=== PATIENT | male | born 1975 | race Caucasian/White ===

== ENCOUNTER 2019-01-09 08:53 | Outpatient (CLI) | payer MEDICARE, MEDICAID, SELFPAY ==
[2019-01-09 09:43] LABS: Abs Immature Grans 0.01 k/cumm (0.0-0.09); Absolute Basophil Count 0.04 k/cumm (0.0-0.2); Absolute Eosinophil Count 0.27 k/cumm (0.0-0.7); Absolute Lymphocyte Count 2.87 k/cumm (1.2-3.4); Absolute Monocyte Count 0.42 k/cumm (0.11-0.7); Absolute Neutrophil Count 4.17 k/cumm (1.2-6.7); Basophils % 0.5; Eosinophils % 3.5; HCT 40.4 % (40.0-50.0); HGB 14.1 g/dL (13.5-17.5); Immature Grans % 0.1; Lymphocytes % 36.9; Mean Corp. HGB Concentration 34.9 g/dL (32.0-36.0); Mean Corpuscular Hemoglobin 31.6 pg (27.0-33.0); Mean Corpuscular Volume 90.6 fL (80-95); Mean Platelet Volume 10.2 fL (8.0-11.0); Monocytes % 5.4; Neutrophils % 53.6; Platelet Count 229 x1000/uL (130-400); RBC 4.46 m/cumm (4.50-6.00); RBC Distribution Width 12.3 % (11.8-14.1); White Blood Cell Count 7.78 k/cumm (4.4-10.8)
[2019-01-09 10:08] LABS: COMMENT (LAB VIEW ONLY) 243.53 mg/dL; Microalb ug/mg Crea 23.9 ug/mg Cr
[2019-01-09 10:14] LABS: ALT 62 U/L (16-63); AST 29 U/L (15-37); Alkaline Phosphatase 74 U/L (46-116); BUN 7 mg/dL (7-18); Bilirubin, Total 1.1 mg/dL (0.2-1.0); CREATININE 1.01 mg/dL (0.70-1.30); Calcium 8.7 mg/dL (8.5-10.1); Calculated LDL 98 mg/dL; Chloride 103 mmol/L (98-107); Cholesterol 146 mg/dL (50-200); Glucose 216 mg/dL (70-100); HDL Cholesterol 26 mg/dL (40-60); Potassium 4.5 mmol/L (3.5-5.1); Sodium 142 mmol/L (136-145); Total Protein 6.7 g/dL (6.4-8.2); Triglyceride 112 mg/dL (30-150)
== END 2019-01-09 09:13 ==
PROVIDERS: PCP Nurse Practitioner Family; Visit Provider Nurse Practitioner Family
DX: E11.9 Type 2 diabetes mellitus without complications; E78.5 Hyperlipidemia, unspecified; Z79.899 Other long term (current) drug therapy
CPT/HCPCS: 36415; 80053; 80061; 82043; 82570; 83036; 85025

== ENCOUNTER 2019-05-22 20:31 | Outpatient (REF) | payer MEDICARE, MEDICAID, SELFPAY ==
[2019-05-22 20:08] LABS: Anion Gap 8.5 mmol/L (3-11); BUN 10 mg/dL (7-18); CO2 28.5 mmol/L (21.0-32.0); Calcium 8.7 mg/dL (8.5-10.1); Chloride 103 mmol/L (98-107); Glucose 184 mg/dL (74-106); Potassium 3.7 mmol/L (3.5-5.1); Sodium 140 mmol/L (136-145)
== END 2019-05-22 20:51 ==
LOC: LBN 20:31
PROVIDERS: PCP Nurse Practitioner Family; Visit Provider Nurse Practitioner Adult Health
DX: E11.65 Type 2 diabetes mellitus with hyperglycemia (principal); Z51.81 Encounter for therapeutic drug level monitoring
CPT/HCPCS: 80048

== ENCOUNTER 2019-08-24 12:51 | Emergency (ER) | payer MEDICARE, MEDICAID, SELFPAY ==
[2019-08-24 12:55] VITALS: BP 147/102; PULSE 81; RESP 18; TEMP 37.2; O2SAT 94
--- NOTE | 2019-08-24 13:04 | W.ED.GENAD ---
Discharge Plan Disposition Patient Disposition: HOME Condition: Stable Discharge Details Chief Complaint: Laceration Clinical Impression: Laceration of left thumb, Glued skin wound Primary Care Provider: Linda Hallman ED Provider: Josette Vasquez Home Meds and New Rx's Prescriptions: Continued chlorhexidine gluconate [Antiseptic Skin Clnsr(chlorhe)] 4 % liquid 1 applic TP DAILY Qty: 960 RF: 0 acetylcysteine [NAC] 600 mg capsule 600 mg PO BID RF: 0 atorvastatin [Lipitor] 40 mg tablet 40 mg PO DAILY Qty: 90 RF: 3 clopidogrel [Plavix] 75 mg tablet 75 mg PO DAILY Qty: 90 RF: 3 tadalafil 5 mg tablet 5 mg PO DAILY MDD 5 mg PRN (Reason: sexual activity) Qty: 30 RF: 0 Janumet XR 50-1,000 mg tablet, ER multiphase 24 hr 1 tab PO BID RF: 0 glipizide 10 mg tablet extended release 24hr 10 mg PO .daily in AM RF: 0 Tresiba FlexTouch U-100 100 unit/mL (3 mL) insulin pen 21 unit SC DAILY Qty: 15 RF: 2 (DME) lancets Misc See Dose Instructions .ROUTE .MEDSUPPLY Qty: 200 RF: 3 (DME) Blood Glucose Test Strip See Rx Instructions .ROUTE .MEDSUPPLY Qty: 200 RF: 3 naproxen 500 mg tablet 500 mg PO BID Qty: 14 RF: 0 Jardiance 10 mg tablet 10 mg PO QAM Qty: 90 RF: 3 cholecalciferol (vitamin D3) [Vitamin D3] 2,000 UNIT tablet 3,000 unit PO DAILY Qty: 90 RF: 3 multivitamin 1 EACH tablet 1 ea PO DAILY RF: 0 aspirin 325 MG tablet 325 mg PO DAILY RF: 0 hydroxyzine HCl 25 MG tablet 25 - 50 mg PO QID PRNQty: 90 RF: 0 hydrochlorothiazide 12.5 mg tablet 12.5 mg PO DAILY Qty: 90 RF: 3 lisinopril 40 mg tablet 40 mg PO DAILY Qty: 90 RF: 3 metoprolol tartrate 50 mg tablet 50 mg PO BID Qty: 180 RF: 3 (DME) pen needle, diabetic [BD Ultra-Fine Marivel Pen Needle] 32 gauge x 5/32 needle See Rx Instructions .ROUTE .MEDSUPPLY Qty: 100 RF: 3 (DME) blood-glucose meter [facility] [place] See Dose Instructions .ROUTE .MEDSUPPLY Qty: 1 RF: 0 escitalopram oxalate 20 mg tablet 20 mg PO DAILY Qty: 90 RF: 0 acetaminophen [Tylenol Extra Strength] 500 MG tablet 500 mg PO PRN PRNRF: 0 Discharge Instructions Instructions: Laceration (ED), Skin Adhesive Care (ED) Additional Instructions: Glue will fall off in 4 to 6 days. Do not scrub. May gently wash under running water after 24 hours. Return for any signs of infection including red streaks, swelling, increased pain or fever. Keep clean and dry. Follow up with primary care provider in 3-5 days. Return to ED sooner if any worsening or concerns. Increase oral fluids. Please take Tylenol or Ibuprofen with food every 4-6 hours as needed for pain and swelling. Referrals: Linda Hallman NP [Primary Care Provider] - Medical Decision Making 44-year-old male presents with left lateral thumb laceration which occurred proximately 30 minutes prior to arrival with a box tender. She has a mild laceration. Approximately 2-1/2 cm in length linear bleeding is controlled very superficial. At this time it does not require sutures. Last tetanus shot was 8 years ago. He has full range of motion to his thumb and sensation intact. Patient has a very superficial linear laceration to the lateral side of his left thumb. Bleeding is controlled. Wound was cleaned with 1% chlorhexidine scrub brush. Tissue adhesive applied wound well approximated home care given patient verbalized understanding. Patient discharged with strict return instructions. Verbalized understanding. HPI General Mode of arrival: ambulatory. Date/Time Provider Initiated Documentation: 08/24/19 12:54. Limitations to Documentation: no limitations. Information obtained by: patient. HPI Narrative: 44-year-old male presents with left lateral thumb laceration which occurred proximately 30 minutes prior to arrival with a box tender. She has a mild laceration. Approximately 2-1/2 cm in length linear bleeding is controlled very superficial. At this time it does not require sutures. Last tetanus shot was 8 years ago. He has full range of motion to his thumb and sensation intact. Related Data Home Medications Medication Instructions Recorded Confirmed cholecalciferol (vitamin D3) 3,000 unit PO DAILY #90 tab-cap 11/27/15 08/24/19 [Vitamin D3] aspirin 325 mg PO DAILY tab-cap 07/24/16 08/24/19 multivitamin 1 ea PO DAILY 07/24/16 08/24/19 acetaminophen [Tylenol Extra 500 mg PO PRN PRN 01/25/17 08/24/19 Strength] hydroxyzine HCl 25 - 50 mg PO QID PRN #90 tab-cap 11/26/17 08/24/19 chlorhexidine gluconate 4 % 1 applic TP DAILY #960 ml 03/14/18 08/24/19 topical liquid acetylcysteine 600 mg capsule 600 mg PO BID 06/30/18 08/24/19 hydrochlorothiazide 12.5 mg tablet 12.5 mg PO DAILY #90 tab-cap 09/30/18 08/24/19 lisinopril 40 mg tablet 40 mg PO DAILY #90 tab-cap 09/30/18 08/24/19 metoprolol tartrate 50 mg tablet 50 mg PO BID #180 tab-cap 09/30/18 08/24/19 atorvastatin 40 mg tablet 40 mg PO DAILY #90 tab-cap 01/09/19 08/24/19 clopidogrel 75 mg tablet 75 mg PO DAILY #90 tab-cap 01/09/19 08/24/19 tadalafil 5 mg tablet 5 mg PO DAILY PRN #30 tab-cap MDD 01/09/19 08/24/19 5 mg pen needle, diabetic 32 gauge x #100 each 04/17/19 06/05/19 blood-glucose meter #1 each 04/24/19 06/05/19 blood sugar diagnostic #200 each 05/22/19 06/05/19 glipizide 10 mg tablet, extended 10 mg PO .daily in AM tab-cap 05/22/19 08/24/19 release 24 hr insulin degludec 100 unit/mL (3 21 unit SC DAILY #15 ml 05/22/19 08/24/19 mL) subcutaneous pen lancets #200 each 05/22/19 06/05/19 sitagliptin 50 mg-metformin ER 1 tab PO BID tab-cap 05/22/19 08/24/19 1,000 mg tablet,extended release 24h mp escitalopram oxalate 20 mg tablet 20 mg PO DAILY #90 tab 05/24/19 08/24/19 empagliflozin 10 mg tablet 10 mg PO QAM #90 tab-cap 08/07/19 08/24/19 naproxen 500 mg tablet 500 mg PO BID #14 tab 08/07/19 08/24/19 Previous Rx's Medication Instructions Recorded chlorhexidine gluconate 4 % 1 applic TP DAILY #960 ml 03/14/18 topical liquid hydrochlorothiazide 12.5 mg tablet 12.5 mg PO DAILY #90 tab-cap 09/30/18 lisinopril 40 mg tablet 40 mg PO DAILY #90 tab-cap 09/30/18 metoprolol tartrate 50 mg tablet 50 mg PO BID #180 tab-cap 09/30/18 atorvastatin 40 mg tablet 40 mg PO DAILY #90 tab-cap 01/09/19 clopidogrel 75 mg tablet 75 mg PO DAILY #90 tab-cap 01/09/19 tadalafil 5 mg tablet 5 mg PO DAILY PRN #30 tab-cap MDD 01/09/19 5 mg pen needle, diabetic 32 gauge x #100 each 04/17/19 blood-glucose meter #1 each 04/24/19 blood sugar diagnostic #200 each 05/22/19 insulin degludec 100 unit/mL (3 21 unit SC DAILY #15 ml 05/22/19 mL) subcutaneous pen lancets #200 each 05/22/19 escitalopram oxalate 20 mg tablet 20 mg PO DAILY #90 tab 05/24/19 empagliflozin 10 mg tablet 10 mg PO QAM #90 tab-cap 08/07/19 naproxen 500 mg tablet 500 mg PO BID #14 tab 08/07/19 Allergies Allergy/AdvReac Type Severity Reaction Status Date / Time hydromorphone [From Dilaudid] AdvReac Intermediate Psychosis Verified 08/24/19 12:59 codeine [Codeine] AdvReac Unknown PSYCHOSIS Verified 08/24/19 12:59 General Stated Complaint: Laceration DIANNE: 4 Review of Systems Narrative: Constitutional: Negative for weight loss, alert and oriented, well groomed, normal body habitus, appears comfortable. GI: Denies abdominal pain, nausea, vomiting, diarrhea, constipation. : Denies dysuria, hematuria, flank pain, rectal bleeding. Neuro: Denies dizziness, blurry vision, weakness, syncope, headache or facial numbness. Hematologic: Denies easy bruising, intolerance to heat or cold, hair loss. [facility] Medical History Advance directive in chart (Chronic 09/02/16) Alcohol use disorder (Chronic 04/29/11) BINGE Anxiety (Chronic 04/29/11) ASCVD (arteriosclerotic cardiovascular disease) (Chronic) Anterior [place] 12/2013 --> MAGDALENA in [place] EF 40% post-[place] 09/2014 echo EF improved to almost normal at 54% Followed by reinforced steel placing supervisor Dr. Galaviz at [facility] Benign prostatic hyperplasia with lower urinary tract symptoms (Chronic 01/28/17) Bipolar disorder (Chronic) Dx psychiatry [facility] Cardiomyopathy (Chronic) Followed by reinforced steel placing supervisor Dr. Galaviz at [facility] Cerebrovascular accident (CVA) (Inactive 08/03/16) [facility] [place]07/20[place]2016 R valdez radiata, basal ganglia, subinsular region and temporal lob infarcts s/p tPA and thrombectomy (07/11/16) with recanalization De Quervain's tenosynovitis, right (Acute) Depression (Chronic 04/29/11) Erectile dysfunction (Chronic 11/29/15) Essential hypertension (Chronic 11/25/12) Hyperlipidemia, unspecified (Chronic 04/29/11) Intolerant to atorvastatin; able to tolerate once vit D deficiency addressed Kidney stone (Resolved 04/26/15) 100% calcium oxalate monohydrate Obesity (BMI 30-39.9) (Chronic 08/28/14) Obstructive sleep apnea syndrome, mild (Chronic 11/03/16) Shanika Jimenez NP CPAP Panic disorder without agoraphobia (Chronic 04/29/11) Patellar fracture (Resolved 01/26/17) (L) S/p surgical repair Tobacco use disorder (Chronic) Type 2 diabetes mellitus, without long-term current use of insulin (Acute) Vitamin D deficiency (Chronic 05/23/15) Surgical History Heart Surgery (Resolved) stent placement Open Reduction and Internal Fixation of Patellar Fracture (Resolved 01/26/17) (L) Dr. eLmus Vasectomy (Resolved 01/19/06) Family History Other CAD (coronary artery disease) Social History Smoking/Tobacco Use Status: Current every day Tobacco Type: e-cigarettes Alcohol Intake: current Alcohol Intake frequency: holidays/special occasions only Drug use: Never Substance use type: does not use Adopted: No Caregiver/Support person: No Foster care: No Household members: children and other Details: 2 - lives with son Housing: apartment Number of Children: 2 Communication Needs: None current occupation: works for a [employer] Pets and animals: No Current gender identity: male What type of physical activity do you participate in: none Seatbelt use: always Helmet use: No 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 Water heater temp set <120 deg: Yes Working smoke detector in home: Yes Fire extinguisher in home: Yes Carbon monox detector in home: Yes Do you feel safe at home: Yes Do you feel safe in your relationship?: Yes Exam Const General: cooperative, healthy appearing and comfortable Nutritional Appearance: obese Orientation: alert, awake and oriented x3 Resp Effort & Inspection: normal respiratory effort Skin Trauma: laceration left lateral thumb linear, superficial, motor nerve function intact and sensation intact; does not involve subcutaneous tissue and does not involve muscle tissue Course Vital Signs Vital signs: Vital Signs Temperature 37.2 C 08/24/19 12:55 Pulse 81 08/24/19 12:55 Respiratory Rate 18 08/24/19 12:55 Blood Pressure 147/102 H 08/24/19 12:55 Pulse Oximetry 94 L 08/24/19 12:55 Temperature 37.2 C 08/24/19 12:55 Temperature Source Temporal Artery Scan 08/24/19 12:55 Pulse 81 08/24/19 12:55 Respiratory Rate 18 08/24/19 12:55 Blood Pressure 147/102 H 08/24/19 12:55 Blood Pressure Position Sitting 08/24/19 12:55 Pulse Oximetry 94 L 08/24/19 12:55 Oxygen Delivery Method Room Air 08/24/19 12:55 Oxygen Flow Rate 0 08/24/19 12:55 Pain Level 1 08/24/19 12:55 Procedures Laceration Laceration 1: Site: hand (Left thumb) Side (If applicable): left Size (cm): 2 Description: linear Depth: simple, single layer Local Anesthetic: other anesthetic (None) Pre-repair: irrigated extensively Skin layer closed with: other (Tissue adhesive)
== END 2019-08-24 13:30 | disposition home or self-care (01) ==
PROVIDERS: Emergency Provider Registered Nurse Emergency; PCP Nurse Practitioner Family
DX: S61.012A Laceration without foreign body of left thumb without damage to nail, initial encounter (principal); W26.0XXA Contact with knife, initial encounter; I10 Essential (primary) hypertension; E11.9 Type 2 diabetes mellitus without complications; Z79.84 Long term (current) use of oral hypoglycemic drugs
CPT/HCPCS: 12001

== ENCOUNTER → 2019-08-30 10:36 | Outpatient (BNVA) | payer MEDICARE, MEDICAID, SELFPAY | PROVIDERS: PCP Nurse Practitioner Family; Referring Provider Nurse Practitioner Family; Visit Provider Orthopaedic Surgery | DX: M65.4 Radial styloid tenosynovitis [de Quervain] (principal) | CPT/HCPCS: 99201; 99213 ==

== ENCOUNTER 2019-09-22 08:29 | Outpatient (CLI) | payer MEDICARE, MEDICAID, SELFPAY ==
[2019-09-23 00:49] LABS: COVID-19 RT-PCR UVMMC Result Negative (Negative)
== END 2019-09-22 08:49 ==
PROVIDERS: PCP Nurse Practitioner Family; Visit Provider Orthopaedic Surgery
DX: Z11.59 Encounter for screening for other viral diseases (principal); Z01.818 Encounter for other preprocedural examination
CPT/HCPCS: U0003

== ENCOUNTER 2019-09-25 08:17 | Day surgery (SDC) | payer MEDICARE, MEDICAID, SELFPAY ==
[2019-09-25 08:20] VITALS: BP 128/92; PULSE 85; RESP 16; TEMP 36.2; O2SAT 100
--- NOTE | 2019-09-25 08:23 | HPE_ITS ---
Date of service: 09/25/19 Assessment and Plan Assessment and plan (1) De Quervain's tenosynovitis, right: Status: Acute Assessment and plan: 1st dorsal compartment release right wrist. Details of surgery were discussed with patient as well as risks and pertinent anatomy. All questions were answered. History of Present Illness History of Present Illness Chief Complaint: Right thumb and wrist pain Narrative: Shukri is a 44 year old male who comes in today for a De Quervain's release of the right thumb. He has been dealing with wrist and thumb pain for about six months now. He thinks he agrivated this pain with an injury back in April. He has pain whenever he tries to use his right hand especially with a lot of gripping activities. He has tried conservative treatment including NSAID's and bracing which have not significantly helped. At this point Dr. Marvin offers a release of the 1st dorsal compartment of the right wrist and the patient is anxious to proceed. Pertinent Surgical Information Shukri does have a history of a CVA documented in his chart in 2016 as well as an ID in 2013. He also has a history of diabetes, last A1C was improved to 7.0 on 09/11/2019 from 11.2 on 04/17/2019. Patient denies history of ID, angina, asthma, COPD, renal or liver disorders, hepatitis, bleeding disorders, immune or thyroid disorders. No complications from anesthesia. Review of Systems Constitutional Constitutional: Denies fever(s) ENT Ears, Nose, Mouth, and Throat: Denies dizziness and Denies sore throat Cardiovascular Cardiovascular: Denies chest pain, Denies palpitations and Denies dyspnea Respiratory Respiratory: Denies cough and Denies dyspnea Gastrointestinal Gastrointestinal: Denies abdominal pain, Denies melena, Denies hematochezia, Denies diarrhea, Denies nausea and Denies vomiting Genitourinary Genitourinary: Denies hematuria and Denies dysuria Neurologic Neurologic: Denies dizziness Endocrine Endocrine: Denies palpitations [facility] Medical History (Updated 09/24/19 @ 00:01 by REBECCA BRODERICK) Advance directive in chart (Chronic 09/02/16) Alcohol use disorder (Chronic 04/29/11) BINGE pER PT. STATES HE DOESN'T DRINK ANYMORE, HASN'T IN YEARS 09/21/19 Anxiety (Chronic 04/29/11) ASCVD (arteriosclerotic cardiovascular disease) (Chronic) Anterior [place] 12/2013 --> MAGDALENA in [place] EF 40% post-[place] 09/2014 echo EF improved to almost normal at 54% Followed by biology department chair Dr. Galaviz at [facility] Benign prostatic hyperplasia with lower urinary tract symptoms (Chronic 01/28/17) Bipolar disorder (Chronic) Dx psychiatry [facility] PT. DENIES THIS DX Cardiomyopathy (Chronic) Followed by biology department chair Dr. Galaviz at [facility] Cerebrovascular accident (CVA) (Inactive 08/03/16) [facility] [place] admission 07/11-07/20/2016 R valdez radiata, basal ganglia, subinsular region and temporal lob infarcts s/p tPA and thrombectomy (07/11/16) with recanalization De Quervain's tenosynovitis, right (Acute) Depression (Chronic 04/29/11) Erectile dysfunction (Chronic 11/29/15) Essential hypertension (Chronic 11/25/12) Hyperlipidemia, unspecified (Chronic 04/29/11) Intolerant to atorvastatin; able to tolerate once vit D deficiency addressed Kidney stone (Resolved 04/26/15) 100% calcium oxalate monohydrate Obesity (BMI 30-39.9) (Chronic 08/28/14) Obstructive sleep apnea syndrome, mild (Chronic 11/03/16) Shanika Jimenez NP DOES NOT USE CPAP Panic disorder without agoraphobia (Chronic 04/29/11) Patellar fracture (Resolved 01/26/17) (L) S/p surgical repair Tobacco use disorder (Chronic) Type 2 diabetes mellitus, without long-term current use of insulin (Acute) Vitamin D deficiency (Chronic 05/23/15) Surgical History (Updated 09/21/19 @ 13:55 by Hong Serna) Heart Surgery (Resolved) stent placement X1 Open Reduction and Internal Fixation of Patellar Fracture (Resolved 01/26/17) (L) Dr. 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 Water heater temp set <120 deg: Yes Working smoke detector in home: Yes Fire extinguisher in home: Yes Carbon monox detector in home: Yes Do you feel safe at home: Yes Do you feel safe in your relationship?: Yes Meds Home Medications and Allergies Home Medications Medication Instructions Recorded Confirmed Type cholecalciferol (vitamin D3) 3,000 unit PO DAILY #90 tab-cap 11/27/15 09/21/19 History [Vitamin D3] aspirin 325 mg PO DAILY tab-cap 07/24/16 09/21/19 History multivitamin 1 ea PO DAILY 07/24/16 09/21/19 History acetaminophen [Tylenol Extra 500 mg PO PRN PRN 01/25/17 09/21/19 History Strength] hydroxyzine HCl 25 - 50 mg PO QID PRN #90 tab-cap 11/26/17 09/21/19 History chlorhexidine gluconate 4 % 1 applic TP DAILY #960 ml 03/14/18 09/21/19 Rx topical liquid acetylcysteine 600 mg capsule 600 mg PO BID 06/30/18 09/21/19 History hydrochlorothiazide 12.5 mg tablet 12.5 mg PO DAILY #90 tab-cap 09/30/18 09/21/19 Rx lisinopril 40 mg tablet 40 mg PO DAILY #90 tab-cap 09/30/18 09/21/19 Rx metoprolol tartrate 50 mg tablet 50 mg PO BID #180 tab-cap 09/30/18 09/21/19 Rx atorvastatin 40 mg tablet 40 mg PO DAILY #90 tab-cap 01/09/19 09/21/19 Rx clopidogrel 75 mg tablet 75 mg PO DAILY #90 tab-cap 01/09/19 09/21/19 Rx tadalafil 5 mg tablet 5 mg PO DAILY PRN #30 tab-cap MDD 01/09/19 09/21/19 Rx 5 mg pen needle, diabetic 32 gauge x #100 each 04/17/19 09/11/19 Rx 5/32 blood-glucose meter #1 each 04/24/19 09/11/19 Rx blood sugar diagnostic #200 each 05/22/19 09/11/19 Rx glipizide 10 mg tablet, extended 10 mg PO .daily in AM tab-cap 05/22/19 09/21/19 History release 24 hr lancets #200 each 05/22/19 09/11/19 Rx sitagliptin 50 mg-metformin ER 1 tab PO BID tab-cap 05/22/19 09/21/19 History 1,000 mg tablet,extended release 24h mp empagliflozin 10 mg tablet 10 mg PO QAM #90 tab-cap 08/07/19 09/21/19 Rx naproxen 500 mg tablet 500 mg PO BID #14 tab 08/07/19 09/21/19 Rx pantoprazole 20 mg tablet,delayed 20 mg PO DAILY #90 tab-cap 09/11/19 09/21/19 Rx release escitalopram oxalate 20 mg tablet 20 mg PO DAILY #90 tab-cap 09/15/19 09/21/19 Rx Tresiba FlexTouch U-100 21 unit SC QAM 09/21/19 09/21/19 History Allergies Allergy/AdvReac Type Severity Reaction Status Date / Time hydromorphone [From Dilaudid] AdvReac Intermediate Psychosis Verified 09/25/19 08:24 codeine [Codeine] AdvReac Unknown PSYCHOSIS Verified 09/25/19 08:24 Exam Const General: cooperative and no acute distress Orientation: alert and awake [facility] Head: normocephalic and atraumatic General nose exam: no nasal discharge Eyes Conjunctivae: conjunctivae normal Sclera: sclerae normal Resp Effort & Inspection: normal respiratory effort Auscultation: clear to auscultation bilaterally and no wheezes Cardio Rate: regular rate Rhythm: regular rhythm Heart Sounds: S1 normal, S2 normal and no murmurs GI Palpation: soft, no hepatosplenomegaly and nontender Auscultation: normal bowel sounds
[2019-09-25] MEDS: Lactated Ringers 1,000 ML 80 ML IV (08:59)
[2019-09-25] MEDS: ceFAZolin 2 GM/50 ML BAG IVPB (09:53)
--- NOTE | 2019-09-25 10:33 | PDOC.DSDIS_ITS ---
Discharge Plan Disposition Patient Disposition: HOME Condition: Good Discharge Details Reason For Visit: DEQUERVAIN'S RELEASE R WRIST Attending Provider: Donald Marvin Primary Care Provider: Linda Hallman Home Meds and New Rx's Prescriptions: New ibuprofen 800 mg tablet 800 mg PO TID Qty: 30 RF: 0 tramadol 100 mg tablet 100 mg PO BID PRN (Reason: pain) Qty: 7 RF: 0 No Action chlorhexidine gluconate [Antiseptic Skin Clnsr(chlorhe)] 4 % liquid 1 applic TP DAILY Qty: 960 RF: 0 acetylcysteine [NAC] 600 mg capsule 600 mg PO BID RF: 0 atorvastatin [Lipitor] 40 mg tablet 40 mg PO DAILY Qty: 90 RF: 3 clopidogrel [Plavix] 75 mg tablet 75 mg PO DAILY Qty: 90 RF: 3 tadalafil 5 mg tablet 5 mg PO DAILY MDD 5 mg PRN (Reason: sexual activity) Qty: 30 RF: 0 Janumet XR 50-1,000 mg tablet, ER multiphase 24 hr 1 tab PO BID RF: 0 glipizide 10 mg tablet extended release 24hr 10 mg PO .daily in AM RF: 0 (DME) lancets Misc See Dose Instructions .ROUTE .MEDSUPPLY Qty: 200 RF: 3 (DME) blood sugar diagnostic [Blood Glucose Test] Strip See Rx Instructions .ROUTE .MEDSUPPLY Qty: 200 RF: 3 pantoprazole 20 mg tablet,delayed release (DR/EC) 20 mg PO DAILY Qty: 90 RF: 3 naproxen 500 mg tablet 500 mg PO BID Qty: 14 RF: 0 Jardiance 10 mg tablet 10 mg PO QAM Qty: 90 RF: 3 cholecalciferol (vitamin D3) [Vitamin D3] 2,000 UNIT tablet 3,000 unit PO DAILY Qty: 90 RF: 3 multivitamin 1 EACH tablet 1 ea PO DAILY RF: 0 aspirin 325 MG tablet 325 mg PO DAILY RF: 0 hydroxyzine HCl 25 MG tablet 25 - 50 mg PO QID PRNQty: 90 RF: 0 hydrochlorothiazide 12.5 mg tablet 12.5 mg PO DAILY Qty: 90 RF: 3 lisinopril 40 mg tablet 40 mg PO DAILY Qty: 90 RF: 3 metoprolol tartrate 50 mg tablet 50 mg PO BID Qty: 180 RF: 3 (DME) pen needle, diabetic [BD Ultra-Fine Marivel Pen Needle] 32 gauge x 5/32 needle See Rx Instructions .ROUTE .MEDSUPPLY Qty: 100 RF: 3 (DME) blood-[place] [facility] [place] Dose Instructions .ROUTE .MEDSUPPLY Qty: 1 RF: 0 escitalopram oxalate 20 mg tablet 20 mg PO DAILY Qty: 90 RF: 3 acetaminophen [Tylenol Extra Strength] 500 MG tablet 500 mg PO PRN PRNRF: 0 Tresiba FlexTouch U-100 100 unit/mL (3 mL) insulin pen 21 unit SC QAM RF: 0 Discharge Instructions Additional Instructions: Elevate R hand above heart level as much as possible for next 48 hours. Wiggle fingers R hand 10 times/hour when awake to prevent swelling. Keep splint and dressings dry and in place for 5 days. After 5 days, remove splint and dressings and begin to move R wrist and thumb. May then shower and get incision wet. Leave incision uncovered when it is dry and sealed. Use R hand as much as your discomfort allows. Follow up with in 2 weeks. Take ibuprofen for 10 days as prescribed to decrease swelling and inflammation. Take Tramadol for breakthru pain, if needed. Equipment/Supplies: Splint Activity:: Activity as Tolerated Shower/Bathe:: Cover Diet:: As Tolerated Discharge Orders Discharge Orders: Discharge Order (Routine); Ordered 09/25/19 Ordered By: Donald Marvin DS: Diagnosis Discharge Diagnosis (1) De Quervain's tenosynovitis, right: Status: Acute
[2019-09-25 11:00] VITALS: BP 104/71; PULSE 54; RESP 18; TEMP 36.2; O2SAT 98
--- NOTE | 2019-09-26 08:42 | ROE_ITS ---
Date of service: 09/25/19 Time of Service: 11:42 Operative Note Operative Note DATE OF PROCEDURE: 09/25/19 PRE-OP DIAGNOSIS: DeQuervain's tenosynovitis of the first dorsal extensor compartment right wrist. POST-OP DIAGNOSIS: same PROCEDURE: Tendon sheath incision at radial styloid for DeQuervain's tenosynovitis on the right. Application of short arm radial thumb spica splint. SURGEON: Donald Marvin ANESTHESIA: regional ESTIMATED BLOOD LOSS: 0 COMPLICATIONS: None Patient was transported to: PACU Patient's condition: stable Indications: Is a 44-year-old white male with a 5-month history of DeQuervain's denies of the right wrist. The pain is continued despite adequate trials of anti-inflammatory medications and use of a thumb spica splint. Tendon sheath incision to decompress the first dorsal extensor ramirez recommended to alleviate his symptoms permanently. The risk on case of procedure explained patient detail preop. Procedure Description: Patient in the operating room on 09/25/2019 and placed supine operative table. An IV regional anesthetic was administered to the right upper extremity. Once good anesthesia was obtained the right hand wrist and forearm were prepped and draped free in usual sterile fashion. An incision was located lysed over the first dorsal extensor compartment. Incision was approximately 3 inches in length. Incision was carried down to the skin and subcu. Superficial sensory nerves were identified and mobilized away from the first dorsal extensor compartment. The sheath of the first dorsal extensor extensor compartment was incised. The sheath was quite thickened. There was separate compartment within the first dorsal extensor compartment. The separate compartment was excised. It turned out that there were 4 separate and distinct tendon slips within the first dorsal extensor compartment. Each of these slips were thoroughly mobilized. Hypertrophic synovium was excised with a rongeur. This point the wound was irrigated with saline solution. The wound margins were infiltrated 0.5% Marcaine solution. The skin and subcu were approximated with a few horizontal mattress sutures of 4-0 nylon suture material. Wounds dressed with Xeroform gauze sterile gauze 4 x 4's and ABD pad wrapped with a Kerlix bandage. A radial thumb spica splint of fiberglass cast material was fashioned and applied a 3 inch Fermin bandage. Patient's IV regional anesthesia with wrist without complications. He was discharged to the recovery room in good condition. Patient was later discharged home from day surgery unit when fully recovered from his IV regional anesthesia. He is given instructions to elevate his right hand above heart level as much as possible overnight tonight. Encouraged to w iggle his fingers 10 times an hour to prevent swelling. He is keep the dressings and splint dry and intact for 5 days. After 5 days he is to remove the dressings and splint and begin to move his right wrist. He may then shower and get incision wet. He can keep his incision uncovered if it is dry and sealed. He may use his right wrist as much as discomfort allows. He is given prescription for inflammation of ibuprofen 800 mg p.o. 3 times daily for 10 days. He is given a prescription for breakthrough pain of hydrocodone with APAP 08/12/2024 1 tab every 6 hours as needed. He will follow-up with Dr. Marvin in 2 weeks.
== END 2019-09-25 11:15 | disposition home or self-care (01) ==
PROVIDERS: PCP Nurse Practitioner Family; Visit Provider Orthopaedic Surgery
PROC: (CPT 25000; principal; 2019-09-25 09:30)
DX: M65.4 Radial styloid tenosynovitis [de Quervain] (principal)
CPT/HCPCS: 25000; NC; J0690; J1885

== ENCOUNTER 2019-10-04 02:29 | Emergency (ER) | payer MEDICARE, MEDICAID, SELFPAY ==
[2019-10-04 02:32] VITALS: BP 139/93; PULSE 70; RESP 16; TEMP 36.3; O2SAT 99
--- NOTE | 2019-10-04 02:42 | ED.GENADUL_ITS ---
Discharge Plan Disposition Patient Disposition: HOME Condition: Good Discharge Details Chief Complaint: Recheck Clinical Impression: Postoperative hematoma Primary Care Provider: Linda Hallman ED Provider: Manan No Meds and New Rx's Prescriptions: Continued chlorhexidine gluconate [Antiseptic Skin Clnsr(chlorhe)] 4 % liquid 1 applic TP DAILY Qty: 960 RF: 0 acetylcysteine [NAC] 600 mg capsule 600 mg PO BID RF: 0 atorvastatin [Lipitor] 40 mg tablet 40 mg PO DAILY Qty: 90 RF: 3 clopidogrel [Plavix] 75 mg tablet 75 mg PO DAILY Qty: 90 RF: 3 tadalafil 5 mg tablet 5 mg PO DAILY MDD 5 mg PRN (Reason: sexual activity) Qty: 30 RF: 0 Janumet XR 50-1,000 mg tablet, ER multiphase 24 hr 1 tab PO BID RF: 0 glipizide 10 mg tablet extended release 24hr 10 mg PO .daily in AM RF: 0 (DME) lancets Misc See Dose Instructions .ROUTE .MEDSUPPLY Qty: 200 RF: 3 (DME) blood sugar diagnostic [Blood Glucose Test] Strip See Rx Instructions .ROUTE .MEDSUPPLY Qty: 200 RF: 3 pantoprazole 20 mg tablet,delayed release (DR/EC) 20 mg PO DAILY Qty: 90 RF: 3 naproxen 500 mg tablet 500 mg PO BID Qty: 14 RF: 0 Jardiance 10 mg tablet 10 mg PO QAM Qty: 90 RF: 3 cholecalciferol (vitamin D3) [Vitamin D3] 2,000 UNIT tablet 3,000 unit PO DAILY Qty: 90 RF: 3 multivitamin 1 EACH tablet 1 ea PO DAILY RF: 0 aspirin 325 MG tablet 325 mg PO DAILY RF: 0 hydroxyzine HCl 25 MG tablet 25 - 50 mg PO QID PRNQty: 90 RF: 0 hydrochlorothiazide 12.5 mg tablet 12.5 mg PO DAILY Qty: 90 RF: 3 lisinopril 40 mg tablet 40 mg PO DAILY Qty: 90 RF: 3 metoprolol tartrate 50 mg tablet 50 mg PO BID Qty: 180 RF: 3 (DME) pen needle, diabetic [BD Ultra-Fine Marivel Pen Needle] 32 gauge x 5/32 needle See Rx Instructions .ROUTE .MEDSUPPLY Qty: 100 RF: 3 (DME) blood-glucose meter Misc See Dose Instructions .ROUTE .MEDSUPPLY Qty: 1 RF: 0 escitalopram oxalate 20 mg tablet 20 mg PO DAILY Qty: 90 RF: 3 acetaminophen [Tylenol Extra Strength] 500 MG tablet 500 mg PO PRN PRNRF: 0 Tresiba FlexTouch U-100 100 unit/mL (3 mL) insulin pen 21 unit SC QAM RF: 0 ibuprofen 800 mg tablet 800 mg PO TID Qty: 30 RF: 0 tramadol 100 mg tablet 100 mg PO BID PRN (Reason: pain) Qty: 7 RF: 0 Discharge Instructions Additional Instructions: This was likely a hematoma which is now drained. There is no evidence of infection or dehiscence of the wound. Continue previous medical management. Touch base with Dr. Marvin in the morning. Keep your regularly scheduled follow-up appointment. Return to ED if problems. Referrals: Donald Marvin MD [ [facility] STAFF PHYSICIAN] - Medical Decision Making Suspect patient had a postoperative hematoma which is now drained. Sutures remain intact. There is no evidence of infection. There is no active bleeding. Discussed with patient. Dressing applied. He will touch base with Dr. Marvin in the morning. Return to ED if problems. HPI General Mode of arrival: ambulatory . Date/Time Provider Initiated Documentation: 10/04/19 02:35 . Limitations to Documentation: no limitations . Information obtained by: patient, RN notes reviewed and old records reviewed . HPI Narrative: Patient presents to ED with bleeding from previous operative site. Patient had surgery for de Quervain's tendinitis on the . Tonight he woke with bleeding. He had trouble getting the bleeding to stop. He presents here now for evaluation but there is no further bleeding. There is been no redness, drainage, worsening pain. Related Data Home Medications Medication Instructions Recorded Confirmed cholecalciferol (vitamin D3) 3,000 unit PO DAILY #90 tab-cap 11/27/15 10/04/19 [Vitamin D3] aspirin 325 mg PO DAILY tab-cap 07/24/16 10/04/19 multivitamin 1 ea PO DAILY 07/24/16 10/04/19 acetaminophen [Tylenol Extra 500 mg PO PRN PRN 01/25/17 10/04/19 Strength] hydroxyzine HCl 25 - 50 mg PO QID PRN #90 tab-cap 11/26/17 10/04/19 chlorhexidine gluconate 4 % 1 applic TP DAILY #960 ml 03/14/18 09/21/19 topical liquid acetylcysteine 600 mg capsule 600 mg PO BID 06/30/18 10/04/19 hydrochlorothiazide 12.5 mg tablet 12.5 mg PO DAILY #90 tab-cap 09/30/18 10/04/19 lisinopril 40 mg tablet 40 mg PO DAILY #90 tab-cap 09/30/18 10/04/19 metoprolol tartrate 50 mg tablet 50 mg PO BID #180 tab-cap 09/30/18 10/04/19 atorvastatin 40 mg tablet 40 mg PO DAILY #90 tab-cap 01/09/19 10/04/19 clopidogrel 75 mg tablet 75 mg PO DAILY #90 tab-cap 01/09/19 10/04/19 tadalafil 5 mg tablet 5 mg PO DAILY PRN #30 tab-cap MDD 01/09/19 09/21/19 5 mg pen needle, diabetic 32 gauge x #100 each 04/17/19 09/11/19 blood-glucose meter #1 each 04/24/19 09/11/19 blood sugar diagnostic #200 each 05/22/19 09/11/19 glipizide 10 mg tablet, extended 10 mg PO .daily in AM tab-cap 05/22/19 10/04/19 release 24 hr lancets #200 each 05/22/19 09/11/19 sitagliptin 50 mg-metformin ER 1 tab PO BID tab-cap 05/22/19 10/04/19 1,000 mg tablet,extended release 24h mp empagliflozin 10 mg tablet 10 mg PO QAM #90 tab-cap 08/07/19 10/04/19 naproxen 500 mg tablet 500 mg PO BID #14 tab 08/07/19 10/04/19 pantoprazole 20 mg tablet,delayed 20 mg PO DAILY #90 tab-cap 09/11/19 10/04/19 release escitalopram oxalate 20 mg tablet 20 mg PO DAILY #90 tab-cap 09/15/19 10/04/19 Tresiba FlexTouch U-100 21 unit SC QAM 09/21/19 10/04/19 ibuprofen 800 mg PO TID #30 tab 09/25/19 10/04/19 tramadol 100 mg PO BID PRN #7 tab 09/25/19 10/04/19 Previous Rx's Medication Instructions Recorded chlorhexidine gluconate 4 % 1 applic TP DAILY #960 ml 03/14/18 topical liquid hydrochlorothiazide 12.5 mg tablet 12.5 mg PO DAILY #90 tab-cap 09/30/18 lisinopril 40 mg tablet 40 mg PO DAILY #90 tab-cap 09/30/18 metoprolol tartrate 50 mg tablet 50 mg PO BID #180 tab-cap 09/30/18 atorvastatin 40 mg tablet 40 mg PO DAILY #90 tab-cap 01/09/19 clopidogrel 75 mg tablet 75 mg PO DAILY #90 tab-cap 01/09/19 tadalafil 5 mg tablet 5 mg PO DAILY PRN #30 tab-cap MDD 01/09/19 5 mg pen needle, diabetic 32 gauge x #100 each 04/17/19 blood-glucose meter #1 each 04/24/19 blood sugar diagnostic #200 each 05/22/19 lancets #200 each 05/22/19 empagliflozin 10 mg tablet 10 mg PO QAM #90 tab-cap 08/07/19 naproxen 500 mg tablet 500 mg PO BID #14 tab 08/07/19 pantoprazole 20 mg tablet,delayed 20 mg PO DAILY #90 tab-cap 09/11/19 release escitalopram oxalate 20 mg tablet 20 mg PO DAILY #90 tab-cap 09/15/19 ibuprofen 800 mg PO TID #30 tab 09/25/19 tramadol 100 mg PO BID PRN #7 tab 09/25/19 Allergies Allergy/AdvReac Type Severity Reaction Status Date / Time hydromorphone [From Dilaudid] AdvReac Intermediate Psychosis Verified 09/25/19 08:24 codeine [Codeine] AdvReac Unknown PSYCHOSIS Verified 09/25/19 08:24 General Stated Complaint: Recheck DIANNE: 4 Review of Systems Constitutional Constitutional: Denies fever(s) Integumentary/Breasts Skin/Breast: Denies erythema [facility] Medical History Advance directive in chart (Chronic 09/02/16) Alcohol use disorder (Chronic 04/29/11) BINGE pER PT. STATES HE DOESN'T DRINK ANYMORE, HASN'T IN YEARS 09/21/19 Anxiety (Chronic 04/29/11) ASCVD (arteriosclerotic cardiovascular disease) (Chronic) Anterior AK 12/2013 --> MAGDALENA in LAD EF 40% post-AK 09/2014 echo EF improved to almost normal at 54% Followed by simplex operator Dr. Galaviz at [facility] Benign prostatic hyperplasia with lower urinary tract symptoms (Chronic 01/28/17) Bipolar disorder (Chronic) Dx psychiatry [facility] PT. DENIES THIS DX Cardiomyopathy (Chronic) Followed by simplex operator Dr. Galaviz at [facility] Cerebrovascular accident (CVA) (Inactive 08/03/16) [facility] admission 07/11-07/20/2016 R valdez radiata, basal ganglia, subinsular region and temporal lob infarcts s/p tPA and thrombectomy (07/11/16) with recanalization De Quervain's tenosynovitis, right (Acute) Depression (Chronic 04/29/11) Erectile dysfunction (Chronic 11/29/15) Essential hypertension (Chronic 11/25/12) Hyperlipidemia, unspecified (Chronic 04/29/11) Intolerant to atorvastatin; able to tolerate once vit D deficiency addressed Kidney stone (Resolved 04/26/15) 100% calcium oxalate monohydrate Obesity (BMI 30-39.9) (Chronic 08/28/14) Obstructive sleep apnea syndrome, mild (Chronic 11/03/16) Shanika Jimenez NP DOES NOT USE CPAP Panic disorder without agoraphobia (Chronic 04/29/11) Patellar fracture (Resolved 01/26/17) (L) S/p surgical repair Tobacco use disorder (Chronic) Type 2 diabetes mellitus, without long-term current use of insulin (Acute) Vitamin D deficiency (Chronic 05/23/15) Surgical History Heart Surgery (Resolved) stent placement X1 Open Reduction and Internal Fixation of Patellar Fracture (Resolved 01/26/17) (L) Dr. Lemus Vasectomy (Resolved 01/19/06) Social History Smoking/Tobacco Use Status: Current every day Tobacco Type: cigarettes and e- cigarettes Alcohol Intake: former Drug use: Never Substance use type: does not use Adopted: No Caregiver/Support person: No Foster care: No Household members: children and other Details: 2 - lives with son Housing: apartment Number of Children: 2 Communication Needs: None current occupation: works for a [employer] Pets and animals: No Current gender identity: male What type of physical activity do you participate in: none Seatbelt use: always Helmet use: No Drive 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 w/intox nascar driver: No Water heater temp set <120 deg: Yes Working smoke detector in home: Yes Fire extinguisher in home: Yes Carbon monox detector in home: Yes Do you feel safe at home: Yes Do you feel safe in your relationship?: Yes Exam Const General: cooperative, comfortable and no acute distress Orientation: alert and oriented x3 HENMT Head: normocephalic and atraumatic Neck Neck: normal visual inspection, trachea midline and supple Resp Effort & Inspection: normal respiratory effort Skin Other: Postop incision clean dry and intact at this time. No bleeding. No redness. No tenderness. Course Vital Signs Vital signs: Vital Signs Temperature 97.3 F L 10/04/19 02:32 Pulse 70 10/04/19 02:32 Respiratory Rate 16 10/04/19 02:32 Blood Pressure 139/93 H 10/04/19 02:32 Pulse Oximetry 99 10/04/19 02:32 Temperature 97.3 F L 10/04/19 02:32 Temperature Source Skin 10/04/19 02:32 Pulse 70 10/04/19 02:32 Respiratory Rate 16 10/04/19 02:32 Respiratory Effort 10/04/19 02:35 Blood Pressure 139/93 H 10/04/19 02:32 Blood Pressure Position Sitting 10/04/19 02:32 Pulse Oximetry 99 10/04/19 02:32 Oxygen Delivery Method Room Air 10/04/19 02:32 Oxygen Flow Rate 0 10/04/19 02:32
== END 2019-10-04 02:45 | disposition home or self-care (01) ==
PROVIDERS: Emergency Provider Emergency Medicine; PCP Nurse Practitioner Family
DX: M96.840 Postprocedural hematoma of a musculoskeletal structure following a musculoskeletal system procedure (principal); E11.9 Type 2 diabetes mellitus without complications; Z79.84 Long term (current) use of oral hypoglycemic drugs; I10 Essential (primary) hypertension
CPT/HCPCS: 99282

== ENCOUNTER → 2019-10-10 11:15 | Outpatient (BNVA) | payer MEDICARE, MEDICAID, SELFPAY | PROVIDERS: PCP Nurse Practitioner Family; Referring Provider Nurse Practitioner Family; Visit Provider Orthopaedic Surgery | DX: Z47.89 Encounter for other orthopedic aftercare (principal); M65.4 Radial styloid tenosynovitis [de Quervain]; I10 Essential (primary) hypertension; E11.9 Type 2 diabetes mellitus without complications ==

== ENCOUNTER 2020-04-25 08:30 | Outpatient (CLI) | payer MEDICARE, MEDICAID, SELFPAY ==
[2020-04-26 15:25] LABS: COVID-19 RT-PCR Result NEGATIVE (Negative)
== END 2020-04-25 08:50 ==
PROVIDERS: PCP Nurse Practitioner Family; Visit Provider Nurse Practitioner Family
DX: Z20.822 Contact with and (suspected) exposure to COVID-19 (principal)
CPT/HCPCS: U0003

== ENCOUNTER 2020-05-26 10:51 | Emergency (ER) | payer MEDICARE, MEDICAID, SELFPAY ==
[2020-05-26 10:56] VITALS: BP 124/83; PULSE 67; TEMP 36.4; O2SAT 100
--- NOTE | 2020-05-26 11:00 | DI.CT_ITS ---
EXAM: CT RENAL COLIC WO CLINICAL HISTORY: R flank/groin pain. TECHNIQUE: Imaging Protocol: Axial computed tomography images with coronal and sagittal reformatted images were created and reviewed CONTRAST MATERIAL: Intravenous: none Oral: None COMPARISON: CT CTA BRAIN AND NECK from 07/11/2016 FINDINGS: VISUALIZED LUNG BASES: No nodules nor pleural effusions evident. ABDOMEN: There is no ascites. Left hemidiaphragm is elevated. LIVER: There are no obvious focal hepatic lesions evident of this noninfused study. GALLBLADDER/BILIARY: There are multiple intraluminal gallstones which measure 1.9 x 2 centimetres. N o evidence of gallbladder wall edema nor pericholecystic fluid. CBD is not dilated. PANCREAS: No evidence of pancreatic mass nor dilatation of the pancreatic duct. SPLEEN: Spleen size is upper normal. No obvious intrasplenic lesions. ADRENALS: Slight thickening of the medial limbs of both adrenal glands is noted. KIDNEYS:There is a solitary punctate 1-2 millimeter calculus in the midpole level of the right kidney . No other significant focal right kidney findings. No hydronephrosis. No significant focal findin gs in the opposite-left kidney. No calculi seen in the distal ureters nor within the nondistended ur inary bladder. ABDOMINAL AORTA: Abdominal aorta is not enlarged and there is no [id number] adenopat hy. ABDOMINAL WALL/GI: No evidence of significant anterior abdominal wall hernia. No bowel obstruction. PELVIS: LYMPH NODES: There is no intrapelvic nor inguinal adenopathy. GI: No evidence of appendicitis.There are a few prominent diverticuli in the mid-upper sigmoid, the l argest evident measuring 2 by 1.6 cm. Minimal increased density noted in the surrounding fat around a smaller diverticulum measuring 9 x 7 millimeters just above this level in the sigmoid. No prominen t diverticulitis. No free fluid. No abscess. URINARY BLADDER: No calculi nor obvious masses evident REPRODUCTIVE: Prostate gland size upper normal. OSSEOUS: No significant osseous lesions. IMPRESSION: 1. Cholelithiasis. Large gallstones are noted within the gallbladder lumen. No CT evidence of acute cholecystitis nor dilatation of the biliary tree. If clinically indicated follow-up ultrasound can be performed. 2. There is a solitary punctate nonobstructive calculus in the right kidney. No other significant re nal findings. No hydronephrosis nor hydroureter nor obvious abnormality in the nondistended urinary bladder. 3. There are few diverticuli in the mid upper sigmoid, the largest measuring 20 x 16 millimeters. No obvious evidence of acute diverticulitis. No evidence of appendicitis. No free fluid. RADIATION DOSE DELIVERED: 1,385.79mGy.cm Total DLP DATA REPOSITORY: All CT scans at this facility are submitted to the National Radiology Data Registry (NRDR) Dose Index Registry (DIR) with the [employer] (A[employer]). RADIATION OPTIMIZATION: All CT scans at this facility use at least one of these dose optimization te chniques: automated exposure control; mA and/or kV adjustment per patient size (includes targeted exa ms where dose is matched to clinical indication); or iterative reconstruction.
--- NOTE | 2020-05-26 11:09 | W.ED.GENAD ---
Discharge Plan Disposition Patient Disposition: HOME Condition: Improving Discharge Details Clinical Impression: Right flank pain Primary Care Provider: Linda Hallman ED Provider: Donald Jones Home Meds and New Rx's Prescriptions: Continued chlorhexidine gluconate [Antiseptic Skin Clnsr(chlorhe)] 4 % liquid 1 applic TP DAILY Qty: 960 RF: 0 atorvastatin [Lipitor] 40 mg tablet 40 mg PO DAILY Qty: 90 RF: 3 (DME) lancets Misc See Dose Instructions .ROUTE .MEDSUPPLY Qty: 200 RF: 3 (DME) Blood Glucose Test Strip See Rx Instructions .ROUTE .MEDSUPPLY Qty: 200 RF: 3 pantoprazole 20 mg tablet,delayed release (DR/EC) 20 mg PO DAILY Qty: 90 RF: 3 Jardiance 10 mg tablet 10 mg PO QAM Qty: 90 RF: 3 tadalafil 5 mg tablet 5 mg PO DAILY MDD 5 mg PRN (Reason: sexual activity) Qty: 30 RF: 3 cholecalciferol (vitamin D3) [Vitamin D3] 2,000 UNIT tablet 3,000 unit PO DAILY Qty: 90 RF: 3 multivitamin 1 EACH tablet 1 ea PO DAILY RF: 0 aspirin 325 MG tablet 325 mg PO DAILY RF: 0 hydroxyzine HCl 25 MG tablet 25 - 50 mg PO QID PRNQty: 90 RF: 0 (DME) pen needle, diabetic [BD Ultra-Fine Mraivel Pen Needle] 32 gauge x 5/32 needle See Rx Instructions .ROUTE .MEDSUPPLY Qty: 100 RF: 3 (DME) blood-glucose meter Misc See Dose Instructions .ROUTE .MEDSUPPLY Qty: 1 RF: 0 escitalopram oxalate 20 mg tablet 20 mg PO DAILY Qty: 90 RF: 3 hydrochlorothiazide 12.5 mg tablet 12.5 mg PO DAILY Qty: 90 RF: 3 lisinopril 40 mg tablet 40 mg PO DAILY Qty: 90 RF: 3 metoprolol tartrate 50 mg tablet 50 mg PO BID Qty: 180 RF: 3 Janumet XR 50-1,000 mg tablet, ER multiphase 24 hr 1 tab PO BID Qty: 180 RF: 3 clopidogrel [Plavix] 75 mg tablet 75 mg PO DAILY Qty: 90 RF: 0 acetaminophen [Tylenol Extra Strength] 500 MG tablet 500 mg PO PRN PRNRF: 0 Tresiba FlexTouch U-100 100 unit/mL (3 mL) insulin pen 21 unit SC QAM RF: 0 Discharge Instructions Instructions: Flank Pain (ED) Additional Instructions: As we discussed, please follow-up for your right upper quadrant ultrasound. The schedulers may be reached at [phone]. We will ask care management to make you a follow-up appointment with Cadence Hallman in clinic. Return if you have a fever, recurrent pain, or any other concerns. As we discussed, I recommend you avoid fatty, fried, heavy meals. Resume normal routine and activities. Medical Decision Making This is a 44-year-old male who presents from home. States he has had mild stabbing right flank pain for days it became severe and radiated to his right groin this morning. No fever. He was nauseated. Feels similar to previous kidney stone. Patient is afebrile, blood pressure 124/83, interactive and on exam reveals right flank and right upper quadrant tenderness. Does seem most consistent with renal colic. IV access established, analgesic ordered, and patient referred for laboratory testing with urinalysis and CT images. Patient has a white count of 9, hematocrit 49, platelets 271. Basic chemistries reassuring, note of total bili 1.2, AST 12, ALT 23. Urinalysis was only notable for elevated glucose. CT images reveal gas stones present in the gallbladder. No other acute findings. There is note of a punctate nonobstructing right renal calculus. No ureteral calculus seen. Cannot at this time differentiate between renal colic or biliary colic. Will order an outpatient follow-up ultrasound of the right upper quadrant for this week. Discussed with the patient home management as well as indications to return. Lab Data Lab results reviewed: Yes I reviewed the patient's lab results. Labs: Laboratory Results - last 24 hr 05/26/20 05/26/20 05/26/20 11:07 11:07 11:32 WBC 9.98 RBC 5.57 Hgb 16.7 Hct 49.8 MCV 89.4 MCH 30.0 MCHC 33.5 RDW 12.5 Plt Count 271 MPV 9.9 Immature Gran % 0.3 Neutrophils % 61.7 Lymphocytes % 29.9 Monocytes % 4.9 Eosinophils % 2.7 Basophils % 0.5 Nucleated RBC % 0 Absolute Neutrophils 6.16 Absolute Lymphocytes 2.98 Absolute Monocytes 0.49 Absolute Eosinophils 0.27 Absolute Basophils 0.05 Sodium 140 Potassium 3.6 Chloride 102 Carbon Dioxide 27.5 Anion Gap 10.5 BUN 10 Creatinine 1.1 Estimated GFR/1.73 m2 >= 60.00 Glucose 189 H Calcium 9.0 Total Bilirubin 1.2 H AST 12 L ALT 23 Alkaline Phosphatase 91 Total Protein 7.5 Albumin 4.1 Urine Color Yellow Urine Clarity Clear Urine pH 5.5 Ur Specific Oto 1.020 Urine Protein Negative Urine Ketones Negative Urine Blood Negative Urine Nitrite Negative Urine Bilirubin Negative Urine Urobilinogen 0.2 Ur Leukocyte Esterase Negative Urine Glucose 500 H HPI General Mode of arrival: ambulatory. Date/Time Provider Initiated Documentation: 05/26/20 10:55. Limitations to Documentation: no limitations. Information obtained by: patient. History of Present Illness 44 year old M presents to the emergency department with the chief complaint of Right flank pain, became severe this morning, described as severe, Quality is described as dull, and is localized to the back, abdomen and right. Patient distal. Patient started experiencing this minute(s) and it has been constant. No relieving factors improve symptom(s), No exacerbating factors reported . Patient notes nausea/vomiting; denies fever/chills and syncope. Patient did receive the following treatments prior to arrival, none Related Data Home Medications Medication Instructions Recorded Confirmed cholecalciferol (vitamin D3) 3,000 unit PO DAILY #90 tab-cap 11/27/15 05/26/20 [Vitamin D3] aspirin 325 mg PO DAILY tab-cap 07/24/16 05/26/20 multivitamin 1 ea PO DAILY 07/24/16 05/26/20 acetaminophen [Tylenol Extra 500 mg PO PRN PRN 01/25/17 05/26/20 Strength] hydroxyzine HCl 25 - 50 mg PO QID PRN #90 tab-cap 11/26/17 05/26/20 chlorhexidine gluconate 4 % 1 applic TP DAILY #960 ml 03/14/18 05/26/20 topical liquid atorvastatin 40 mg tablet 40 mg PO DAILY #90 tab-cap 01/09/19 05/26/20 pen needle, diabetic 32 gauge x #100 each 04/17/19 03/18/20 5/32 blood-glucose meter #1 each 04/24/19 03/18/20 blood sugar diagnostic #200 each 05/22/19 03/18/20 lancets #200 each 05/22/19 03/18/20 empagliflozin 10 mg tablet 10 mg PO QAM #90 tab-cap 08/07/19 05/26/20 pantoprazole 20 mg tablet,delayed 20 mg PO DAILY #90 tab-cap 09/11/19 05/26/20 release escitalopram oxalate 20 mg tablet 20 mg PO DAILY #90 tab-cap 09/15/19 05/26/20 Tresiba FlexTouch U-100 21 unit SC QAM 09/21/19 05/26/20 hydrochlorothiazide 12.5 mg tablet 12.5 mg PO DAILY #90 tab-cap 10/12/19 05/26/20 lisinopril 40 mg tablet 40 mg PO DAILY #90 tab-cap 10/12/19 05/26/20 metoprolol tartrate 50 mg tablet 50 mg PO BID #180 tab-cap 10/12/19 05/26/20 sitagliptin 50 mg-metformin ER 1 tab PO BID #180 tab-cap 11/01/19 05/26/20 1,000 mg tablet,extended release 24h mp tadalafil 5 mg tablet 5 mg PO DAILY PRN #30 tab-cap MDD 11/27/19 05/26/20 5 mg clopidogrel 75 mg tablet 75 mg PO DAILY #90 tab-cap 02/22/20 05/26/20 Previous Rx's Medication Instructions Recorded chlorhexidine gluconate 4 % 1 applic TP DAILY #960 ml 03/14/18 topical liquid atorvastatin 40 mg tablet 40 mg PO DAILY #90 tab-cap 01/09/19 pen needle, diabetic 32 gauge x #100 each 04/17/19 blood-glucose meter #1 each 04/24/19 blood sugar diagnostic #200 each 05/22/19 lancets #200 each 05/22/19 empagliflozin 10 mg tablet 10 mg PO QAM #90 tab-cap 08/07/19 pantoprazole 20 mg tablet,delayed 20 mg PO DAILY #90 tab-cap 09/11/19 release escitalopram oxalate 20 mg tablet 20 mg PO DAILY #90 tab-cap 09/15/19 hydrochlorothiazide 12.5 mg tablet 12.5 mg PO DAILY #90 tab-cap 10/12/19 lisinopril 40 mg tablet 40 mg PO DAILY #90 tab-cap 10/12/19 metoprolol tartrate 50 mg tablet 50 mg PO BID #180 tab-cap 10/12/19 sitagliptin 50 mg-metformin ER 1 tab PO BID #180 tab-cap 11/01/19 1,000 mg tablet,extended release 24h mp tadalafil 5 mg tablet 5 mg PO DAILY PRN #30 tab-cap MDD 11/27/19 5 mg clopidogrel 75 mg tablet 75 mg PO DAILY #90 tab-cap 02/22/20 Allergies Allergy/AdvReac Type Severity Reaction Status Date / Time hydromorphone [From Dilaudid] AdvReac Intermediate Psychosis Verified 05/26/20 11:12 codeine [Codeine] AdvReac Unknown PSYCHOSIS Verified 05/26/20 11:12 General Stated Complaint: FlankPain DIANNE: 3 Review of Systems Narrative: Achy pain for a few days, severe this morning, radiates to groin. Associated with nausea. No fever. No recent illness. 8 systems reviewed and otherwise negative [facility] Medical History (Updated 05/26/20 @ 12:38 by Donald Jones MD) Advance directive in chart (09/02/16) Alcohol use disorder (04/29/11) [facility] PT. STATES HE DOESN'T DRINK ANYMORE, HASN'T IN YEARS 09/21/19 Anxiety (04/29/11) ASCVD (arteriosclerotic cardiovascular disease) Anterior MA 12/2013 --> [facility]DAL[facility] in LAD EF 40% post-MA 09/2014 echo EF improved to almost normal at 54% Followed by generation manager Dr. Galaviz at [facility] Benign prostatic hyperplasia with lower urinary tract symptoms (01/28/17) Bipolar disorder Dx psychiatry [facility] PT. DENIES THIS DX Cardiomyopathy Followed by generation manager Dr. Galaviz at [facility] Cerebrovascular accident (CVA) (08/03/16) [facility] [place] 07/11-07/20/2016 R valdez radiata, basal ganglia, subinsular region and temporal lob infarcts s/p tPA and thrombectomy (07/11/16) with recanalization De Quervain's tenosynovitis, right Depression (04/29/11) Erectile dysfunction (11/29/15) Essential hypertension (11/25/12) Hyperlipidemia, unspecified (04/29/11) Intolerant to atorvastatin; able to tolerate once vit D deficiency addressed Kidney stone (04/26/15) 100% calcium oxalate monohydrate Obesity (BMI 30-39.9) (08/28/14) Obstructive sleep apnea syndrome, mild (11/03/16) Shanika Jimenez NP DOES NOT USE CPAP Panic disorder without agoraphobia (04/29/11) Patellar fracture (01/26/17) (L) S/p surgical repair Tobacco use disorder Type 2 diabetes mellitus, without long-term current use of insulin Vitamin D deficiency (05/23/15) Surgical History Heart Surgery stent placement X1 Open Reduction and Internal Fixation of Patellar Fracture (01/26/17) (L) Dr. Lemus Vasectomy (01/19/06) Family History Father No problems noted. Other CAD (coronary artery disease) Social History Smoking/Tobacco Use Status: Current every day Tobacco Type: cigarettes and e-cigarettes Smoking risk assessment performed?: Yes Alcohol Intake: former Drug use: Never Substance use type: does not use Adopted: No Caregiver/Support person: No Foster care: No Household members: children and other Details: 2 - lives with son Housing: apartment Number of Children: 2 Communication Needs: None current occupation: works for a [employer] Pets and animals: No Current gender identity: male What type of physical activity do you participate in: none Seatbelt use: always Helmet use: No Drive 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 w/intox inventory associate and driver: No Water heater temp set <120 deg: Yes Working smoke detector in home: Yes Fire extinguisher in home: Yes Carbon monox detector in home: Yes Do you feel safe at home: Yes Do you feel safe in your relationship?: Yes Exam Narrative Exam Narrative: GEN: awake, alert, oriented 3. Pleasant, well groomed, interactive. HEAD: Normocephalic, atraumatic ENT: Mucous membranes moist, oropharynx unremarkable, External ear exam unremarkable EYES: PERRL, EOMI NECK: Full ROM, no MICHEL, no menigismus CHEST/RESP: Nontender, clear to auscultation bilateral, no wheeze/rhonchi/rales CARDIOVASCULAR: RRR, no murmur, rub iman. 2+ Rad pulse bilateral ABDOMEN: Soft, right flank tenderness, right upper quadrant tenderness, no mass. +Bowel sounds EXT: Full ROM, no edema, no rash Neuro: Grossly normal neurologic exam, conversant, interactive. Psych: Speech fluent, thoughts congruent, affect normal Course Vital Signs Vital signs: Vital Signs Temperature 36.4 C L 05/26/20 10:56 Pulse 67 05/26/20 10:56 Blood Pressure 124/83 05/26/20 10:56 Pulse Oximetry 100 05/26/20 10:56 Temperature 36.4 C L 05/26/20 10:56 Temperature Source Temporal Artery Scan 05/26/20 10:56 Pulse 67 05/26/20 10:56 Blood Pressure 124/83 05/26/20 10:56 Blood Pressure Position Sitting 05/26/20 10:56 Pulse Oximetry 100 05/26/20 10:56 Oxygen Delivery Method Room Air 05/26/20 10:56 Oxygen Flow Rate 0 05/26/20 10:56 Pain Level 8 05/26/20 10:56
[2020-05-26 11:18] LABS: Abs Immature Grans 0.03 10^3/uL (0.0-0.06); Absolute Basophil Count 0.05 10^3/uL (0.0-0.2); Absolute Eosinophil Count 0.27 10^3/uL (0.0-0.7); Absolute Lymphocyte Count 2.98 10^3/uL (1.2-3.4); Absolute Monocyte Count 0.49 10^3/uL (0.1-0.8); Absolute Neutrophil Count 6.16 10^3/uL (1.2-6.7); Basophils % 0.5; Eosinophils % 2.7; HCT 49.8 % (40.0-50.0); HGB 16.7 g/dL (13.5-17.5); Immature Grans % 0.3; Lymphocytes % 29.9; MCHC 33.5 % (32.0-36.0); MCV 89.4 fL (80-95); MPV 9.9 fL (8.0-11.0); Monocytes % 4.9; Neutrophils % 61.7; Nucleated RBC 0 %; Platelet Count 271 10^3/uL (130-400); RBC 5.57 10^6/uL (4.36-5.78); RDW 12.5 % (11.8-14.1); RDW-SD 41.3 fL; WBC 9.98 10^3/uL (4.4-10.8)
[2020-05-26] MEDS: Normal Saline 1,000 ML 1000 ML IV (11:18)
[2020-05-26] MEDS: Ketorolac 30 MG/ML VIAL 15 MG IVP (11:19)
[2020-05-26 11:33] LABS: ALT 23 U/L (16-63); AST 12 U/L (15-37); Albumin 4.1 g/dL (3.4-5.0); Alkaline Phosphatase 91 U/L (46-116); Anion Gap 10.5 mmol/L (3-11); BUN 10 mg/dL (7-18); Bilirubin, Total 1.2 mg/dL (0.2-1.0); CO2 27.5 mmol/L (21.0-32.0); CREATININE 1.1 mg/dL (0.70-1.30); Chloride 102 mmol/L (98-107); Glucose 189 mg/dL (74-106); Potassium 3.6 mmol/L (3.5-5.1); Sodium 140 mmol/L (136-145); Total Protein 7.5 g/dL (6.4-8.2)
[2020-05-26 11:49] LABS: Bilirubin Negative (Negative); Blood Negative (Negative); Clarity Clear (Clear); Glucose 500 mg/dL (Negative); Ketones Negative (Negative); Leukocyte Esterase Negative (Negative); Nitrite Negative (Negative); Urobilinogen 0.2 EU/dL (Up TO 0.2); pH 5.5 (5-8)
--- NOTE | 2020-05-26 12:21 | DI.VRAD_ITS ---
PROCEDURE INFORMATION: Exam: CT Abdomen And Pelvis Without Contrast Exam date and time: 05/26/2020 11:09 AM Age: 44 years old Clinical indication: Other: R flank/groin pain TECHNIQUE: Imaging protocol: Computed tomography of the abdomen and pelvis without contrast. COMPARISON: CT ABD PELVIS WO CONTRAST 04/12/2015 2:14 PM FINDINGS: Liver: Normal. No mass. Gallbladder and bile ducts: Gallstones in the gallbladder. Pancreas: Normal. No ductal dilation. Spleen: Normal. No splenomegaly. Adrenal glands: Left adrenal adenoma measures -7 Hounsfield units Kidneys and ureters: Punctate nonobstructing right renal calculus . No ureteral calculus. Stomach and bowel: Unremarkable. No obstruction. No mucosal thickening. Appendix: No evidence of appendicitis. Intraperitoneal space: Unremarkable. No free air. No significant fluid collection. Vasculature: Unremarkable. No abdominal aortic aneurysm. Lymph nodes: Unremarkable. No enlarged lymph nodes. Urinary bladder: Unremarkable as visualized. Reproductive: Unremarkable as visualized. Bones/joints: Unremarkable. No acute fracture. Soft tissues: Unremarkable. IMPRESSION: Gallstones in the gallbladder. Recommend gallbladder ultrasound if clinically indicated Dictated and Authenticated by: Jose Daniel Saucedo MD. Ordering:YOHANNES Bennett MD
[2020-05-26 12:26] VITALS: BP 144/89; PULSE 60; RESP 16; O2SAT 100
== END 2020-05-26 12:49 | disposition home or self-care (01) ==
PROVIDERS: Emergency Provider Emergency Medicine; PCP Nurse Practitioner Family
DX: R10.9 Unspecified abdominal pain (principal); E11.9 Type 2 diabetes mellitus without complications; Z79.84 Long term (current) use of oral hypoglycemic drugs; I10 Essential (primary) hypertension
CPT/HCPCS: 80053; 96361; 96374; 99285; 74176; 81003; 85025; 99284; J1885

== ENCOUNTER 2020-05-27 21:33 | Outpatient (CLI) | payer MEDICARE, MEDICAID, SELFPAY ==
--- NOTE | 2020-05-27 | DI.US_ITS ---
EXAM: US ABDOMEN LIMITED CLINICAL HISTORY: RT ABD PAIN, GALLSTONES ON CT TECHNIQUE: Ultrasound abdomen performed using standard protocol. COMPARISON: US RENAL ULTRASOUND(P) from 09/23/[address] RENAL COLIC WO from 05/26/2020 FINDINGS: There is no ascites evident. LIVER: There are no hepatic lesions evident nor dilatation of intrahepatic ducts. GALLBLADDER/BILIARY: Multiple gallstones which average diameter 1.8 cm, as seen on the recent CT scan . No gallbladder wall edema nor pericholecystic fluid. The common hepatic duct isnot dilated, measuring 3-4mm at the level of sandip hepatis. PANCREAS: There is no evidence of pancreatic mass nor dilatation of the pancreatic duct. RIGHT KIDNEY:No evidence of solid mass, calculus, nor hydronephrosis. No cortical cysts evident. ABDOMINAL AORTA AND IVC: Visualized portions exhibit normal caliber. IMPRESSION: 1. Multiple gallstones. No ultrasound evidence of acute cholecystitis nor dilatation of the biliary tree. 2. No other significant ultrasound findings in the right upper quadrant. 3. There is no ascites. DATA REPOSITORY:
== END 2020-05-27 21:34 ==
LOC: DI 21:35
PROVIDERS: PCP Nurse Practitioner Family; Visit Provider Emergency Medicine
DX: K80.80 Other cholelithiasis without obstruction (principal)
CPT/HCPCS: 76705

== ENCOUNTER 2020-06-13 10:51 | Outpatient (REF) | payer MEDICARE, MEDICAID, SELFPAY ==
[2020-06-13 17:16] LABS: COMMENT (LAB VIEW ONLY) 422.91 mg/dL; Microalb ug/mg Crea 78.6 ug/mg Cr
== END 2020-06-13 10:52 | disposition home or self-care (01) ==
LOC: LBN 10:51
PROVIDERS: PCP Nurse Practitioner Family; Visit Provider Nurse Practitioner Family
DX: E11.9 Type 2 diabetes mellitus without complications (principal)
CPT/HCPCS: 82043; 82570

== ENCOUNTER → 2020-06-18 12:21 | Outpatient (BNVA) | payer MEDICARE, MEDICAID, SELFPAY | PROVIDERS: PCP Nurse Practitioner Family; Referring Provider Nurse Practitioner Family; Visit Provider Surgery | DX: K80.20 Calculus of gallbladder without cholecystitis without obstruction (principal); I25.10 Atherosclerotic heart disease of native coronary artery without angina pectoris; E11.9 Type 2 diabetes mellitus without complications; G47.33 Obstructive sleep apnea (adult) (pediatric); I42.9 Cardiomyopathy, unspecified; I63.9 Cerebral infarction, unspecified; Z87.442 Personal history of urinary calculi | CPT/HCPCS: 99203; 99215 ==

== ENCOUNTER 2020-06-21 03:59 | Outpatient (CLI) | payer MEDICARE, MEDICAID, SELFPAY ==
--- NOTE | 2020-06-21 06:45 | DI.US_ITS ---
APPROVED REPORT EXAM: Comprehensive 2D, Doppler, and color-flow Echocardiogram Patient Location: Out-Patient Senior Technical Architect: Imelda Damian RDCS (AE) Indications: h/0 Cardiomyopathy, Pre operative, ASCVD Other Information Study Quality: Fair. Technically limited study due to body habitus. Conclusion Normal left ventricular chamber size and wall thickness. Estimated ejection fraction is 45 to 50%. There are wall motion abnormalities noted in the distal left anterior descending distribution Normal right ventricular size and systolic function Both atria are normal in size No significant valvular disease Mildly dilated ascending aorta, 3.88 cm Wall motion Left Ventricle The left ventricle is normal size. Left ventricular systolic function is mildly decreased. There is n ormal left ventricular wall thickness. Regional wall motion abnormalities are noted. Anteroapical, ap ical hypo to akinesis There is no ventricular septal defect visualized. LVEF is 45-50%. Right Ventricle Right ventricle is grossly normal in size. Right ventricular systolic function is grossly normal. Atria The left atrium size is normal. The right atrium size is normal. The interatrial septum is intact wit h no evidence for an atrial septal defect. Aortic Valve The aortic valve is normal in structure. Aortic valve is trileaflet. There is no aortic valvular sten osis. No aortic regurgitation is present. Mitral Valve The mitral valve is normal in structure. No evidence of mitral valve stenosis. Trace mitral regurgita tion. Tricuspid Valve The tricuspid valve is normal in structure. There is no tricuspid valve stenosis. Trace tricuspid reg urgitation. Unable to assess PA pressure. Pulmonic Valve Pulmonic valve is grossly normal in structure. There is no pulmonic valvular stenosis. There is no pu lmonic valvular regurgitation. Great Vessels The aortic root is normal in size. The ascending aorta is mildly dilated. Aortic arch is normal in ca liber. IVC is normal in size and collapses >50% with inspiration. Pericardium There is no pericardial effusion. 2D Dimensions IVSD d PLAX 1.12 cm M: 0.6-1.2 LV Vol A2C d MOD 185.5 mL LVPW d PLAX 1.11 cm M: 0.6 - 1.2 LV Vol A4C d MOD 180.5 mL LVID d PLAX 4.88 cm M: 4.2 - 5.8 LA vol/ BSA A2C s A-L 29.1 mL/m2 LVDs 4.15 cm M: 2.5 - 4.0 LA vol/ BSA A4C s A-L 20.0 mL/m2 Ao Root d 3.47 cm M: 3.1 - 3.7 LA Vol/ BSA Biplane s A-L 24.4 mL/m2 RA Area A4C 14.26 cm2 LA Area A4C s MOD 17.72 cm2 RA Vol/ BSA A4C s A-L 15.7 mL/m2 LA Area A2C s MOD 21.09 cm2 Ao Asc Diam d 3.88 cm M: 2.6 - 3.4 LV EF A4C MOD 43.6 % LV EF Teichholz 31.2 % LV EF A2C MOD 43.3 % LVEF (Gutierrez's) 44.43 % M: 52 - 72 LV EF Biplane MOD 44.4 % LV Volume 132.03 mL M: 62 - 150 SV 83.02 mL LV Volume Index 54.55 mL/m2 M: 34 - 74 SV Index 34.30 mL/m2 LV Vol Biplane MOD 186.9 mL FS 14.65 % M-Mode TAPSE 1.95 cm (M/F) >1.7 LV Diastology MV E' medial 0.083 (>0.07 m/s) E/A Ratio 1.6 LV E/e MED 10.35 (<14) MV E Vmax 0.86 (0.4-1.3 m/s) MV E' lateral 0.079 (>0.1 m/s) MV A Vmax 0.55 (0.4-1.3 m/s) LV E/e LAT 10.85 (<14) MV E/A Ratio 1.56 MV E/E' medial 10.35 MV E/E' lateral 10.86 Aortic Valve LVOT Area 3.73 cm2 AoV Area Vmax 3.35 cm2 LVOT Vmax 1.09 m/s AoV Area/ BSA (Vmax) 1.39 cm2/m2 LVOT Mean Hammad. 0.69 m/s LINDA Mean Hammad. 2.88 cm2 LVOT Peak Grad 4.8 mmHg LINDA Mean Hammad. Index 1.19 cm2/m2 LVOT Mean Grad 2.3 mmHg LVOT VTI 0.227 m LVOT Diam s 2.15 cm AoV Vmax 1.22 m/s Velocity Ratio 0.89 AoV Mean Hammad. 0.89 m/s AoV Peak Grad 5.9 mmHg LVOT SV 84.62 mL AoV Mean Grad 3.5 mmHg AoV VTI 0.236 m AoV Area VTI 3.59 cm2 AoV Area/ BSA (VTI) 1.48 cm/m2 Mitral Valve MV DT 220 (160-240 msec) MV PHT 64 msec MV Area PHT 3.45 cm2 Pulmonary Valve PV Vmax 0.91 (0.5-1.5 m/s) RVOT Peak Gr. 2.60 mmHg PV Peak Grad 3.3 mmHg RVOT Mean Gr. 1.25 mmHg PV Mean Grad 1.6 mmHg RVOT VTI 0.165 m PV VTI 0.191 m RVOT Vmax 0.81 m/s
== END 2020-06-21 04:19 ==
PROVIDERS: PCP Nurse Practitioner Family; Visit Provider Surgery
DX: I42.9 Cardiomyopathy, unspecified (principal); I25.10 Atherosclerotic heart disease of native coronary artery without angina pectoris; I77.810 Thoracic aortic ectasia
CPT/HCPCS: 93306

== ENCOUNTER 2020-07-30 10:29 | Outpatient (CLI) | payer MEDICARE, MEDICAID, SELFPAY ==
--- NOTE | 2020-07-30 10:45 | RT.EKG_ITS ---
APPROVED REPORT Exam: Resting ECG Patient Location: O HR:68 bpm ECG Measurements Heart Rate 68 AXIS VT 138 P 31 QRSd 114 QRS 8 QT 405 T 42 QTc 431 Conclusion Sinus rhythm...normal P axis, V-rate 50- 99 Incomplete right bundle branch block...QRSd >112, terminal axis(90,270) Inferior infarct, old...Q >35mS, II III aVF
== END 2020-07-30 10:30 | disposition home or self-care (01) ==
LOC: DI.CARD 10:53
PROVIDERS: PCP Nurse Practitioner Family; Referring Provider Nurse Practitioner Family; Visit Provider Internal Medicine Cardiovascular Disease
DX: I42.9 Cardiomyopathy, unspecified (principal)
CPT/HCPCS: 93010

== ENCOUNTER → 2020-07-30 10:29 | Outpatient (BNVA) | payer MEDICARE, MEDICAID, SELFPAY | PROVIDERS: PCP Nurse Practitioner Family; Referring Provider Nurse Practitioner Family; Visit Provider Internal Medicine Cardiovascular Disease | DX: I42.9 Cardiomyopathy, unspecified (principal); I25.10 Atherosclerotic heart disease of native coronary artery without angina pectoris; I63.9 Cerebral infarction, unspecified; E11.9 Type 2 diabetes mellitus without complications; F17.210 Nicotine dependence, cigarettes, uncomplicated; E78.5 Hyperlipidemia, unspecified; Z01.810 Encounter for preprocedural cardiovascular examination | CPT/HCPCS: 93005; 99203; 99214 ==

== ENCOUNTER 2020-09-12 02:24 | Emergency (ER) | payer MEDICARE, MEDICAID, SELFPAY ==
[2020-09-12] VITALS (31 sets, daily range): BP systolic 147–177; BP diastolic 98–123; PULSE 59–76; RESP 8–19; TEMP 36.6; O2SAT 96–100
--- NOTE | 2020-09-12 02:15 | RT.EKG_ITS ---
APPROVED REPORT Exam: Resting ECG Reason for Exam: chest pain Patient Location: E HR:64 bpm ECG Measurements Heart Rate 64 AXIS ME 150 P 60 QRSd 100 QRS -8 QT 402 T 65 QTc 416 Conclusion Sinus rhythm...normal P axis, V-rate 60- 99 Physician: Minimal non-tombstoning <1mm st elevation in V1 and V2, no STEMI. Similiar to previous ek g from 07/30/20
[2020-09-12] MEDS: Ketorolac 30 MG/ML VIAL IVP (02:44)
[2020-09-12 02:45] LABS: Abs Immature Grans 0.02 10^3/uL (0.0-0.06); Absolute Basophil Count 0.09 10^3/uL (0.0-0.2); Absolute Lymphocyte Count 3.52 10^3/uL (1.2-3.4); Absolute Monocyte Count 0.66 10^3/uL (0.1-0.8); Basophils % 0.9; HCT 46.3 % (40.0-50.0); HGB 15.9 g/dL (13.5-17.5); Immature Grans % 0.2; Lymphocytes % 34.9; MCH 30.7 pg (27.0-33.0); MCHC 34.3 % (32.0-36.0); MCV 89.4 fL (80-95); MPV 9.8 fL (8.0-11.0); Monocytes % 6.5; Neutrophils % 53.5; Nucleated RBC 0 %; Platelet Count 254 10^3/uL (130-400); RBC 5.18 10^6/uL (4.36-5.78); RDW-SD 39.7 fL; WBC 10.09 10^3/uL (4.4-10.8)
--- NOTE | 2020-09-12 02:49 | ED.GENADUL_ITS ---
Discharge Plan Disposition Patient Disposition: HOME Condition: Good Discharge Details Clinical Impression: Chest pain Primary Care Provider: Linda Hallman ED Provider: Favian Asif Home Meds and New Rx's Prescriptions: Continued ibuprofen 400 mg tablet 400 mg PO ONCE PRNRF: 0 chlorhexidine gluconate [Antiseptic Skin Clnsr(chlorhe)] 4 % liquid 1 applic TP DAILY Qty: 960 RF: 0 (DME) lancets Misc See Dose Instructions .ROUTE .MEDSUPPLY Qty: 200 RF: 3 (DME) Blood Glucose Test Strip See Rx Instructions .ROUTE .MEDSUPPLY Qty: 200 RF: 3 pantoprazole 20 mg tablet,delayed release (DR/EC) 20 mg PO DAILY Qty: 90 RF: 3 Jardiance 10 mg tablet 10 mg PO QAM Qty: 90 RF: 3 cholecalciferol (vitamin D3) [Vitamin D3] 2,000 UNIT tablet 3,000 unit PO DAILY Qty: 90 RF: 3 multivitamin 1 EACH tablet 1 ea PO DAILY RF: 0 aspirin 325 MG tablet 325 mg PO DAILY RF: 0 hydroxyzine HCl 25 MG tablet 25 - 50 mg PO QID PRNQty: 90 RF: 0 (DME) pen needle, diabetic [BD Ultra-Fine Marivel Pen Needle] 32 gauge x 5/32 needle See Rx Instructions .ROUTE .MEDSUPPLY Qty: 100 RF: 3 (DME) blood-glucose meter Misc See Dose Instructions .ROUTE .MEDSUPPLY Qty: 1 RF: 0 escitalopram oxalate 20 mg tablet 20 mg PO DAILY Qty: 90 RF: 3 lisinopril 40 mg tablet 40 mg PO DAILY Qty: 90 RF: 3 metoprolol tartrate 50 mg tablet 50 mg PO BID Qty: 180 RF: 3 Janumet XR 50-1,000 mg tablet, ER multiphase 24 hr 1 tab PO BID Qty: 180 RF: 3 clopidogrel [Plavix] 75 mg tablet 75 mg PO DAILY Qty: 90 RF: 0 atorvastatin [Lipitor] 40 mg tablet 40 mg PO DAILY Qty: 90 RF: 3 tadalafil 5 mg tablet 5 mg PO DAILY MDD 5 mg PRN (Reason: sexual activity) Qty: 30 RF: 3 acetaminophen [Tylenol Extra Strength] 500 MG tablet 500 mg PO PRN PRNRF: 0 Tresiba FlexTouch U-100 100 unit/mL (3 mL) insulin pen 21 unit SC QAM RF: 0 Discharge Instructions Instructions: Chest Pain (ED) Additional Instructions: At this time your work-up has returned and is very reassuring. There is no evidence of heart attack currently. I suspect as we discussed together that your pain is likely from mild musculoskeletal strain or mild pericarditis. Please take Tylenol and Motrin and continue to stretch as needed. If you notice any worsening of your symptoms, or any new symptoms such as vomiting, diarrhea, fever, chills, shortness of breath, chest pain, numbness, weakness, or fainting , please return immediately to the emergency department for reevaluation. Please follow up with your primary care provider and your radio officer as soon as possible for reassessment and reevaluation. Please do not miss your scheduled outpatient stress test with your radio officer. As always, it was a pleasure participating in your medical care today. Referrals: Linda Hallman NP [Primary Care Provider] - Medical Decision Making This is a very pleasant 45-year-old male with a past medical history of type 2 diabetes, high cholesterol, regular tobacco use, heart attack in 2013 with stent, cryptogenic stroke in 2017, slightly dilated aorta, who presents today for evaluation of chest pain. Patient states that he woke up 1 hour ago with sudden achiness between his left and right nipple in his chest. No radiation to the back. No tearing or ripping sensation. No pleuritic chest pain. Pain is made worse when he lies flat, and improved when he sits upright and leans forward. Since his pain began he denies any exertional component. He denies any cough or shortness of breath. He denies any fever or chills. No recent shortness of breath with exertion or recent exertional chest pain. Patient states that this feels very different from when he had his heart attack. No other complaints at this time. No other modifying factors. He did take 2 aspirin prior to arrival, and he does take a regular aspirin and Plavix daily. Sickle exam is unremarkable. Pulses are symmetric, blood pressure is slightly high. Lungs are clear. No neuro vascular deficits. Differential is highest for mild pericarditis, however because of the patient's extensive cardiac history, including his slightly dilated aorta, differential includes albeit less likely dissection or ACS. We will get a screening EKG, perform serial troponins and EKG, do a CTA of the chest, monitor closely and reassess. 4:45 AM Patient is feeling much better and symptoms have completely resolved after Toradol and stretching. Patient denies any significant pain or discomfort at this time. Symptoms at this time are consistent with either a musculoskeletal etiology or mild pericarditis. Work-up so far has been very unremarkable and reassuring. Labs show no elevation in his troponin, EKG is stable. CT scan shows no significant acute abnormalities. No evidence of pulmonary embolism, pneumothorax, or dissection. Symptoms are clinically inconsistent with acute splenic infarct, dissection, PE. Pending repeat troponin and EKG. 6:05 AM On reassessment patient's pain continues to be completely gone. Patient feels well. Repeat EKG and troponin both stable and unchanged. Symptoms at this time are inconsistent with acute life-threatening cardiac etiology. Patient feels well and would like to go home. Patient stable for discharge. Discussed red flags which to return. At this time diagnosis appears most consistent with mild muscle strain versus mild pericarditis. I have extensively reviewed the treatment plan and discharge instructions with the patient. I have addressed all patient concerns at this time. The patient was made aware of what symptoms to monitor for that would warrant a return to the emergency department. Discussed the plan with the patient, they demonstrate verbal understanding and agreement with our assessment and plan at this time. The documentation in this chart was dictated using [employer] dictation software. Please excuse any dictation errors. FINDINGS: Pulmonary arteries: No evidence of acute pulmonary embolism. Aorta: Aorta normal caliber without aneurysm, dissection or disruption. Lungs: Lingular lateral atelectasis and/or fibrosis. Adjacent pleural thickening/reaction. Lungs are otherwise clear without pneumonia or pulmonary edema. Pleural spaces: No pleural effusions. No pneumothorax. Heart: Cardiac size normal. No pericardial effusion. No right heart strain. Lymph nodes: Unremarkable. No enlarged lymph nodes. Gallbladder and bile ducts: Cholelithiasis within a partially visualized gallbladder without definite acute cholecystitis. Spleen: Patchy enhancement of the partially visualized spleen may be related to enhancement technique/bolus timing. Infarction not excluded. Bones/joints: Mild degenerative changes noted throughout the spine. No fracture or subluxation. No obviously displaced rib fracture. No sternal fracture. Soft tissues: Unremarkable. IMPRESSION: 1. Aorta normal caliber without aneurysm, dissection or disruption. 2. No evidence of acute pulmonary embolism. 3. Cardiac size normal. No pericardial effusion. No right heart strain. 4. Lingular lateral atelectasis and/or fibrosis. Adjacent pleural thickening/reaction. Lungs are otherwise clear without pneumonia or pulmonary edema. 5. Cholelithiasis within a partially visualized gallbladder without definite acute cholecystitis. 6. Patchy enhancement of the partially visualized spleen may be related to enhancement technique/bolus timing. Infarction not excluded. Thank you for allowing us to participate in the care of your patient. Dictated and Authenticated by: Jet Carrillo MD 09/12/2020 4:18 AM Eastern Time ([place] & [place]) HPI General Date/Time Provider Initiated Documentation: 09/12/20 02:27 . HPI Narrative: This is a very pleasant 45-year-old male with a past medical history of type 2 diabetes, high cholesterol, regular tobacco use, heart attack in 2013 with stent, cryptogenic stroke in 2016, slightly dilated aorta, who presents today for evaluation of chest pain. Patient states that he woke up 1 hour ago with sudden achiness between his left and right nipple in his chest. No radiation to the back. No tearing or ripping sensation. No pleuritic chest pain. Pain is made worse when he lies flat, and improved when he sits upright and leans forward. Since his pain began he denies any exertional component. He denies any cough or shortness of breath. He denies any fever or chills. No recent shortness of breath with exertion or recent exertional chest pain. Patient states that this feels very different from when he had his heart attack. No other complaints at this time. No other modifying factors. He did take 2 aspirin prior to arrival, and he does take a regular aspirin and Plavix daily. Related Data Home Medications Medication Instructions Recorded Confirmed cholecalciferol (vitamin D3) 3,000 unit PO DAILY #90 tab-cap 11/27/15 09/12/20 [Vitamin D3] aspirin 325 mg PO DAILY tab-cap 07/24/16 09/12/20 multivitamin 1 ea PO DAILY 07/24/16 09/12/20 acetaminophen [Tylenol Extra 500 mg PO PRN PRN 01/25/17 09/12/20 Strength] hydroxyzine HCl 25 - 50 mg PO QID PRN #90 tab-cap 11/26/17 09/12/20 chlorhexidine gluconate 4 % 1 applic TP DAILY #960 ml 03/14/18 09/12/20 topical liquid pen needle, diabetic 32 gauge x #100 each 04/17/19 09/12/20 blood-glucose meter #1 each 04/24/19 09/12/20 blood sugar diagnostic #200 each 05/22/19 09/12/20 lancets #200 each 05/22/19 09/12/20 empagliflozin 10 mg tablet 10 mg PO QAM #90 tab-cap 08/07/19 09/12/20 pantoprazole 20 mg tablet,delayed 20 mg PO DAILY #90 tab-cap 09/11/19 09/12/20 release escitalopram oxalate 20 mg tablet 20 mg PO DAILY #90 tab-cap 09/15/19 09/12/20 Tresiba FlexTouch U-100 21 unit SC QAM 09/21/19 09/12/20 lisinopril 40 mg tablet 40 mg PO DAILY #90 tab-cap 10/12/19 09/12/20 metoprolol tartrate 50 mg tablet 50 mg PO BID #180 tab-cap 10/12/19 09/12/20 sitagliptin 50 mg-metformin ER 1 tab PO BID #180 tab-cap 11/01/19 09/12/20 1,000 mg tablet,extended release 24h mp clopidogrel 75 mg tablet 75 mg PO DAILY #90 tab-cap 02/22/20 09/12/20 ibuprofen 400 mg tablet 400 mg PO ONCE PRN tab 07/30/20 09/12/20 atorvastatin 40 mg tablet 40 mg PO DAILY #90 tab-cap 09/02/20 09/12/20 tadalafil 5 mg tablet 5 mg PO DAILY PRN #30 tab-cap MDD 09/02/20 09/12/20 5 mg Previous Rx's Medication Instructions Recorded chlorhexidine gluconate 4 % 1 applic TP DAILY #960 ml 03/14/18 topical liquid pen needle, diabetic 32 gauge x #100 each 04/17/19 blood-glucose meter #1 each 04/24/19 blood sugar diagnostic #200 each 05/22/19 lancets #200 each 05/22/19 empagliflozin 10 mg tablet 10 mg PO QAM #90 tab-cap 08/07/19 pantoprazole 20 mg tablet,delayed 20 mg PO DAILY #90 tab-cap 09/11/19 release escitalopram oxalate 20 mg tablet 20 mg PO DAILY #90 tab-cap 09/15/19 lisinopril 40 mg tablet 40 mg PO DAILY #90 tab-cap 10/12/19 metoprolol tartrate 50 mg tablet 50 mg PO BID #180 tab-cap 10/12/19 sitagliptin 50 mg-metformin ER 1 tab PO BID #180 tab-cap 11/01/19 1,000 mg tablet,extended release 24h mp clopidogrel 75 mg tablet 75 mg PO DAILY #90 tab-cap 02/22/20 atorvastatin 40 mg tablet 40 mg PO DAILY #90 tab-cap 09/02/20 tadalafil 5 mg tablet 5 mg PO DAILY PRN #30 tab-cap MDD 09/02/20 5 mg Allergies Allergy/AdvReac Type Severity Reaction Status Date / Time hydromorphone [From Dilaudid] AdvReac Intermediate Psychosis Verified 09/12/20 02:38 codeine [Codeine] AdvReac Unknown PSYCHOSIS Verified 09/12/20 02:38 General Stated Complaint: Chest Pain DIANNE: 2 Review of Systems All systems reviewed & are unremarkable except as noted in HPI and below [facility] Medical History Advance directive in chart (09/02/16) Alcohol use disorder (04/29/11) [facility] pER PT. STATES HE DOESN'T DRINK ANYMORE, HASN'T IN YEARS 09/21/19 Anxiety (04/29/11) ASCVD (arteriosclerotic cardiovascular disease) Anterior [place] 12/2013 --> [facility]D[place] in [place] EF 40% post-IL 09/2014 echo EF improved to almost normal at 54% Followed by radio officer Dr. Galaviz at [facility] Benign prostatic hyperplasia with lower urinary tract symptoms (01/28/17) Bipolar disorder Dx psychiatry [facility] PT. DENIES THIS DX Cardiomyopathy Followed by radio officer Dr. Galaviz at [facility] Cerebrovascular accident (CVA) (08/03/16) [facility] – [place] admission 07/11-07/20/2016 R valdez radiata, basal ganglia, subinsular region and temporal lob infarcts s/p tPA and thrombectomy (07/11/16) with recanalization De Quervain's tenosynovitis, right Depression (04/29/11) Erectile dysfunction (11/29/15) Essential hypertension (11/25/12) Hyperlipidemia, unspecified (04/29/11) Intolerant to atorvastatin; able to tolerate once vit D deficiency addressed Kidney stone (04/26/15) 100% calcium oxalate monohydrate 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 2 diabetes mellitus (~06/2020) Obesity (BMI 30-39.9) (08/28/14) Obstructive sleep apnea syndrome, mild (11/03/16) Shanika Jimenez NP DOES NOT USE CPAP Panic disorder without agoraphobia (04/29/11) Patellar fracture (01/26/17) (L) S/p surgical repair Tobacco use disorder Type 2 diabetes mellitus, without long-term current use of insulin Vitamin D deficiency (05/23/15) Surgical History Heart Surgery stent placement X1 Open Reduction and Internal Fixation of Patellar Fracture (01/26/17) (L) Dr. Lemus Vasectomy (01/19/06) Family History Father No problems noted. Other CAD (coronary artery disease) Social History Smoking/Tobacco Use Status: Current every day Tobacco Type: cigarettes and e- cigarettes Smoking risk assessment performed?: Yes Alcohol Intake: former Drug use: Never Substance use type: does not use Adopted: No Caregiver/Support person: No Foster care: No Household members: children and other Details: 2 - lives with son Housing: apartment Number of Children: 2 Communication Needs: None current occupation: works for a [employer] Pets and animals: No Current gender identity: male What type of physical activity do you participate in: none Frequency: daily Seatbelt use: always Helmet use: No Drive 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 w/intox national dedicated truck driver: No Water heater temp set <120 deg: Yes Working smoke detector in home: Yes Fire extinguisher in home: Yes Carbon monox detector in home: Yes Do you feel safe at home: Yes Do you feel safe in your relationship?: Yes Exam Narrative Exam Narrative: 1.Const: Well-nourished, Well-developed, appearing stated age 2.Eyes: PERRL, no conjunctival injection, and symmetrical lids. 3.ENT: Atraumatic external nose and ears. Moist MM. Neck: Symmetric, trachea midline, No thyromegaly. 4.CVS: +S1/S2, No murmurs or gallops. Peripheral pulses 2+ and equal in all extremities. Brisk capillary refill in all extremities. No reproducible chest wall tenderness. Radial pulses +2 bilaterally. 5.RESP: Unlabored respiratory effort. Clear to auscultation bilaterally. No wheezes rales or rhonchi 6.GI: Soft, Nontender/Nondistended, No hepatosplenomegaly. No guarding or rebound. 7.MSK: Normocephalic/Atraumatic, Extremities w/o deformity or ttp No cyanosis or clubbing, Normal movement of all extremities 8.Skin: Warm, Dry. No rashes or lesions. 9.Neuro: senior animal trainer II-XII grossly intact. Sensation grossly intact, no focal neurologic deficits. 10.Psych: (AAO) x3. Appropriate mood and affect Course Vital Signs Vital signs: Vital Signs Temperature 36.6 C 09/12/20 02:27 Pulse 72 09/12/20 02:27 Respiratory Rate 19 09/12/20 02:27 Blood Pressure 177/113 H 09/12/20 02:27 Pulse Oximetry 100 09/12/20 02:27 Temperature 36.6 C 09/12/20 02:27 Temperature Source Temporal Artery Scan 09/12/20 02:27 Pulse 72 09/12/20 02:27 Respiratory Rate 16 09/12/20 02:32 Respiratory Effort Non-Labored 09/12/20 02:32 Respiratory Depth Normal 09/12/20 02:32 Respiratory Pattern Normal 09/12/20 02:32 Blood Pressure 177/113 H 09/12/20 02:27 Pulse Oximetry 100 09/12/20 02:27 Oxygen Delivery Method Room Air 09/12/20 02:27 Oxygen Flow Rate 0 09/12/20 02:27 Pain Level 3 09/12/20 02:44 Lab/Test Results Lab/Test Results: Laboratory Tests Range/Units 09/12/20 02:30 WBC (4.4-10.8) 10^3/uL 10.09 RBC (4.36-5.78) 10^6/uL 5.18 Hgb (13.5-17.5) g/dL 15.9 Hct (40.0-50.0) % 46.3 MCV (80-95) fL 89.4 MCH (27.0-33.0) pg 30.7 MCHC (32.0-36.0) % 34.3 RDW (11.8-14.1) % 12.0 Plt Count (130-400) 10^3/uL 254 MPV (8.0-11.0) fL 9.8 Immature Gran % 0.2 Neutrophils % 53.5 Lymphocytes % 34.9 Monocytes % 6.5 Eosinophils % 4.0 Basophils % 0.9 Nucleated RBC % % 0 Absolute Neutrophils (1.2-6.7) 10^3/uL 5.40 Absolute Lymphocytes (1.2-3.4) 10^3/uL 3.52 H Absolute Monocytes (0.1-0.8) 10^3/uL 0.66 Absolute Eosinophils (0.0-0.7) 10^3/uL 0.40 Absolute Basophils (0.0-0.2) 10^3/uL 0.09
[2020-09-12 03:03] LABS: PTT Activated 22.6 sec (21.0-27.5); Prothrombin Time 10.1 sec (9.3-11.0)
[2020-09-12 03:11] LABS: ALT 18 U/L (16-63); AST 6 U/L (15-37); Albumin 3.7 g/dL (3.4-5.0); Alkaline Phosphatase 117 U/L (46-116); Anion Gap 8.1 mmol/L (3-11); BUN 15 mg/dL (7-18); Bilirubin, Total 1.1 mg/dL (0.2-1.0); CO2 30.9 mmol/L (21.0-32.0); CREATININE 1.2 mg/dL (0.70-1.30); Calcium 8.6 mg/dL (8.5-10.1); Chloride 102 mmol/L (98-107); Glucose 278 mg/dL (74-106); NT-proBNP 150 pg/mL (<300); Potassium 3.7 mmol/L (3.5-5.1); Sodium 141 mmol/L (136-145); Total Protein 6.9 g/dL (6.4-8.2)
[2020-09-12 03:12] LABS: Troponin I < 0.05 ng/mL (<0.06)
[2020-09-12] MEDS: Normal Saline Flush 10 ML SYR IVP (03:21)
--- NOTE | 2020-09-12 03:33 | DI.CT_ITS ---
Exam(s) CT THORAX CTA EXAM: CT THORAX CTA CLINICAL HISTORY: chest pain, r/o dissection. TECHNIQUE: Imaging Protocol: Axial CT angiography was performed with multi-slice acquisition and mu lti-planar and/or 3D reconstructions. CONTRAST MATERIAL: Intravenous: Omnipaque 350 Contrast volume:100 mL COMPARISON: CT CT RENAL COLIC WO from 05/26/2020 FINDINGS: Tracheobronchial tree: Patent where visualized. Pulmonary parenchyma: No consolidation or dominant measurable mass. No architectural distortion. Atel ectasis or scarring in the lateral aspect of the left lingula. Pulmonary Arteries: No evidence of filling defect to suggest pulmonary emboli. Mediastinum and Kristi: No dominant adenopathy or fluid collection. Visualized thyroid gland: Unremarkable. Pleura: No effusion or pneumothorax. Heart: The heart is not dilated. Mild coronary artery calcification. No pericardial effusion. Aorta: Thoracic aorta non-dilated. No evidence of dissection. Upper abdomen: Cholelithiasis. No biliary ductal dilatation. Soft tissues: Unremarkable. Bones: Degenerative changes. IMPRESSION: 1. No evidence of pulmonary embolism, thoracic aortic dissection or aneurysm. 2. Atelectasis or scarring in the left lingula. 3. Cholelithiasis. RADIATION DOSE DELIVERED: 651.3mGy.cm Total DLP 651.3mGy.cm Total DLP DATA REPOSITORY: All CT scans at this facility are submitted to the National Radiology Data Registry (NRDR) Dose Index Registry (DIR) with the [employer] (ACR). RADIATION OPTIMIZATION: All CT scans at this facility use at least one of these dose optimization te chniques: automated exposure control; mA and/or kV adjustment per patient size (includes targeted exa ms where dose is matched to clinical indication); or iterative reconstruction.
[2020-09-12] MEDS: Normal Saline - Diluent 50 ML VIAL IV (03:43)
[2020-09-12] MEDS: Omnipaque 350 MG/ML 100 ML BTL IJ (03:43)
--- NOTE | 2020-09-12 04:18 | DI.VRAD_ITS ---
PROCEDURE INFORMATION: Exam: CTA Chest With Contrast Exam date and time: 09/12/2020 2:38 AM Age: 45 years old Clinical indication: Prior surgery; Surgery type: Stent 2013; Patient HX: Chest pain x2+ hours, nausea, dry heaving, R/O dissection TECHNIQUE: Imaging protocol: Computed tomographic angiography of the chest with contrast. 3D rendering (Not supervised by radiologist): MIP and/or 3D reconstructed images were created by the technologist. Radiation optimization: All CT scans at this facility use at least one of these dose optimization techniques: automated exposure control; mA and/or kV adjustment per patient size (includes targeted exams where dose is matched to clinical indication); or iterative reconstruction. Contrast material: [id number]; Contrast volume: 100 ml; Contrast route: INTRAVENOUS (IV); COMPARISON: SC PORTABLE CHEST ONE VIEW 07/11/2016 4:09 PM FINDINGS: Pulmonary arteries: No evidence of acute pulmonary embolism. Aorta: Aorta normal caliber without aneurysm, dissection or disruption. Lungs: Lingular lateral atelectasis and/or fibrosis. Adjacent pleural thickening/reaction. Lungs are otherwise clear without pneumonia or pulmonary edema. Pleural spaces: No pleural effusions. No pneumothorax. Heart: Cardiac size normal. No pericardial effusion. No right heart strain. Lymph nodes: Unremarkable. No enlarged lymph nodes. Gallbladder and bile ducts: Cholelithiasis within a partially visualized gallbladder without definite acute cholecystitis. Spleen: Patchy enhancement of the partially visualized spleen may be related to enhancement technique/bolus timing. Infarction not excluded. Bones/joints: Mild degenerative changes noted throughout the spine. No fracture or subluxation. No obviously displaced rib fracture. No sternal fracture. Soft tissues: Unremarkable. IMPRESSION: 1. Aorta normal caliber without aneurysm, dissection or disruption. 2. No evidence of acute pulmonary embolism. 3. Cardiac size normal. No pericardial effusion. No right heart strain. 4. Lingular lateral atelectasis and/or fibrosis. Adjacent pleural thickening/reaction. Lungs are otherwise clear without pneumonia or pulmonary edema. 5. Cholelithiasis within a partially visualized gallbladder without definite acute cholecystitis. 6. Patchy enhancement of the partially visualized spleen may be related to enhancement technique/bolus timing. Infarction not excluded. Dictated and Authenticated by: Jet Carrillo MD. Ordering:MORALES Ballesteros MD
--- NOTE | 2020-09-12 05:15 | RT.EKG_ITS ---
APPROVED REPORT Exam: Resting ECG Reason for Exam: chest pain Patient Location: E HR:63 bpm ECG Measurements Heart Rate 63 AXIS NE 150 P 41 QRSd 89 QRS -22 QT 427 T 45 QTc 438 Conclusion Sinus rhythm...normal P axis, V-rate 60- 99 Inferior infarct, old...Q >35mS, II III aVF {Physician: no stemi, unchanged
[2020-09-12 05:52] LABS: Troponin I < 0.05 ng/mL (<0.06)
== END 2020-09-12 06:05 | disposition home or self-care (01) ==
PROVIDERS: Emergency Provider Student in an Organized Health Care Education/Training Program; PCP Nurse Practitioner Family
DX: R07.89 Other chest pain (principal)
CPT/HCPCS: 71275; 80053; 93005; 96374; 99285; 83880; 84484; 85025; 85610; 85730; 93010; 99284; J1885; J3490

== ENCOUNTER 2020-09-13 03:03 | Outpatient (CLI) | payer MEDICARE, MEDICAID, SELFPAY ==
[2020-09-13 11:25] LABS: ALT 21 U/L (16-63); AST 14 U/L (15-37); Albumin 3.9 g/dL (3.4-5.0); Alkaline Phosphatase 123 U/L (46-116); Anion Gap 8.2 mmol/L (3-11); BUN 11 mg/dL (7-18); Bilirubin, Total 1.4 mg/dL (0.2-1.0); CO2 29.8 mmol/L (21.0-32.0); Calcium 8.7 mg/dL (8.5-10.1); Calculated LDL 107 mg/dL (<100); Chloride 102 mmol/L (98-107); Cholesterol 159 mg/dL (<200); Glucose 157 mg/dL (74-106); HDL Cholesterol 25 mg/dL (40-60); Potassium 4.1 mmol/L (3.5-5.1); Sodium 140 mmol/L (136-145); Total Protein 6.7 g/dL (6.4-8.2); Triglyceride 137 mg/dL (<150)
[2020-09-16 10:26] LABS: HIV-1/2 Ag & Ab Screen Negative (Negative)
[2020-09-16 11:12] LABS: Hepatitis C Ab w Rflx HCV PCR Negative (Negative)
[2020-09-17 15:57] LABS: Testosterone, Total 305 ng/dL (240-950)
== END 2020-09-13 03:04 | disposition home or self-care (01) ==
LOC: LBO 03:03
PROVIDERS: PCP Nurse Practitioner Family; Visit Provider Nurse Practitioner Family
DX: E11.9 Type 2 diabetes mellitus without complications (principal); Z79.4 Long term (current) use of insulin; E78.5 Hyperlipidemia, unspecified; N52.9 Male erectile dysfunction, unspecified; Z11.59 Encounter for screening for other viral diseases; Z11.4 Encounter for screening for human immunodeficiency virus [HIV]
CPT/HCPCS: 36415; 80053; 80061; 84403; 86803; 87389

== ENCOUNTER 2020-12-01 14:22 | Emergency (ER) | payer MEDICARE, MEDICAID, SELFPAY ==
[2020-12-01] VITALS (8 sets, daily range): BP systolic 123–148; BP diastolic 95–98; PULSE 70–79; RESP 13–21; TEMP 36.9; O2SAT 95–99
--- NOTE | 2020-12-01 14:15 | RT.EKG_ITS ---
APPROVED REPORT Exam: Resting ECG Reason for Exam: dizzy, diaphoretic Patient Location: E HR:74 bpm ECG Measurements Heart Rate 74 AXIS MT 157 P 44 QRSd 94 QRS -20 QT 405 T 32 QTc 451 Conclusion Sinus rhythm...normal P axis, V-rate 60- 99 Inferior infarct, old...Q >35mS, II III aVF Anterior infarct, old...Q >40mS, abnormal ST-T, V2-V5. No STEMI. I have reviewed and interpreted ECG and agree with software generated interpretation.
--- NOTE | 2020-12-01 14:38 | ED.GENADUL_ITS ---
Discharge Plan Disposition Patient Disposition: HOME Condition: Improving Discharge Details Clinical Impression: Panic attack, Vertigo, Hypokalemia Primary Care Provider: Lnida Hallman ED Provider: Farhana Montez Home Meds and New Rx's Prescriptions: No Action ibuprofen 400 mg tablet 400 mg PO ONCE PRNRF: 0 chlorhexidine gluconate [Antiseptic Skin Clnsr(chlorhe)] 4 % liquid 1 applic TP DAILY Qty: 960 RF: 0 (DME) lancets Misc See Dose Instructions .ROUTE .MEDSUPPLY Qty: 200 RF: 3 (DME) Blood Glucose Test Strip See Rx Instructions .ROUTE .MEDSUPPLY Qty: 200 RF: 3 hydrochlorothiazide 12.5 mg tablet 12.5 mg PO DAILY AM Qty: 90 RF: 3 Jardiance 10 mg tablet 10 mg PO QAM Qty: 90 RF: 3 lisinopril 40 mg tablet 40 mg PO DAILY Qty: 90 RF: 3 metoprolol tartrate 50 mg tablet 50 mg PO BID Qty: 180 RF: 3 Tresiba FlexTouch U-100 100 unit/mL (3 mL) insulin pen 21 unit SC QAM Qty: 7 RF: 3 (DME) pen needle, diabetic [BD Ultra-Fine Marivel Pen Needle] 32 gauge x 5/32 needle See Rx Instructions .ROUTE .MEDSUPPLY Qty: 100 RF: 3 cholecalciferol (vitamin D3) [Vitamin D3] 2,000 UNIT tablet 3,000 unit PO DAILY Qty: 90 RF: 3 multivitamin 1 EACH tablet 1 ea PO DAILY RF: 0 aspirin 325 MG tablet 325 mg PO DAILY RF: 0 hydroxyzine HCl 25 MG tablet 25 - 50 mg PO QID PRNQty: 90 RF: 0 (DME) blood-glucose meter Misc See Dose Instructions .ROUTE .MEDSUPPLY Qty: 1 RF: 0 Janumet XR 50-1,000 mg tablet, ER multiphase 24 hr 1 tab PO BID Qty: 180 RF: 3 clopidogrel [Plavix] 75 mg tablet 75 mg PO DAILY Qty: 90 RF: 0 atorvastatin [Lipitor] 40 mg tablet 40 mg PO DAILY Qty: 90 RF: 3 tadalafil 5 mg tablet 5 mg PO DAILY MDD 5 mg PRN (Reason: sexual activity) Qty: 30 RF: 3 pantoprazole 20 mg tablet,delayed release (DR/EC) 20 mg PO DAILY Qty: 90 RF: 3 acetaminophen [Tylenol Extra Strength] 500 MG tablet 500 mg PO PRN PRNRF: 0 escitalopram oxalate 20 mg tablet 10 mg PO DAILY RF: 0 acidophilus-pectin, citrus 25 million cell -100 mg tablet RF: 0 Discharge Instructions Instructions: Vertigo (ED), Hypokalemia (ED), Panic Attack (ED) Additional Instructions: Stop drinking mountain dew. Stop smoking. Please drink water. Your symptoms are most consistent with possible vertigo and then a panic attack. Please follow up with your primary care in 1-2 weeks for reevaluation. If you develop fevers/chills, headache, inability to stay hydrated, chest pain or other new/worsening symptoms please seek care urgently once again. Referrals: Linda Hallman NP [Primary Care Provider] - Discharge Data Discharge Date/Time-TO BE ENTERED AT DEPARTURE: 12/01/20 16:19 Medical Decision Making Patient is a pleasant 45-year-old male presenting today with chief complaint of dizziness and vomiting. He reports that this morning, while on his phone, he developed a sudden onset of dizziness which he describes as being on a roller coaster and the room spinning. Vomited x 1 during this episode. States that symptoms have completely resolved. [place] like he was having a panic attack after the episode. He denies any headache. No weakness. No chest pain, no palpitations. He denies any recent fevers or chills. Patient reports that this felt similar to when he had panic attacks in the past. He has a hx of CVA and MO but states that it does not feel like any of these episodes did. On exam, patient appears chronically ill. No any acute abnormalities. Patient has slightly elevated blood pressure 148/95 which is baseline. His neurologic exam is intact. Is not in any focal deficit. No nystagmus. However, again the patient is currently asymptomatic. His lungs are clear, normal cardiac exam. Based on patient's history, primarily concerned for vertigo. Sounds of his vertigo may have more into a panic attack based on his description. Again, I do not see any evidence of central neurological cause, cardiac history. However, the patient is chronically unwell. Reports he drinks a large amount of Mountain Dew cigarettes throughout the course the day. Past medical history is pertinent for type 2 diabetes, panic disorder, obesity, JAMES, hyperlipidemia, depression, CVA, cardiomyopathy, bipolar, hypertension, anxiety. With the patient's history, I do feel that EKG and baseline labs would be appropriate in this setting. Discussed plan with the patient his agreement. We will also give hydration as he does appear slightly dehydrated and has not drank any water despite the extreme heat we have been experiencing. Labs show elevated leukocytosis white count 13. However, his hemoglobin is also elevated at 17.8, I am wondering if this is dehydration and patient having concentration of the blood. Is definitely low at 3.1, will replenish that here orally. Troponin normal limits. EKG was reviewed by Dr. Sanchez. Patient is normal sinus rhythm with heart rate of 74. No acute ischemic abnormality is noted. Patient is to feel 100%. He did receive fluids which did seem to help with further. Patient was ambulated about the department. Had no return of symptoms with any type of movement. He is requesting discharge at this time which I do feel is appropriate. Again, his history is most concerning for vertigo either in conjunction are followed by a panic attacks. Strict return precautions were discussed. Encourage close follow-up with primary care. Encouraged that he try to drink more water and less soda. Also encouraged he stop smoking. All his questions and concerns were addressed and he is agreement this plan. HPI General Mode of arrival: EMS . Date/Time Provider Initiated Documentation: 12/01/20 14:38 . Limitations to Documentation: no limitations . Information obtained by: patient, EMS and RN notes reviewed . History of Present Illness 45 year old M presents to the emergency department with the chief complaint of Dizziness , described as severe, Quality is described as other (Denies any pain associated with this episode.), and is localized to the head. Patient reports no radiation. Patient started experiencing this minute(s) and it has been now resolved. No relieving factors improve symptom(s), No exacerbating factors reported . Patient notes nausea/vomiting (Vomited x1 when still); denies chest pain, cough, fever/chills, shortness of breath, syncope and weakness. Patient did receive the following treatments prior to arrival, none Related Data Home Medications Medication Instructions Recorded Confirmed cholecalciferol (vitamin D3) 3,000 unit PO DAILY #90 tab-cap 11/27/15 12/01/20 [Vitamin D3] aspirin 325 mg PO DAILY tab-cap 04/14/17 08/22/21 multivitamin 1 ea PO DAILY 07/24/16 12/01/20 acetaminophen [Tylenol Extra 500 mg PO PRN PRN 01/25/17 12/01/20 Strength] hydroxyzine HCl 25 - 50 mg PO QID PRN #90 tab-cap 11/26/17 12/01/20 chlorhexidine gluconate 4 % 1 applic TP DAILY #960 ml 03/14/18 12/01/20 topical liquid blood-glucose meter #1 each 04/24/19 09/27/20 blood sugar diagnostic #200 each 05/22/19 09/27/20 lancets #200 each 05/22/19 09/27/20 sitagliptin 50 mg-metformin ER 1 tab PO BID #180 tab-cap 11/01/19 12/01/20 1,000 mg tablet,extended release 24h mp clopidogrel 75 mg tablet 75 mg PO DAILY #90 tab-cap 02/22/20 12/01/20 ibuprofen 400 mg tablet 400 mg PO ONCE PRN tab 07/30/20 12/01/20 atorvastatin 40 mg tablet 40 mg PO DAILY #90 tab-cap 09/02/20 12/01/20 tadalafil 5 mg tablet 5 mg PO DAILY PRN #30 tab-cap MDD 09/02/20 12/01/20 5 mg pantoprazole 20 mg tablet,delayed 20 mg PO DAILY #90 tab-cap 09/23/20 12/01/20 release empagliflozin 10 mg tablet 10 mg PO QAM #90 tab-cap 09/27/20 12/01/20 hydrochlorothiazide 12.5 mg tablet 12.5 mg PO DAILY AM #90 tab-cap 09/27/20 12/01/20 insulin degludec 100 unit/mL (3 21 unit SC QAM #7 syrg 09/27/20 12/01/20 mL) subcutaneous pen lisinopril 40 mg tablet 40 mg PO DAILY #90 tab-cap 09/27/20 12/01/20 metoprolol tartrate 50 mg tablet 50 mg PO BID #180 tab-cap 09/27/20 12/01/20 pen needle, diabetic 32 gauge x #100 each 09/27/20 09/27/20 acidophilus-pectin, citrus tab 12/01/20 escitalopram oxalate 10 mg PO DAILY 12/01/20 12/01/20 Previous Rx's Medication Instructions Recorded chlorhexidine gluconate 4 % 1 applic TP DAILY #960 ml 03/14/18 topical liquid blood-glucose meter #1 each 04/24/19 blood sugar diagnostic #200 each 05/22/19 lancets #200 each 05/22/19 sitagliptin 50 mg-metformin ER 1 tab PO BID #180 tab-cap 11/01/19 1,000 mg tablet,extended release 24h mp clopidogrel 75 mg tablet 75 mg PO DAILY #90 tab-cap 02/22/20 atorvastatin 40 mg tablet 40 mg PO DAILY #90 tab-cap 09/02/20 tadalafil 5 mg tablet 5 mg PO DAILY PRN #30 tab-cap MDD 09/02/20 5 mg pantoprazole 20 mg tablet,delayed 20 mg PO DAILY #90 tab-cap 09/23/20 release empagliflozin 10 mg tablet 10 mg PO QAM #90 tab-cap 09/27/20 hydrochlorothiazide 12.5 mg tablet 12.5 mg PO DAILY AM #90 tab-cap 09/27/20 insulin degludec 100 unit/mL (3 21 unit SC QAM #7 syrg 09/27/20 mL) subcutaneous pen lisinopril 40 mg tablet 40 mg PO DAILY #90 tab-cap 09/27/20 metoprolol tartrate 50 mg tablet 50 mg PO BID #180 tab-cap 09/27/20 pen needle, diabetic 32 gauge x #100 each 09/27/20 Allergies Allergy/AdvReac Type Severity Reaction Status Date / Time hydromorphone [From Dilaudid] AdvReac Intermediate Psychosis Verified 12/01/20 15:36 codeine [Codeine] AdvReac Unknown PSYCHOSIS Verified 12/01/20 15:36 General Stated Complaint: Dizzy/Sync DIANNE: 2 Review of Systems Constitutional Constitutional: Reports as per HPI, Denies chills, Denies fever(s), Denies frequent falls, Denies headache(s) and Denies weakness Eyes Eyes: Reports as per HPI, Denies blurry vision and Denies change in vision ENT Ears, Nose, Mouth, and Throat: Reports vertigo, Denies headache(s) and Denies neck pain Cardiovascular Cardiovascular: Reports as per HPI, Denies chest pain, Denies lightheadedness, Denies radiating jaw, neck or arm pain, Denies dyspnea and Denies dyspnea on exertion Respiratory Respiratory: Reports as per HPI, Denies chest congestion, Denies cough, Denies dyspnea, Denies dyspnea on exertion, Denies stridor and Denies wheezing Gastrointestinal Gastrointestinal: Reports as per HPI, Denies abdominal pain, Denies change in bowel habits, Denies nausea and Reports vomiting Genitourinary Genitourinary: Reports system reviewed and no additional complaints, except as documented (denies change in urinary habits) Musculoskeletal Musculoskeletal: Reports as per HPI, Denies back pain, Denies myalgias, Denies muscle cramps, Denies neck pain and Denies numbness Integumentary/Breasts Skin/Breast: Reports as per HPI and Denies rash Neurologic Neurologic: Reports as per HPI, Denies abnormal movements, Denies abnormal speech, Denies behavioral changes, Denies confusion, Reports vertigo, Denies frequent falls, Denies headache(s), Denies localized weakness, Denies numbness, Denies sensory deficit and Denies weakness Psychiatric Psychiatric: Denies behavioral changes and Denies confusion Allergic/Immunologic Allergic/Immunologic: Denies wheezing [facility] Medical History (Updated 12/01/20 @ 16:12 by TG Henderson) Alcohol use disorder (04/29/11) [facility] PT. STATES HE DOESN'T DRINK ANYMORE, HASN'T IN YEARS 09/21/19 Anxiety (04/29/11) ASCVD (arteriosclerotic cardiovascular disease) Anterior MO 12/2013 --> [facility] in [facility] EF 40% post-MO 09/2014 echo EF improved to almost normal at 54% Followed by cornetist Dr. Galaviz at [facility] Benign prostatic hyperplasia with lower urinary tract symptoms (01/28/17) Bipolar disorder Dx psychiatry [facility] PT. DENIES THIS DX Cardiomyopathy Followed by cornetist Dr. Galaviz at [facility] Cerebrovascular accident (CVA) (08/03/16) [facility] admission 07/11-07/20/2016 R valdez radiata, basal ganglia, subinsular region and temporal lob infarcts s/p tPA and thrombectomy (07/11/16) with recanalization De Quervain's tenosynovitis, right Depression (04/29/11) Erectile dysfunction (11/29/15) Essential hypertension (11/25/12) Hyperlipidemia, unspecified (04/29/11) Intolerant to atorvastatin; able to tolerate once vit D deficiency addressed Kidney stone (04/26/15) 100% calcium oxalate monohydrate 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 2 diabetes mellitus (~06/2020) Obesity (BMI 30-39.9) (08/28/14) Obstructive sleep apnea syndrome, mild (11/03/16) Shanika Jimenez NP DOES NOT USE CPAP Panic disorder without agoraphobia (04/29/11) Patellar fracture (01/26/17) (L) S/p surgical repair Tobacco use disorder Type 2 diabetes mellitus, without long-term current use of insulin Vitamin D deficiency (05/23/15) Surgical History Heart Surgery stent placement X1 Open Reduction and Internal Fixation of Patellar Fracture (01/26/17) (L) Dr. Lemus Vasectomy (01/19/06) Family History Father No problems noted. Other CAD (coronary artery disease) Social History Smoking/Tobacco Use Status: Current every day Tobacco Type: cigarettes and e- cigarettes Smoking risk assessment performed?: Yes Alcohol Intake: former Drug use: Never Substance use type: does not use Adopted: No Caregiver/Support person: No Foster care: No Household members: children and other Details: 2 - lives with son Housing: apartment Number of Children: 2 Communication Needs: None current occupation: works for a [employer] company Pets and animals: No Current gender identity: male What type of physical activity do you participate in: none Frequency: daily Seatbelt use: always Helmet use: No Drive 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 w/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 Water heater temp set <120 deg: Yes Working smoke detector in home: Yes Fire extinguisher in home: Yes Carbon monox detector in home: Yes Do you feel safe at home: Yes Do you feel safe in your relationship?: Yes Exam Const General: cooperative, no acute distress, well developed, well groomed and ill appearing chronically Nutritional Appearance: well nourished and overweight Orientation: alert, awake and oriented x3 HENMT Head: normal to inspection, no palpable skull fracture, normocephalic and atraumatic Ears: hearing grossly normal bilaterally, external ears normal and TM's normal bilaterally General nose exam: external nose normal Mouth: oral mucosae normal and moist mucous membranes Throat: posterior oropharynx normal Eyes General: appearance normal, both eyes and all related structures Alignment and Position: alignment normal Periorbital: periorbital findings normal Eyelids: eyelids normal Sclera: sclerae normal Cornea: corneas normal Pupils: PERRL EOM: EOM intact bilaterally and No nystagmus Resp Effort & Inspection: normal respiratory effort, able to speak in complete sentences and no respiratory distress Auscultation: clear to auscultation bilaterally, no rales, no rhonchi and no wheezes Cardio Rate: regular rate Rhythm: regular rhythm Heart Sounds: S1 normal and S2 normal Skin General skin exam: no rashes or lesions noted Neuro General: patient alert, patient awake and patient oriented x3 Cranial Nerves: CN's II-XI intact bilaterally and no nystagmus Cognition: normal cognition Speech: speech normal Gait: normal gait Motor: muscle tone normal throughout, strength 5/5 throughout, no pronator drift, no movement abnormalities noted and no fasciculations Sensory Exam: no sensory deficits noted Coordination: [id number] test normal and [id number] test normal Psych Appearance: grossly normal and well kempt Mental Status: mental status grossly normal Speech and Movement: speech and movement normal Course Vital Signs Vital signs: Vital Signs Temperature 36.9 C 12/01/20 14:27 Pulse 79 12/01/20 14:27 Respiratory Rate 13 12/01/20 14:27 Blood Pressure 148/95 H 12/01/20 14:27 Pulse Oximetry 95 12/01/20 14:27 Temperature 36.9 C 12/01/20 14:27 Temperature Source Oral 12/01/20 14:27 Pulse 79 12/01/20 14:27 Respiratory Rate 13 12/01/20 14:27 Blood Pressure 148/95 H 12/01/20 14:27 Blood Pressure Position Sitting 12/01/20 14:27 Pulse Oximetry 95 12/01/20 14:27 Oxygen Delivery Method Room Air 12/01/20 14:27 Oxygen Flow Rate 0 12/01/20 14:27 Pain Level 0 12/01/20 14:27
[2020-12-01] MEDS: Normal Saline 1,000 ML 1000 ML IV (14:41)
[2020-12-01 14:50] LABS: Abs Immature Grans 0.05 10^3/uL (0.0-0.06); Absolute Eosinophil Count 0.29 10^3/uL (0.0-0.7); Absolute Lymphocyte Count 6.11 10^3/uL (1.2-3.4); Absolute Monocyte Count 0.91 10^3/uL (0.1-0.8); Basophils % 0.7; Eosinophils % 2.1; HCT 51.9 % (40.0-50.0); HGB 17.8 g/dL (13.5-17.5); Immature Grans % 0.4; Lymphocytes % 44.5; MCH 30.2 pg (27.0-33.0); MCHC 34.3 % (32.0-36.0); MCV 88.1 fL (80-95); Monocytes % 6.6; Neutrophils % 45.7; Nucleated RBC 0 %; Platelet Count 373 10^3/uL (130-400); RBC 5.89 10^6/uL (4.36-5.78); RDW 12.4 % (11.8-14.1); WBC 13.74 10^3/uL (4.4-10.8)
[2020-12-01 15:06] LABS: Absolute Neutrophil Count 6.28 10^3/uL (1.2-6.7)
[2020-12-01 15:11] LABS: Diff Comment Agrees w/ Instrument; RBC Morphology Normal
[2020-12-01 15:14] LABS: ALT 16 U/L (16-63); AST 11 U/L (15-37); Albumin 4.5 g/dL (3.4-5.0); Alkaline Phosphatase 102 U/L (46-116); Anion Gap 16.7 mmol/L (3-11); BUN 9 mg/dL (7-18); Bilirubin, Total 0.8 mg/dL (0.2-1.0); CO2 23.3 mmol/L (21.0-32.0); CREATININE 1.2 mg/dL (0.70-1.30); Calcium 9.1 mg/dL (8.5-10.1); Chloride 103 mmol/L (98-107); Glucose 165 mg/dL (74-106); Magnesium 1.8 mg/dL (1.8-2.4); Potassium 3.1 mmol/L (3.5-5.1); Sodium 143 mmol/L (136-145)
[2020-12-01 15:20] LABS: Troponin I < 0.05 ng/mL (<0.06)
[2020-12-01] MEDS: Potassium Chloride 20 MEQ TABCR 40 MEQ PO (16:01)
== END 2020-12-01 16:19 | disposition home or self-care (01) ==
PROVIDERS: Emergency Provider Physician Assistant; PCP Nurse Practitioner Family
DX: F41.0 Panic disorder [episodic paroxysmal anxiety] (principal); R42 Dizziness and giddiness; E87.6 Hypokalemia; R11.2 Nausea with vomiting, unspecified
CPT/HCPCS: 36415; 80053; 93005; 96360; 99284; 83735; 84484; 85025; 93010; 99285

== ENCOUNTER 2021-02-07 10:36 | Outpatient (REF) | payer MEDICARE, MEDICAID, SELFPAY | END 2021-02-07 10:37 | disposition home or self-care (01) | LOC: LBN 10:36 | PROVIDERS: PCP Nurse Practitioner Family; Visit Provider Nurse Practitioner Family | DX: L73.8 Other specified follicular disorders (principal) | CPT/HCPCS: 87070 ==

== ENCOUNTER 2021-07-30 03:00 | Outpatient (CLI) | payer MEDICARE, MEDICAID, SELFPAY | END 2021-07-30 03:01 | disposition home or self-care (01) | LOC: LBO 03:00 | PROVIDERS: PCP Nurse Practitioner Family; Visit Provider Nurse Practitioner Family ==

== ENCOUNTER 2021-08-15 02:02 | Outpatient (RCR) | payer MEDICARE, MEDICAID, SELFPAY ==
--- NOTE | 2021-08-15 11:15 | HOLTER_ITS ---
APPROVED REPORT Conclusion This was a 48-hour Holter monitor, ordered for palpitations Predominant rhythm was sinus with an average heart rate of 79. Minimum was 62, maximum 140 There were rare atrial premature beats. There was no supraventricular tachycardia There was no atrial fibrillation, no high-grade AV block, no pauses greater than 3 seconds There were occasional premature ventricular contractions, rare couplets, The patient reported symptoms of fluttering but it could not be determined if these correlated to any dysrhythmia
== END 2021-09-09 23:59 | disposition home or self-care (01) ==
LOC: RT 02:02
PROVIDERS: PCP Nurse Practitioner Family; Visit Provider Nurse Practitioner Family
DX: R00.2 Palpitations (principal); I49.3 Ventricular premature depolarization
CPT/HCPCS: 93227; 93225; 93226

== ENCOUNTER 2021-08-15 02:52 | Outpatient (CLI) | payer MEDICARE, MEDICAID, SELFPAY ==
[2021-08-15 13:25] LABS: Anion Gap 6.7 mmol/L (3-11); BUN 6 mg/dL (7-18); CO2 30.3 mmol/L (21.0-32.0); Calcium 8.5 mg/dL (8.5-10.1); Chloride 105 mmol/L (98-107); Glucose 115 mg/dL (74-106); Magnesium 1.9 mg/dL (1.8-2.4); Potassium 4.1 mmol/L (3.5-5.1); Sodium 142 mmol/L (136-145); TSH (W/Ref FT4) 1.63 uIU/mL (0.36-3.74)
== END 2021-08-15 02:53 | disposition home or self-care (01) ==
LOC: LBO 02:52
PROVIDERS: PCP Nurse Practitioner Family; Visit Provider Nurse Practitioner Family
DX: R00.2 Palpitations (principal)
CPT/HCPCS: 36415; 80048; 83735; 84443; 93225

== ENCOUNTER → 2021-11-03 08:52 | Outpatient (BNVA) | payer MEDICARE, MEDICAID, SELFPAY | PROVIDERS: PCP Nurse Practitioner Family; Referring Provider Nurse Practitioner Family; Visit Provider Physical Therapy Assistant | DX: I73.9 Peripheral vascular disease, unspecified (principal) | CPT/HCPCS: 93922 ==

== ENCOUNTER 2021-11-28 01:14 | Outpatient (CLI) | payer MEDICARE, MEDICAID, SELFPAY ==
[2021-11-28 12:38] LABS: Abs Immature Grans 0.02 10^3/uL (0.0-0.06); Absolute Basophil Count 0.06 10^3/uL (0.0-0.2); Absolute Eosinophil Count 0.23 10^3/uL (0.0-0.7); Absolute Lymphocyte Count 2.95 10^3/uL (1.2-3.4); Absolute Monocyte Count 0.47 10^3/uL (0.1-0.8); Absolute Neutrophil Count 4.82 10^3/uL (1.2-6.7); Basophils % 0.7; Eosinophils % 2.7; HCT 51.1 % (40.0-50.0); HGB 18.1 g/dL (13.5-17.5); Immature Grans % 0.2; Lymphocytes % 34.5; MCH 31.8 pg (27.0-33.0); MCHC 35.4 % (32.0-36.0); MCV 90 fL (80-95); MPV 9.6 fL (8.0-11.0); Monocytes % 5.5; Neutrophils % 56.4; Platelet Count 252 10^3/uL (130-400); RBC 5.69 10^6/uL (4.36-5.78); RDW 11.9 % (11.8-14.1); WBC 8.55 10^3/uL (4.4-10.8)
[2021-11-28 13:06] LABS: Hemoglobin A1C 7.3 % (<5.7)
[2021-11-28 13:40] LABS: ALT 29 U/L (16-63); AST 17 U/L (15-37); Albumin 4.2 g/dL (3.4-5.0); Alkaline Phosphatase 89 U/L (46-116); Anion Gap 9.3 mmol/L (3-11); BUN 8 mg/dL (7-18); Bilirubin, Total 1.7 mg/dL (0.2-1.0); CO2 29.7 mmol/L (21.0-32.0); Calcium 8.9 mg/dL (8.5-10.1); Calculated LDL 184 mg/dL (<100); Chloride 100 mmol/L (98-107); Cholesterol 255 mg/dL (<200); Ferritin 149 ng/mL (26-388); Folate 16.6 ng/mL (8.6-20.0); Glucose 197 mg/dL (74-106); HDL Cholesterol 30 mg/dL (40-60); Magnesium 1.7 mg/dL (1.8-2.4); Potassium 4.3 mmol/L (3.5-5.1); Sodium 139 mmol/L (136-145); TSH 1.84 uIU/mL (0.36-3.74); Total Protein 7.7 g/dL (6.4-8.2); Triglyceride 208 mg/dL (<150); Vitamin B12 473 pg/mL (193-986)
[2021-11-28 13:56] LABS: Creatine Kinase 57 U/L (39-308); FREE T4 0.99 ng/dL (0.76-1.46); LDH 140 U/L (85-227)
[2021-11-28 21:59] LABS: T3,Free 3.9 pg/mL (2.8-5.3)
[2021-12-01 05:32] LABS: Vitamin D 25 Total 20.7 ng/mL (30-100)
[2021-12-01 15:10] LABS: ANA Interpretation Negative (Negative)
== END 2021-11-28 01:15 | disposition home or self-care (01) ==
LOC: LBO 01:14
PROVIDERS: Absent Provider Nurse Practitioner Adult Health; PCP Nurse Practitioner Family; Referring Provider Nurse Practitioner Adult Health; Visit Provider Nurse Practitioner Adult Health
DX: R20.2 Paresthesia of skin (principal); M62.81 Muscle weakness (generalized); I25.10 Atherosclerotic heart disease of native coronary artery without angina pectoris; M79.604 Pain in right leg; M79.605 Pain in left leg; I10 Essential (primary) hypertension; E11.9 Type 2 diabetes mellitus without complications; E55.9 Vitamin D deficiency, unspecified; E78.5 Hyperlipidemia, unspecified; F17.210 Nicotine dependence, cigarettes, uncomplicated; F32.89 Other specified depressive episodes; E66.9 Obesity, unspecified
CPT/HCPCS: 36415; 80048; 80053; 80061; 82306; 82550; 82607; 82728; 82746; 83036; 83615; 83735; 84439; 84443; 84481; 85025; 86038

== ENCOUNTER 2021-12-20 01:29 | Inpatient (IN) | payer MEDICARE, MEDICAID, SELFPAY ==
[2021-12-20] VITALS (147 sets, daily range): BP systolic 101–165; BP diastolic 59–131; PULSE 55–93; RESP 9–24; TEMP 36.5–36.8; O2SAT 93–99
--- NOTE | 2021-12-20 01:15 | RT.EKG_ITS ---
APPROVED REPORT Exam: Resting ECG Reason for Exam: chest pain Patient Location: E HR:78 bpm ECG Measurements Heart Rate 78 AXIS NV 136 P 28 QRSd 90 QRS -35 QT 386 T 67 QTc 440 Conclusion Sinus rhythm...normal P axis, V-rate 60- 99 Left axis deviation...QRS axis (-30,-90) Anterior infarct, old...Q >40mS, abnormal ST-T, V2-V5 ST elevation suggests acute pericarditis...ST >0.10mV, ant/lat/inf Physician: Sinus rhythm, rate 78, intervals normal, minimal less than a millimeter of elevation in V2 and V3, and V4. However upon review of prior EKG from 09/12/2020, and other previous EKGs he also dem onstrated some mild elevation then in the anterior leads. However on today's EKG there is no evidenc e of reciprocal depressions, and the patient does not meet criterion for the STEMI.
--- NOTE | 2021-12-20 01:33 | ED.GENADUL_ITS ---
Discharge Plan Disposition Patient Disposition: [facility] INPATIENT Condition: Serious Discharge Details Chief Complaint: Chest Pain Clinical Impression: Chest pain, Acute non-ST elevation myocardial infarction (NSTEMI) Primary Care Provider: Linda Hallman ED Provider: Favian Asif [place] Meds and New Rx's Prescriptions: New aspirin 325 mg capsule 325 mg PO DAILY Qty: 90 6RF atorvastatin 40 mg tablet 40 mg PO DAILY Qty: 90 6RF clopidogrel [Plavix] 75 mg tablet 75 mg PO DAILY Qty: 90 6RF Jardiance 10 mg tablet 10 mg PO QAM Qty: 90 6RF escitalopram oxalate 10 mg tablet 10 mg PO DAILY Qty: 90 6RF hydrochlorothiazide 12.5 mg capsule 12.5 mg PO QAM Qty: 90 6RF hydroxyzine HCl 25 mg tablet 25 mg PO QID PRNQty: 90 6RF lisinopril 40 mg tablet 40 mg PO DAILY Qty: 90 6RF metoprolol tartrate 50 mg tablet 50 mg PO BID Qty: 90 6RF Continued ibuprofen 400 mg tablet 400 mg PO Q6H PRN PRN (DME) FreeStyle Prieto 2 [place] Misc See Rx Instructions .ROUTE .MEDSUPPLY Qty: 1 0RF Rx Instructions: As directed (DME) FreeStyle Prieto 2 Sensor Kit See Rx Instructions .ROUTE .MEDSUPPLY Qty: 6 3RF Rx Instructions: As directed (DME) Blood Glucose Test Strip See Rx Instructions .ROUTE .MEDSUPPLY Qty: 200 3RF Rx Instructions: E11.9 for twice daily monitoring for goal A1C <7% (DME) pen needle, diabetic [BD Ultra-Fine Marivel Pen Needle] 32 gauge x 5/32 needle See Rx Instructions .ROUTE .MEDSUPPLY Qty: 100 3RF Rx Instructions: E11.9 to administer insulin daily for A1C <7% chlorhexidine gluconate [Antiseptic Skin Clnsr(chlorhe)] 4 % liquid 1 applic TP DAILY Qty: 960 0RF Rx Instructions: Rinse skin with water, then apply minimum amount needed to cover skin. Wash gently then rinse cholecalciferol (vitamin D3) [Vitamin D3] 50 mcg (2,000 unit) tablet 2,000 unit PO DAILY Qty: 90 3RF magnesium oxide 400 mg magnesium capsule 400 mg PO DAILY Qty: 90 3RF Rx Instructions: Administer at least 2 hours apart from other medications tadalafil 5 mg tablet 5 mg PO DAILY MDD 5 mg PRN (Reason: sexual activity) Qty: 30 3RF Rx Instructions: Take approximately 30 min before sexual activity pantoprazole 20 mg tablet,delayed release (DR/EC) 20 mg PO DAILY Qty: 90 3RF Rx Instructions: Take 20 mg daily once daily in the morning at least 30 minutes before first meal of the day multivitamin Tablet 1 tab PO DAILY Qty: 90 3RF Janumet XR 50-1,000 mg tablet, ER multiphase 24 hr 1 tab PO BID Qty: 180 3RF acetaminophen [Tylenol Extra Strength] 500 MG tablet 1,000 mg PO PRN PRN acidophilus-pectin, citrus 25 million cell -100 mg tablet 1 tab PO DAILY Label Comments: TAKE ONE TABLET BY MOUTH EVERY MORNING Tresiba FlexTouch U-200 200 unit/mL (3 mL) Insulin Pen 20 unit SUBCUT DAILY Discontinued escitalopram oxalate 10 mg tablet 10 mg PO DAILY hydrochlorothiazide 12.5 mg tablet 12.5 mg PO DAILY AM Qty: 90 3RF Jardiance 10 mg tablet 10 mg PO QAM Qty: 90 3RF lisinopril 40 mg tablet 40 mg PO DAILY Qty: 90 3RF metoprolol tartrate 50 mg tablet 50 mg PO BID Qty: 180 3RF hydroxyzine HCl 25 MG tablet 25 - 50 mg PO QID PRNQty: 90 aspirin 325 mg tablet 325 mg PO DAILY Qty: 90 3RF Rx Instructions: STROKE & HEART ATTACK PREVENTION atorvastatin [Lipitor] 40 mg tablet 40 mg PO DAILY Qty: 90 3RF clopidogrel [Plavix] 75 mg tablet 75 mg PO DAILY Qty: 90 3RF No Action (DME) lancets [facility] [place] See Dose Instructions .ROUTE .MEDSUPPLY Qty: 200 3RF Dose Instruction: As directed to check daily morning fasting blood glucose Rx Instructions: E11.9 to check twice daily blood glucose for goal A1C <7% (DME) blood-glucose meter [facility] [place] See Dose Instructions .ROUTE .MEDSUPPLY Qty: 1 0RF Dose Instruction: As directed Rx Instructions: As directed to check blood glucose on insulin Medical Decision Making This is a very pleasant 46-year-old male with a past medical history of type 2 diabetes, high cholesterol, regular tobacco use, heart attack in 2013 with stent, cryptogenic stroke in 2017, who presents today for evaluation of chest pain. Patient states that about 25 minutes prior to arrival he had chest pain that was directly between his right and left nipples on my chest. He describes it as an aching-like sensation. He took 2 nitroglycerin, as well as 600 mg of aspirin. EMS was called and he was brought to the ER for further assessment. After the aspirin and the nitroglycerin he states that his chest pain transitioned from a 5 to a 3. He does admit to a mild pleuritic component. He denies any cough fever or chills. He denies any tearing or ripping sensation. He denies any recent long trips surgeries or procedures. Additionally unfortunately the patient has not taken his aspirin, atorvastatin, Plavix, Jardiance, escitalopram, hydrochlorothiazide, hydroxyzine, lisinopril, or metoprolol for the last month or so. He states that he has run into some financial troubles and has been needing to transition his pharmacy to [facility] to get new prescriptions. He states that this pain does not feel as bad as his heart attacks in the past. He has no other complaints at this time. Physical exam demonstrates a well-appearing male, no distress. Blood pressure stable, heart rate normal. Initial EKG shows no evidence of STEMI. Patient's p resentation is very similar to last episode when he was here about a year ago. At that time he had a CTA, serial troponins and these were all normal thankfully. At this time the patient's symptoms appear inconsistent with dissection, however given his history I am concerned for potential ACS, GERD, and less likely PE. We will evaluate for these concerning etiologies, monitor closely and reassess. 3:02 AM Patient's laboratory work-up has returned, CBC unremarkable, D-dimer is normal. Electrolytes normal, proBNP is normal, no signs of cardiac strain. Troponin normal. Chest x-ray is unremarkable. Patient's pain is notably improved. I do feel that given his history we should get delta troponins in this scenario. We will continue to monitor. 5:41 AM Repeat EKG actually seems to show diminishment of the mild elevations that were present before, and now there is also a well annoyed like complex in V3 which is concerning to me. Repeat troponin shortly returned thereafter and was notably elevated at 3200. Patient remains chest pain-free. Bedside limited echo was performed and shows no evidence of large wall motion abnormality at this time. We have the EKG changes however present between initial and repeat, as well as the elevated troponin I do worry that the patient potentially has an LAD lesion that needs prompt evaluation. We did contact [facility] and I discussed the case with Dr. Rios, he agrees with this and recommends that the patient come urgently for Client Consultant evaluation however he states that there are no beds at [facility]. Transfer center liaison states that [facility] is not at capacity, however they are not able to take the patient in transfer for this at this time. Patient will be heparinized and loaded with 600 mg of Plavix per [facility] specific re quest. We will seek out to other hospitals for transfer. [facility] does not feel that the patient needs emergent transfer right now since he is chest pain- free currently. 6:14 AM I have spoken with [facility] cardiology Dr Renteria, he agrees also with the need for transfer, and feels that it can be done urgently. If the patient's symptoms do change and he develops chest pain he feels that he should be brought emergently for catheterization. [facility] feels that transfer will likely occur within 24 to 36 hours. We will admit the patient to the floor in the meantime. He will remain heparinized. 7:20 AM Discussed the case with the hospitalist Dr Barfield, he agrees with assessment and plan. I have extensively reviewed the treatment plan with the patient. I have addressed all patient concerns at this time. I have also discussed the plan with the admitting physician and they agree with the current assessment and plan and have agreed to assume responsibility for the patient. All parties demonstrate verbal understanding and agreement with our assessment and plan at this time. The documentation in this chart was dictated using [employer] dictation software. Please excuse any dictation errors. EKG 1: 33 Sinus rhythm, rate 78, intervals normal, minimal less than a millimeter of elevation in V2 and V3, and V4. However upon review of prior EKG from 09/12/2020, and other previous EKGs he also demonstrated some mild elevation then in the anterior leads. However on today's EKG there is no evidence of reciprocal depressions, and the patient does not meet criterion for the STEMI. EKG 4: 34 Sinus rhythm, rate 61, intervals normal, minimal less than a millimeter of elevation in V1, no elevation in V2 V3 or V4. Inverted T wave in V4, well annoyed like complex in V3. No STEMI FINDINGS: Lungs: Unremarkable. No consolidation. Pleural spaces: Unremarkable. No pleural effusion. No pneumothorax. Heart/Mediastinum: Unremarkable. No cardiomegaly. Diaphragm: Elevation of the left hemidiaphragm, somewhat similar when compared to prior exam. Bones/joints: Unremarkable. IMPRESSION: No acute findings. Thank you for allowing us to participate in the care of your patient. Dictated and Authenticated by: Kyle Watson DO 12/20/2021 4:09 AM Eastern Time ([place] & [place]) HPI General Date/Time Provider Initiated Documentation: 12/20/21 01:34 . HPI Narrative: This is a very pleasant 46-year-old male with a past medical history of type 2 diabetes, high cholesterol, regular tobacco use, heart attack in 2013 with stent, cryptogenic stroke in 2017, who presents today for evaluation of chest pain. Patient states that about 25 minutes prior to arrival he had chest pain that was directly between his right and left nipples on my chest. He describes it as an aching-like sensation. He took 2 nitroglycerin, as well as 600 mg of aspirin. EMS was called and he was brought to the ER for further assessment. After the aspirin and the nitroglycerin he states that his chest pain transitioned from a 5 to a 3. He does admit to a mild pleuritic component. He denies any cough fever or chills. He denies any tearing or ripping sensation. He denies any recent long trips surgeries or procedures. Additionally unfortunately the patient has not taken his aspirin, atorvastatin, Plavix, Jardiance, escitalopram, hydrochlorothiazide, hydroxyzine, lisinopril, or metoprolol for the last month or so. He states that he has run into some financial troubles and has been needing to transition his pharmacy to [facility] to get new prescriptions. He states that this pain does not feel as bad as his heart attacks in the past. He has no other complaints at this time. Related Data Home Medications Medication Instructions Recorded Confirmed acetaminophen 500 mg tablet 1,000 mg PO PRN PRN 01/25/17 12/20/21 (Tylenol Extra Strength) blood-glucose meter #1 ea 04/24/19 12/20/21 blood sugar diagnostic (Blood #200 ea 05/22/19 12/20/21 Glucose Test strips) lancets #200 ea 05/22/19 12/20/21 ibuprofen 400 mg tablet 400 mg PO Q6H PRN PRN 07/30/20 12/20/21 tadalafil 5 mg tablet 5 mg PO DAILY PRN sexual activity 09/02/20 12/20/21 #30 tab-caps pantoprazole 20 mg tablet,delayed 20 mg PO DAILY #90 tab-caps 09/23/20 12/20/21 release pen needle, diabetic 32 gauge x #100 ea 09/27/20 12/20/21 (BD Ultra-Fine Marivel Pen Needle) acidophilus 25 million 1 tab PO DAILY 12/01/20 12/20/21 cell-pectin, citrus 100 mg tablet chlorhexidine gluconate 4 % 1 applic topical DAILY 02/07/21 12/20/21 topical liquid (Antiseptic Skin folliculitis prevention #960 mL Cleanser (chlorhexidine)) flash glucose scanning reader #1 ea 03/28/21 12/20/21 (FreeStyle Prieto 2 [place]) flash glucose sensor (FreeStyle #6 ea 03/28/21 12/20/21 Prieto 2 Sensor kit) multivitamin 1 tab PO DAILY #90 tabs 06/25/21 12/20/21 sitagliptin 50 mg-metformin ER 1 tab PO BID #180 tab-caps 06/25/21 12/20/21 1,000 mg tablet,extended release 24h mp (Janumet XR) cholecalciferol (vitamin D3) 50 2,000 unit PO DAILY #90 tab-caps 12/11/21 12/20/21 mcg (2,000 unit) tablet (Vitamin D3) magnesium oxide 400 mg PO DAILY #90 tab-caps 12/11/21 12/20/21 aspirin 325 mg capsule 325 mg PO DAILY #90 caps 12/20/21 atorvastatin 40 mg tablet 40 mg PO DAILY #90 tabs 12/20/21 clopidogrel 75 mg tablet (Plavix) 75 mg PO DAILY #90 tabs 12/20/21 empagliflozin 10 mg tablet 10 mg PO QAM #90 tabs 12/20/21 (Jardiance) escitalopram oxalate 10 mg tablet 10 mg PO DAILY #90 tabs 12/20/21 hydrochlorothiazide 12.5 mg capsule 12.5 mg PO QAM #90 caps 12/20/21 hydroxyzine HCl 25 mg tablet 25 mg PO QID PRN #90 tabs 12/20/21 insulin degludec 200 unit/mL (3 20 unit subcut DAILY 12/20/21 12/20/21 mL) subcutaneous pen (Tresiba FlexTouch U-200 insulin) lisinopril 40 mg tablet 40 mg PO DAILY #90 tabs 12/20/21 metoprolol tartrate 50 mg tablet 50 mg PO BID #90 tabs 12/20/21 Previous Rx's Medication Instructions Recorded blood-glucose meter #1 ea 04/24/19 blood sugar diagnostic (Blood #200 ea 05/22/19 Glucose Test strips) lancets #200 ea 05/22/19 tadalafil 5 mg tablet 5 mg PO DAILY PRN sexual activity 09/02/20 #30 tab-caps pantoprazole 20 mg tablet,delayed 20 mg PO DAILY #90 tab-caps 09/23/20 release pen needle, diabetic 32 gauge x #100 ea 09/27/20 (BD Ultra-Fine Marivel Pen Needle) chlorhexidine gluconate 4 % 1 applic topical DAILY 02/07/21 topical liquid (Antiseptic Skin folliculitis prevention #960 mL Cleanser (chlorhexidine)) flash glucose scanning reader #1 ea 03/28/21 (FreeStyle Prieto 2 [place]) flash glucose sensor (FreeStyle #6 ea 03/28/21 Prieto 2 Sensor kit) multivitamin 1 tab PO DAILY #90 tabs 06/25/21 sitagliptin 50 mg-metformin ER 1 tab PO BID #180 tab-caps 06/25/21 1,000 mg tablet,extended release 24h mp (Janumet XR) cholecalciferol (vitamin D3) 50 2,000 unit PO DAILY #90 tab-caps 12/11/21 mcg (2,000 unit) tablet (Vitamin D3) magnesium oxide 400 mg PO DAILY #90 tab-caps 12/11/21 aspirin 325 mg capsule 325 mg PO DAILY #90 caps 12/20/21 atorvastatin 40 mg tablet 40 mg PO DAILY #90 tabs 12/20/21 clopidogrel 75 mg tablet (Plavix) 75 mg PO DAILY #90 tabs 12/20/21 empagliflozin 10 mg tablet 10 mg PO QAM #90 tabs 12/20/21 (Jardiance) escitalopram oxalate 10 mg tablet 10 mg PO DAILY #90 tabs 12/20/21 hydrochlorothiazide 12.5 mg capsule 12.5 mg PO QAM #90 caps 12/20/21 hydroxyzine HCl 25 mg tablet 25 mg PO QID PRN #90 tabs 12/20/21 lisinopril 40 mg tablet 40 mg PO DAILY #90 tabs 12/20/21 metoprolol tartrate 50 mg tablet 50 mg PO BID #90 tabs 12/20/21 Allergies Allergy/AdvReac Type Severity Reaction Status Date / Time hydromorphone [From Dilaudid] AdvReac Intermediate Psychosis Verified 12/20/21 02:06 codeine [Codeine] AdvReac Unknown PSYCHOSIS Verified 12/20/21 02:06 General DIANNE: 2 Review of Systems All systems reviewed & are unremarkable except as noted in HPI and below PFSH All Active Problems (Updated 12/20/21 @ 05:45 by Favian Asif DO) Chest pain (Acute) Acute non-ST elevation myocardial infarction (NSTEMI) (Acute) Hypomagnesemia (Acute) Polycythemia (Acute) Bilateral leg cramps (Acute) Vertigo (Acute) 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 2 diabetes mellitus (Acute ~06/2020) Ventricular premature beats (Acute 08/28/14) Antiplatelet or antithrombotic long-term use (Acute) De Quervain's tenosynovitis, right (Acute) Type 2 diabetes mellitus, without long-term current use of insulin (Acute) Vitamin D deficiency (Chronic 05/23/15) Tobacco use disorder (Chronic) Panic disorder without agoraphobia (Chronic 04/29/11) Obesity (BMI 30-39.9) (Chronic 08/28/14) Obstructive sleep apnea syndrome, mild (Chronic 11/03/16) Shanika Jimenez NP DOES NOT USE CPAP Hyperlipidemia, unspecified (Chronic 04/29/11) Intolerant to atorvastatin; able to tolerate once vit D deficiency addressed Erectile dysfunction (Chronic 11/29/15) Depression (Chronic 04/29/11) Cardiomyopathy (Chronic) 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 Galaviz at [facility] Bipolar disorder (Chronic) Dx psychiatry [facility] PT. DENIES THIS DX Benign prostatic hyperplasia with lower urinary tract symptoms (Chronic 01/28/17) Essential hypertension (Chronic 11/25/12) Anxiety (Chronic 04/29/11) ASCVD (arteriosclerotic cardiovascular disease) (Chronic) Anterior OK 12/2013 --> MAGDALENA in LAD EF 40% post-OK 09/2014 echo EF improved to almost normal at 54% 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 Galaviz at [facility] Medical History Alcohol use disorder (04/29/11) [facility] PT. STATES HE DOESN'T DRINK ANYMORE, HASN'T IN YEARS 09/21/19 Heart palpitations Kidney stone (04/26/15) 100% calcium oxalate monohydrate Patellar fracture (01/26/17) (L) S/p surgical repair Surgical History Heart Surgery stent placement X1 Open Reduction and Internal Fixation of Patellar Fracture (01/26/17) (L) Dr. Lemus Vasectomy (01/19/06) Family History Father No problems noted. Maternal Grandmother Colon cancer Mother Colon cancer Not cancer, precancerous polyps Other CAD (coronary artery disease) Social History Smoking/Tobacco Use Status: Current every day Tobacco Type: pipe Other: Smokes 5-6 ciggs worth of tobacco in pipe on a rough day and e-cigarettes Smoking risk assessment performed?: Yes Alcohol Intake: former Drug use: Never Substance use type: does not use Adopted: No Caregiver/Support person: No Foster care: No Household members: children and other Details: 2 - lives with son Housing: apartment Number of Children: 2 Communication Needs: None current occupation: works for a [employer] company Pets and animals: No Current gender identity: male What type of physical activity do you participate in: none Frequency: daily Seatbelt use: always Helmet use: No Drive 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 w/intox 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 3.ENT: Atraumatic external nose and ears. Moist MM. Neck: Symmetric, trachea midline, No thyromegaly. 4.CVS: +S1/S2, No murmurs or gallops. Peripheral pulses 2+ and equal in all extremities. Brisk capillary refill in all extremities. 5.RESP: Unlabored respiratory effort. Clear to auscultation bilaterally. No wheezes rales or rhonchi 6.GI: Soft, Nontender/Nondistended, No hepatosplenomegaly. No guarding or rebound. 7.MSK: Normocephalic/Atraumatic, Extremities w/o deformity or ttp No cyanosis or clubbing, Normal movement of all extremities 8.Skin: Warm, Dry. No rashes or lesions. 9.Neuro: engineer conductor II-XII grossly intact. Sensation grossly intact, no focal neurologic deficits. 10.Psych: (AAO) x3. Appropriate mood and affect Critical Care Time Critical Care Time Critical Care Time: Yes Total Critical Care Time: 45 Attestation: Upon my evaluation, this patient had a high probability of imminent or life- threatening deterioration, which required my direct attention, intervention, and personal management. I have personally provided 45 minutes of critical care time exclusive of time spent on separately billable procedures. Time includes review of laboratory data, radiology results, discussion with consultants, and monitoring for potential decompensation. Interventions were performed as documented. POCUS Exam (ED) Limited Cardiac Exam DATE OF EXAM: 12/20/21 TIME OF EXAM: 05:44 PROVIDER THAT PERFORMED THE STUDY: Favian Asif IS THIS A REPEAT EXAM DURING THIS ENCOUNTER: no REASON FOR EXAM: Chest pain VISUALIZED STRUCTURES: Left atrium, Left ventricle, Right ventricle and Interventricular septum VIEW OBTAINED: Parasternal long-axis PERTINENT FINDINGS/IMPRESSION: No LV dysfunction, No pericardial effusion and No RV dysfunction DIFFERENTIAL DIAGNOSES: Technically challenging exam. Difficult to get adequate views. No evidence of severe/large wall motion abnormality. Exam complete
[2021-12-20 01:49] LABS: Abs Immature Grans 0.03 10^3/uL (0.0-0.06); Absolute Basophil Count 0.09 10^3/uL (0.0-0.2); Absolute Eosinophil Count 0.36 10^3/uL (0.0-0.7); Absolute Lymphocyte Count 4.09 10^3/uL (1.2-3.4); Absolute Monocyte Count 0.69 10^3/uL (0.1-0.8); Absolute Neutrophil Count 4.75 10^3/uL (1.2-6.7); Basophils % 0.9; Eosinophils % 3.6; HCT 42.2 % (40.0-50.0); HGB 14.9 g/dL (13.5-17.5); Immature Grans % 0.3; Lymphocytes % 40.9; MCH 31.2 pg (27.0-33.0); MCHC 35.3 % (32.0-36.0); MCV 88 fL (80-95); MPV 9.8 fL (8.0-11.0); Monocytes % 6.9; Neutrophils % 47.4; Platelet Count 266 10^3/uL (130-400); RBC 4.78 10^6/uL (4.36-5.78); RDW 11.9 % (11.8-14.1); RDW-SD 38.3 fL; WBC 10.01 10^3/uL (4.4-10.8)
[2021-12-20 02:03] LABS: INR 0.9 (0.9-1.1); PTT Activated 21.3 sec (21.0-27.5); Prothrombin Time 9.2 sec (9.3-11.0)
[2021-12-20 02:11] LABS: ALT 29 U/L (16-63); AST 12 U/L (15-37); Albumin 3.7 g/dL (3.4-5.0); Alkaline Phosphatase 82 U/L (46-116); Anion Gap 7.3 mmol/L (3-11); BUN 12 mg/dL (7-18); Bilirubin, Total 0.9 mg/dL (0.2-1.0); CO2 28.7 mmol/L (21.0-32.0); CREATININE 1.2 mg/dL (0.70-1.30); Calcium 8.3 mg/dL (8.5-10.1); Chloride 102 mmol/L (98-107); Glucose 263 mg/dL (74-106); NT-proBNP 78 pg/mL (<300); Potassium 3.5 mmol/L (3.5-5.1); Sodium 138 mmol/L (136-145); Total Protein 6.8 g/dL (6.4-8.2); Troponin I < 50 ng/L (<or=60)
[2021-12-20 02:41] LABS: D-Dimer 323 ng/mlFEU (<500)
--- NOTE | 2021-12-20 02:45 | DI.RAD_ITS ---
Exam(s) XR PORTABLE CHEST AP EXAM: XR PORTABLE CHEST AP CLINICAL HISTORY: central chest pain. TECHNIQUE: 2D digital imaging was performed. COMPARISON: CR PORTABLE CHEST ONE VIEW from 07/11/[address] [facility] CTA from 09/12/2020 FINDINGS: Single AP portable view. There is chronic elevation left hemidiaphragm, unchanged from 2017. Heart size is upper normal. The mediastinum is not widened. Lungs are clear. No infiltrates nor obvious pleural effusions. IMPRESSION: No acute pulmonary findings on this single AP portable view of the chest. Chronically elevated left hemidiaphragm, unchanged from 2017. DATA REPOSITORY: RADIATION DOSE DELIVERED: All CT scans at this facility use at least one of these dose optimization techniques: automated exposure control; mA and/or kV adjustment per patient size (includes targeted e xams where dose is matched to clinical indication); or iterative reconstruction.
--- NOTE | 2021-12-20 03:00 | RT.EKG_ITS ---
APPROVED REPORT Exam: Resting ECG Reason for Exam: chest pain Patient Location: E HR:61 bpm ECG Measurements Heart Rate 61 AXIS SC 141 P 47 QRSd 99 QRS -36 QT 423 T 85 QTc 426 Conclusion Sinus rhythm...normal P axis, V-rate 60- 99 Left axis deviation...QRS axis (-30,-90) Low voltage, precordial leads...precordial leads <1.0mV Physician: Sinus rhythm, rate 61, intervals normal, minimal less than a millimeter of elevation in V1, no elevat ion in V2 V3 or V4. Inverted T wave in V4, well annoyed like complex in V3. No STEMI
--- NOTE | 2021-12-20 04:10 | DI.VRAD_ITS ---
PROCEDURE INFORMATION: Exam: XR Chest Exam date and time: 12/20/2021 2:38 AM Age: 46 years old Clinical indication: Patient HX: Central chest pain TECHNIQUE: Imaging protocol: Radiologic exam of the chest. Views: 1 view. COMPARISON: CT [facility] CTA 09/12/2020 3:27 AM FINDINGS: Lungs: Unremarkable. No consolidation. Pleural spaces: Unremarkable. No pleural effusion. No pneumothorax. Heart/Mediastinum: Unremarkable. No cardiomegaly. Diaphragm: Elevation of the left hemidiaphragm, somewhat similar when compared to prior exam. Bones/joints: Unremarkable. IMPRESSION: No acute findings. Dictated and Authenticated by: Kyle Watson MD. Ordering:MORALES Ballesteros MD
[2021-12-20 05:04] LABS: Troponin I 3230 ng/L (<or=60)
[2021-12-20] MEDS: Clopidogrel 300 MG TAB 600 MG PO (05:48)
[2021-12-20 06:22] LABS: Source Nasal/Nares
[2021-12-20 06:53] LABS: COVID-19 PCR Negative (Negative)
[2021-12-20] MEDS: Magnesium Oxide 400 MG TAB PO (10:21)
[2021-12-20] MEDS: Pantoprazole 20 MG TABCR PO (10:21)
[2021-12-20] MEDS: Multivitamin TAB 1 TAB PO (10:21)
[2021-12-20] MEDS: Insulin Glargine 300 UNITS/3 ML PEN 16 UNITS SC (10:21)
[2021-12-20 12:56] LABS: PTT Activated 25.2 sec (21.0-27.5)
[2021-12-20] MEDS: Insulin Aspart 300 UNITS/3 ML PEN SC (12:59)
[2021-12-20 14:40] LABS: Troponin I 5823 ng/L (<or=60)
[2021-12-20] MEDS: nitroGLYcerin in D5W 50 MG/250 ML BTL IV (15:34)
--- NOTE | 2021-12-20 17:51 | HPE_ITS ---
Date of service: 12/20/21 Time of Service: 17:51 Assessment and Plan Assessment and plan (1) Acute non-ST elevation myocardial infarction (NSTEMI): Status: Acute Assessment and plan: Accepted for urgent admission to [facility]. ED bedside echo w/o any evidence of large wall motion abnormality. Cont heparin drip initiated in the ED. Cont plavix and asa. Trend troponin. Emergent transfer if develops chest pain or concerning vital signs indicating potential worsening state. (2) Hypomagnesemia: Status: Acute Assessment and plan: Replete. (3) Obstructive sleep apnea syndrome, mild: Status: Chronic Assessment and plan: Does not use CPAP. (4) Bipolar disorder: Status: Chronic Assessment and plan: Stable mood and appropriate affect. Not on any psychiatric medications currently but prescribed escitalopram. (5) Essential hypertension: Status: Chronic Assessment and plan: Elevated and not currently taking his prescribed HCTZ, lisinopril or metoprolol d/t financial issues and change in pharmacies. Initiate nitroglycerine drip. If BP remains elevated will restart metoprolol. (6) ASCVD (arteriosclerotic cardiovascular disease): Status: Chronic Assessment and plan: Known CAD with previous stent placement. Was not taking his prescribed metoprolol, Plavix or atorvastatin as per previously discussed. (7) Alcohol use disorder: Assessment and plan: In remission. (8) Diabetes mellitus type 2, insulin dependent: Status: Acute Assessment and plan: Not taking Jardiance or insulin as prescribed; reasons as previously discussed. Basal/bolus insulin initiated. Monitor. (9) Discharge planning issues: Status: Acute Assessment and plan: Full code. Planning transfer to [facility]. The issue of change in his pharmacy and ability to fill his prescriptions will need to be addressed before he is discharged from [facility]. History of Present Illness History of Present Illness Chief Complaint: Chest pain Narrative: This is a 46 yo male with known CAD with FL in 2013 and subsequent stent placement, DM2, HLD, HTN, tobacco abuse disorder. He presented to the ED with achy pain directly between my right and left nipples on my chest. This developed appx 25 minutes prior to presentation. He took 2 nitorglycerin and 600mg aspirin at home. EMS call. His pain went from a 5 to a 3 after he took said medications. No shortness of air. He endorses not taking his asa, atorvastatin, plavix, jardiance, escitalopram, HCTZ, hydroxyzine, lisinopril or metoprolol for the last month + d/t financial constraints. He does endorse intermittent palpitations. No cough/sputum, fever/chills, n/v. ED workup showed initially unremarkable lab, including a negative troponin. EKG showed questionable mild ST elevations, but repeat EKG showed improvement. His repeat troponin elevated to 3200. ED physician discussed the patient with [facility] naval marine engineer, Dr. Rios who recommended urgent need for flue dust laborer, however there were no beds available at [facility] naval marine engineer, Dr Renteria, contacted and the patient was accepted for urgent transfer that would occur in the next 24 to 36 hours. He was placed on IV heparin and was administered a loading dose of 600mg Plavix. Review of Systems All systems reviewed & are unremarkable except as noted in HPI and below PFSH All Active Problems (Updated 12/21/21 @ 08:00 by Jorge Barfield MD) Discharge planning issues (Acute) Diabetes mellitus type 2, insulin dependent (Acute) Chest pain (Acute) Acute non-ST elevation myocardial infarction (NSTEMI) (Acute) Hypomagnesemia (Acute) Polycythemia (Acute) Bilateral leg cramps (Acute) Vertigo (Acute) 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 2 diabetes mellitus (Acute ~06/2020) Ventricular premature beats (Acute 08/28/14) Antiplatelet or antithrombotic long-term use (Acute) De Quervain's tenosynovitis, right (Acute) Vitamin D deficiency (Chronic 05/23/15) Tobacco use disorder (Chronic) Panic disorder without agoraphobia (Chronic 04/29/11) Obesity (BMI 30-39.9) (Chronic 08/28/14) Obstructive sleep apnea syndrome, mild (Chronic 11/03/16) Shanika iJmenez NP DOES NOT USE CPAP Hyperlipidemia, unspecified (Chronic 04/29/11) Intolerant to atorvastatin; able to tolerate once vit D deficiency addressed Erectile dysfunction (Chronic 11/29/15) Depression (Chronic 04/29/11) Cardiomyopathy (Chronic) Followed by naval marine engineer Dr. Galaviz at [facility] Bipolar disorder (Chronic) Dx psychiatry [facility] PT. DENIES THIS DX Benign prostatic hyperplasia with lower urinary tract symptoms (Chronic 01/28/17) Essential hypertension (Chronic 11/25/12) Anxiety (Chronic 04/29/11) ASCVD (arteriosclerotic cardiovascular disease) (Chronic) Anterior FL 12/2013 --> MAGDALENA in [place] EF 40% post-FL 09/2014 echo EF improved to almost normal at 54% Followed by naval marine engineer Dr. Galaviz at [facility] Medical History (Updated 12/21/21 @ 08:00 by Jorge Barfield MD) Alcohol use disorder (04/29/11) BINGE pER PT. STATES HE DOESN'T DRINK ANYMORE, HASN'T IN YEARS 09/21/19 Heart palpitations Kidney stone (04/26/15) 100% calcium oxalate monohydrate Patellar fracture (01/26/17) (L) S/p surgical repair Type 2 diabetes mellitus, without long-term current use of insulin Surgical History Heart Surgery stent placement X1 Open Reduction and Internal Fixation of Patellar Fracture (01/26/17) (L) Dr. Lemus Vasectomy (01/19/06) Family History Father No problems noted. Maternal Grandmother Colon cancer Mother Colon cancer Not cancer, precancerous polyps Other CAD (coronary artery disease) Social History Smoking/Tobacco Use Status: Current every day Tobacco Type: pipe Other: Smokes 5-6 ciggs worth of tobacco in pipe on a rough day and e-cigarettes Smoking risk assessment performed?: Yes Alcohol Intake: former Drug use: Never Substance use type: does not use Adopted: No Caregiver/Support person: No Foster care: No Household members: children and other Details: 2 - lives with son Housing: apartment Number of Children: 2 Communication Needs: None current occupation: works for a [employer] company Pets and animals: No Current gender identity: male What type of physical activity do you participate in: none Frequency: daily Seatbelt use: always Helmet use: No Drive 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 w/intox personal driver: No Water heater temp set <120 deg: Yes Working smoke detector in home: Yes Fire extinguisher in home: Yes Carbon monox detector in home: Yes Do you feel safe at home: Yes Do you feel safe in your relationship?: Yes Meds Allergies and Home Medications Allergies Allergy/AdvReac Type Severity Reaction Status Date / Time hydromorphone [From Dilaudid] AdvReac Intermediate Psychosis Verified 12/20/21 02:06 codeine [Codeine] AdvReac Unknown PSYCHOSIS Verified 12/20/21 02:06 Home Medications Medication Instructions Recorded Confirmed Type acetaminophen 500 mg tablet 1,000 mg PO PRN PRN 01/25/17 12/20/21 History (Tylenol Extra Strength) blood-glucose meter #1 ea 04/24/19 12/20/21 Rx blood sugar diagnostic (Blood #200 ea 05/22/19 12/20/21 Rx Glucose Test strips) lancets #200 ea 05/22/19 12/20/21 Rx ibuprofen 400 mg tablet 400 mg PO Q6H PRN PRN 07/30/20 12/20/21 History tadalafil 5 mg tablet 5 mg PO DAILY PRN sexual activity 09/02/20 12/20/21 Rx #30 tab-caps pantoprazole 20 mg tablet,delayed 20 mg PO DAILY #90 tab-caps 09/23/20 12/20/21 Rx release pen needle, diabetic 32 gauge x #100 ea 09/27/20 12/20/21 Rx 5/32 (BD Ultra-Fine Marivel Pen Needle) acidophilus 25 million 1 tab PO DAILY 12/01/20 12/20/21 History cell-pectin, citrus 100 mg tablet chlorhexidine gluconate 4 % 1 applic topical DAILY 02/07/21 12/20/21 Rx topical liquid (Antiseptic Skin folliculitis prevention #960 mL Cleanser (chlorhexidine)) flash glucose scanning reader #1 ea 03/28/21 12/20/21 Rx (FreeStyle Prieto 2 [place]) flash glucose sensor (FreeStyle #6 ea 03/28/21 12/20/21 Rx Prieto 2 Sensor kit) multivitamin 1 tab PO DAILY #90 tabs 06/25/21 12/20/21 Rx sitagliptin 50 mg-metformin ER 1 tab PO BID #180 tab-caps 06/25/21 12/20/21 Rx 1,000 mg tablet,extended release 24h mp (Janumet XR) cholecalciferol (vitamin D3) 50 2,000 unit PO DAILY #90 tab-caps 12/11/21 12/20/21 Rx mcg (2,000 unit) tablet (Vitamin D3) magnesium oxide 400 mg PO DAILY #90 tab-caps 12/11/21 12/20/21 Rx aspirin 325 mg capsule 325 mg PO DAILY #90 caps 12/20/21 Rx atorvastatin 40 mg tablet 40 mg PO DAILY #90 tabs 12/20/21 Rx clopidogrel 75 mg tablet (Plavix) 75 mg PO DAILY #90 tabs 12/20/21 Rx empagliflozin 10 mg tablet 10 mg PO QAM #90 tabs 12/20/21 Rx (Jardiance) escitalopram oxalate 10 mg tablet 10 mg PO DAILY #90 tabs 12/20/21 Rx hydrochlorothiazide 12.5 mg capsule 12.5 mg PO QAM #90 caps 12/20/21 Rx hydroxyzine HCl 25 mg tablet 25 mg PO QID PRN #90 tabs 12/20/21 Rx insulin degludec 200 unit/mL (3 20 unit subcut DAILY 12/20/21 12/20/21 History mL) subcutaneous pen (Tresiba FlexTouch U-200 insulin) lisinopril 40 mg tablet 40 mg PO DAILY #90 tabs 12/20/21 Rx metoprolol tartrate 50 mg tablet 50 mg PO BID #90 tabs 12/20/21 Rx Exam Narrative Exam Narrative: Pleasant, conversant male. Lying in bed. Const General: cooperative and no acute distress Nutritional Appearance: obese Orientation: alert and oriented x3 Eyes General: appearance normal, both eyes and all related structures Sclera: sclerae normal Resp Effort & Inspection: normal respiratory effort Auscultation: clear to auscultation bilaterally Cardio Jugular venous pressure: no JVD Rate: regular rate Rhythm: regular rhythm Heart Sounds: S1 normal and S2 normal GI Inspection: obesity Palpation: soft and nontender Skin General skin exam: no rashes or lesions noted Neuro General: no focal motor deficits Cranial Nerves: facial strength normal Speech: speech normal Extrem General: no pedal edema and no calf tenderness Psych Mental Status: mental status grossly normal Affect: normal affect Results Labs Result diagrams: 12/21/21 05:55 12/21/21 05:55 Labs: Laboratory Results - last 24 hr 12/20/21 12/20/21 12/20/21 01:40 01:40 01:40 WBC 10.01 RBC 4.78 Hgb 14.9 Hct 42.2 MCV 88 MCH 31.2 MCHC 35.3 RDW 11.9 Plt Count 266 MPV 9.8 Immature Gran % 0.3 Neutrophils % 47.4 Lymphocytes % 40.9 Monocytes % 6.9 Eosinophils % 3.6 Basophils % 0.9 Nucleated RBC % 0.0 Absolute Neutrophils 4.75 Absolute Lymphocytes 4.09 H Absolute Monocytes 0.69 Absolute Eosinophils 0.36 Absolute Basophils 0.09 PT INR APTT D-Dimer 323 Sodium 138 Potassium 3.5 Chloride 102 Carbon Dioxide 28.7 Anion Gap 7.3 BUN 12 Creatinine 1.2 Est GFR (CKD-EPI 2020) 74.60 Glucose 263 H POC Glucose Calcium 8.3 L Total Bilirubin 0.9 AST 12 L ALT 29 Alkaline Phosphatase 82 Troponin I < 50 NT-Pro-B Natriuret Pep 78 Total Protein 6.8 Albumin 3.7 COVID-19 Source SARS-CoV-2 (PCR) 12/20/21 12/20/21 12/20/21 01:40 04:40 06:21 WBC RBC Hgb Hct MCV MCH MCHC RDW Plt Count MPV Immature Gran % Neutrophils % Lymphocytes % Monocytes % Eosinophils % Basophils % Nucleated RBC % Absolute Neutrophils Absolute Lymphocytes Absolute Monocytes Absolute Eosinophils Absolute Basophils PT 9.2 L INR 0.9 APTT 21.3 D-Dimer Sodium Potassium Chloride Carbon Dioxide Anion Gap BUN Creatinine Est GFR (CKD-EPI 2020) Glucose POC Glucose Calcium Total Bilirubin AST ALT Alkaline Phosphatase Troponin I 3230 H* NT-Pro-B Natriuret Pep Total Protein Albumin COVID-19 Source Nasal/Nares SARS-CoV-2 (PCR) Negative 12/20/21 12/20/21 12/20/21 11:30 12:10 14:08 WBC RBC Hgb Hct MCV MCH MCHC RDW Plt Count MPV Immature Gran % Neutrophils % Lymphocytes % Monocytes % Eosinophils % Basophils % Nucleated RBC % Absolute Neutrophils Absolute Lymphocytes Absolute Monocytes Absolute Eosinophils Absolute Basophils PT INR APTT 25.2 D-Dimer Sodium Potassium Chloride Carbon Dioxide Anion Gap BUN Creatinine Est GFR (CKD-EPI 2020) Glucose POC Glucose Cancelled Calcium Total Bilirubin AST ALT Alkaline Phosphatase Troponin I 5823 H* NT-Pro-B Natriuret Pep Total Protein Albumin COVID-19 Source SARS-CoV-2 (PCR) 12/20/21 16:30 WBC RBC Hgb Hct MCV MCH MCHC RDW Plt Count MPV Immature Gran % Neutrophils % Lymphocytes % Monocytes % Eosinophils % Basophils % Nucleated RBC % Absolute Neutrophils Absolute Lymphocytes Absolute Monocytes Absolute Eosinophils Absolute Basophils PT INR APTT D-Dimer Sodium Potassium Chloride Carbon Dioxide Anion Gap BUN Creatinine Est GFR (CKD-EPI 2020) Glucose POC Glucose Cancelled Calcium Total Bilirubin AST ALT Alkaline Phosphatase Troponin I NT-Pro-B Natriuret Pep Total Protein Albumin COVID-19 Source SARS-CoV-2 (PCR) Last Vital Signs Temp 36.8 C 12/20/21 17:37 Pulse 67 12/20/21 17:37 Resp 11 L 12/20/21 17:37 BP 120/75 12/20/21 17:37 Pulse Ox 98 12/20/21 17:37
[2021-12-20 18:20] LABS: PTT Activated 37.4 sec (21.0-27.5)
[2021-12-20 18:54] LABS: Troponin I 4793 ng/L (<or=60)
[2021-12-20 21:22] LABS: Troponin I 4455 ng/L (<or=60)
[2021-12-21] VITALS (70 sets, daily range): BP systolic 102–156; BP diastolic 58–95; PULSE 57–89; RESP 8–27; TEMP 36.4–37; O2SAT 90–98
[2021-12-21 01:36] LABS: PTT Activated 43.2 sec (21.0-27.5)
[2021-12-21 06:05] LABS: Abs Immature Grans 0.04 10^3/uL (0.0-0.06); Absolute Basophil Count 0.07 10^3/uL (0.0-0.2); Absolute Monocyte Count 0.83 10^3/uL (0.1-0.8); Basophils % 0.6; Eosinophils % 2.5; HCT 38.8 % (40.0-50.0); HGB 13.7 g/dL (13.5-17.5); Immature Grans % 0.3; Lymphocytes % 18.9; MCH 31.2 pg (27.0-33.0); MCHC 35.3 % (32.0-36.0); MCV 88 fL (80-95); MPV 9.7 fL (8.0-11.0); Monocytes % 6.9; Neutrophils % 70.8; Platelet Count 223 10^3/uL (130-400); RBC 4.39 10^6/uL (4.36-5.78); RDW 11.9 % (11.8-14.1); RDW-SD 38.2 fL; WBC 12.09 10^3/uL (4.4-10.8)
[2021-12-21 06:11] LABS: Absolute Lymphocyte Count 2.29 10^3/uL (1.2-3.4); Absolute Neutrophil Count 8.56 10^3/uL (1.2-6.7)
[2021-12-21 06:33] LABS: Anion Gap 9.3 mmol/L (3-11); BUN 9 mg/dL (7-18); CO2 26.7 mmol/L (21.0-32.0); Calcium 8.4 mg/dL (8.5-10.1); Calculated LDL 157 mg/dL (<100); Chloride 103 mmol/L (98-107); Cholesterol 217 mg/dL (<200); Estimated GFR 92.84 (mL/min/1.73m2); Glucose 149 mg/dL (74-106); HDL Cholesterol 29 mg/dL (40-60); Magnesium 1.4 mg/dL (1.8-2.4); Potassium 3.6 mmol/L (3.5-5.1); Sodium 139 mmol/L (136-145); Triglyceride 157 mg/dL (<150)
[2021-12-21 06:38] LABS: Troponin I 2850 ng/L (<or=60)
[2021-12-21] MEDS: Magnesium Oxide 400 MG TAB PO (07:58)
[2021-12-21] MEDS: Pantoprazole 20 MG TABCR PO (07:58)
[2021-12-21] MEDS: Multivitamin TAB 1 TAB PO (07:58)
[2021-12-21] MEDS: Clopidogrel 75 MG TAB PO (07:58)
[2021-12-21] MEDS: Insulin Aspart 300 UNITS/3 ML PEN SC ×2 (07:59→16:24)
[2021-12-21] MEDS: Insulin Glargine 300 UNITS/3 ML PEN 16 UNITS SC (07:59)
[2021-12-21] MEDS: Aspirin 81 MG CHEW PO (08:05)
[2021-12-21 08:20] LABS: PTT Activated 53.5 sec (21.0-27.5)
--- NOTE | 2021-12-21 08:41 | INITIAL_ITS ---
- If Service Date Differs Date of service: 12/21/21 Time of Service: 08:41 Care Management Initial Assess REASON FOR HOSPITALIZATION:: NSTEMI PAST MEDICAL HISTORY/PAST SURGICAL HISTORY:: All Active Problems (Updated 12/21/21 @ 08:00 by Jorge Barfield MD). Discharge planning issues (Acute). Diabetes mellitus type 2, insulin dependent (Acute). Chest pain (Acute). Acute non-ST elevation myocardial infarction (NSTEMI) (Acute). Hypomagnesemia (Acute). Polycythemia (Acute). Bilateral leg cramps (Acute). Vertigo (Acute). 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 2 diabetes mellitus (Acute ~06/2020). Ventricular premature beats (Acute 08/28/14). Antiplatelet or antithrombotic long-term use (Acute). De Quervain's tenosynovitis, right (Acute). Vitamin D deficiency (Chronic 05/23/15). Tobacco use disorder (Chronic). Panic disorder without agoraphobia (Chronic 04/29/11). Obesity (BMI 30-39.9) (Chronic 08/28/14). Obstructive sleep apnea syndrome, mild (Chronic 11/03/16). Shanika Jimenez NP. DOES NOT USE CPAP. Hyperlipidemia, unspecified (Chronic 04/29/11). Intolerant to atorvastatin; able to tolerate once vit D deficiency addressed. Erectile dysfunction (Chronic 11/29/15). Depression (Chronic 04/29/11). Cardiomyopathy (Chronic). Followed by electron beam photo mask technician Dr. Galaviz at [facility]. Bipolar disorder (Chronic). Dx psychiatry [facility]. PT. DENIES THIS DX. Benign prostatic hyperplasia with lower urinary tract symptoms (Chronic 01/28/17). Essential hypertension (Chronic 11/25/12). Anxiety (Chronic 04/29/11). ASCVD (arteriosclerotic cardiovascular disease) (Chronic). Anterior [place] 12/2013 --> MAGDALENA in [place]. EF 40% post-[place]. 09/2014 echo EF improved to almost normal at 54%. Followed by electron beam photo mask technician Dr. Galaviz at [facility]. Medical History (Updated 12/21/21 @ 08:00 by Jorge Barfield MD). Alcohol use disorder (04/29/11). BINGE. pER PT. STATES HE DOESN'T DRINK ANYMORE, HASN'T IN YEARS 09/21/19. Heart palpitations. Kidney stone (04/26/15). 100% calcium oxalate monohydrate. Patellar fracture (01/26/17). (L) S/p surgical repair. Type 2 diabetes mellitus, without long- term current use of insulin. Surgical History . Heart Surgery. stent placement X1. Open Reduction and Internal Fixation of Patellar Fracture (01/26/17). (L) Dr. Lemus. Vasectomy (01/19/06) PREVIOUS FUNCTIONAL STATUS/SOCIAL/FAMILY SUPPORTS:: Guillermo lives in an apartment in [facility]. Has patient been provided with info about the portal/API?: Yes Did the patient sign up for the portal?: No CODE STATUS:: Full Code INSURANCE COVERAGE / FINANCIAL ISSUES:: Medicare. Medicaid PRIMARY CARE PHYSICIAN:: Linda Hallman POTENTIAL DISCHARGE NEEDS:: Guillermo will need assistance with obtaining medications when he is ready for discharge from [facility] PATIENT/FAMILY EDUCATION NEEDS:: Review of discharge instructions, medications, diet, activity, limitations, follow up plan, discuss Ask Me Three TRANSPORTATION:: EMS coordinated by nursing repair department supervisor PLAN:: Guillermo will be transferred to [facility] as soon as a bed is available. When discharged he wwill follow up with his community providers and plan of care as prescribed.
--- NOTE | 2021-12-21 08:49 | W.PM.DS.N ---
DS: Diagnosis Discharge Diagnosis (1) Acute non-ST elevation myocardial infarction (NSTEMI): Status: Acute (2) Hypomagnesemia: Status: Acute (3) Obstructive sleep apnea syndrome, mild: Status: Chronic (4) Bipolar disorder: Status: Chronic (5) Essential hypertension: Status: Chronic (6) ASCVD (arteriosclerotic cardiovascular disease): Status: Chronic (7) Alcohol use disorder: (8) Diabetes mellitus type 2, insulin dependent: Status: Acute (9) Discharge planning issues: Status: Acute Discharge Plan Disposition Patient Disposition: [facility] Condition: Stable Discharge Details Reason For Visit: NSTEMI Admit Date/Time: 12/20/21 07:23 Admit Provider: Jorge Barfield Attending Provider: Jorge Barfield Primary Care Provider: Linda Hallman [facility] Course Hospital Course: This is a 46 yo male with known CAD with [place] in 2013 and subsequent stent placement, DM2, HLD, HTN, tobacco abuse disorder.? He presented to the ED with achy pain directly between my right and left nipples on my chest.? This developed appx 25 minutes prior to presentation.? He took 2 nitorglycerin and 600mg aspirin at home.? EMS call.? His pain went from a 5 to a 3 after he took said medications.? No shortness of air.? He endorses not taking his asa, atorvastatin, plavix, jardiance, escitalopram, HCTZ, hydroxyzine, lisinopril or metoprolol for the last month + d/t financial constraints due to changing pharmacies.? He does endorse intermittent palpitations.? No cough/sputum, fever/chills, n/v. ED workup showed initially unremarkable lab, including a negative troponin.? EKG showed questionable mild ST elevations, but repeat EKG showed improvement.? His repeat troponin elevated to 3200.? ED physician discussed the patient with [facility] complex care nurse practitioner, Dr. Rios who recommended urgent need for pipelines laborer, however there were no beds available at [facility].? [facility] complex care nurse practitioner, Dr Renteria, contacted and the patient was accepted for urgent transfer that would occur in the next 24 to 36 hours.? He was placed on IV heparin and was administered a loading dose of 600mg Plavix. His troponin trend was: less than 50 > 3230 > 5823 > 4793 > 4455 > 2850. He was initiated on a nitroglycerin drip d/t elevated BP.?His BP normalized. The nitro drip was subsequently d/c'd and metoprolol initiated at a 12.5mg BID then a 25mg BID dosage (on 50mg BID at home). He had no further CP. A bed became available at [facility] and he will be transported there for further care. Home Meds and New Rx's Prescriptions: New aspirin 325 mg capsule 325 mg PO DAILY Qty: 90 6RF atorvastatin 40 mg tablet 40 mg PO DAILY Qty: 90 6RF clopidogrel [Plavix] 75 mg tablet 75 mg PO DAILY Qty: 90 6RF Jardiance 10 mg tablet 10 mg PO QAM Qty: 90 6RF escitalopram oxalate 10 mg tablet 10 mg PO DAILY Qty: 90 6RF hydrochlorothiazide 12.5 mg capsule 12.5 mg PO QAM Qty: 90 6RF hydroxyzine HCl 25 mg tablet 25 mg PO QID PRNQty: 90 6RF lisinopril 40 mg tablet 40 mg PO DAILY Qty: 90 6RF metoprolol tartrate 50 mg tablet 50 mg PO BID Qty: 90 6RF Continued ibuprofen 400 mg tablet 400 mg PO Q6H PRN PRN (DME) FreeStyle Prieto 2 [facility] [place] Rx Instructions .ROUTE .MEDSUPPLY Qty: 1 0RF Rx Instructions: As directed (DME) FreeStyle Prieto 2 Sensor Kit See Rx Instructions .ROUTE .MEDSUPPLY Qty: 6 3RF Rx Instructions: As directed (DME) Blood Glucose Test Strip See Rx Instructions .ROUTE .MEDSUPPLY Qty: 200 3RF Rx Instructions: E11.9 for twice daily monitoring for goal A1C <7% (DME) pen needle, diabetic [BD Ultra-Fine Marivel Pen Needle] 32 gauge x 5/32 needle See Rx Instructions .ROUTE .MEDSUPPLY Qty: 100 3RF Rx Instructions: E11.9 to administer insulin daily for A1C <7% chlorhexidine gluconate [Antiseptic Skin Clnsr(chlorhe)] 4 % liquid 1 applic TP DAILY Qty: 960 0RF Rx Instructions: Rinse skin with water, then apply minimum amount needed to cover skin. Wash gently then rinse cholecalciferol (vitamin D3) [Vitamin D3] 50 mcg (2,000 unit) tablet 2,000 unit PO DAILY Qty: 90 3RF magnesium oxide 400 mg magnesium capsule 400 mg PO DAILY Qty: 90 3RF Rx Instructions: Administer at least 2 hours apart from other medications tadalafil 5 mg tablet 5 mg PO DAILY MDD 5 mg PRN (Reason: sexual activity) Qty: 30 3RF Rx Instructions: Take approximately 30 min before sexual activity pantoprazole 20 mg tablet,delayed release (DR/EC) 20 mg PO DAILY Qty: 90 3RF Rx Instructions: Take 20 mg daily once daily in the morning at least 30 minutes before first meal of the day multivitamin Tablet 1 tab PO DAILY Qty: 90 3RF Janumet XR 50-1,000 mg tablet, ER multiphase 24 hr 1 tab PO BID Qty: 180 3RF acetaminophen [Tylenol Extra Strength] 500 MG tablet 1,000 mg PO PRN PRN acidophilus-pectin, citrus 25 million cell -100 mg tablet 1 tab PO DAILY Label Comments: TAKE ONE TABLET BY MOUTH EVERY MORNING Tresiba FlexTouch U-200 200 unit/mL (3 mL) Insulin Pen 20 unit SUBCUT DAILY Discontinued escitalopram oxalate 10 mg tablet 10 mg PO DAILY hydrochlorothiazide 12.5 mg tablet 12.5 mg PO DAILY AM Qty: 90 3RF Jardiance 10 mg tablet 10 mg PO QAM Qty: 90 3RF lisinopril 40 mg tablet 40 mg PO DAILY Qty: 90 3RF metoprolol tartrate 50 mg tablet 50 mg PO BID Qty: 180 3RF hydroxyzine HCl 25 MG tablet 25 - 50 mg PO QID PRNQty: 90 aspirin 325 mg tablet 325 mg PO DAILY Qty: 90 3RF Rx Instructions: STROKE & HEART ATTACK PREVENTION atorvastatin [Lipitor] 40 mg tablet 40 mg PO DAILY Qty: 90 3RF clopidogrel [Plavix] 75 mg tablet 75 mg PO DAILY Qty: 90 3RF No Action (DME) lancets Misc See Dose Instructions .ROUTE .MEDSUPPLY Qty: 200 3RF Dose Instruction: As directed to check daily morning fasting blood glucose Rx Instructions: E11.9 to check twice daily blood glucose for goal A1C <7% (DME) blood-glucose meter Misc See Dose Instructions .ROUTE .MEDSUPPLY Qty: 1 0RF Dose Instruction: As directed Rx Instructions: As directed to check blood glucose on insulin Discharge Instructions Activity:: Bathroom privilieges Equipment/Supplies:: No Equipment Needed Diet:: Heart Healthy Discharge Orders Discharge Orders: Discharge Order (Routine); Ordered 12/23/21 Ordered By: Jorge Barfield DS: Summary Time Spent with Patient providing and/or coordinating discharge services: Greater than 30 minutes Status at Discharge Functional status at discharge: independent ambulation Overall status at discharge: other Mental Status: mental status grossly normal Speech and Movement: speech and movement normal Mood: congruent mood Affect: normal affect Exam Psych Mental Status: mental status grossly normal Speech and Movement: speech and movement normal Mood: congruent mood Affect: normal affect DS: Data Vitals/I&O Vitals and I&O: Vital Signs Temperature 36.4 C L 12/21/21 04:00 Temperature Source Temporal Artery Scan 12/21/21 04:00 Pulse 65 12/21/21 02:30 Pulse 75 12/21/21 02:30 Respiratory Rate 15 12/21/21 02:30 Respiratory Effort Non-Labored 12/21/21 04:00 Respiratory Depth Normal 12/21/21 04:00 Respiratory Pattern Normal 12/21/21 04:00 Blood Pressure 118/84 12/21/21 02:30 Blood Pressure Mean 90 12/21/21 02:30 Blood Pressure Position Supine 12/21/21 04:00 Pulse Oximetry 96 12/21/21 02:30 Oxygen Delivery Method Room Air 12/21/21 04:00 Oxygen Flow Rate 0 12/21/21 04:00 Pain Level 0 12/20/21 17:37 Intake & Output 12/20/21 12/20/21 12/21/21 11:59 23:59 11:59 Intake Total 242.608 / 842.608 779.542 / 779.542 Output Total 1000 / 1000 500 / 500 Balance -757.392 / -157.392 279.542 / 279.542 Weight 122.6 kg 122.1 kg Intake: IV 242.608 / 242.608 179.542 / 179.542 Oral 600 / 600 Output: Urine 1000 / 1000 500 / 500 Other: Urine Color Light Shira Urine Appearance Clear Urine Odor Normal Comment over 2 voids Voiding Methods Urinal Data Completed and Pending Labs on day of discharge: Labs from last 24 hours 12/21/21 12/21/21 12/21/21 08:00 05:55 05:55 WBC 12.09 H RBC 4.39 Hgb 13.7 Hct 38.8 L MCV 88 MCH 31.2 MCHC 35.3 RDW 11.9 Plt Count 223 MPV 9.7 Immature Gran % 0.3 Neutrophils % 70.8 Lymphocytes % 18.9 Monocytes % 6.9 Eosinophils % 2.5 Basophils % 0.6 Nucleated RBC % 0.0 Absolute Neutrophils 8.56 H Absolute Lymphocytes 2.29 Absolute Monocytes 0.83 H Absolute Eosinophils 0.30 Absolute Basophils 0.07 APTT 53.5 H Sodium 139 Potassium 3.6 Chloride 103 Carbon Dioxide 26.7 Anion Gap 9.3 BUN 9 Creatinine 1.0 Est GFR (CKD-EPI 2020) 92.84 Glucose 149 H POC Glucose Calcium 8.4 L Magnesium 1.4 L Troponin I 2850 H* Triglycerides 157 H Total Cholesterol 217 H LDL Cholesterol, Calc 157 H HDL Cholesterol 29 L 12/21/21 12/20/21 12/20/21 01:15 20:45 17:45 WBC RBC Hgb Hct MCV MCH MCHC RDW Plt Count MPV Immature Gran % Neutrophils % Lymphocytes % Monocytes % Eosinophils % Basophils % Nucleated RBC % Absolute Neutrophils Absolute Lymphocytes Absolute Monocytes Absolute Eosinophils Absolute Basophils APTT 43.2 H Sodium Potassium Chloride Carbon Dioxide Anion Gap BUN Creatinine Est GFR (CKD-EPI 2020) Glucose POC Glucose Calcium Magnesium Troponin I 4455 H* 4793 H* Triglycerides Total Cholesterol LDL Cholesterol, Calc HDL Cholesterol 12/20/21 12/20/21 12/20/21 17:45 16:30 14:08 WBC RBC Hgb Hct MCV MCH MCHC RDW Plt Count MPV Immature Gran % Neutrophils % Lymphocytes % Monocytes % Eosinophils % Basophils % Nucleated RBC % Absolute Neutrophils Absolute Lymphocytes Absolute Monocytes Absolute Eosinophils Absolute Basophils APTT 37.4 H Sodium Potassium Chloride Carbon Dioxide Anion Gap BUN Creatinine Est GFR (CKD-EPI 2020) Glucose POC Glucose Cancelled Calcium Magnesium Troponin I 5823 H* Triglycerides Total Cholesterol LDL Cholesterol, Calc HDL Cholesterol 12/20/21 12/20/21 12:10 11:30 WBC RBC Hgb Hct MCV MCH MCHC RDW Plt Count MPV Immature Gran % Neutrophils % Lymphocytes % Monocytes % Eosinophils % Basophils % Nucleated RBC % Absolute Neutrophils Absolute Lymphocytes Absolute Monocytes Absolute Eosinophils Absolute Basophils APTT 25.2 Sodium Potassium Chloride Carbon Dioxide Anion Gap BUN Creatinine Est GFR (CKD-EPI 2020) Glucose POC Glucose Cancelled Calcium Magnesium Troponin I Triglycerides Total Cholesterol LDL Cholesterol, Calc HDL Cholesterol [facility] All Active Problems (Updated 12/21/21 @ 08:00 by Jorge Barfield MD) Discharge planning issues (Acute) Diabetes mellitus type 2, insulin dependent (Acute) Chest pain (Acute) Acute non-ST elevation myocardial infarction (NSTEMI) (Acute) Hypomagnesemia (Acute) Polycythemia (Acute) Bilateral leg cramps (Acute) Vertigo (Acute) 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 2 diabetes mellitus (Acute ~06/2020) Ventricular premature beats (Acute 08/28/14) Antiplatelet or antithrombotic long-term use (Acute) De Quervain's tenosynovitis, right (Acute) Vitamin D deficiency (Chronic 05/23/15) Tobacco use disorder (Chronic) Panic disorder without agoraphobia (Chronic 04/29/11) Obesity (BMI 30-39.9) (Chronic 08/28/14) Obstructive sleep apnea syndrome, mild (Chronic 11/03/16) Shanika Jimenez NP DOES NOT USE CPAP Hyperlipidemia, unspecified (Chronic 04/29/11) Intolerant to atorvastatin; able to tolerate once vit D deficiency addressed Erectile dysfunction (Chronic 11/29/15) Depression (Chronic 04/29/11) Cardiomyopathy (Chronic) Followed by complex care nurse practitioner Dr. Galaviz at [facility] Bipolar disorder (Chronic) Dx psychiatry [facility] PT. DENIES THIS DX Benign prostatic hyperplasia with lower urinary tract symptoms (Chronic 01/28/17) Essential hypertension (Chronic 11/25/12) Anxiety (Chronic 04/29/11) ASCVD (arteriosclerotic cardiovascular disease) (Chronic) Anterior NJ 12/2013 --> [place] in [place] EF 40% post-NJ 09/2014 echo EF improved to almost normal at 54% Followed by complex care nurse practitioner Dr. Galaviz at [facility] Medical History (Updated 12/21/21 @ 08:00 by Jorge Barfield MD) Alcohol use disorder (04/29/11) [facility] PT. STATES HE DOESN'T DRINK ANYMORE, HASN'T IN YEARS 09/21/19 Heart palpitations Kidney stone (04/26/15) 100% calcium oxalate monohydrate Patellar fracture (01/26/17) (L) S/p surgical repair Type 2 diabetes mellitus, without long-term current use of insulin Surgical History Heart Surgery stent placement X1 Open Reduction and Internal Fixation of Patellar Fracture (01/26/17) (L) Dr. Lemus Vasectomy (01/19/06) Family History Father No problems noted. Maternal Grandmother Colon cancer Mother Colon cancer Not cancer, precancerous polyps Other CAD (coronary artery disease) Social History Smoking/Tobacco Use Status: Current every day Tobacco Type: pipe Other: Smokes 5-6 ciggs worth of tobacco in pipe on a rough day and e-cigarettes Smoking risk assessment performed?: Yes Alcohol Intake: former Drug use: Never Substance use type: does not use Adopted: No Caregiver/Support person: No Foster care: No Household members: children and other Details: 2 - lives with son Housing: apartment Number of Children: 2 Communication Needs: None current occupation: works for a [employer] Pets and animals: No Current gender identity: male What type of physical activity do you participate in: none Frequency: daily Seatbelt use: always Helmet use: No Drive 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 w/intox bull driver: No Water heater temp set <120 deg: Yes Working smoke detector in home: Yes Fire extinguisher in home: Yes Carbon monox detector in home: Yes Do you feel safe at home: Yes Do you feel safe in your relationship?: Yes
[2021-12-21] MEDS: MAGNESIUM SULFATE 4 GM/100 ML BAG IVPB (09:20)
[2021-12-21] MEDS: Metoprolol 12.5 MG TAB PO ×2 (09:52→21:25)
--- NOTE | 2021-12-21 16:40 | W.PM.PROGNOT ---
Date of Service Date of service: 12/21/21 Time of Service: 16:40 Assessment and Plan Assessment and plan (1) Acute non-ST elevation myocardial infarction (NSTEMI): Status: Acute Assessment and plan: Accepted for urgent admission to [facility]. ED bedside echo w/o any evidence of large wall motion abnormality. Cont heparin drip initiated in the ED. Cont plavix and asa. Trended troponin and decreased. Emergent transfer if develops chest pain or concerning vital signs indicating potential worsening state. (2) Hypomagnesemia: Status: Acute Assessment and plan: Replete. (3) Obstructive sleep apnea syndrome, mild: Status: Chronic Assessment and plan: Does not use CPAP. (4) Bipolar disorder: Status: Chronic Assessment and plan: Stable mood and appropriate affect. Not on any psychiatric medications currently but prescribed escitalopram. (5) Essential hypertension: Status: Chronic Assessment and plan: Elevated and not currently taking his prescribed HCTZ, lisinopril or metoprolol d/t financial issues and change in pharmacies. Initiated nitroglycerine drip. Today, stop nitro drip and initiated metoprolol at 12.5 mg po BID (on 50mg po previously at home). (6) ASCVD (arteriosclerotic cardiovascular disease): Status: Chronic Assessment and plan: Known CAD with previous stent placement. Was not taking his prescribed metoprolol, Plavix or atorvastatin as per previously discussed. He endorsed, to care managment, that he just became tired of taking medications. (7) Alcohol use disorder: Assessment and plan: In remission. (8) Diabetes mellitus type 2, insulin dependent: Status: Acute Assessment and plan: Not taking Jardiance or insulin as prescribed; reasons as previously discussed. Basal/bolus insulin initiated. Monitor. (9) Discharge planning issues: Status: Acute Assessment and plan: Full code. Planning transfer to [facility]. Subjective Subjective Patient reports: no new complaints and afebrile; denies nausea, vomiting or shortness of breath Exam Narrative Exam Narrative: Pleasant, conversant male. sitting on edge of bed. Const General: cooperative and no acute distress Nutritional Appearance: obese Orientation: alert and oriented x3 Eyes General: appearance normal, both eyes and all related structures Sclera: sclerae normal Resp Effort & Inspection: normal respiratory effort Auscultation: clear to auscultation bilaterally Cardio Jugular venous pressure: no JVD Rate: regular rate Rhythm: regular rhythm Heart Sounds: S1 normal and S2 normal GI Inspection: obesity Palpation: soft and nontender Skin General skin exam: no rashes or lesions noted Neuro General: no focal motor deficits Cranial Nerves: facial strength normal Speech: speech normal Extrem General: no pedal edema and no calf tenderness Psych Mental Status: mental status grossly normal Affect: normal affect Objective Last Vital Signs Temp 36.6 C 12/21/21 12:00 Pulse 67 12/21/21 12:00 Resp 15 12/21/21 12:00 BP 124/92 H 12/21/21 12:00 Pulse Ox 98 12/21/21 12:00 Laboratory Results - last 24 hr 12/20/21 12/20/21 12/20/21 17:45 17:45 20:45 WBC RBC Hgb Hct MCV MCH MCHC RDW Plt Count MPV Immature Gran % Neutrophils % Lymphocytes % Monocytes % Eosinophils % Basophils % Nucleated RBC % Absolute Neutrophils Absolute Lymphocytes Absolute Monocytes Absolute Eosinophils Absolute Basophils APTT 37.4 H Sodium Potassium Chloride Carbon Dioxide Anion Gap BUN Creatinine Est GFR (CKD-EPI 2020) Glucose Calcium Magnesium Troponin I 4793 H* 4455 H* Triglycerides Total Cholesterol LDL Cholesterol, Calc HDL Cholesterol 12/21/21 12/21/21 12/21/21 01:15 05:55 05:55 WBC 12.09 H RBC 4.39 Hgb 13.7 Hct 38.8 L MCV 88 MCH 31.2 MCHC 35.3 RDW 11.9 Plt Count 223 MPV 9.7 Immature Gran % 0.3 Neutrophils % 70.8 Lymphocytes % 18.9 Monocytes % 6.9 Eosinophils % 2.5 Basophils % 0.6 Nucleated RBC % 0.0 Absolute Neutrophils 8.56 H Absolute Lymphocytes 2.29 Absolute Monocytes 0.83 H Absolute Eosinophils 0.30 Absolute Basophils 0.07 APTT 43.2 H Sodium 139 Potassium 3.6 Chloride 103 Carbon Dioxide 26.7 Anion Gap 9.3 BUN 9 Creatinine 1.0 Est GFR (CKD-EPI 2020) 92.84 Glucose 149 H Calcium 8.4 L Magnesium 1.4 L Troponin I 2850 H* Triglycerides 157 H Total Cholesterol 217 H LDL Cholesterol, Calc 157 H HDL Cholesterol 29 L 12/21/21 08:00 WBC RBC Hgb Hct MCV MCH MCHC RDW Plt Count MPV Immature Gran % Neutrophils % Lymphocytes % Monocytes % Eosinophils % Basophils % Nucleated RBC % Absolute Neutrophils Absolute Lymphocytes Absolute Monocytes Absolute Eosinophils Absolute Basophils APTT 53.5 H Sodium Potassium Chloride Carbon Dioxide Anion Gap BUN Creatinine Est GFR (CKD-EPI 2020) Glucose Calcium Magnesium Troponin I Triglycerides Total Cholesterol LDL Cholesterol, Calc HDL Cholesterol
[2021-12-22] VITALS (26 sets, daily range): BP systolic 138–142; BP diastolic 84–92; PULSE 68–84; RESP 9–24; TEMP 36.6–36.8
[2021-12-22 05:54] LABS: HGB 14.3 g/dL (13.5-17.5); MCHC 34.9 % (32.0-36.0); MCV 89 fL (80-95); MPV 9.6 fL (8.0-11.0); Platelet Count 230 10^3/uL (130-400); RBC 4.61 10^6/uL (4.36-5.78); RDW 11.9 % (11.8-14.1); RDW-SD 37.9 fL; WBC 9.38 10^3/uL (4.4-10.8)
[2021-12-22 06:13] LABS: Anion Gap 8.9 mmol/L (3-11); BUN 8 mg/dL (7-18); CO2 28.1 mmol/L (21.0-32.0); CREATININE 0.9 mg/dL (0.70-1.30); Calcium 8.6 mg/dL (8.5-10.1); Chloride 102 mmol/L (98-107); Estimated GFR 105.35 (mL/min/1.73m2); Glucose 126 mg/dL (74-106); PTT Activated 44.8 sec (21.0-27.5); Potassium 3.6 mmol/L (3.5-5.1); Sodium 139 mmol/L (136-145)
[2021-12-22] MEDS: Pantoprazole 20 MG TABCR PO (09:14)
[2021-12-22] MEDS: Multivitamin TAB 1 TAB PO (09:14)
[2021-12-22] MEDS: Clopidogrel 75 MG TAB PO (09:14)
[2021-12-22] MEDS: Metoprolol 12.5 MG TAB PO ×2 (09:14→21:22)
[2021-12-22] MEDS: Aspirin 81 MG CHEW PO (09:15)
[2021-12-22] MEDS: Magnesium Oxide 400 MG TAB PO (09:15)
[2021-12-22] MEDS: Insulin Glargine 300 UNITS/3 ML PEN 16 UNITS SC (09:17)
[2021-12-22] MEDS: Insulin Aspart 300 UNITS/3 ML PEN SC ×2 (12:15→18:51)
--- NOTE | 2021-12-22 16:30 | CMPROGNOTE_ITS ---
- If Service Date Differs Date of service: 12/22/21 Time of Service: 16:30 Care Management Progress Note S/O: Shukri is being closely monitored and treated in the ICU. Per MD, transfer to [facility] is pending. Emergent transfer if develops chest pain or concerning vital signs indicating potential worsening state. A: 46 year old male admitted to [facility] on 12/21/21 for NSTEMI. P: Guillermo will be transferred to [facility] as soon as a bed is available. When discharged he will follow up with his community providers and plan of care as prescribed.
--- NOTE | 2021-12-22 18:21 | PGE_ITS ---
Date of Service Date of service: 12/22/21 Time of Service: 18:21 Assessment and Plan Assessment and plan (1) Acute non-ST elevation myocardial infarction (NSTEMI): Status: Acute Assessment and plan: Accepted for urgent admission to [facility]. ED bedside echo w/o any evidence of large wall motion abnormality. Stopped heparin drip initiated in the ED; infused for > 48H Cont plavix and asa. Trended troponin and decreased. Emergent transfer if develops chest pain or concerning vital signs indicating potential worsening state. Spoke with Russian Language Professor Dr Burgess at [facility] and he encouraged patient to stay until bed available for transfer. (2) Hypomagnesemia: Status: Acute Assessment and plan: Replete and monitor. (3) Obstructive sleep apnea syndrome, mild: Status: Chronic Assessment and plan: Does not use CPAP. (4) Bipolar disorder: Status: Chronic Assessment and plan: Stable mood and appropriate affect. Not on any psychiatric medications currently but prescribed escitalopram. (5) Essential hypertension: Status: Chronic Assessment and plan: Elevated and not currently taking his prescribed HCTZ, lisinopril or metoprolol; now endorses he just didn't want to take meds any longer. Initiated nitroglycerine drip. Today, stop nitro drip and initiated metoprolol at 12.5 mg po BID (on 50mg po previously at home). (6) ASCVD (arteriosclerotic cardiovascular disease): Status: Chronic Assessment and plan: Known CAD with previous stent placement. Was not taking his prescribed metoprolol, Plavix or atorvastatin as per previously discussed. He endorsed, to care managment, that he just became tired of taking medications. (7) Alcohol use disorder: Assessment and plan: In remission. (8) Diabetes mellitus type 2, insulin dependent: Status: Acute Assessment and plan: Not taking Jardiance or insulin as prescribed; reasons as previously discussed. Basal/bolus insulin initiated. Monitor. (9) Discharge planning issues: Status: Acute Assessment and plan: Full code. Planning transfer to [facility]. Subjective Subjective Patient reports: no new complaints, tolerating a regular diet and afebrile; denies nausea, vomiting or shortness of breath Interval history since last seen: Patient is anxious to go to [facility] or to go home. No CP. IV infiltrated today. Exam Narrative Exam Narrative: Pleasant, conversant male. sitting on edge of bed. Anxious to either have tx at [facility] or go home. Const General: cooperative and no acute distress Nutritional Appearance: obese Orientation: alert and oriented x3 Eyes General: appearance normal, both eyes and all related structures Sclera: sclerae normal Resp Effort & Inspection: normal respiratory effort Auscultation: clear to auscultation bilaterally Cardio Jugular venous pressure: no JVD Rate: regular rate Rhythm: regular rhythm Heart Sounds: S1 normal and S2 normal GI Inspection: obesity Palpation: soft and nontender Skin General skin exam: no rashes or lesions noted Neuro General: no focal motor deficits Cranial Nerves: facial strength normal Speech: speech normal Extrem General: no pedal edema and no calf tenderness Psych Mental Status: mental status grossly normal Affect: normal affect Objective Last Vital Signs Temp 36.6 C 12/22/21 15:25 Pulse 74 12/22/21 14:36 Resp 19 12/22/21 15:25 BP 142/84 H 12/22/21 15:25 Pulse Ox 95 12/21/21 22:30 Laboratory Results - last 24 hr 12/22/21 12/22/21 12/22/21 05:33 05:33 05:33 WBC 9.38 RBC 4.61 Hgb 14.3 Hct 41.0 MCV 89 MCH 31.0 MCHC 34.9 RDW 11.9 Plt Count 230 MPV 9.6 APTT 44.8 H Sodium 139 Potassium 3.6 Chloride 102 Carbon Dioxide 28.1 Anion Gap 8.9 BUN 8 Creatinine 0.9 Est GFR (CKD-EPI 2020) 105.35 Glucose 126 H Calcium 8.6
[2021-12-23] VITALS (11 sets, daily range): BP systolic 122–140; BP diastolic 78–89; PULSE 57–71; RESP 11–18; TEMP 36.8–37; O2SAT 98
[2021-12-23 05:50] LABS: Magnesium 1.9 mg/dL (1.8-2.4)
[2021-12-23] MEDS: Metoprolol 12.5 MG TAB PO (08:32)
[2021-12-23] MEDS: Aspirin 81 MG CHEW PO (08:32)
[2021-12-23] MEDS: Multivitamin TAB 1 TAB PO (08:32)
[2021-12-23] MEDS: Magnesium Oxide 400 MG TAB PO (08:32)
[2021-12-23] MEDS: Clopidogrel 75 MG TAB PO (08:32)
[2021-12-23] MEDS: Insulin Glargine 300 UNITS/3 ML PEN 16 UNITS SC (08:33)
[2021-12-23] MEDS: Pantoprazole 20 MG TABCR PO (08:34)
[2021-12-23] MEDS: Insulin Aspart 300 UNITS/3 ML PEN SC (08:34)
--- NOTE | 2021-12-23 09:03 | CMPROGNOTE_ITS ---
- If Service Date Differs Date of service: 12/23/21 Time of Service: 09:03 Care Management Progress Note S/O: Shukri is being closely monitored and treated in the ICU. Per MD, transfer to [facility] is pending. Emergent transfer if develops chest pain or concerning vital signs indicating potential worsening state. A: 46 year old male admitted to [facility] on 12/21/21 for NSTEMI. P: Guillermo will be transferred to [facility] as soon as a bed is available. When discharged he will follow up with his community providers and plan of care as prescribed.
[2021-12-23] MEDS: Heparin 5,000 UNITS/ML VIAL 5000 UNITS SC (10:27)
--- NOTE | 2021-12-23 10:38 | DM INPTCON_ITS ---
Date of service: 12/23/21 Time of Service: 10:38 Diabetes Inpatient Consult Reason for Visit: dm DESCRIPTION/ASSESSMENT: Guillermo was admitted with NSTEMI awaiting transfer to [facility]. PMH: DM2, HTN, Etoh abuse, bipolar. Had not been taking his prescribed Dm meds prior to admission. Most recent A1C: 7.3% indicates good glycemic control despite medication holiday. Not appropriate for DM teaching at this time. Following Dm diet with excellent intake. Meeting macronutrient needs with good glycemic management. PLAN: will monitor po intake, labs, weight Time Spent in Nutritional Counseling and Treatment: 0
--- NOTE | 2021-12-23 15:34 | PDOC.CMDIS ---
- If Service Date Differs Date of service: 12/23/21 Time of Service: 15:34 LACE Index Scoring Tool - Questions: Length of Stay (in days): 3 Acuity (Admit via E.D.?): Yes Comorbidities: Cerebrovascular Disease, Congestive Heart Failure E.D. Visits: 1 - Answers: Total Score: 10 Risk of Readmission: High Risk Care Management Discharge Reason for Hospitalization: NSTEMI Discharge Plan: Guillermo is accepted to [facility] and transferred via EMS. Discharge is coordinated by MD and RN Business Intelligence Reporting Analyst. Patient/Family Education Needs: Review transfer instructions. Services Needed at Discharge: Transportation (Via EMS)
== END 2021-12-23 11:00 | DRG 281 ==
LOC: ER 07:21 → ICU 12-21 08:55
PROVIDERS: General Practice; Internal Medicine; Admitting Provider Family Medicine; Emergency Provider Student in an Organized Health Care Education/Training Program; PCP Nurse Practitioner Family; Visit Provider Family Medicine
DX: I21.4 Non-ST elevation (NSTEMI) myocardial infarction (principal); I42.9 Cardiomyopathy, unspecified; E83.42 Hypomagnesemia; G47.33 Obstructive sleep apnea (adult) (pediatric); F31.9 Bipolar disorder, unspecified; I10 Essential (primary) hypertension; I25.10 Atherosclerotic heart disease of native coronary artery without angina pectoris; F10.11 Alcohol abuse, in remission; Z79.4 Long term (current) use of insulin; E11.9 Type 2 diabetes mellitus without complications; I25.2 Old myocardial infarction; Z95.5 Presence of coronary angioplasty implant and graft; E78.5 Hyperlipidemia, unspecified; T38.3X6A Underdosing of insulin and oral hypoglycemic [antidiabetic] drugs, initial encounter; T50.2X6A Underdosing of carbonic-anhydrase inhibitors, benzothiadiazides and other diuretics, initial encounter; T46.4X6A Underdosing of angiotensin-converting-enzyme inhibitors, initial encounter; T44.7X6A Underdosing of beta-adrenoreceptor antagonists, initial encounter; Z79.01 Long term (current) use of anticoagulants; Z91.120 Patient's intentional underdosing of medication regimen due to financial hardship; Z79.84 Long term (current) use of oral hypoglycemic drugs; F17.299 Nicotine dependence, other tobacco product, with unspecified nicotine-induced disorders; Z86.73 Personal history of transient ischemic attack (TIA), and cerebral infarction without residual deficits
CPT/HCPCS: 36415; 80048; 80053; 80061; 85027; 87635; 93005; 93308; 96365; 96366; 96376; 99291; 71045; 83735; 83880; 84484; 85025; 85379; 85610; 85730; 93010; 99223; 99232; 99233; J1644; J3475; J3490

== ENCOUNTER 2022-04-21 10:31 | Outpatient (REF) | payer MEDICARE, MEDICAID, SELFPAY ==
[2022-04-22 22:20] LABS: Influenza A RNA Result Negative (Negative); Influenza B RNA Result Negative (Negative); RSV RNA Result Negative (Negative)
[2022-04-22 22:26] LABS: COVID-19 RT-PCR UVMMC Result Positive (Negative)
== END 2022-04-21 10:32 | disposition home or self-care (01) ==
LOC: LBN 10:31
PROVIDERS: PCP Nurse Practitioner Family; Visit Provider Nurse Practitioner
DX: Z20.822 Contact with and (suspected) exposure to COVID-19 (principal); R09.81 Nasal congestion; R50.9 Fever, unspecified
CPT/HCPCS: 87631; U0003

== ENCOUNTER 2022-05-10 11:58 | Inpatient (IN) | payer MEDICARE, MEDICAID, SELFPAY ==
[2022-05-10] VITALS (119 sets, daily range): BP systolic 87–129; BP diastolic 50–88; PULSE 58–140; RESP 9–44; TEMP 36.6–37.3; O2SAT 88–100
--- NOTE | 2022-05-10 12:00 | RT.EKG_ITS ---
APPROVED REPORT Exam: Resting ECG Reason for Exam: chest pain Patient Location: E HR:68 bpm ECG Measurements Heart Rate 68 AXIS DE 167 P 16 QRSd 102 QRS 0 QT 418 T [id number] QTc 446 Conclusion Sinus rhythm.. Low voltage
--- NOTE | 2022-05-10 12:15 | DI.CT_ITS ---
Exam(s) CT CHEST PE CTA EXAM: CT CHEST PE CTA CLINICAL HISTORY: chest pain. TECHNIQUE: Imaging Protocol: Axial CT angiography was performed with multi-slice acquisition and mu lti-planar reconstructions as well as axial, coronal and sagittal MIP reconstructions. CONTRAST MATERIAL: Intravenous: Omnipaque 350 Contrast volume:100 ml COMPARISON: CT CT THORAX CTA from 09/12/2020 CR,XR XR PORTABLE CHEST AP from 12/20/2021 FINDINGS: Pulmonary Arteries: No evidence of filling defect to suggest pulmonary emboli. Tracheobronchial tree: Patent where visualized. Mediastinum and Kristi: No dominant adenopathy or fluid collection. Pulmonary parenchyma: No consolidation or dominant measurable mass. Pleura: No effusion or pneumothorax. Heart: The heart is not dilated. Coronary artery stents noted. Elevated left diaphragm, chronic. Aorta: Thoracic aorta non-dilated. No aneurysm. No dissection. Upper abdomen: Unremarkable. Bones: Degenerative changes prominent endplate osteophytes. Tubes, Catheters, and Lines: None IMPRESSION: No evidence of pulmonary embolism. No acute abnormality. RADIATION DOSE DELIVERED: 568.38mGy.cm Total DLP DATA REPOSITORY: All CT scans at this facility are submitted to the National Radiology Data Registry (NRDR) Dose Index Registry (DIR) with the [employer] (ACR). RADIATION OPTIMIZATION: All CT scans at this facility use at least one of these dose optimization te chniques: automated exposure control; mA and/or kV adjustment per patient size (includes targeted exa ms where dose is matched to clinical indication); or iterative reconstruction.
[2022-05-10 12:34] LABS: Abs Immature Grans 0.03 10^3/uL (0.0-0.06); Absolute Basophil Count 0.08 10^3/uL (0.0-0.2); Absolute Eosinophil Count 0.42 10^3/uL (0.0-0.7); Absolute Lymphocyte Count 2.21 10^3/uL (1.2-3.4); Absolute Monocyte Count 0.63 10^3/uL (0.1-0.8); Absolute Neutrophil Count 6.56 10^3/uL (1.2-6.7); Basophils % 0.8; Eosinophils % 4.2; HCT 40.4 % (40.0-50.0); HGB 14.9 g/dL (13.5-17.5); Immature Grans % 0.3; Lymphocytes % 22.3; MCH 33.9 pg (27.0-33.0); MCHC 36.9 % (32.0-36.0); MCV 92 fL (80-95); MPV 9.2 fL (8.0-11.0); Monocytes % 6.3; Neutrophils % 66.1; Platelet Count 404 10^3/uL (130-400); RDW 11.9 % (11.8-14.1); RDW-SD 38.4 fL; WBC 9.93 10^3/uL (4.4-10.8)
[2022-05-10 12:49] LABS: ALT 15 U/L (16-63); AST 12 U/L (15-37); Albumin 3.3 g/dL (3.4-5.0); Alkaline Phosphatase 98 U/L (46-116); Anion Gap 6.9 mmol/L (3-11); BUN 10 mg/dL (7-18); Bilirubin, Total 0.8 mg/dL (0.2-1.0); CO2 32.1 mmol/L (21.0-32.0); CREATININE 1.2 mg/dL (0.70-1.30); Chloride 95 mmol/L (98-107); Glucose 162 mg/dL (74-106); Potassium 3.6 mmol/L (3.5-5.1); Sodium 134 mmol/L (136-145); Total Protein 7.8 g/dL (6.4-8.2)
[2022-05-10 12:58] LABS: Magnesium 1.8 mg/dL (1.8-2.4); NT-proBNP 550 pg/mL (<300)
[2022-05-10 13:01] LABS: Troponin I 293 ng/L (<or=60)
[2022-05-10] MEDS: Omnipaque 350 MG/ML 100 ML BTL IJ (13:09)
[2022-05-10] MEDS: Normal Saline - Diluent 50 ML VIAL IJ (13:10)
--- NOTE | 2022-05-10 13:19 | NUR.NOTE ---
Nursing Note: PT TO DI AND RETURN AFTER ORDERED EXAM, DENIES CURRENT CP OR COMPLAINTS, MONITORS MAINTAINED.
--- NOTE | 2022-05-10 13:26 | DI.VRAD_ITS ---
PROCEDURE INFORMATION: Exam: CTA Chest With Contrast Exam date and time: 05/10/2022 1:00 PM Age: 46 years old Clinical indication: Other: Unspecified; Patient HX: Chest pain TECHNIQUE: Imaging protocol: Computed tomographic angiography of the chest with contrast. 3D rendering (Not supervised by radiologist): MIP and/or 3D reconstructed images were created by the technologist. COMPARISON: CT THORAX CTA 09/12/2020 3:27 AM FINDINGS: Limitations: None. Pulmonary arteries: Normal caliber. Normal contrast opacification. Great vessels off aortic arch: Normal. Aorta: Normal. Lungs: Shallow inspiration, particularly with respect to the left hemithorax with there is also significant, unchanged, chronic left hemidiaphragm elevation. Mild atelectasis, left greater than right. Normal tracheobronchial tree. Pleural spaces: Normal. Heart: Normal. Coronary arteries: Multiple stents. Lymph nodes: None enlarged or otherwise suspicious. Bones/joints: No acute fracture or suspicious lesion Soft tissues: Normal. IMPRESSION: 1. No acute findings. Negative for pulmonary arterial embolism. 2. Treated coronary artery disease. Follow-up per the patient's medical condition. Dictated and Authenticated by: Tuan Pena MD. Ordering:PUJA Borja MD
--- NOTE | 2022-05-10 13:30 | RT.EKG_ITS ---
APPROVED REPORT Exam: Resting ECG Reason for Exam: chest pain Patient Location: E HR:65 bpm ECG Measurements Heart Rate 65 AXIS NV 161 P 36 QRSd 97 QRS -10 QT 425 T 59 QTc 443 Conclusion Sinus rhythm...normal P axis, V-rate 60- 99 Low voltage, extremity and precordial leads...extremity<0.5mV, precordial<1.0mV
[2022-05-10] MEDS: nitroGLYcerin 0.4 MG TAB SL ×3 (13:43→22:30)
--- NOTE | 2022-05-10 13:52 | NUR.NOTE ---
Nursing Note: CP RELIEVED W/NITRO SL X1, BP 87 SYSTOLIC S/P NITRO ADMIN, PROVIDER AWARE, NS BOLUS INITIATED PER PROVIDER. PT W/O COMPLAINTS AT THIS TIME, BP 94 SYSTOLIC, PT ALERT AND DENIES COMPLAINTS, CONT. TO MONITOR.
--- NOTE | 2022-05-10 13:55 | ED.GENADUL_ITS ---
Discharge Plan Disposition Patient Disposition: Admit to [facility] Condition: Serious Discharge Details Clinical Impression: Acute non-ST elevation myocardial infarction (NSTEMI), Ischemic cardiomyopathy, Diabetes mellitus type 2, insulin dependent, COVID Admit Date/Time: 05/10/22 16:03 Admit Provider: Carmela Macedo Attending Provider: Carmela Macedo Primary Care Provider: Linda Hallman ED Provider: Huong Morales Discharge Data Discharge Date/Time-TO BE ENTERED AT DEPARTURE: 05/10/22 17:51 Medical Decision Making This 46-year-old male with multiple comorbidities including coronary artery disease and recent stent placement to LAD x2 presents with report of chest pain intermittently for the past month with exacerbation today Intermittent pain throughout this encounter Did not take his Eliquis and Plavix this morning and EKG does not show significant acute change, nonspecific findings, pain-free at time of initial assessment, initial troponin 293, concerning with recent stent placement Of note, patient did have COVID at the beginning of the month and sounds like intermittently pain is positional in nature Of note, he had recurrence of pain and nitroglycerin was initiated he had a period of slight hypotension Pleat complete resolution of pain and has not had recurrence since that time Repeat troponin 3 hours later displaced to 73, decreased from initial Case discussed with Dr. Thompson, line installer trolley at [facility] who recommends transfer to their facility, however so secondary to capacity are unable to accept until tomorrow, patient will be listed and he is excepted under Dr. Doyle, cardiology Recommends patient receive heparin bolus and infusion and they have a second Eliquis dose today, received first Eliquis dose this morning Received full dose aspirin and recommends continuing 75 mg Plavix HPI General Date/Time Provider Initiated Documentation: 05/10/22 11:58 . HPI Narrative: This 46-year-old male multiple comorbidities including recent COVID-19 on 21 April, insulin-dependent diabetes, non-ST elevation MA with recent stent placement x2 to his LAD and cardiomyopathy ischemic, hypertension, hyperlipidemia, and tobacco abuse. Patient has had chest pain at night for the past month when he lays down but states that the pain this morning started at about 11 which is different and radiates to his right shoulder and up to his right jaw. He states he has never had pain like this with his chest pain in the past. Denies any loss of breath or diaphoresis. He denies pleuritic component. He is taking his Eliquis as prescribed. He denies any exertional components. Denies IV drug abuse or alcohol consumption. Related Data Home Medications Medication Instructions Recorded Confirmed acetaminophen 500 mg tablet 1,000 mg PO PRN PRN 01/25/17 05/10/22 (Tylenol Extra Strength) blood-glucose meter #1 ea 04/24/19 05/10/22 chlorhexidine gluconate 4 % 1 applic topical DAILY 02/07/21 04/21/22 topical liquid (Antiseptic Skin folliculitis prevention #960 mL Cleanser (chlorhexidine)) flash glucose scanning reader #1 ea 03/28/21 05/10/22 (FreeStyle Prieto 2 Keaton) flash glucose sensor (FreeStyle #6 ea 03/28/21 05/10/22 Prieto 2 Sensor kit) multivitamin 1 tab PO DAILY #90 tabs 06/25/21 05/10/22 cholecalciferol (vitamin D3) 50 2,000 unit PO DAILY #90 tab-caps 12/11/21 05/10/22 mcg (2,000 unit) tablet (Vitamin D3) magnesium oxide 400 mg PO DAILY #90 tab-caps 12/11/21 05/10/22 clopidogrel 75 mg tablet (Plavix) 75 mg PO DAILY #90 tabs 12/20/21 05/10/22 empagliflozin 10 mg tablet 10 mg PO QAM #90 tabs 12/20/21 05/10/22 (Jardiance) escitalopram oxalate 10 mg tablet 10 mg PO DAILY #90 tabs 12/20/21 05/10/22 hydroxyzine HCl 25 mg tablet 25 mg PO QID PRN #90 tabs 12/20/21 05/10/22 apixaban 5 mg tablet 5 mg PO BID 12/25/21 05/10/22 blood sugar diagnostic (FreeStyle #200 ea 12/31/21 05/10/22 Lite Strips) lancets 28 gauge (FreeStyle #200 ea 12/31/21 05/10/22 Lancets) atorvastatin 80 mg tablet 80 mg PO DAILY 01/05/22 05/10/22 acidophilus 25 million 1 tab PO DAILY #90 tabs 01/21/22 05/10/22 cell-pectin, citrus 100 mg tablet aspirin 81 mg tablet,delayed 81 mg PO DAILY 01/21/22 04/21/22 release (Adult Aspirin Regimen) insulin degludec 200 unit/mL (3 20 unit (0.1 mL) subcut DAILY #3 01/21/22 05/10/22 mL) subcutaneous pen (Tresiba SYRGS FlexTouch U-200 insulin) pantoprazole 20 mg tablet,delayed 20 mg PO DAILY #90 tab-caps 01/21/22 05/10/22 release pen needle, diabetic 32 gauge x #100 ea 01/21/22 05/10/2232 (BD Ultra-Fine Marivel Pen Needle) sitagliptin phos 50 mg-metformin 1 tab PO BID #180 tab-caps 01/21/22 05/10/22 ER 1,000 mg tablet,extend rel 24h mp (Janumet XR) tadalafil 5 mg tablet 5 mg PO DAILY PRN sexual activity 01/21/22 05/10/22 #30 tab-caps lisinopril 40 mg tablet 40 mg PO DAILY 03/12/22 05/10/22 metoprolol tartrate 50 mg tablet 50 mg PO BID #90 tabs 04/21/22 05/10/22 Previous Rx's Medication Instructions Recorded blood-glucose meter #1 ea 04/24/19 chlorhexidine gluconate 4 % 1 applic topical DAILY 02/07/21 topical liquid (Antiseptic Skin folliculitis prevention #960 mL Cleanser (chlorhexidine)) flash glucose scanning reader #1 ea 03/28/21 (FreeStyle Prieto 2 Keaton) flash glucose sensor (FreeStyle #6 ea 03/28/21 Prieto 2 Sensor kit) multivitamin 1 tab PO DAILY #90 tabs 06/25/21 cholecalciferol (vitamin D3) 50 2,000 unit PO DAILY #90 tab-caps 12/11/21 mcg (2,000 unit) tablet (Vitamin D3) magnesium oxide 400 mg PO DAILY #90 tab-caps 12/11/21 clopidogrel 75 mg tablet (Plavix) 75 mg PO DAILY #90 tabs 12/20/21 empagliflozin 10 mg tablet 10 mg PO QAM #90 tabs 12/20/21 (Jardiance) escitalopram oxalate 10 mg tablet 10 mg PO DAILY #90 tabs 12/20/21 hydroxyzine HCl 25 mg tablet 25 mg PO QID PRN #90 tabs 12/20/21 blood sugar diagnostic (FreeStyle #200 ea 12/31/21 Lite Strips) lancets 28 gauge (FreeStyle #200 ea 12/31/21 Lancets) acidophilus 25 million 1 tab PO DAILY #90 tabs 01/21/22 cell-pectin, citrus 100 mg tablet insulin degludec 200 unit/mL (3 20 unit (0.1 mL) subcut DAILY #3 01/21/22 mL) subcutaneous pen (Tresiba SYRGS FlexTouch U-200 insulin) pantoprazole 20 mg tablet,delayed 20 mg PO DAILY #90 tab-caps 01/21/22 release pen needle, diabetic 32 gauge x #100 ea 01/21/22 (BD Ultra-Fine Marivel Pen Needle) sitagliptin phos 50 mg-metformin 1 tab PO BID #180 tab-caps 01/21/22 ER 1,000 mg tablet,extend rel 24h mp (Janumet XR) tadalafil 5 mg tablet 5 mg PO DAILY PRN sexual activity 01/21/22 #30 tab-caps metoprolol tartrate 50 mg tablet 50 mg PO BID #90 tabs 04/21/22 Allergies Allergy/AdvReac Type Severity Reaction Status Date / Time hydromorphone [From Dilaudid] AdvReac Intermediate Psychosis Verified 05/10/22 12:12 codeine [Codeine] AdvReac Unknown PSYCHOSIS Verified 05/10/22 12:12 General Stated Complaint: Chest Pain DIANNE: 2 PFSH All Active Problems (Updated 05/11/22 @ 09:13 by TG Galvan) Discharge planning issues (Acute) DVT prophylaxis (Acute) HFrEF (heart failure with reduced ejection fraction) (Acute) Ischemic cardiomyopathy (Chronic) COVID (Acute ~04/20/22) Diabetes mellitus type 2, insulin dependent (Acute) Acute non-ST elevation myocardial infarction (NSTEMI) (Acute) Vertigo (Acute) 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 2 diabetes mellitus (Acute ~06/2020) Ventricular premature beats (Acute 08/28/14) Antiplatelet or antithrombotic long-term use (Acute) Vitamin D deficiency (Chronic 05/23/15) Tobacco use disorder (Chronic) Panic disorder without agoraphobia (Chronic 04/29/11) Obesity (BMI 30-39.9) (Chronic 08/28/14) Obstructive sleep apnea syndrome, mild (Chronic 11/03/16) Shanika Jimenez NP DOES NOT USE CPAP Hyperlipidemia, unspecified (Chronic 04/29/11) Intolerant to atorvastatin; able to tolerate once vit D deficiency addressed Erectile dysfunction (Chronic 11/29/15) Depression (Chronic 04/29/11) Cardiomyopathy (Chronic) Followed by line installer trolley Dr. Galaviz at [facility] Bipolar disorder (Chronic) Dx psychiatry [facility] PT. DENIES THIS DX Benign prostatic hyperplasia with lower urinary tract symptoms (Chronic 01/28/17) Essential hypertension (Chronic 11/25/12) Anxiety (Chronic 04/29/11) ASCVD (arteriosclerotic cardiovascular disease) (Chronic) Anterior MA 12/2013 --> MAGDALENA in LAD EF 40% post-MA 09/2014 echo EF improved to almost normal at 54% Followed by line installer trolley Dr. Galaviz at [facility] Medical History Alcohol use disorder (04/29/11) BINGE pER PT. STATES HE DOESN'T DRINK ANYMORE, HASN'T IN YEARS 09/21/19 De Quervain's tenosynovitis, right Heart palpitations Kidney stone (04/26/15) 100% calcium oxalate monohydrate Patellar fracture (01/26/17) (L) S/p surgical repair Type 2 diabetes mellitus, without long-term current use of insulin Surgical History Heart Surgery stent placement X1 Open Reduction and Internal Fixation of Patellar Fracture (01/26/17) (L) Dr. Lemus S/P cardiac cath (01/01/22) with stent Status post wrist surgery (~09/2021) Dr. Marvin; RIGHT for De Quervain's Vasectomy (01/19/06) Family History (Updated 05/10/22 @ 18:41 by Carmela Macedo MD) Father No problems noted. Maternal Grandmother Colon cancer CAD (coronary artery disease) Mother CAD (coronary artery disease) Diabetes Hypertension Social History Smoking/Tobacco Use Status: Current every day Tobacco Type: pipe Other: Smokes 5-6 ciggs worth of tobacco in pipe on a rough day and e-cigarettes Smoking risk assessment performed?: Yes Alcohol Intake: former Drug use: Never Substance use type: does not use Adopted: No Caregiver/Support person: No Foster care: No Household members: children and other Details: 2 - lives with son Housing: apartment Number of Children: 2 Communication Needs: None current occupation: works for a [employer] Pets and animals: No Current gender identity: male What type of physical activity do you participate in: none Frequency: daily Seatbelt use: always Helmet use: No Drive 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 w/intox 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 supervisor: No Water heater temp set <120 deg: Yes Working smoke detector in home: Yes Fire extinguisher in home: Yes Carbon monox detector in home: Yes Do you feel safe at home: Yes Do you feel safe in your relationship?: Yes Exam Narrative Exam Narrative: Patient is alert and oriented, moist mucous membranes Pupils equal round reactive to light and accommodation, no reproducible chest wall tenderness or rashes or lesions No respiratory distress, lungs clear to auscultation, rate rhythm regular, no murmur rub No abdominal tenderness with palpation, no pallor, alert, oriented, no peripheral edema, distal pulses intact Course Vital Signs Vital signs: Vital Signs Respiratory Rate 21 05/10/22 12:04 Pulse Oximetry 100 05/10/22 12:04 Temperature 36.8 C 05/10/22 12:06 Temperature Source Temporal Artery Scan 05/10/22 12:06 Pulse 68 05/10/22 13:46 Pulse 65 05/10/22 13:50 Respiratory Rate 16 05/10/22 13:50 Respiratory Effort 05/10/22 12:35 Respiratory Depth Normal 05/10/22 12:35 Respiratory Pattern Normal 05/10/22 12:35 Blood Pressure 94/59 L 05/10/22 13:46 Blood Pressure Mean 68 05/10/22 13:46 Blood Pressure Position Sitting 05/10/22 12:06 Pulse Oximetry 98 05/10/22 13:50 Oxygen Delivery Method Room Air 05/10/22 12:06 Oxygen Flow Rate 0 05/10/22 12:06 Pain Level 1 05/10/22 13:43 Lab/Test Results Lab/Test Results: Laboratory Tests Range/Units 05/10/22 05/10/22 05/10/22 12:10 12:10 12:10 WBC (4.4-10.8) 10^3/uL 9.93 RBC (4.36-5.78) 10^6/uL 4.40 Hgb (13.5-17.5) g/dL 14.9 Hct (40.0-50.0) % 40.4 MCV (80-95) fL 92 MCH (27.0-33.0) pg 33.9 H MCHC (32.0-36.0) % 36.9 H RDW (11.8-14.1) % 11.9 Plt Count (130-400) 10^3/uL 404 H MPV (8.0-11.0) fL 9.2 Immature Gran % 0.3 Neutrophils % 66.1 Lymphocytes % 22.3 Monocytes % 6.3 Eosinophils % 4.2 Basophils % 0.8 Nucleated RBC % (0.0-0.3) % 0.0 Absolute Neutrophils (1.2-6.7) 10^3/uL 6.56 Absolute Lymphocytes (1.2-3.4) 10^3/uL 2.21 Absolute Monocytes (0.1-0.8) 10^3/uL 0.63 Absolute Eosinophils (0.0-0.7) 10^3/uL 0.42 Absolute Basophils (0.0-0.2) 10^3/uL 0.08 Sodium (136-145) mmol/L 134 L Potassium (3.5-5.1) mmol/L 3.6 Chloride (98-107) mmol/L 95 L Carbon Dioxide (21.0-32.0) mmol/L 32.1 H Anion Gap (3-11) mmol/L 6.9 BUN (7-18) mg/dL 10 Creatinine (0.70-1.30) mg/dL 1.2 Est GFR (CKD-EPI 2020) (mL/min/1.73m2) 74.60 Glucose (74-106) mg/dL 162 H Calcium (8.5-10.1) mg/dL 9.0 Magnesium (1.8-2.4) mg/dL 1.8 Total Bilirubin (0.2-1.0) mg/dL 0.8 AST (15-37) U/L 12 L ALT (16-63) U/L 15 L Alkaline Phosphatase (46-116) U/L 98 Troponin I (<or=60) ng/L 293 H* NT-Pro-B Natriuret Pep (<300) pg/mL 550 H Total Protein (6.4-8.2) g/dL 7.8 Albumin (3.4-5.0) g/dL 3.3 L Critical Care Time Critical Care Time Attestation: Approximately 60 minutes of critical care time performed secondary to cardiology consultation, diagnostic imaging, diagnostic lab interpretation, admission to hospital, heparinization, continuous cardiac monitoring
[2022-05-10] MEDS: Normal Saline 500 ML IV (14:11)
[2022-05-10] MEDS: Aspirin 325 MG TAB PO (14:56)
[2022-05-10 14:57] LABS: ESR 27 mm/hr (0-15)
[2022-05-10 15:18] LABS: C-Reactive Protein 8.17 mg/dL (0.0-0.3)
[2022-05-10 15:47] LABS: Troponin I 271 ng/L (<or=60)
[2022-05-10 16:02] LABS: Source Nasal/Nares
[2022-05-10 16:31] LABS: COVID-19 PCR Negative (Negative)
--- NOTE | 2022-05-10 16:49 | HPE_ITS ---
Date of service: 05/10/22 Time of Service: 16:50 Assessment and Plan Assessment and plan (1) Acute non-ST elevation myocardial infarction (NSTEMI): Status: Acute Assessment and plan: [place] [facility] [place] Doyle when bed available. Treat with MARY + heparin gtt. Monitor in the ICU. (2) ASCVD (arteriosclerotic cardiovascular disease): Status: Chronic Assessment and plan: S/p 2 stents to LAD in 02/01. As above. (3) Ischemic cardiomyopathy: Status: Chronic Assessment and plan: with report of apical thrombus, per ER provider, on eliquis. Continue outpatient management with MARY, statin, lopressor, lisinopril, jardiance. Consider entresto. (4) HFrEF (heart failure with reduced ejection fraction): Status: Acute Assessment and plan: As above CHF 40% per [facility] [place] Continue outpatient management. (5) Diabetes mellitus type 2, insulin dependent: Status: Acute Assessment and plan: Hold long acting insulin as will be NPO after midnight. Cover with SSI. (6) DVT prophylaxis: Status: Acute Assessment and plan: Therapeutic heparin gtt (7) Discharge planning issues: Status: Acute Assessment and plan: Full code Anticipate [place] [facility] [place] History of Present Illness History of Present Illness Chief Complaint: chest pain Narrative: Mr Seth is a 46 year old male with PMHx of CAD s/p 2 stents to LAD at [facility] in 01/31, on MARY, as well as h/o apical thrombus on eliquis, h/o CVA in 2017, IDDM2, JAMES not on CPAP, who presented to [facility] ED today w/ chest pain. Chest pains have been on and off for a month, occurring mostly at night, but this morning he got the chest pain at 11 am, which is unusual for him. It lasted about 10 minutes prior to resolution on its own. It radiated from his right upper chest to his right shoulder and jaw. Chest pain recurred again in the ER and responded to nitroglycerin. The patient had an initial troponin of 293, which went down to 271 on recheck. The patient does state that this chest pain is different from the chest pain he had before with his heart attack - that one was central/substernal and felt like a knife being driven through the chest. The chest pain today felt crushing. The patient also noticed that sometimes taking a deep breath during these episodes helps. The patient had nonischemic EKGs with low voltage in the ED. Per [facility] [place], he was continued on aspirin and plavix and is to be started on a heparin drip at the time of the next eliquis dose. He was accepted in transfer [place] [facility] [place] for tomorrow to Dr Doyle's service. Hospitalist admission overnight was requested. Of note, the patient was diagnosed with COVID-19 on 04/21/22. He tested negative in the ED today, but myocarditis is being considered. The patient denies recent f/c, still has some post-nasal drip, denies sore throat, denies cough, denies SOB, palpitations, nausea/diarrhea, diaphoresis/MORGAN/leg edema. Review of Systems All systems reviewed & are unremarkable except as noted in HPI and below PFSH All Active Problems (Updated 05/10/22 @ 17:57 by Carmela Macedo MD) Discharge planning issues (Acute) DVT prophylaxis (Acute) HFrEF (heart failure with reduced ejection fraction) (Acute) Ischemic cardiomyopathy (Chronic) COVID (Acute ~04/20/22) Diabetes mellitus type 2, insulin dependent (Acute) Acute non-ST elevation myocardial infarction (NSTEMI) (Acute) Vertigo (Acute) 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 2 diabetes mellitus (Acute ~06/2020) Ventricular premature beats (Acute 08/28/14) Antiplatelet or antithrombotic long-term use (Acute) Vitamin D deficiency (Chronic 05/23/15) Tobacco use disorder (Chronic) Panic disorder without agoraphobia (Chronic 04/29/11) Obesity (BMI 30-39.9) (Chronic 08/28/14) Obstructive sleep apnea syndrome, mild (Chronic 11/03/16) Shanika Jimenez NP DOES NOT USE CPAP Hyperlipidemia, unspecified (Chronic 04/29/11) Intolerant to atorvastatin; able to tolerate once vit D deficiency addressed Erectile dysfunction (Chronic 11/29/15) Depression (Chronic 04/29/11) Cardiomyopathy (Chronic) Followed by medical services manager Dr. Galaviz at [facility] Bipolar disorder (Chronic) Dx psychiatry [facility] PT. DENIES THIS DX Benign prostatic hyperplasia with lower urinary tract symptoms (Chronic 01/28/17) Essential hypertension (Chronic 11/25/12) Anxiety (Chronic 04/29/11) ASCVD (arteriosclerotic cardiovascular disease) (Chronic) Anterior AR 12/2013 --> MAGDALENA in LAD EF 40% post-AR 09/2014 echo EF improved to almost normal at 54% Followed by medical services manager Dr. Galaviz at [facility] Medical History Alcohol use disorder (04/29/11) [facility] p[facility] PT. STATES HE DOESN'T DRINK ANYMORE, HASN'T IN YEARS 09/21/19 De Quervain's tenosynovitis, right Heart palpitations Kidney stone (04/26/15) 100% calcium oxalate monohydrate Patellar fracture (01/26/17) (L) S/p surgical repair Type 2 diabetes mellitus, without long-term current use of insulin Surgical History Heart Surgery stent placement X1 Open Reduction and Internal Fixation of Patellar Fracture (01/26/17) (L) Dr. Lemus S/P cardiac cath (01/01/22) with stent Status post wrist surgery (~09/2021) Dr. Marvin; RIGHT for De Quervain's Vasectomy (01/19/06) Family History (Updated 05/10/22 @ 18:41 by Carmela Macedo MD) Father No problems noted. Maternal Grandmother Colon cancer CAD (coronary artery disease) Mother CAD (coronary artery disease) Diabetes Hypertension Social History Smoking/Tobacco Use Status: Current every day Tobacco Type: pipe Other: Smokes 5-6 ciggs worth of tobacco in pipe on a rough day and e-cigarettes Smoking risk assessment performed?: Yes Alcohol Intake: former Drug use: Never Substance use type: does not use Adopted: No Caregiver/Support person: No Foster care: No Household members: children and other Details: 2 - lives with son Housing: apartment Number of Children: 2 Communication Needs: None current occupation: works for a [employer] Pets and animals: No Current gender identity: male What type of physical activity do you participate in: none Frequency: daily Seatbelt use: always Helmet use: No Drive 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 w/intox tour bus driver/guide: No Water heater temp set <120 deg: Yes Working smoke detector in home: Yes Fire extinguisher in home: Yes Carbon monox detector in home: Yes Do you feel safe at home: Yes Do you feel safe in your relationship?: Yes Meds Allergies and Home Medications Allergies Allergy/AdvReac Type Severity Reaction Status Date / Time hydromorphone [From Dilaudid] AdvReac Intermediate Psychosis Verified 05/10/22 12:12 codeine [Codeine] AdvReac Unknown PSYCHOSIS Verified 05/10/22 12:12 Home Medications Medication Instructions Recorded Confirmed Type acetaminophen 500 mg tablet 1,000 mg PO PRN PRN 01/25/17 05/10/22 History (Tylenol Extra Strength) blood-glucose meter #1 ea 04/24/19 05/10/22 Rx chlorhexidine gluconate 4 % 1 applic topical DAILY 02/07/21 05/10/22 Rx topical liquid (Antiseptic Skin folliculitis prevention #960 mL Cleanser (chlorhexidine)) flash glucose scanning reader #1 ea 03/28/21 05/10/22 Rx (FreeStyle Prieto 2 [place]) flash glucose sensor (FreeStyle #6 ea 03/28/21 05/10/22 Rx Prieto 2 Sensor kit) multivitamin 1 tab PO DAILY #90 tabs 06/25/21 05/10/22 Rx cholecalciferol (vitamin D3) 50 2,000 unit PO DAILY #90 tab-caps 12/11/21 Rx mcg (2,000 unit) tablet (Vitamin D3) magnesium oxide 400 mg PO DAILY #90 tab-caps 12/11/21 05/10/22 Rx clopidogrel 75 mg tablet (Plavix) 75 mg PO DAILY #90 tabs 12/20/21 05/10/22 Rx empagliflozin 10 mg tablet 10 mg PO QAM #90 tabs 12/20/21 05/10/22 Rx (Jardiance) escitalopram oxalate 10 mg tablet 10 mg PO DAILY #90 tabs 12/20/21 05/10/22 Rx hydroxyzine HCl 25 mg tablet 25 mg PO QID PRN #90 tabs 12/20/21 05/10/22 Rx apixaban 5 mg tablet 5 mg PO BID 12/25/21 05/10/22 History blood sugar diagnostic (FreeStyle #200 ea 12/31/21 05/10/22 Rx Lite Strips) lancets 28 gauge (FreeStyle #200 ea 12/31/21 05/10/22 Rx Lancets) atorvastatin 80 mg tablet 80 mg PO DAILY 01/05/22 05/10/22 History acidophilus 25 million 1 tab PO DAILY #90 tabs 01/21/22 05/10/22 Rx cell-pectin, citrus 100 mg tablet aspirin 81 mg tablet,delayed 81 mg PO DAILY 01/21/22 05/10/22 History release (Adult Aspirin Regimen) insulin degludec 200 unit/mL (3 20 unit (0.1 mL) subcut DAILY #3 01/21/22 05/10/22 Rx mL) subcutaneous pen (Tresiba SYRGS FlexTouch U-200 insulin) pantoprazole 20 mg tablet,delayed 20 mg PO DAILY #90 tab-caps 01/21/22 05/10/22 Rx release pen needle, diabetic 32 gauge x #100 ea 01/21/22 05/10/22 Rx 5/32 (BD Ultra-Fine Marivel Pen Needle) sitagliptin phos 50 mg-metformin 1 tab PO BID #180 tab-caps 01/21/22 05/10/22 Rx ER 1,000 mg tablet,extend rel 24h mp (Janumet XR) tadalafil 5 mg tablet 5 mg PO DAILY PRN sexual activity 01/21/22 05/10/22 Rx #30 tab-caps lisinopril 40 mg tablet 40 mg PO DAILY 03/12/22 05/10/22 History metoprolol tartrate 50 mg tablet 50 mg PO BID #90 tabs 04/21/22 05/10/22 Rx Exam Narrative Exam Narrative: General: Pleasant obese male who is laying comfortably in bed, in good spirits, A&Ox3, NAD Neurological: A&Ox3, no obvious focal deficits Psychiatric: Appropriate speech pattern/content Skin: Visible skin intact; calluses on B heels HEENT: Atraumatic, normocephalic, EOMI, MMM, white film over tongue c/w thrush, no submandibular or cervical lymphadenopathy, no goiter or JVD Cardiovascular: RRR, no m/r/g Lungs: CTAB Gastrointestinal: soft, nontender, nondistended Genitourinary: deferred Extremities: no edema BLEs, +1 pedal pulses B, no c/c. Results Imaging Additional studies: CT chest: No evidence of pulmonary embolism. No acute abnormality. EKG #1: NSR, HR 68, no acute ischemia, low voltage EKG #2: NSR, HR 65, unchanged Labs Result diagrams: 05/10/22 12:10 05/10/22 12:10 Labs: Laboratory Results - last 24 hr 05/10/22 05/10/22 05/10/22 12:10 12:10 12:10 WBC 9.93 RBC 4.40 Hgb 14.9 Hct 40.4 MCV 92 MCH 33.9 H MCHC 36.9 H RDW 11.9 Plt Count 404 H MPV 9.2 Immature Gran % 0.3 Neutrophils % 66.1 Lymphocytes % 22.3 Monocytes % 6.3 Eosinophils % 4.2 Basophils % 0.8 Nucleated RBC % 0.0 Absolute Neutrophils 6.56 Absolute Lymphocytes 2.21 Absolute Monocytes 0.63 Absolute Eosinophils 0.42 Absolute Basophils 0.08 ESR Sodium 134 L Potassium 3.6 Chloride 95 L Carbon Dioxide 32.1 H Anion Gap 6.9 BUN 10 Creatinine 1.2 Est GFR (CKD-EPI 2020) 74.60 Glucose 162 H Calcium 9.0 Magnesium 1.8 Total Bilirubin 0.8 AST 12 L ALT 15 L Alkaline Phosphatase 98 Troponin I 293 H* C-Reactive Protein NT-Pro-B Natriuret Pep 550 H Total Protein 7.8 Albumin 3.3 L COVID-19 Source SARS-CoV-2 (PCR) 05/10/22 05/10/22 05/10/22 12:10 14:49 14:49 WBC RBC Hgb Hct MCV MCH MCHC RDW Plt Count MPV Immature Gran % Neutrophils % Lymphocytes % Monocytes % Eosinophils % Basophils % Nucleated RBC % Absolute Neutrophils Absolute Lymphocytes Absolute Monocytes Absolute Eosinophils Absolute Basophils ESR 27 H Sodium Potassium Chloride Carbon Dioxide Anion Gap BUN Creatinine Est GFR (CKD-EPI 2020) Glucose Calcium Magnesium Total Bilirubin AST ALT Alkaline Phosphatase Troponin I 271 H* C-Reactive Protein 8.17 H NT-Pro-B Natriuret Pep Total Protein Albumin COVID-19 Source SARS-CoV-2 (PCR) 05/10/22 15:55 WBC RBC Hgb Hct MCV MCH MCHC RDW Plt Count MPV Immature Gran % Neutrophils % Lymphocytes % Monocytes % Eosinophils % Basophils % Nucleated RBC % Absolute Neutrophils Absolute Lymphocytes Absolute Monocytes Absolute Eosinophils Absolute Basophils ESR Sodium Potassium Chloride Carbon Dioxide Anion Gap BUN Creatinine Est GFR (CKD-EPI 2020) Glucose Calcium Magnesium Total Bilirubin AST ALT Alkaline Phosphatase Troponin I C-Reactive Protein NT-Pro-B Natriuret Pep Total Protein Albumin COVID-19 Source Nasal/Nares SARS-CoV-2 (PCR) Negative Last Vital Signs Temp 36.8 C 05/10/22 12:06 Pulse 67 05/10/22 16:21 Resp 27 H 05/10/22 16:21 BP 104/69 05/10/22 16:21 Pulse Ox 98 05/10/22 16:21 Time Spent Time spent with Patient: 40-54 minutes Time was spent: preparing to see the patient(eg.review tests), obtaining and/or reviewing separately otained hiistory, ordering medications,tests, procedures, referring, communicating with other health director of critical care, indepentently interpreting results, counseling the patient and care coordination
[2022-05-10] MEDS: Metoprolol 50 MG TAB PO (20:12)
[2022-05-10 20:47] LABS: *AMPHETAMINES SCREEN URINE Negative (Negative); *BARBITURATES SCREEN URINE Negative (Negative); *BENZODIAZEPINES SCREEN URINE Negative (Negative); Cannabinoids THC Negative (Negative); Cocaine Screen,Urine Negative (Negative); METHADONE URINE SCREEN Negative (Negative); OPIATES URINE SCREEN Negative (Negative)
[2022-05-10 20:56] LABS: Tricyclic Antidepressants Negative (Negative)
--- NOTE | 2022-05-10 21:18 | NUR.NOTE ---
Nursing Note: At approx 21:08 patient rang call huber stating chest pain was starting to creep up, rating it a 2 out of 10 on the right chest wall. A 'steady ache. 1 tab nitro SL given with good relief immediately afterward. Chest pain now a zero of 10 at 21:20.
[2022-05-10 22:10] LABS: PTT Activated 26.9 sec (21.0-27.5)
--- NOTE | 2022-05-10 22:30 | RT.EKG_ITS ---
APPROVED REPORT Exam: Resting ECG Reason for Exam: CHEST PAIN Patient Location: I HR:66 bpm ECG Measurements Heart Rate 66 AXIS IA 148 P 20 QRSd 104 QRS -12 QT 450 T -15 QTc 472 Conclusion Sinus rhythm...normal P axis, V-rate 50- 99 Low voltage, extremity and precordial leads...extremity<0.5mV, precordial<1.0mV
[2022-05-10] MEDS: Nystatin 500000 UNITS/5 ML SUSP 5ML CUP PO (22:34)
--- NOTE | 2022-05-10 23:33 | NUR.NOTE ---
Nursing Note: At approx 22:30 patient reported a new episode of chest pain, on R chest, radiating to both shoulders and R arm and jaw. Pt rates pain a 3 of 10, says it came on quickly and is of a stronger and more intense character than previous episode. 1 Tab nitro given, EKG obtain, MD Delarosa notified. Patient got almost immediate relief from nitro
[2022-05-11] VITALS (63 sets, daily range): BP systolic 82–129; BP diastolic 44–81; PULSE 60–77; RESP 9–22; TEMP 36.4–36.5; O2SAT 90–99
[2022-05-11] MEDS: nitroGLYcerin 0.4 MG TAB SL
[2022-05-11] MEDS: nitroGLYcerin in D5W 50 MG/250 ML BTL IV (00:45)
[2022-05-11 04:51] LABS: Abs Immature Grans 0.05 10^3/uL (0.0-0.06); Absolute Basophil Count 0.08 10^3/uL (0.0-0.2); Absolute Lymphocyte Count 2.11 10^3/uL (1.2-3.4); Absolute Monocyte Count 0.57 10^3/uL (0.1-0.8); Absolute Neutrophil Count 6.23 10^3/uL (1.2-6.7); Basophils % 0.9; Eosinophils % 3.2; HCT 36.3 % (40.0-50.0); HGB 13.2 g/dL (13.5-17.5); Immature Grans % 0.5; Lymphocytes % 22.6; MCH 32.9 pg (27.0-33.0); MCHC 36.4 % (32.0-36.0); MCV 91 fL (80-95); MPV 9.1 fL (8.0-11.0); Monocytes % 6.1; Neutrophils % 66.7; Platelet Count 344 10^3/uL (130-400); RBC 4.01 10^6/uL (4.36-5.78); RDW 11.9 % (11.8-14.1); RDW-SD 38.3 fL; WBC 9.34 10^3/uL (4.4-10.8)
[2022-05-11 05:06] LABS: PTT Activated 28.9 sec (21.0-27.5)
[2022-05-11 05:27] LABS: Anion Gap 9.6 mmol/L (3-11); BUN 14 mg/dL (7-18); CO2 28.4 mmol/L (21.0-32.0); CREATININE 0.9 mg/dL (0.70-1.30); Calcium 8.5 mg/dL (8.5-10.1); Calculated LDL 75 mg/dL (<100); Chloride 99 mmol/L (98-107); Cholesterol 126 mg/dL (<200); Estimated GFR 105.35 (mL/min/1.73m2); Glucose 107 mg/dL (74-106); HDL Cholesterol 26 mg/dL (40-60); Magnesium 1.8 mg/dL (1.8-2.4); Potassium 3.3 mmol/L (3.5-5.1); Sodium 137 mmol/L (136-145); Triglyceride 126 mg/dL (<150)
[2022-05-11] MEDS: Nystatin 500000 UNITS/5 ML SUSP 5ML CUP PO ×2 (06:05→09:26)
--- NOTE | 2022-05-11 07:15 | RT.EKG_ITS ---
APPROVED REPORT Exam: Resting ECG Reason for Exam: nstemi Patient Location: I HR:61 bpm ECG Measurements Heart Rate 61 AXIS AK 145 P 42 QRSd 103 QRS -8 QT 447 T 44 QTc 451 Conclusion Sinus rhythm...normal P axis, V-rate 50- 99 Low voltage, precordial leads...precordial leads <1.0mV Nonspecific T abnormalities, anterior leads...T <-0.10mV, V2-V4
--- NOTE | 2022-05-11 08:00 | DI.US_ITS ---
APPROVED REPORT EXAM: Comprehensive 2D, Doppler, and color-flow Echocardiogram Patient Location: In-Patient Room/Bed: EHV056 Crate Liner: Imelda Damian RDCS (AE) Indications: NSTEMI. h/o apical thrombus Echo Enhancing Agent Indication: Endocardial border delineation Agent(s) / Amount(s) Used: Definity 10.0 cc Comments: Contrast study was performed with 1 IV injection of 2cc of diluted definity. Other Information Study Quality: Fair. Technically limited study due to body habitus exam done bedside icu. Conclusion Normal left ventricular wall thickness and chamber size. Estimated ejection fraction is 45 to 50%. There is a wall motion abnormality involving the apical and anteroapical segments. No thrombus is se en Right ventricle was not well visualized Both atria are normal in size Aortic valve is trileaflet and sclerotic without stenosis or regurgitation Mildly dilated ascending aorta 3.54 cm Wall motion Left Ventricle The left ventricle is normal size. Left ventricular systolic function is mildly decreased. Definity m icrobubble contrast injection was given. There is normal left ventricular wall thickness. Regional wa ll motion abnormalities are noted. There is no ventricular septal defect visualized. LVEF is 47%. Right Ventricle Right ventricle is not well visualized. Right ventricular systolic function could not be assessed. Th e RVSP is 15.9_ mmHg. Atria The left atrium size is normal. The right atrium size is normal. The interatrial septum is intact wit h no evidence for an atrial septal defect. Aortic Valve The Aortic valve is sclerotic. Aortic valve is trileaflet. There is no aortic valvular stenosis. No a ortic regurgitation is present. Mitral Valve The mitral valve is normal in structure. No evidence of mitral valve stenosis. Trace mitral regurgita tion. Tricuspid Valve The tricuspid valve is normal in structure. There is no tricuspid valve stenosis. Trace tricuspid reg urgitation. Pulmonic Valve The pulmonary valve is normal in structure. There is no pulmonic valvular stenosis. There is no pulmo lian valvular regurgitation. Great Vessels The aortic root is normal in size. The ascending aorta is mildly dilated. Aortic arch is not well vis ualized. IVC is normal in size and collapses >50% with inspiration. Pericardium There is no pericardial effusion. 2D Dimensions IVSD d PLAX 1.02 cm M: 0.6-1.2 LV Vol A2C d MOD 119.5 mL LVPW d PLAX 1.03 cm M: 0.6 - 1.2 LV Vol A4C d MOD 189.0 mL LVID d PLAX 5.24 cm M: 4.2 - 5.8 LA Area A4C s MOD 17.41 cm2 LVDs 3.85 cm M: 2.5 - 4.0 LV EF A4C MOD 47.8 % Ao Root d 3.25 cm M: 3.1 - 3.7 LV EF A2C MOD 47.0 % RA Area A4C 9.48 cm2 LV EF Biplane MOD 48.6 % Ao Asc Diam d 3.54 cm M: 2.6 - 3.4 SV 73.12 mL LV EF Teichholz 50.5 % LVEF (Gutierrez's) 48.58 % M: 52 - 72 LV Volume 150.52 mL M: 62 - 150 LV Volume Index 62.71 mL/m2 M: 34 - 74 LV Vol Biplane MOD 150.5 mL FS 25.85 % M-Mode TAPSE 2.09 cm (M/F) >1.7 LV Diastology MV E' medial 0.087 (>0.07 m/s) E/A Ratio 1.4 LV E/e MED 10.55 (<14) MV E Vmax 0.92 (0.4-1.3 m/s) MV E' lateral 0.063 (>0.1 m/s) MV A Vmax 0.65 (0.4-1.3 m/s) LV E/e LAT 14.70 (<14) MV E/A Ratio 1.39 MV E/E' medial 10.59 MV E/E' lateral 14.73 Aortic Valve LVOT Area 3.97 cm2 AoV Area Vmax 3.84 cm2 LVOT Vmax 1.13 m/s LINDA Mean Hammad. 3.58 cm2 LVOT Mean Hammad. 0.74 m/s LVOT Peak Grad 5.1 mmHg LVOT Mean Grad 2.6 mmHg LVOT VTI 0.250 m LVOT Diam s 2.20 cm AoV Vmax 1.16 m/s Velocity Ratio 0.97 AoV Mean Hammad. 0.82 m/s AoV Peak Grad 5.4 mmHg LVOT SV 98.97 mL AoV Mean Grad 3.0 mmHg AoV VTI 0.242 m AoV Area VTI 4.09 cm2 Mitral Valve MV DT 199 (160-240 msec) MV PHT 58 msec MV Area PHT 3.81 cm2 MV VTI 0.382 m MV Area VTI 2.59 (4.0-6.0 cm2) Pulmonary Valve PV Vmax 1.00 (0.5-1.5 m/s) RVOT Peak Gr. 3.26 mmHg PV Peak Grad 4.0 mmHg RVOT Mean Gr. 1.75 mmHg PV Mean Grad 2.2 mmHg RVOT VTI 0.225 m PV VTI 0.231 m RVOT Vmax 0.90 m/s Tricuspid Valve TR Peak Grad 12.9 mmHg TR Vmax 1.80 m/s RA Pressure 3.00 mmHg RVSP (TR) 15.9 mmHg
--- NOTE | 2022-05-11 08:29 | W.PM.DS.N ---
Date of service: 05/11/22 Time of Service: 08:29 DS: Diagnosis Discharge Diagnosis (1) Acute non-ST elevation myocardial infarction (NSTEMI): Status: Acute (2) ASCVD (arteriosclerotic cardiovascular disease): Status: Chronic (3) Ischemic cardiomyopathy: Status: Chronic (4) HFrEF (heart failure with reduced ejection fraction): Status: Acute (5) Diabetes mellitus type 2, insulin dependent: Status: Acute (6) Obstructive sleep apnea syndrome, mild: Status: Chronic (7) Essential hypertension: Status: Chronic Discharge Plan Disposition Patient Disposition: Transfer-Acute Inpatient Care Specific Acute Inpt Facility: [facility] Condition: Serious Discharge Details Reason For Visit: NSTEMI Admit Date/Time: 05/10/22 16:03 Admit Provider: Carmela Macedo Attending Provider: Carmela Macedo Primary Care Provider: LexxLinda august [facility] Course Hospital Course: Mr Seth is a 46 year old male with PMHx of CAD s/p MIs and 2 stents to LAD in 01/31 ([facility]) on MARY, apical thrombus on eliquis, as well as h/o ICMO/chronic systolic CHF w/ LVEF of 49% in 01/01, IDDM2, CVA, HTN, JAMES not on CPAP, COVID-19 infection earlier this month, who was a patient in [facility] ICU from 05/10/22 until 05/11/22 under the hospitalist service for an NSTEMI. The patient had presented with chest pains at rest, R-sided, radiating to R jaw, responsive to nitroglycerin and had troponin I of 293->271. Per [facility] cardiology recommendations, the patient had been switched from eliquis to heparin gtt, continued on aspirin and plavix, and accepted in transfer to Dr Doyle's service with an inpatient bed expected today. The chest pains recurred while in the ICU, necessitating initiation of a nitroglycerin drip. Since then, the patient has been chest pain free. He is getting an echocardiogram this morning - still in process - and the images will be forwarded to [facility]. There is a bed available at [facility] now. He is in agreement with transfer and is stable for transfer. He has been NPO after midnight. His potassium of 3.3 is being repleted. Care for patient as well as completion of his transfer summary on day of transfer took 45 minutes. Please, see MAR for list of this patient's inpatient medications. The list below reflects his outpatient prescription list. Home Meds and New Rx's Prescriptions: No Action (DME) FreeStyle Prieto 2 [place] Misc See Rx Instructions .ROUTE .MEDSUPPLY Qty: 1 0RF Rx Instructions: As directed (DME) FreeStyle Prieto 2 Sensor Kit See Rx Instructions .ROUTE .MEDSUPPLY Qty: 6 3RF Rx Instructions: As directed acidophilus-pectin, citrus 25 million cell -100 mg tablet 1 tab PO DAILY Qty: 90 3RF pantoprazole 20 mg tablet,delayed release (DR/EC) 20 mg PO DAILY Qty: 90 3RF Rx Instructions: Take 20 mg daily once daily in the morning at least 30 minutes before first meal of the day (DME) pen needle, diabetic [BD Ultra-Fine Marivel Pen Needle] 32 gauge x 5/32 needle See Rx Instructions .ROUTE .MEDSUPPLY Qty: 100 3RF Rx Instructions: E11.9 to administer insulin daily for A1C <7% tadalafil 5 mg tablet 5 mg PO DAILY MDD 5 mg PRN (Reason: sexual activity) Qty: 30 3RF Rx Instructions: Take approximately 30 min before sexual activity insulin degludec [Tresiba FlexTouch U-200] 200 unit/mL (3 mL) insulin pen 20 unit SUBCUT DAILY Qty: 3 3RF aspirin [Adult Aspirin Regimen] 81 mg tablet,delayed release (DR/EC) 81 mg PO DAILY Janumet XR 50-1,000 mg tablet, ER multiphase 24 hr 1 tab PO BID Qty: 180 3RF metoprolol tartrate 50 mg tablet 50 mg PO BID Qty: 90 1RF chlorhexidine gluconate [Antiseptic Skin Clnsr(chlorhe)] 4 % liquid 1 applic TP DAILY Qty: 960 0RF Rx Instructions: Rinse skin with water, then apply minimum amount needed to cover skin. Wash gently then rinse cholecalciferol (vitamin D3) [Vitamin D3] 50 mcg (2,000 unit) tablet 2,000 unit PO DAILY Qty: 90 3RF magnesium oxide 400 mg magnesium capsule 400 mg PO DAILY Qty: 90 3RF Rx Instructions: Administer at least 2 hours apart from other medications apixaban 5 mg tablet 5 mg PO BID (DME) blood-glucose meter Misc See Dose Instructions .ROUTE .MEDSUPPLY Qty: 1 0RF Dose Instruction: As directed Rx Instructions: As directed to check blood glucose on insulin multivitamin Tablet 1 tab PO DAILY Qty: 90 3RF (DME) FreeStyle Lite Strips Strip See Rx Instructions .Route Qty: 200 3RF Rx Instructions: As directed to check blood glucose twice daily. On insulin. Dispense covered brand. (DME) lancets [FreeStyle Lancets] 28 gauge misc See Rx Instructions .Route Qty: 200 3RF Rx Instructions: As directed to check blood glucose twice daily. On insulin. Dispense covered brand. atorvastatin 80 mg tablet 80 mg PO DAILY Rx Instructions: increased from 40 to 80 mg daily by [facility] 01/01/22 cgc lisinopril 40 mg tablet 40 mg PO DAILY acetaminophen [Tylenol Extra Strength] 500 MG tablet 1,000 mg PO PRN PRN clopidogrel [Plavix] 75 mg tablet 75 mg PO DAILY Qty: 90 6RF Jardiance 10 mg tablet 10 mg PO QAM Qty: 90 6RF escitalopram oxalate 10 mg tablet 10 mg PO DAILY Qty: 90 6RF hydroxyzine HCl 25 mg tablet 25 mg PO QID PRNQty: 90 6RF Discharge Instructions Instructions: Heart Attack (DC) Additional Instructions: Follow up with [facility] cardiology and with your PCP. Referrals: Linda Hallman NP [Primary Care Provider] - Mariano Fuentes [ NON-[facility] STAFF PHYSICIAN] - Activity:: OOB to chair Equipment/Supplies:: cardiac monitor technician Diet:: NPO Discharge Orders Discharge Orders: Discharge Order (Routine); Ordered 05/11/22 Ordered By: Carmela Macedo DS: Summary Time Spent with Patient providing and/or coordinating discharge services: Greater than 30 minutes Status at Discharge Functional status at discharge: independent ambulation Overall status at discharge: patient is progressing back to baseline Mental Status: mental status grossly normal Speech and Movement: speech and movement normal Mood: congruent mood Affect: normal affect Exam Narrative Exam Narrative: General: Pleasant obese male who is laying comfortably in bed, in good spirits, A&Ox3, NAD, on 2L of O2 by ME HEENT: EOMI, MMM Cardiovascular: RRR, no m/r/g Lungs: CTAB Gastrointestinal: soft, nontender, nondistended Extremities: no edema BLEs, +1 pedal pulses B, no c/c. Psych Mental Status: mental status grossly normal Speech and Movement: speech and movement normal Mood: congruent mood Affect: normal affect DS: Data Vitals/I&O Vitals and I&O: Vital Signs Temperature 36.4 C L 05/11/22 04:00 Temperature Source Temporal Artery Scan 05/11/22 04:00 Pulse 66 05/11/22 06:01 Pulse 71 05/11/22 06:20 Respiratory Rate 15 05/11/22 06:20 Respiratory Effort Non-Labored 05/11/22 04:00 Respiratory Depth Normal 05/11/22 04:00 Respiratory Pattern Normal 05/11/22 04:00 Blood Pressure 87/56 L 05/11/22 06:01 Blood Pressure Mean 63 05/11/22 06:01 Blood Pressure Position Sitting 05/10/22 23:45 Pulse Oximetry 98 05/11/22 06:20 Oxygen Delivery Method Nasal Cannula 05/11/22 04:00 Oxygen Flow Rate 2 05/11/22 04:00 Pain Level 0 05/11/22 04:00 Intake & Output 05/10/22 05/10/22 05/11/22 11:59 23:59 11:59 Intake Total 510 / 510 69.333 / 69.333 Output Total 500 / 500 750 / 750 Balance -680.667 / -680.667 Weight 117.934 kg 117.9 kg Intake: IV 510 / 510 69.333 / 69.333 Output: Urine 500 / 500 750 / 750 Other: Urine Color Yellow Light Shira Urine Appearance Cloudy Clear Urine Odor Normal Normal Voiding Methods Urinal Data Completed and Pending Completed studies during hospitalization [Text1]: CTA chest: No evidence of pulmonary embolism. No acute abnormality. Pending studies at discharge: Echo read Labs on day of discharge: Labs from last 24 hours 05/11/22 05/11/22 05/11/22 Unknown 12:00 04:25 WBC 9.34 RBC 4.01 L Hgb 13.2 L Hct 36.3 L MCV 91 MCH 32.9 MCHC 36.4 H RDW 11.9 Plt Count 344 MPV 9.1 Immature Gran % 0.5 Neutrophils % 66.7 Lymphocytes % 22.6 Monocytes % 6.1 Eosinophils % 3.2 Basophils % 0.9 Nucleated RBC % 0.0 Absolute Neutrophils 6.23 Absolute Lymphocytes 2.11 Absolute Monocytes 0.57 Absolute Eosinophils 0.30 Absolute Basophils 0.08 ESR APTT Pending Sodium Potassium Chloride Carbon Dioxide Anion Gap BUN Creatinine Est GFR (CKD-EPI 2020) Glucose Calcium Magnesium Total Bilirubin AST ALT Alkaline Phosphatase Troponin I C-Reactive Protein NT-Pro-B Natriuret Pep Total Protein Albumin Triglycerides Total Cholesterol LDL Cholesterol, Calc HDL Cholesterol Urine Opiates Screen Urine Methadone Screen Ur Barbiturates Screen Ur Tricyclics Screen Ur Amphetamines Screen U Benzodiazepines Scrn Urine Cocaine Screen Ur THC Screen COVID-19 Source SARS-CoV-2 (PCR) Add-On Test Request Pending 05/11/22 05/11/22 05/10/22 04:25 04:25 21:50 WBC RBC Hgb Hct MCV MCH MCHC RDW Plt Count MPV Immature Gran % Neutrophils % Lymphocytes % Monocytes % Eosinophils % Basophils % Nucleated RBC % Absolute Neutrophils Absolute Lymphocytes Absolute Monocytes Absolute Eosinophils Absolute Basophils ESR APTT 28.9 H 26.9 Sodium 137 Potassium 3.3 L Chloride 99 Carbon Dioxide 28.4 Anion Gap 9.6 BUN 14 Creatinine 0.9 Est GFR (CKD-EPI 2020) 105.35 Glucose 107 H Calcium 8.5 Magnesium 1.8 Total Bilirubin AST ALT Alkaline Phosphatase Troponin I C-Reactive Protein NT-Pro-B Natriuret Pep Total Protein Albumin Triglycerides 126 Total Cholesterol 126 LDL Cholesterol, Calc 75 HDL Cholesterol 26 L Urine Opiates Screen Urine Methadone Screen Ur Barbiturates Screen Ur Tricyclics Screen Ur Amphetamines Screen U Benzodiazepines Scrn Urine Cocaine Screen Ur THC Screen COVID-19 Source SARS-CoV-2 (PCR) Add-On Test Request 05/10/22 05/10/22 05/10/22 19:30 15:55 14:49 WBC RBC Hgb Hct MCV MCH MCHC RDW Plt Count MPV Immature Gran % Neutrophils % Lymphocytes % Monocytes % Eosinophils % Basophils % Nucleated RBC % Absolute Neutrophils Absolute Lymphocytes Absolute Monocytes Absolute Eosinophils Absolute Basophils ESR APTT Sodium Potassium Chloride Carbon Dioxide Anion Gap BUN Creatinine Est GFR (CKD-EPI 2020) Glucose Calcium Magnesium Total Bilirubin AST ALT Alkaline Phosphatase Troponin I C-Reactive Protein 8.17 H NT-Pro-B Natriuret Pep Total Protein Albumin Triglycerides Total Cholesterol LDL Cholesterol, Calc HDL Cholesterol Urine Opiates Screen Negative Urine Methadone Screen Negative Ur Barbiturates Screen Negative Ur Tricyclics Screen Negative Ur Amphetamines Screen Negative U Benzodiazepines Scrn Negative Urine Cocaine Screen Negative Ur THC Screen Negative COVID-19 Source Nasal/Nares SARS-CoV-2 (PCR) Negative Add-On Test Request 05/10/22 05/10/22 05/10/22 14:49 12:10 12:10 WBC 9.93 RBC 4.40 Hgb 14.9 Hct 40.4 MCV 92 MCH 33.9 H MCHC 36.9 H RDW 11.9 Plt Count 404 H MPV 9.2 Immature Gran % 0.3 Neutrophils % 66.1 Lymphocytes % 22.3 Monocytes % 6.3 Eosinophils % 4.2 Basophils % 0.8 Nucleated RBC % 0.0 Absolute Neutrophils 6.56 Absolute Lymphocytes 2.21 Absolute Monocytes 0.63 Absolute Eosinophils 0.42 Absolute Basophils 0.08 ESR 27 H APTT Sodium Potassium Chloride Carbon Dioxide Anion Gap BUN Creatinine Est GFR (CKD-EPI 2020) Glucose Calcium Magnesium Total Bilirubin AST ALT Alkaline Phosphatase Troponin I 271 H* C-Reactive Protein NT-Pro-B Natriuret Pep Total Protein Albumin Triglycerides Total Cholesterol LDL Cholesterol, Calc HDL Cholesterol Urine Opiates Screen Urine Methadone Screen Ur Barbiturates Screen Ur Tricyclics Screen Ur Amphetamines Screen U Benzodiazepines Scrn Urine Cocaine Screen Ur THC Screen COVID-19 Source SARS-CoV-2 (PCR) Add-On Test Request 05/10/22 05/10/22 12:10 12:10 WBC RBC Hgb Hct MCV MCH MCHC RDW Plt Count MPV Immature Gran % Neutrophils % Lymphocytes % Monocytes % Eosinophils % Basophils % Nucleated RBC % Absolute Neutrophils Absolute Lymphocytes Absolute Monocytes Absolute Eosinophils Absolute Basophils ESR APTT Sodium 134 L Potassium 3.6 Chloride 95 L Carbon Dioxide 32.1 H Anion Gap 6.9 BUN 10 Creatinine 1.2 Est GFR (CKD-EPI 2020) 74.60 Glucose 162 H Calcium 9.0 Magnesium 1.8 Total Bilirubin 0.8 AST 12 L ALT 15 L Alkaline Phosphatase 98 Troponin I 293 H* C-Reactive Protein NT-Pro-B Natriuret Pep 550 H Total Protein 7.8 Albumin 3.3 L Triglycerides Total Cholesterol LDL Cholesterol, Calc HDL Cholesterol Urine Opiates Screen Urine Methadone Screen Ur Barbiturates Screen Ur Tricyclics Screen Ur Amphetamines Screen U Benzodiazepines Scrn Urine Cocaine Screen Ur THC Screen COVID-19 Source SARS-CoV-2 (PCR) Add-On Test Request PFSH All Active Problems (Updated 05/10/22 @ 17:57 by Carmela Macedo MD) Discharge planning issues (Acute) DVT prophylaxis (Acute) HFrEF (heart failure with reduced ejection fraction) (Acute) Ischemic cardiomyopathy (Chronic) COVID (Acute ~04/20/22) Diabetes mellitus type 2, insulin dependent (Acute) Acute non-ST elevation myocardial infarction (NSTEMI) (Acute) Vertigo (Acute) 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 2 diabetes mellitus (Acute ~06/2020) Ventricular premature beats (Acute 08/28/14) Antiplatelet or antithrombotic long-term use (Acute) Vitamin D deficiency (Chronic 05/23/15) Tobacco use disorder (Chronic) Panic disorder without agoraphobia (Chronic 04/29/11) Obesity (BMI 30-39.9) (Chronic 08/28/14) Obstructive sleep apnea syndrome, mild (Chronic 11/03/16) Shanika Jimenez NP DOES NOT USE CPAP Hyperlipidemia, unspecified (Chronic 04/29/11) Intolerant to atorvastatin; able to tolerate once vit D deficiency addressed Erectile dysfunction (Chronic 11/29/15) Depression (Chronic 04/29/11) Cardiomyopathy (Chronic) Followed by cab worker Dr. Galaviz at [facility] Bipolar disorder (Chronic) Dx psychiatry [facility] PT. DENIES THIS DX Benign prostatic hyperplasia with lower urinary tract symptoms (Chronic 01/28/17) Essential hypertension (Chronic 11/25/12) Anxiety (Chronic 04/29/11) ASCVD (arteriosclerotic cardiovascular disease) (Chronic) Anterior ME 12/2013 --> MAGDALENA in LAD EF 40% post-ME 09/2014 echo EF improved to almost normal at 54% Followed by cab worker Dr. Galaviz at [facility] Medical History Alcohol use disorder (04/29/11) [facility] pER PT. STATES HE DOESN'T DRINK ANYMORE, HASN'T IN YEARS 09/21/19 De Quervain's tenosynovitis, right Heart palpitations Kidney stone (04/26/15) 100% calcium oxalate monohydrate Patellar fracture (01/26/17) (L) S/p surgical repair Type 2 diabetes mellitus, without long-term current use of insulin Surgical History Heart Surgery stent placement X1 Open Reduction and Internal Fixation of Patellar Fracture (01/26/17) (L) Dr. Lemus S/P cardiac cath (01/01/22) with stent Status post wrist surgery (~09/2021) Dr. Marvin; RIGHT for De Quervain's Vasectomy (01/19/06) Family History (Updated 05/10/22 @ 18:41 by Carmela Macedo MD) Father No problems noted. Maternal Grandmother Colon cancer CAD (coronary artery disease) Mother CAD (coronary artery disease) Diabetes Hypertension Social History Smoking/Tobacco Use Status: Current every day Tobacco Type: pipe Other: Smokes 5-6 ciggs worth of tobacco in pipe on a rough day and e-cigarettes Smoking risk assessment performed?: Yes Alcohol Intake: former Drug use: Never Substance use type: does not use Adopted: No Caregiver/Support person: No Foster care: No Household members: children and other Details: 2 - lives with son Housing: apartment Number of Children: 2 Communication Needs: None current occupation: works for a [employer] Pets and animals: No Current gender identity: male What type of physical activity do you participate in: none Frequency: daily Seatbelt use: always Helmet use: No Drive 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 w/intox pedicab driver: No Water heater temp set <120 deg: Yes Working smoke detector in home: Yes Fire extinguisher in home: Yes Carbon monox detector in home: Yes Do you feel safe at home: Yes Do you feel safe in your relationship?: Yes Time Spent with Patient Time Spent with Patient: 45-69 minutes Time was spent: preparing to see the patient(eg.review tests), obtaining and/or reviewing separately otained hiistory, ordering medications,tests, procedures, referring, communicating with other health career and transition teacher, indepentently interpreting results, counseling the patient and care coordination
[2022-05-11 08:36] LABS: Lab Add On Test DONE
[2022-05-11 09:02] LABS: Troponin I 192 ng/L (<or=60)
[2022-05-11] MEDS: MAGNESIUM SULFATE 1 GM/100 ML BAG IVPB (09:09)
[2022-05-11] MEDS: Aspirin E.C. 81 MG TABEC PO (09:11)
[2022-05-11] MEDS: Cholecalciferol (Vitamin D3) 1,000 UNIT TAB 2000 UNITS PO (09:11)
[2022-05-11] MEDS: Clopidogrel 75 MG TAB PO (09:12)
[2022-05-11] MEDS: Lisinopril 20 MG TAB 40 MG PO (09:12)
[2022-05-11] MEDS: Potassium Chloride 20 MEQ TABCR 40 MEQ PO (09:12)
[2022-05-11] MEDS: Magnesium Oxide 400 MG TAB PO (09:12)
[2022-05-11] MEDS: Metoprolol 50 MG TAB PO (09:15)
[2022-05-11] MEDS: Multivitamin TAB 1 TAB PO (09:16)
[2022-05-11] MEDS: Escitalopram 10 MG TAB PO (09:16)
[2022-05-11] MEDS: Pantoprazole 20 MG TABCR PO (09:16)
[2022-05-11] MEDS: Perflutren Lipid Microspheres 1.5 ML VIAL IVP (11:18)
--- NOTE | 2022-05-11 17:38 | NUR.NOTE ---
Nursing Note: Lina [facility] called requesting MAR faxed to [phone]. printed an faxed at this time
== END 2022-05-11 10:15 | disposition short-term general hospital (02) | DRG 281 ==
LOC: ER 12:55 → ICU 17:54
PROVIDERS: General Practice; Admitting Provider Internal Medicine; Emergency Provider Physician Assistant; PCP Nurse Practitioner Family; Visit Provider Internal Medicine
DX: I21.4 Non-ST elevation (NSTEMI) myocardial infarction (principal); I50.22 Chronic systolic (congestive) heart failure; I25.5 Ischemic cardiomyopathy; I25.10 Atherosclerotic heart disease of native coronary artery without angina pectoris; E11.9 Type 2 diabetes mellitus without complications; G47.33 Obstructive sleep apnea (adult) (pediatric); I49.3 Ventricular premature depolarization; E55.9 Vitamin D deficiency, unspecified; F41.0 Panic disorder [episodic paroxysmal anxiety]; E66.9 Obesity, unspecified; E78.5 Hyperlipidemia, unspecified; F31.9 Bipolar disorder, unspecified; N40.1 Benign prostatic hyperplasia with lower urinary tract symptoms; I11.0 Hypertensive heart disease with heart failure; F17.290 Nicotine dependence, other tobacco product, uncomplicated; Z79.4 Long term (current) use of insulin; Z95.5 Presence of coronary angioplasty implant and graft; Z86.73 Personal history of transient ischemic attack (TIA), and cerebral infarction without residual deficits; Z86.16 Personal history of COVID-19; Z68.34 Body mass index [BMI] 34.0-34.9, adult; Z79.01 Long term (current) use of anticoagulants
CPT/HCPCS: 36415; 36416; 71275; 80048; 80053; 80061; 80307; 82962; 85652; 87635; 93005; 93306; 96360; 99291; C8929; Q9957; 83735; 83880; 84484; 85025; 85730; 86140; 93010; 99223; 99239; J3475; J3490

== ENCOUNTER 2022-05-17 03:49 | Emergency (ER) | payer MEDICARE, MEDICAID, SELFPAY ==
[2022-05-17] VITALS (105 sets, daily range): BP systolic 104–137; BP diastolic 68–104; PULSE 68–80; RESP 7–26; TEMP 36.7; O2SAT 91–100
--- NOTE | 2022-05-17 03:45 | RT.EKG_ITS ---
APPROVED REPORT Exam: Resting ECG Reason for Exam: SOB Patient Location: E HR:77 bpm ECG Measurements Heart Rate 77 AXIS UT 144 P 45 QRSd 90 QRS 6 QT 390 T 20 QTc 440 Conclusion Sinus rhythm...normal P axis, V-rate 60- 99 Probable left atrial enlargement...P >50mS, <-0.10mV V1 Low voltage, precordial leads...precordial leads <1.0mV Physician: no stemi. morphology unchanged from prior ekg
--- NOTE | 2022-05-17 03:49 | ED.GENADUL_ITS ---
Discharge Plan Disposition Patient Disposition: Transfer-Acute Inpatient Care Specific Acute Inpt Facility: [facility] Condition: Critical Discharge Details Chief Complaint: Chest Pain Clinical Impression: Chest pain, Acute non-ST elevation myocardial infarction (NSTEMI) Primary Care Provider: Linda Hallman ED Provider: Favian Asif Home Meds and New Rx's Prescriptions: No Action (DME) FreeStyle Prieto 2 Iva Misc See Rx Instructions .ROUTE .MEDSUPPLY Qty: 1 0RF Rx Instructions: As directed (DME) FreeStyle Prieto 2 Sensor Kit See Rx Instructions .ROUTE .MEDSUPPLY Qty: 6 3RF Rx Instructions: As directed acidophilus-pectin, citrus 25 million cell -100 mg tablet 1 tab PO DAILY Qty: 90 3RF (DME) pen needle, diabetic [BD Ultra-Fine Marivel Pen Needle] 32 gauge x 5/32 needle See Rx Instructions .ROUTE .MEDSUPPLY Qty: 100 3RF Rx Instructions: E11.9 to administer insulin daily for A1C <7% tadalafil 5 mg tablet 5 mg PO DAILY MDD 5 mg PRN (Reason: sexual activity) Qty: 30 3RF Rx Instructions: Take approximately 30 min before sexual activity insulin degludec [Tresiba FlexTouch U-200] 200 unit/mL (3 mL) insulin pen 20 unit SUBCUT DAILY Qty: 3 3RF Janumet XR 50-1,000 mg tablet, ER multiphase 24 hr 1 tab PO BID Qty: 180 3RF magnesium oxide 400 mg magnesium capsule 400 mg PO DAILY Qty: 90 3RF Rx Instructions: Administer at least 2 hours apart from other medications apixaban 5 mg tablet 5 mg PO BID (DME) blood-glucose meter Misc See Dose Instructions .ROUTE .MEDSUPPLY Qty: 1 0RF Dose Instruction: As directed Rx Instructions: As directed to check blood glucose on insulin multivitamin Tablet 1 tab PO DAILY Qty: 90 3RF (DME) FreeStyle Lite Strips Strip See Rx Instructions .Route Qty: 200 3RF Rx Instructions: As directed to check blood glucose twice daily. On insulin. Dispense covered brand. (DME) lancets [FreeStyle Lancets] 28 gauge misc See Rx Instructions .Route Qty: 200 3RF Rx Instructions: As directed to check blood glucose twice daily. On insulin. Dispense covered brand. atorvastatin 80 mg tablet 80 mg PO DAILY Rx Instructions: increased from 40 to 80 mg daily by [facility] 01/01/22 [facility]gc cholecalciferol (vitamin D3) 25 mcg (1,000 unit) capsule 75 mcg PO DAILY pantoprazole 40 mg tablet,delayed release (DR/EC) 40 mg PO DAILY colchicine 0.6 mg tablet 0.6 mg PO BID acetaminophen [Tylenol Extra Strength] 500 MG tablet 1,000 mg PO PRN PRN metoprolol tartrate [Lopressor] 50 mg tablet 50 mg PO BID chlorhexidine gluconate [Antiseptic Skin Clnsr(chlorhe)] 4 % liquid 1 applic TP DAILY PRN (Reason: Acne) Rx Instructions: Rinse skin with water, then apply minimum amount needed to cover skin. Wash gently then rinse clopidogrel [Plavix] 75 mg tablet 75 mg PO DAILY Qty: 90 6RF Jardiance 10 mg tablet 10 mg PO QAM Qty: 90 6RF escitalopram oxalate 10 mg tablet 10 mg PO DAILY Qty: 90 6RF hydroxyzine HCl 25 mg tablet 25 mg PO QID PRNQty: 90 6RF Medical Decision Making 46 year old male with PMHx of CAD s/p MIs and 2 stents to LAD in 01/31 ([facility]) currently on Plavix, apical thrombus on eliquis, cryptogenic stroke in 2016, slightly dilated aorta, as well as h/o ICMO/chronic systolic CHF w/ LVEF of 49% in 01/01, IDDM2, CVA, HTN, JAMES not on CPAP, COVID-19 infection earlier last month, who was a patient in [facility] ICU from 05/10/22 until 05/11/22 under the hospitalist service for an NSTEMI and chest pain on a nitroglycerin drip and subsequently transferred to [facility] while there he was diagnosed with pericarditis which was felt to be secondary to his previous COVID infection. ESR and CRP were markedly elevated. He was started on colchicine and discharged 1 day after admission. He has been home since 05/12/2022. Over the last 4 days he has been doing well, however this evening he awoke from sleep with sudden stabbing chest pain over the entirety of his chest. It was notably severe. He attempted to move and change positions but this did not alter his pain. He called 911. And when EMS arrived he was loaded onto the stretcher and put in a sitting position at about 45 degrees. The patient states that as soon as he was placed in this position his pain began to improve and resolved by the time that he got here. He currently has no more pain. He denies any tearing or ripping sensation. He denies any vomiting or diarrhea. He states that he has been taking his medications as directed. He states that this pain feels similar to the pain he had with the pericarditis. No other complaints at this time. No other modifying factors. Physical exam demonstrates a comfortable patient, no signs of distress. No reproducible chest pain or chest pain in general at this time. Pulses are intact. Symptoms appear clinically inconsistent at this time with dissection, he is on Eliquis regularly so PE is unlikely. ACS with his significant cardiac history is of concern . Pericarditis and musculoskeletal etiology is of concern especially with his recent diagnosis. We will evaluate for concerning etiologies, monitor closely and reassess. 6 AM EKG does not demonstrate evidence of STEMI, however in lead III Q wave and T wave inversion is still present however there appears to be slight minimal elevation there now. Minimal elevation in V1. Minimal depression in aVL.. Bedside echo was performed, patient demonstrates a notably reduced ejection fraction compared to his prior echo. EF at this time appears to be around 25%. There appears to be some mild diminishment of generalized wall motion. Chest x-ray was read as negative, however I do feel that there is evidence of mild interstitial edema. 20 of Lasix was given. Laboratory work-up has returned, proBNP notably elevated compared to prior at 3600, CRP and ESR are essentially normal, and inconsistent with pericarditis. Troponin is notably elevated at 2600. This, in combination with the echo findings are certainly concerning. The patient remains chest pain-free at this time. I did contact [facility] and discussed the case with Dr. Antunez. With the EKG changes, echo change, and his chest pain that he did have she is concerned for acute cardiac etiology. She recommends emergent transfer to [facility] for Assignment Desk Assistant evaluation. We will heparinize the patient, give 600 of Plavix, and aspirin. Patient remains chest pain-free with no need for nitroglycerin at this time. I have extensively reviewed the treatment plan with the patient. I have addressed all patient concerns at this time. I have also discussed the plan with the admitting physician and they agree with the current assessment and plan and have agreed to assume responsibility for the patient. All parties demonstrate verbal understanding and agreement with our assessment and plan at this time. The documentation in this chart was dictated using [employer] dictation software. Please excuse any dictation errors. At time of transfer the patient was reassessed and continued to demonstrate No signs of acute respiratory distress requiring intubation, hemodynamic instability requiring pressor support, or rapidly declining mental status. FINDINGS: Limitations: The examination is somewhat underpenetrated and was obtained with lordotic patient positioning. Lungs: No pulmonary consolidation is seen. Pleural spaces: No pleural effusion or pneumothorax is demonstrated. Heart/Mediastinum: The heart appears normal in size. Diaphragm: There is prominent elevation of the left hemidiaphragm, as seen on the comparison CT exam from May 10, 2022. Bones/joints: The visualized bony structures appear grossly intact, as seen. Large osteophytes are noted along the thoracic spinal margin. IMPRESSION: Within the limits of the exam, no active disease is seen. Thank you for allowing us to participate in the care of your patient. Dictated and Authenticated by: Bong Nash MD [facility] General Date/Time Provider Initiated Documentation: 05/17/22 04:13 . HPI Narrative: 46 year old male with PMHx of CAD s/p MIs and 2 stents to LAD in 01/31 ([facility]) currently on Plavix, apical thrombus on eliquis, cryptogenic stroke in 2016, slightly dilated aorta, as well as h/o ICMO/chronic systolic CHF w/ LVEF of 49% in 01/01, IDDM2, CVA, HTN, JAMES not on CPAP, COVID-[address] [facility], who was a patient in [facility] ICU from 05/10/22 until 05/11/22 under the hospitalist service for an NSTEMI and chest pain on a nitroglycerin drip and subsequently transferred to [facility] while there he was diagnosed with pericarditis which was felt to be secondary to his previous COVID infection. ESR and CRP were markedly elevated. He was started on colchicine and discharged 1 day after admission. He has been home since 05/12/2022. Over the last 4 days he has been doing well, however this evening he awoke from sleep with sudden stabbing chest pain over the entirety of his chest. It was notably severe. He attempted to move and change positions but this did not alter his pain. He called 911. And when EMS arrived he was loaded onto the stretcher and put in a sitting position at about 45 degrees. The patient states that as soon as he was placed in this position his pain began to improve and resolved by the time that he got here. He currently has no more pain. He denies any tearing or ripping sensation. He denies any vomiting or diarrhea. He states that he has been taking his medications as directed. He states that this pain feels similar to the pain he had with the pericarditis. No other complaints at this time. No other modifying factors. Related Data Home Medications Medication Instructions Recorded Confirmed acetaminophen 500 mg tablet 1,000 mg PO PRN PRN 01/25/17 05/17/22 (Tylenol Extra Strength) blood-glucose meter #1 ea 04/24/19 05/17/22 flash glucose scanning reader #1 ea 03/28/21 05/17/22 (FreeStyle Prieto 2 Iva) flash glucose sensor (FreeStyle #6 ea 03/28/21 05/17/22 Prieto 2 Sensor kit) multivitamin 1 tab PO DAILY #90 tabs 06/25/21 05/17/22 magnesium oxide 400 mg PO DAILY #90 tab-caps 12/11/21 05/17/22 clopidogrel 75 mg tablet (Plavix) 75 mg PO DAILY #90 tabs 12/20/21 05/17/22 empagliflozin 10 mg tablet 10 mg PO QAM #90 tabs 12/20/21 05/17/22 (Jardiance) escitalopram oxalate 10 mg tablet 10 mg PO DAILY #90 tabs 12/20/21 05/17/22 hydroxyzine HCl 25 mg tablet 25 mg PO QID PRN #90 tabs 12/20/21 05/17/22 apixaban 5 mg tablet 5 mg PO BID 12/25/21 05/17/22 blood sugar diagnostic (FreeStyle #200 ea 12/31/21 05/17/22 Lite Strips) lancets 28 gauge (FreeStyle #200 ea 12/31/21 05/17/22 Lancets) atorvastatin 80 mg tablet 80 mg PO DAILY 01/05/22 05/17/22 acidophilus 25 million 1 tab PO DAILY #90 tabs 01/21/22 05/17/22 cell-pectin, citrus 100 mg tablet insulin degludec 200 unit/mL (3 20 unit (0.1 mL) subcut DAILY #3 01/21/22 05/17/22 mL) subcutaneous pen (Tresiba SYRGS FlexTouch U-200 insulin) pen needle, diabetic 32 gauge x #100 ea 01/21/22 05/17/22 5/32 (BD Ultra-Fine Marivel Pen Needle) sitagliptin phos 50 mg-metformin 1 tab PO BID #180 tab-caps 01/21/22 05/17/22 ER 1,000 mg tablet,extend rel 24h mp (Janumet XR) tadalafil 5 mg tablet 5 mg PO DAILY PRN sexual activity 01/21/22 05/17/22 #30 tab-caps cholecalciferol (vitamin D3) 25 75 mcg PO DAILY 05/15/22 05/17/22 mcg (1,000 unit) capsule colchicine 0.6 mg tablet 0.6 mg PO BID 05/15/22 05/17/22 pantoprazole 40 mg tablet,delayed 40 mg PO DAILY 05/15/22 05/17/22 release chlorhexidine gluconate 4 % 1 applic topical DAILY PRN Acne 05/17/22 05/17/22 topical liquid (Antiseptic Skin Cleanser (chlorhexidine)) metoprolol tartrate 50 mg tablet 50 mg PO BID 05/17/22 05/17/22 (Lopressor) Previous Rx's Medication Instructions Recorded blood-glucose meter #1 ea 04/24/19 flash glucose scanning reader #1 ea 03/28/21 (FreeStyle Prieto 2 Iva) flash glucose sensor (FreeStyle #6 ea 03/28/21 Prieto 2 Sensor kit) multivitamin 1 tab PO DAILY #90 tabs 06/25/21 magnesium oxide 400 mg PO DAILY #90 tab-caps 12/11/21 clopidogrel 75 mg tablet (Plavix) 75 mg PO DAILY #90 tabs 12/20/21 empagliflozin 10 mg tablet 10 mg PO QAM #90 tabs 12/20/21 (Jardiance) escitalopram oxalate 10 mg tablet 10 mg PO DAILY #90 tabs 12/20/21 hydroxyzine HCl 25 mg tablet 25 mg PO QID PRN #90 tabs 12/20/21 blood sugar diagnostic (FreeStyle #200 ea 12/31/21 Lite Strips) lancets 28 gauge (FreeStyle #200 ea 12/31/21 Lancets) acidophilus 25 million 1 tab PO DAILY #90 tabs 01/21/22 cell-pectin, citrus 100 mg tablet insulin degludec 200 unit/mL (3 20 unit (0.1 mL) subcut DAILY #3 01/21/22 mL) subcutaneous pen (Tresiba SYRGS FlexTouch U-200 insulin) pen needle, diabetic 32 gauge x #100 ea 01/21/22 (BD Ultra-Fine Marivel Pen Needle) sitagliptin phos 50 mg-metformin 1 tab PO BID #180 tab-caps 01/21/22 ER 1,000 mg tablet,extend rel 24h mp (Janumet XR) tadalafil 5 mg tablet 5 mg PO DAILY PRN sexual activity 01/21/22 #30 tab-caps Allergies Allergy/AdvReac Type Severity Reaction Status Date / Time hydromorphone [From Dilaudid] AdvReac Intermediate Psychosis Verified 05/17/22 03:51 codeine [Codeine] AdvReac Unknown PSYCHOSIS Verified 05/17/22 03:51 General DIANNE: 2 Review of Systems All systems reviewed & are unremarkable except as noted in HPI and below PFSH All Active Problems (Updated 05/17/22 @ 06:06 by Favian Asif DO) Chest pain (Acute) Acute non-ST elevation myocardial infarction (NSTEMI) (Acute) HFrEF (heart failure with reduced ejection fraction) (Acute) Ischemic cardiomyopathy (Chronic) COVID (Acute ~04/20/22) Diabetes mellitus type 2, insulin dependent (Acute) Acute non-ST elevation myocardial infarction (NSTEMI) (Acute) Vertigo (Acute) 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 2 diabetes mellitus (Acute ~06/2020) Ventricular premature beats (Acute 08/28/14) Antiplatelet or antithrombotic long-term use (Acute) Vitamin D deficiency (Chronic 05/23/15) Tobacco use disorder (Chronic) Panic disorder without agoraphobia (Chronic 04/29/11) Obesity (BMI 30-39.9) (Chronic 08/28/14) Obstructive sleep apnea syndrome, mild (Chronic 11/03/16) Shanika Jimenez NP DOES NOT USE CPAP Hyperlipidemia, unspecified (Chronic 04/29/11) Intolerant to atorvastatin; able to tolerate once vit D deficiency addressed Erectile dysfunction (Chronic 11/29/15) Depression (Chronic 04/29/11) Cardiomyopathy (Chronic) Followed by commercial property administrator Dr. Galaviz at [facility] Bipolar disorder (Chronic) Dx psychiatry [facility] PT. DENIES THIS DX Benign prostatic hyperplasia with lower urinary tract symptoms (Chronic 01/28/17) Essential hypertension (Chronic 11/25/12) Anxiety (Chronic 04/29/11) ASCVD (arteriosclerotic cardiovascular disease) (Chronic) Anterior LA 12/2013 --> MAGDALENA in LAD EF 40% post-LA 09/2014 echo EF improved to almost normal at 54% Followed by commercial property administrator Dr. Galaviz at [facility] Medical History Alcohol use disorder (04/29/11) BINGE pER PT. STATES HE DOESN'T DRINK ANYMORE, HASN'T IN YEARS 09/21/19 De Quervain's tenosynovitis, right Heart palpitations Kidney stone (04/26/15) 100% calcium oxalate monohydrate Patellar fracture (01/26/17) (L) S/p surgical repair Type 2 diabetes mellitus, without long-term current use of insulin Surgical History Heart Surgery stent placement X1 Open Reduction and Internal Fixation of Patellar Fracture (01/26/17) (L) Dr. Lemus S/P cardiac cath (01/01/22) with stent Status post wrist surgery (~09/2021) Dr. Marvin; RIGHT for De Quervain's Vasectomy (01/19/06) Family History Father No problems noted. Maternal Grandmother Colon cancer CAD (coronary artery disease) Mother CAD (coronary artery disease) Diabetes Hypertension Social History Smoking/Tobacco Use Status: Current every day Tobacco Type: pipe Other: Smokes 5-6 ciggs worth of tobacco in pipe on a rough day and e-cigarettes Smoking risk assessment performed?: Yes Alcohol Intake: former Drug use: Never Substance use type: does not use Adopted: No Caregiver/Support person: No Foster care: No Household members: children and other Details: 2 - lives with son Housing: apartment Number of Children: 2 Communication Needs: None current occupation: works for a [employer] Pets and animals: No Current gender identity: male What type of physical activity do you participate in: none Frequency: daily Seatbelt use: always Helmet use: No Drive 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 w/intox piledriver carpenter: No Water heater temp set <120 deg: Yes Working smoke detector in home: Yes Fire extinguisher in home: Yes Carbon monox detector in home: Yes Do you feel safe at home: Yes Do you feel safe in your relationship?: Yes Exam Narrative Exam Narrative: 1.Const: Well-nourished, Well-developed, appearing stated age 2.Eyes: PERRL, no conjunctival injection, and symmetrical lids. 3.ENT: Atraumatic external nose and ears. Moist MM. Neck: Symmetric, trachea midline, No thyromegaly. 4.CVS: +S1/S2, No murmurs or gallops. Peripheral pulses 2+ and equal in all extremities. Brisk capillary refill in all extremities. 5.RESP: Unlabored respiratory effort. No wheezes or rhonchi, minimal crackles in the bases. 6.GI: Soft, Nontender/Nondistended, No hepatosplenomegaly. No guarding or rebound. 7.MSK: Normocephalic/Atraumatic, Extremities w/o deformity or ttp No cyanosis or clubbing, Normal movement of all extremities 8.Skin: Warm, Dry. No rashes or lesions. 9.Neuro: pit recorder II-XII grossly intact. Sensation grossly intact, no focal neurologic deficits. 10.Psych: (AAO) x3. Appropriate mood and affect Critical Care Time Critical Care Time Critical Care Time: Yes Total Critical Care Time: 65 Attestation: Upon my evaluation, this patient had a high probability of imminent or life- threatening deterioration, which required my direct attention, intervention, and personal management. I have personally provided 65 minutes of critical care time exclusive of time spent on separately billable procedures. Time includes review of laboratory data, radiology results, discussion with consultants, and monitoring for potential decompensation. Interventions were performed as documented. POCUS Exam (ED) Limited Cardiac Exam DATE OF EXAM: 05/17/22 TIME OF EXAM: 04:51 PROVIDER THAT PERFORMED THE STUDY: Favian Asif IS THIS A REPEAT EXAM DURING THIS ENCOUNTER: no REASON FOR EXAM: Chest pain VISUALIZED STRUCTURES: Left atrium, Left ventricle and Right ventricle VIEW OBTAINED: Parasternal long-axis PERTINENT FINDINGS/IMPRESSION: LV dysfunction Exam complete
[2022-05-17 04:14] LABS: Abs Immature Grans 0.04 10^3/uL (0.0-0.06); Absolute Basophil Count 0.08 10^3/uL (0.0-0.2); Absolute Eosinophil Count 0.63 10^3/uL (0.0-0.7); Absolute Lymphocyte Count 2.99 10^3/uL (1.2-3.4); Absolute Monocyte Count 0.67 10^3/uL (0.1-0.8); Basophils % 0.8; Eosinophils % 6.5; HGB 14.7 g/dL (13.5-17.5); Immature Grans % 0.4; Lymphocytes % 30.8; MCH 30.2 pg (27.0-33.0); MCHC 33.4 % (32.0-36.0); MCV 91 fL (80-95); Monocytes % 6.9; Neutrophils % 54.6; Platelet Count 368 10^3/uL (130-400); RBC 4.86 10^6/uL (4.36-5.78); RDW 12.1 % (11.8-14.1); RDW-SD 40.3 fL; WBC 9.71 10^3/uL (4.4-10.8)
--- NOTE | 2022-05-17 04:15 | DI.RAD_ITS ---
Exam(s) XR PORTABLE CHEST AP EXAM: XR PORTABLE CHEST AP CLINICAL HISTORY: chest pain TECHNIQUE: 2D digital imaging was performed of the chest. One image was obtained. An AP view was ob tained. COMPARISON: CR,XR XR PORTABLE CHEST AP from 12/20/2021 FINDINGS: Examination is limited by patient positioning. MEDIASTINUM: Normal. HEART: Normal. PULMONARY VASCULATURE: Normal. LUNGS: Clear. PLEURAL SPACE: No pleural effusion or pneumothorax. BONE:Within normal limits for the patient's age. OTHER FINDINGS:There is again seen elevation of the left hemidiaphragm. IMPRESSION: No acute pulmonary findings. DATA REPOSITORY: RADIATION DOSE DELIVERED:
[2022-05-17 04:26] LABS: ESR 9 mm/hr (0-15)
[2022-05-17 04:28] LABS: INR 0.9 (0.9-1.1); PTT Activated 23.6 sec (21.0-27.5); Prothrombin Time 9.5 sec (9.3-11.0)
[2022-05-17 04:38] LABS: ALT 27 U/L (16-63); AST 31 U/L (15-37); Albumin 3.1 g/dL (3.4-5.0); Alkaline Phosphatase 104 U/L (46-116); Anion Gap 6.3 mmol/L (3-11); BUN 10 mg/dL (7-18); Bilirubin, Total 0.4 mg/dL (0.2-1.0); CO2 30.7 mmol/L (21.0-32.0); Calcium 8.5 mg/dL (8.5-10.1); Chloride 105 mmol/L (98-107); Estimated GFR 92.84 (mL/min/1.73m2); Glucose 197 mg/dL (74-106); NT-proBNP 3615 pg/mL (<300); Potassium 4.1 mmol/L (3.5-5.1); Sodium 142 mmol/L (136-145); Total Protein 6.9 g/dL (6.4-8.2)
[2022-05-17 04:42] LABS: Troponin I 2610 ng/L (<or=60)
[2022-05-17 04:43] LABS: C-Reactive Protein 0.99 mg/dL (0.0-0.3)
[2022-05-17] MEDS: Furosemide 20 MG/2 ML VIAL IVP (05:07)
--- NOTE | 2022-05-17 05:15 | DI.VRAD_ITS ---
PROCEDURE INFORMATION: Exam: XR Chest Exam date and time: 05/17/2022 4:31 AM Age: 46 years old Clinical indication: Other: Chest pain TECHNIQUE: Imaging protocol: Radiologic exam of the chest. Views: 1 view. COMPARISON: CT CHEST PE CTA 05/10/2022 1:00 PM FINDINGS: Limitations: The examination is somewhat underpenetrated and was obtained with lordotic patient positioning. Lungs: No pulmonary consolidation is seen. Pleural spaces: No pleural effusion or pneumothorax is demonstrated. Heart/Mediastinum: The heart appears normal in size. Diaphragm: There is prominent elevation of the left hemidiaphragm, as seen on the comparison CT exam from May 10, 2022. Bones/joints: The visualized bony structures appear grossly intact, as seen. Large osteophytes are noted along the thoracic spinal margin. IMPRESSION: Within the limits of the exam, no active disease is seen. Dictated and Authenticated by: Bong Nash MD. Ordering:MORALES Ballesteros MD
[2022-05-17] MEDS: Clopidogrel 300 MG TAB 600 MG PO (05:49)
[2022-05-17] MEDS: Aspirin 81 MG CHEW 324 MG CH (05:49)
== END 2022-05-17 06:42 | disposition short-term general hospital (02) ==
PROVIDERS: Emergency Provider Student in an Organized Health Care Education/Training Program; PCP Nurse Practitioner Family
DX: I21.4 Non-ST elevation (NSTEMI) myocardial infarction (principal); I25.10 Atherosclerotic heart disease of native coronary artery without angina pectoris; I11.0 Hypertensive heart disease with heart failure; I50.22 Chronic systolic (congestive) heart failure; I82.891 Chronic embolism and thrombosis of other specified veins; E11.9 Type 2 diabetes mellitus without complications; R77.8 Other specified abnormalities of plasma proteins; Z79.4 Long term (current) use of insulin; Z79.01 Long term (current) use of anticoagulants; Z79.02 Long term (current) use of antithrombotics/antiplatelets; Z86.73 Personal history of transient ischemic attack (TIA), and cerebral infarction without residual deficits; Z86.16 Personal history of COVID-19; R79.89 Other specified abnormal findings of blood chemistry
CPT/HCPCS: 80053; 85652; 93005; 93308; 96374; 96375; 99291; 71045; 83880; 84484; 85025; 85610; 85730; 86140; 93010; J1941

== ENCOUNTER 2022-06-08 10:00 | Outpatient (RCR) | payer MEDICARE, MEDICAID, SELFPAY | END 2022-06-09 23:59 | disposition home or self-care (01) | LOC: CR 10:00 | PROVIDERS: PCP Nurse Practitioner Family; Visit Provider Internal Medicine Cardiovascular Disease | DX: I25.2 Old myocardial infarction (principal); Z51.89 Encounter for other specified aftercare | CPT/HCPCS: S9472 ==

== ENCOUNTER 2022-07-03 00:33 | Emergency (ER) | payer MEDICARE, MEDICAID, SELFPAY ==
--- NOTE | 2022-07-03 00:30 | RT.EKG_ITS ---
APPROVED REPORT Exam: Resting ECG Reason for Exam: possible stroke Patient Location: E HR:68 bpm ECG Measurements Heart Rate 68 AXIS CA 153 P 63 QRSd 95 QRS 25 QT 419 T 34 QTc 424 Conclusion Sinus rhythm...normal P axis, V-rate 60- 99 Ventricular premature complex...V complex w/ short R-R interval Low voltage, precordial leads...precordial leads <1.0mV
--- NOTE | 2022-07-03 00:30 | DI.CT_ITS ---
Exam(s) CT BRAIN NECK CTA EXAM: CT BRAIN NECK CTA CLINICAL HISTORY: left sided weakness. TECHNIQUE: Imaging Protocol: Axial CT angiography was performed with multi-slice acquisition and mu lti-planar and/or 3D reconstructions. CONTRAST MATERIAL: Intravenous: Omnipaque 350 contrast volume:85 mL COMPARISON: CT HEAD WITHOUT STROKE PROTOCOL from 07/11/2016 CT CTA BRAIN AND NECK from 07/11/[address] CHEST PE CTA from 05/10/2022 FINDINGS: CT Head W/O and W: Ventricles and Extra axial spaces: Normal in size and morphology for the patient's age. Hemorrhage: None. Cerebral parenchyma: There is encephalomalacia consistent with a prior right MCA distribution infarct . No evidence of an acute territorial infarct is seen. Midline shift: None. Brainstem/Cerebellum: Normal. Calvarium: Normal. Visualized Paranasal sinuses/Mastoids: There are mucous retention cysts or polyps in both maxillary s inuses. There is mild mucosal thickening in the ethmoid air cells bilaterally. The remaining visual ized paranasal sinuses and mastoid air cells are clear. Soft Tissues: Unremarkable. Enhancement: Unremarkable. CTA Neck W: Common Carotid: Right: No dissection, occlusion or significant stenosis. Left: No dissection, occlusion or significant stenosis. External Carotid: Right: No occlusion or significant stenosis. Left: No occlusion or significant stenosis. Internal Carotid: Right: No dissection, occlusion or significant stenosis. Left: No dissection, occlusion or significant stenosis. Vertebral Artery: Right: No dissection, occlusion or significant stenosis. Left: No dissection, occlusion or significant stenosis. Lung Apices: Normal. Bones: Within normal limits for the patient's age. Soft Tissues: Normal. Thyroid gland: Unremarkable. CTA Brain W: Internal Carotid Arteries: No aneurysm, occlusion or significant stenosis. There is mild atheroscler osis present. Anterior Cerebral Arteries: Right: No aneurysm, occlusion or significant stenosis. Left: No aneurysm, occlusion or significant stenosis. Middle Cerebral Arteries: Right: No aneurysm, occlusion or significant stenosis. Left: No aneurysm, occlusion or significant stenosis. Posterior Cerebral Arteries: Right: No aneurysm, occlusion or significant stenosis. Left: No aneurysm, occlusion or significant stenosis. Vertebral Arteries: Right: No aneurysm, occlusion or significant stenosis. Left: No aneurysm, occlusion or significant stenosis. Basilar Artery: No aneurysm, occlusion or significant stenosis. IMPRESSION: 1. No large vessel occlusion or significant stenosis on the CT angiography of the head. 2. No acute intracranial process. 3. No occlusion or significant stenosis on the CT angiography of the neck. RADIATION DOSE DELIVERED: 2,389.48mGy.cm Total DLP DATA REPOSITORY: All CT scans at this facility are submitted to the National Radiology Data Registry (NRDR) Dose Index Registry (DIR) with the [employer] (ACR). RADIATION OPTIMIZATION: All CT scans at this facility use at least one of these dose optimization te chniques: automated exposure control; mA and/or kV adjustment per patient size (includes targeted exa ms where dose is matched to clinical indication); or iterative reconstruction.
[2022-07-03 00:36] VITALS: PULSE 66; RESP 18; O2SAT 99
--- NOTE | 2022-07-03 00:52 | W.ED.GENAD ---
Discharge Plan Disposition Patient Disposition: Home Condition: Stable Discharge Details Clinical Impression: Transient left leg weakness Primary Care Provider: Linda Hallman ED Provider: Jacques Isbell Home Meds and New Rx's Prescriptions: Continued (DME) FreeStyle Prieto 2 [place] Misc See Rx Instructions .ROUTE .MEDSUPPLY Qty: 1 0RF Rx Instructions: As directed (DME) FreeStyle Prieto 2 Sensor Kit See Rx Instructions .ROUTE .MEDSUPPLY Qty: 6 3RF Rx Instructions: As directed acidophilus-pectin, citrus 25 million cell -100 mg tablet 1 tab PO DAILY Qty: 90 3RF (DME) pen needle, diabetic [BD Ultra-Fine Marivel Pen Needle] 32 gauge x 5/32 needle See Rx Instructions .ROUTE .MEDSUPPLY Qty: 100 3RF Rx Instructions: E11.9 to administer insulin daily for A1C <7% insulin degludec [Tresiba FlexTouch U-200] 200 unit/mL (3 mL) insulin pen 20 unit SUBCUT DAILY Qty: 3 3RF Janumet XR 50-1,000 mg tablet, ER multiphase 24 hr 1 tab PO BID Qty: 180 3RF aspirin 81 mg tablet,delayed release (DR/EC) 81 mg PO DAILY losartan 25 mg tablet 25 mg PO DAILY metoprolol succinate [Toprol XL] 100 mg tablet extended release 24 hr 100 mg PO DAILY nitroglycerin 0.4 mg tablet, sublingual 0.4 mg sublingual Q5M PRN Rx Instructions: do not exceed 3 doses per episode Jardiance 25 mg tablet 25 mg PO DAILY AM Qty: 90 3RF Rx Instructions: Administer once daily in the morning, with or without food magnesium oxide 400 mg magnesium capsule 400 mg PO DAILY Qty: 90 3RF Rx Instructions: Administer at least 2 hours apart from other medications (DME) blood-glucose meter Misc See Dose Instructions .ROUTE .MEDSUPPLY Qty: 1 0RF Dose Instruction: As directed Rx Instructions: As directed to check blood glucose on insulin multivitamin Tablet 1 tab PO DAILY Qty: 90 3RF (DME) FreeStyle Lite Strips Strip See Rx Instructions .Route Qty: 200 3RF Rx Instructions: As directed to check blood glucose twice daily. On insulin. Dispense covered brand. (DME) lancets [FreeStyle Lancets] 28 gauge misc See Rx Instructions .Route Qty: 200 3RF Rx Instructions: As directed to check blood glucose twice daily. On insulin. Dispense covered brand. atorvastatin 80 mg tablet 80 mg PO DAILY Rx Instructions: increased from 40 to 80 mg daily by RADHAM 01/01/22 irma cholecalciferol (vitamin D3) 25 mcg (1,000 unit) capsule 75 mcg PO DAILY pantoprazole 40 mg tablet,delayed release (DR/EC) 40 mg PO DAILY acetaminophen [Tylenol Extra Strength] 500 MG tablet 1,000 mg PO PRN PRN chlorhexidine gluconate [Antiseptic Skin Clnsr(chlorhe)] 4 % liquid 1 applic TP DAILY PRN (Reason: Acne) Rx Instructions: Rinse skin with water, then apply minimum amount needed to cover skin. Wash gently then rinse clopidogrel [Plavix] 75 mg tablet 75 mg PO DAILY Qty: 90 6RF escitalopram oxalate 10 mg tablet 10 mg PO DAILY Qty: 90 6RF hydroxyzine HCl 25 mg tablet 25 mg PO QID PRNQty: 90 6RF Discharge Instructions Additional Instructions: your blood work and cat scan did not show concerning findings at this time follow up with your primary care provider as soon as possible if you feel more ill, have worsening weakness or changes in vision or speech return to the emergency department Medical Decision Making 47 yo male with hx of t2dm, prior cva, cad, htn, who comes in after he noticed his left leg and arm felt weak about 45-60 minutes ago. HE states he felt well most of the day but then stood up and noticed his left leg felt weak and felt like his left arm was floating. He states he feels the strength has improved since it started. no speech or vision changes, denies falls, no chest pain, no fevers, no dyspnea. He arrives stable speaking clearly in no distress. He is caox4 on arrival and his nih is 1 due to very mild drift in the left leg, no ataxia, cn ii-xii intact. Symptoms are concerning for potential cva vs tia but would be a mild cva at this time, will obtain ekg, troponin, cbc, cmp, and cta head and neck pt stable and now has no symptoms and no drift at all. He does note he had a small twinge in his left lower back when this started that has resolved and does have problems with his back chronically. His labs and imaging show no acute findings, no large vessel occlusions. Given his symptoms resolved and were mild feel unlikely this was a cva, could be tia. Discussed with pt and recommended admission for obs and mri later today. He has decision making capacity and prefers to be d/c'd and f/u with his pcp given symptoms have resolved. Given he is on asa and plavix and reassuring workup feel this is reasonable. He will f/u with his pcp marisol, return precautions given Differential Diagnosis Differential Diagnosis: cva, tia, electrolyte abnormality Medical Records Medical records reviewed: Yes I reviewed the patient's medical records. Imaging Data Radiologic Study: Attestation: I personally reviewed and interpreted this imaging study as follows: Imaging: CT Scan Radiologist's impression: IMPRESSION: 1. No evidence of large vessel occlusion. No evidence of arterial dissection or aneurysm/pseudoaneurysm. 2. No acute intracranial process. No intracranial hemorrhage or mass effect. 3. Chronic infarct in the right MCA territory posterior 3rd and subinsular distribution. 4. These findings initiated a critical results reporting process per stroke protocol. An addendum will be issued at the time of clinician notification No evidence of arterial stenosis, dissection, or aneurysm/pseudoaneurysm. Lab Data Lab results reviewed: Yes I reviewed the patient's lab results. ECG Data Attestation: I personally reviewed and interpreted this ECG (s) as follows: Prior ECG tracings: available for review Interpretation: sinus rate of 98, no stemi HPI General Date/Time Provider Initiated Documentation: 07/03/22 00:34. Limitations to Documentation: no limitations. Information obtained by: patient. History of Present Illness 47 year old M presents to the emergency department with the chief complaint of left leg and arm weakness, described as mild, Patient started experiencing this hour(s) (1) and it has been other (improving). No relieving factors improve symptom(s), No exacerbating factors reported . Patient notes no other symptoms.; denies chest pain and fever/chills. Patient did receive the following treatments prior to arrival, none Related Data Home Medications Medication Instructions Recorded Confirmed acetaminophen 500 mg tablet 1,000 mg PO PRN PRN 01/25/17 07/01/22 (Tylenol Extra Strength) blood-glucose meter #1 ea 04/24/19 07/01/22 flash glucose scanning reader #1 ea 03/28/21 07/01/22 (FreeStyle Prieto 2 [place]) flash glucose sensor (FreeStyle #6 ea 03/28/21 07/01/22 Prieto 2 Sensor kit) multivitamin 1 tab PO DAILY #90 tabs 06/25/21 07/03/22 magnesium oxide 400 mg PO DAILY #90 tab-caps 12/11/21 07/03/22 clopidogrel 75 mg tablet (Plavix) 75 mg PO DAILY #90 tabs 12/20/21 07/03/22 escitalopram oxalate 10 mg tablet 10 mg PO DAILY #90 tabs 12/20/21 07/03/22 hydroxyzine HCl 25 mg tablet 25 mg PO QID PRN #90 tabs 12/20/21 07/03/22 blood sugar diagnostic (FreeStyle #200 ea 12/31/21 07/01/22 Lite Strips) lancets 28 gauge (FreeStyle #200 ea 12/31/21 07/01/22 Lancets) atorvastatin 80 mg tablet 80 mg PO DAILY 01/05/22 07/03/22 acidophilus 25 million 1 tab PO DAILY #90 tabs 01/21/22 07/03/22 cell-pectin, citrus 100 mg tablet insulin degludec 200 unit/mL (3 20 unit (0.1 mL) subcut DAILY #3 01/21/22 07/03/22 mL) subcutaneous pen (Tresiba SYRGS FlexTouch U-200 insulin) pen needle, diabetic 32 gauge x #100 ea 01/21/22 07/01/22 5/32 (BD Ultra-Fine Marivel Pen Needle) sitagliptin phos 50 mg-metformin 1 tab PO BID #180 tab-caps 01/21/22 07/03/22 ER 1,000 mg tablet,extend rel 24h mp (Janumet XR) cholecalciferol (vitamin D3) 25 75 mcg PO DAILY 05/15/22 07/03/22 mcg (1,000 unit) capsule pantoprazole 40 mg tablet,delayed 40 mg PO DAILY 05/15/22 07/03/22 release chlorhexidine gluconate 4 % 1 applic topical DAILY PRN Acne 05/17/22 07/01/22 topical liquid (Antiseptic Skin Cleanser (chlorhexidine)) aspirin 81 mg tablet,delayed 81 mg PO DAILY 05/20/22 07/03/22 release empagliflozin 25 mg tablet 25 mg PO DAILY AM #90 tab-caps 05/20/22 07/03/22 (Jardiance) losartan 25 mg tablet 25 mg PO DAILY 05/20/22 07/03/22 metoprolol succinate 100 mg 100 mg PO DAILY 05/20/22 07/03/22 tablet,extended release 24 hr (Toprol XL) nitroglycerin 0.4 mg sublingual 0.4 mg sublingual Q5M PRN 05/20/22 07/03/22 tablet Previous Rx's Medication Instructions Recorded blood-glucose meter #1 ea 04/24/19 flash glucose scanning reader #1 ea 03/28/21 (FreeStyle Prieto 2 [place]) flash glucose sensor (FreeStyle #6 ea 03/28/21 Prieto 2 Sensor kit) multivitamin 1 tab PO DAILY #90 tabs 06/25/21 magnesium oxide 400 mg PO DAILY #90 tab-caps 12/11/21 clopidogrel 75 mg tablet (Plavix) 75 mg PO DAILY #90 tabs 12/20/21 escitalopram oxalate 10 mg tablet 10 mg PO DAILY #90 tabs 12/20/21 hydroxyzine HCl 25 mg tablet 25 mg PO QID PRN #90 tabs 12/20/21 blood sugar diagnostic (FreeStyle #200 ea 12/31/21 Lite Strips) lancets 28 gauge (FreeStyle #200 ea 12/31/21 Lancets) acidophilus 25 million 1 tab PO DAILY #90 tabs 01/21/22 cell-pectin, citrus 100 mg tablet insulin degludec 200 unit/mL (3 20 unit (0.1 mL) subcut DAILY #3 01/21/22 mL) subcutaneous pen (Tresiba SYRGS FlexTouch U-200 insulin) pen needle, diabetic 32 gauge x #100 ea 01/21/22 (BD Ultra-Fine Marivel Pen Needle) sitagliptin phos 50 mg-metformin 1 tab PO BID #180 tab-caps 01/21/22 ER 1,000 mg tablet,extend rel 24h mp (Janumet XR) empagliflozin 25 mg tablet 25 mg PO DAILY AM #90 tab-caps 05/20/22 (Jardiance) Allergies Allergy/AdvReac Type Severity Reaction Status Date / Time hydromorphone [From Dilaudid] AdvReac Intermediate Psychosis Verified 07/01/22 10:00 codeine [Codeine] AdvReac Unknown PSYCHOSIS Verified 07/01/22 10:00 General Stated Complaint: CVA/TIA DIANNE: 3 Review of Systems All systems reviewed & are unremarkable except as noted in HPI and below Constitutional Constitutional: Denies chills and Denies fever(s) Cardiovascular Cardiovascular: Denies chest pain and Denies dyspnea Respiratory Respiratory: Denies cough and Denies dyspnea Gastrointestinal Gastrointestinal: Denies abdominal pain, Denies nausea and Denies vomiting Integumentary/Breasts Skin/Breast: Denies rash [facility] All Active Problems (Updated 07/03/22 @ 01:54 by Jacques Isbell MD) Transient left leg weakness (Acute) Type 2 diabetes mellitus, with long-term current use of insulin (Chronic) HFrEF (heart failure with reduced ejection fraction) (Acute) Ischemic cardiomyopathy (Chronic) Vertigo (Acute) 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 2 diabetes mellitus (Acute ~06/2020) Ventricular premature beats (Acute 08/28/14) Antiplatelet or antithrombotic long-term use (Acute) Vitamin D deficiency (Chronic 05/23/15) Tobacco use disorder (Chronic) Panic disorder without agoraphobia (Chronic 04/29/11) Obesity (BMI 30-39.9) (Chronic 08/28/14) Obstructive sleep apnea syndrome, mild (Chronic 11/03/16) Shanika Jimenez NP DOES NOT USE CPAP Hyperlipidemia, unspecified (Chronic 04/29/11) Intolerant to atorvastatin; able to tolerate once vit D deficiency addressed Erectile dysfunction (Chronic 11/29/15) Depression (Chronic 04/29/11) Bipolar disorder (Chronic) Dx psychiatry [facility] PT. DENIES THIS DX Benign prostatic hyperplasia with lower urinary tract symptoms (Chronic 01/28/17) Essential hypertension (Chronic 11/25/12) Anxiety (Chronic 04/29/11) ASCVD (arteriosclerotic cardiovascular disease) (Chronic) Anterior NV 12/2013 --> MAGDALENA in LAD EF 40% post-NV 09/2014 echo EF improved to almost normal at 54% Followed by edge beader Dr. Galaviz at [facility] Medical History Acute non-ST elevation myocardial infarction (NSTEMI) Alcohol use disorder (04/29/11) [facility] PT. STATES HE DOESN'T DRINK ANYMORE, HASN'T IN YEARS 09/21/19 COVID (~04/20/22) Sahu's tenosynovitis, right Heart palpitations Kidney stone (04/26/15) 100% calcium oxalate monohydrate Patellar fracture (01/26/17) (L) S/p surgical repair STEMI (ST elevation myocardial infarction) (~05/2022) Surgical History Open Reduction and Internal Fixation of Patellar Fracture (01/26/17) (L) Dr. eLmus S/P cardiac cath (01/01/22) [facility]; statwith stent Status post cardiac catheterization (~05/2022) [facility] [place]; mid-LAD & distal RCA Status post vasectomy (~01/19/06) Status post wrist surgery (~09/2021) Dr. Marvin; RIGHT for Sahu's Family History Father No problems noted. Maternal Grandmother Colon cancer CAD (coronary artery disease) Mother CAD (coronary artery disease) Diabetes Hypertension Social History Smoking/Tobacco Use Status: Current every day Tobacco Type: pipe Other: Smokes 5-6 ciggs worth of tobacco in pipe on a rough day and e-cigarettes Smoking risk assessment performed?: Yes Alcohol Intake: former Drug use: Never Substance use type: does not use Adopted: No Caregiver/Support person: No Foster care: No Household members: children and other Details: 2 - lives with son Housing: apartment Number of Children: 2 Communication Needs: None current occupation: works for a [employer] Pets and animals: No Current gender identity: male What type of physical activity do you participate in: none, regular exercise, weight lifting and additional Details: 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: 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 Seatbelt use: always Helmet use: No Drive 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 w/intox 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 Water heater temp set <120 deg: Yes Working smoke detector in home: Yes Fire extinguisher in home: Yes Carbon monox detector in home: Yes Do you feel safe at home: Yes Do you feel safe in your relationship?: Yes Exam Const General: no acute distress Orientation: alert HENNJ Head: normal to inspection Ears: external ears normal General nose exam: external nose normal Mouth: moist mucous membranes Eyes General: appearance normal, both eyes and all related structures Neck Neck: normal visual inspection Resp Effort & Inspection: normal respiratory effort and able to speak in complete sentences Auscultation: clear to auscultation bilaterally Cardio Jugular venous pressure: no JVD Rate: regular rate Heart Sounds: no murmurs GI Palpation: soft and nontender Skin General skin exam: no rashes or lesions noted Neuro General: patient alert, patient oriented x3 and CN's II-XI intact bilaterally Cranial Nerves: PERRL Cognition: normal cognition Speech: speech normal Sensory Exam: no sensory deficits noted Extrem General: normal to inspection Psych Mental Status: mental status grossly normal Course Vital Signs Vital signs: Vital Signs Pulse 66 07/03/22 00:36 Respiratory Rate 18 07/03/22 00:36 Pulse Oximetry 99 07/03/22 00:36 Pulse 66 07/03/22 00:36 Respiratory Rate 18 07/03/22 00:36 Respiratory Effort Normal 07/03/22 00:40 Pulse Oximetry 99 07/03/22 00:36 Oxygen Delivery Method Room Air 07/03/22 00:36 Oxygen Flow Rate 0 07/03/22 00:36
[2022-07-03 00:58] LABS: Source Nasal/Nares
[2022-07-03 00:59] LABS: Abs Immature Grans 0.04 10^3/uL (0.0-0.06); Absolute Basophil Count 0.08 10^3/uL (0.0-0.2); Absolute Eosinophil Count 0.38 10^3/uL (0.0-0.7); Absolute Lymphocyte Count 2.84 10^3/uL (1.2-3.4); Absolute Neutrophil Count 5.17 10^3/uL (1.2-6.7); Basophils % 0.9; Eosinophils % 4.2; HCT 46.2 % (40.0-50.0); HGB 15.3 g/dL (13.5-17.5); Immature Grans % 0.4; Lymphocytes % 31.2; MCH 30.1 pg (27.0-33.0); MCHC 33.1 % (32.0-36.0); MCV 91 fL (80-95); MPV 9.9 fL (8.0-11.0); Monocytes % 6.6; Neutrophils % 56.7; Platelet Count 261 10^3/uL (130-400); RBC 5.09 10^6/uL (4.36-5.78); RDW-SD 46.8 fL; WBC 9.11 10^3/uL (4.4-10.8)
[2022-07-03] MEDS: Omnipaque 350 MG/ML 100 ML BTL IJ (01:18)
[2022-07-03 01:19] LABS: ALT 18 U/L (16-63); AST 12 U/L (15-37); Alkaline Phosphatase 83 U/L (46-116); Anion Gap 6.6 mmol/L (3-11); BUN 10 mg/dL (7-18); Bilirubin, Total 0.8 mg/dL (0.2-1.0); CO2 28.4 mmol/L (21.0-32.0); Calcium 8.7 mg/dL (8.5-10.1); Chloride 106 mmol/L (98-107); Estimated GFR 92.26 (mL/min/1.73m2); Glucose 108 mg/dL (74-106); Sodium 141 mmol/L (136-145); Total Protein 7.2 g/dL (6.4-8.2); Troponin I < 50 ng/L (<or=60)
[2022-07-03] MEDS: Normal Saline - Diluent 50 ML VIAL IJ (01:19)
[2022-07-03 01:25] LABS: Magnesium 1.8 mg/dL (1.8-2.4); TSH (W/Ref FT4) 1.85 uIU/mL (0.36-3.74)
[2022-07-03 01:27] LABS: INR 0.9 (0.9-1.1); PTT Activated 23.9 sec (21.5-31.9); Prothrombin Time 9.3 sec (9.3-11.0)
[2022-07-03 01:30] LABS: COVID-19 PCR Negative (Negative)
--- NOTE | 2022-07-03 01:39 | DI.VRAD_ITS ---
PROCEDURE INFORMATION: Exam: CTA Head Without And With Contrast, Arteriography Exam date and time: 07/03/2022 1:04 AM Age: 47 years old Clinical indication: Stroke-like symptoms; Lt lower extremity weakness; Additional info: Left sided weakness. H/o stroke 2017 TECHNIQUE: Imaging protocol: Computed tomographic angiography of the head without and with contrast. Exam focused on the arteries. 3D rendering (Not supervised by radiologist): MIP and/or 3D reconstructed images were created by the technologist. Radiation optimization: All CT scans at this facility use at least one of these dose optimization techniques: automated exposure control; mA and/or kV adjustment per patient size (includes targeted exams where dose is matched to clinical indication); or iterative reconstruction. Contrast material: OMNI 350; Contrast volume: 100 ml; Contrast route: INTRAVENOUS (IV); Other technique: STROKE PROTOCOL was implemented. COMPARISON: CTA BRAIN AND NECK 07/11/2016 5:36 PM FINDINGS: ANTERIOR CIRCULATION: Right internal carotid artery: The right ICA petrous segment is unremarkable. Mild calcific atherosclerosis in the right ICA petrous segment without stenosis. Supraclinoid segment is unremarkable. The right ICA supraclinoid segment is unremarkable. Right middle cerebral artery: No occlusion or significant stenosis. No aneurysm. Previous occlusion in the distal M1 segment seen on 07/11/2016 appears recanalized. Right anterior cerebral artery: Unremarkable. No occlusion or significant stenosis. No aneurysm. The anterior communicating artery is unremarkable. Left internal carotid artery: The left ICA petrous segment is unremarkable. Left ICA cavernous segment demonstrates mild calcific plaque without stenosis. The left ICA supraclinoid segment is unremarkable. Left middle cerebral artery: Unremarkable. No occlusion or significant stenosis. No aneurysm. Left anterior cerebral artery: Unremarkable. No occlusion or significant stenosis. No aneurysm. POSTERIOR CIRCULATION: Right vertebral artery: Unremarkable. No occlusion or significant stenosis. No aneurysm. Left vertebral artery: Unremarkable. No occlusion or significant stenosis. No aneurysm. Basilar artery: Unremarkable. No occlusion or significant stenosis. No aneurysm. Right posterior cerebral artery: Unremarkable. No occlusion or significant stenosis. No aneurysm. Left posterior cerebral artery: Moderate-sized left posterior communicating artery is present. No occlusion or significant stenosis. No aneurysm. Transverse sinuses: Limited assessment of the distal transverse sinuses and sigmoid sinuses due to early contrast phase. The other dural venous sinuses enhance appropriately without evidence of thrombosis. HEAD: Brain: The IACs are grossly normal. No extra-axial fluid collections. No evidence of acute intracranial hemorrhage. Chronic encephalomalacia in the right MCA posterior 3rd and in the subinsular distribution consistent with chronic infarct in the MCA territory. No intracranial mass lesions. Slight 2 mm rightward midline shift related to right-sided chronic encephalomalacia. No herniation. No enhancing brain lesions or vascular malformations are identified. Cerebral ventricles: Chronic appearing compensatory expansion of the right lateral ventricle adjacent to the chronic encephalomalacia. Ventricles otherwise unremarkable. Pituitary gland and sella: The sella is grossly normal. Bones/joints: The calvarium and visualized facial bones are intact. Orbital cavities: Visualized orbital contents demonstrate no acute abnormality. Paranasal sinuses: Mucous retention cyst versus polyp formation in the maxillary sinuses suggesting mild chronic sinus inflammatory disease. No fluid levels. Visualized paranasal sinuses are otherwise clear. Mastoid air cells: Visualized mastoid air cells are clear. Soft tissues: The scalp and visualized soft tissues demonstrate no acute abnormality. IMPRESSION: 1. No evidence of large vessel occlusion. No evidence of arterial dissection or aneurysm/pseudoaneurysm. 2. No acute intracranial process. No intracranial hemorrhage or mass effect. 3. Chronic infarct in the right MCA territory posterior 3rd and subinsular distribution. 4. These findings initiated a critical results reporting process per stroke protocol. An addendum will be issued at the time of clinician notification. ASSESSMENT: ASPECTS ([place] Stroke Program Early CT Score) is 10. PROCEDURE INFORMATION: Exam: CTA Neck Without And With Contrast Exam date and time: 07/03/2022 1:04 AM Age: 47 years old Clinical indication: Stroke-like symptoms; Lt lower extremity weakness; Additional info: Left sided weakness. H/o stroke 2017 TECHNIQUE: Imaging protocol: Computed tomographic angiography of the neck without and with contrast. 3D rendering (Not supervised by radiologist): MIP and/or 3D reconstructed images were created by the technologist. Radiation optimization: All CT scans at this facility use at least one of these dose optimization techniques: automated exposure control; mA and/or kV adjustment per patient size (includes targeted exams where dose is matched to clinical indication); or iterative reconstruction. Contrast material: OMNI 350; Contrast volume: 100 ml; Contrast route: INTRAVENOUS (IV); COMPARISON: CTA BRAIN AND NECK 07/11/2016 5:36 PM FINDINGS: Right common carotid artery: Normal. No stenosis. No dissection or occlusion. Right internal carotid artery: Normal. No stenosis. No dissection or occlusion. Right external carotid artery: Normal. No stenosis. No dissection or occlusion. Left common carotid artery: Normal. No stenosis. No dissection or occlusion. Left internal carotid artery: Normal. No stenosis. No dissection or occlusion. Left external carotid artery: Normal. No stenosis. No dissection or occlusion. Right vertebral artery: Normal. No stenosis. No dissection or occlusion. Left vertebral artery: Normal. No stenosis. No dissection or occlusion. Brachiocephalic artery: The brachiocephalic artery is unremarkable. Right subclavian artery: The right subclavian artery is unremarkable. Left subclavian artery: The left subclavian artery is unremarkable. Aorta: The visualized aortic arch is unremarkable. Thyroid: The thyroid gland is unremarkable. Soft tissues: No significant soft tissue swelling or hematoma. Bones/joints: No acute osseous abnormalities are identified. Lungs: The visualized pulmonary apices are clear. IMPRESSION: No evidence of arterial stenosis, dissection, or aneurysm/pseudoaneurysm. REFERENCES: NASCET CRITERIA. The degree of stenosis in the cervical segment of the internal carotid artery is based on NASCET criteria. Normal is no stenosis. Mild is less than 50% stenosis. Moderate is 50-69% stenosis. Severe is 70% to 99% stenosis. Total occlusion is no detectable patent lumen. Dictated and Authenticated by: Ash Benito MD. Ordering:AMBER Hanna MD
--- NOTE | 2022-07-03 01:47 | DI.VRAD_ITS ---
Addendum created by Ash Benito MD on 07/03/2022 1:46:40 AM EDT: Addendum: THIS REPORT CONTAINS FINDINGS THAT MAY BE CRITICAL TO PATIENT CARE. The findings were verbally communicated via telephone conference with Jacques Isbell at 1:40 a.m. EDT on 07/03/2022. The findings were acknowledged and understood. Initial report created on 07/03/2022 1:39:01 AM EDT: PROCEDURE INFORMATION: Exam: CTA Head Without And With Contrast, Arteriography Exam date and time: 07/03/2022 1:04 AM Age: 47 years old Clinical indication: Stroke-like symptoms; Lt lower extremity weakness; Additional info: Left sided weakness. H/o stroke 2017 TECHNIQUE: Imaging protocol: Computed tomographic angiography of the head without and with contrast. Exam focused on the arteries. 3D rendering (Not supervised by radiologist): MIP and/or 3D reconstructed images were created by the technologist. Radiation optimization: All CT scans at this facility use at least one of these dose optimization techniques: automated exposure control; mA and/or kV adjustment per patient size (includes targeted exams where dose is matched to clinical indication); or iterative reconstruction. Contrast material: OMNI 350; Contrast volume: 100 ml; Contrast route: INTRAVENOUS (IV); Other technique: STROKE PROTOCOL was implemented. COMPARISON: CTA BRAIN AND NECK 07/11/2016 5:36 PM FINDINGS: ANTERIOR CIRCULATION: Right internal carotid artery: The right ICA petrous segment is unremarkable. Mild calcific atherosclerosis in the right ICA petrous segment without stenosis. Supraclinoid segment is unremarkable. The right ICA supraclinoid segment is unremarkable. Right middle cerebral artery: No occlusion or significant stenosis. No aneurysm. Previous occlusion in the distal M1 segment seen on 07/11/2016 appears recanalized. Right anterior cerebral artery: Unremarkable. No occlusion or significant stenosis. No aneurysm. The anterior communicating artery is unremarkable. Left internal carotid artery: The left ICA petrous segment is unremarkable. Left ICA cavernous segment demonstrates mild calcific plaque without stenosis. The left ICA supraclinoid segment is unremarkable. Left middle cerebral artery: Unremarkable. No occlusion or significant stenosis. No aneurysm. Left anterior cerebral artery: Unremarkable. No occlusion or significant stenosis. No aneurysm. POSTERIOR CIRCULATION: Right vertebral artery: Unremarkable. No occlusion or significant stenosis. No aneurysm. Left vertebral artery: Unremarkable. No occlusion or significant stenosis. No aneurysm. Basilar artery: Unremarkable. No occlusion or significant stenosis. No aneurysm. Right posterior cerebral artery: Unremarkable. No occlusion or significant stenosis. No aneurysm. Left posterior cerebral artery: Moderate-sized left posterior communicating artery is present. No occlusion or significant stenosis. No aneurysm. Transverse sinuses: Limited assessment of the distal transverse sinuses and sigmoid sinuses due to early contrast phase. The other dural venous sinuses enhance appropriately without evidence of thrombosis. HEAD: Brain: The IACs are grossly normal. No extra-axial fluid collections. No evidence of acute intracranial hemorrhage. Chronic encephalomalacia in the right MCA posterior 3rd and in the subinsular distribution consistent with chronic infarct in the MCA territory. No intracranial mass lesions. Slight 2 mm rightward midline shift related to right-sided chronic encephalomalacia. No herniation. No enhancing brain lesions or vascular malformations are identified. Cerebral ventricles: Chronic appearing compensatory expansion of the right lateral ventricle adjacent to the chronic encephalomalacia. Ventricles otherwise unremarkable. Pituitary gland and sella: The sella is grossly normal. Bones/joints: The calvarium and visualized facial bones are intact. Orbital cavities: Visualized orbital contents demonstrate no acute abnormality. Paranasal sinuses: Mucous retention cyst versus polyp formation in the maxillary sinuses suggesting mild chronic sinus inflammatory disease. No fluid levels. Visualized paranasal sinuses are otherwise clear. Mastoid air cells: Visualized mastoid air cells are clear. Soft tissues: The scalp and visualized soft tissues demonstrate no acute abnormality. IMPRESSION: 1. No evidence of large vessel occlusion. No evidence of arterial dissection or aneurysm/pseudoaneurysm. 2. No acute intracranial process. No intracranial hemorrhage or mass effect. 3. Chronic infarct in the right MCA territory posterior 3rd and subinsular distribution. 4. These findings initiated a critical results reporting process per stroke protocol. An addendum will be issued at the time of clinician notification. ASSESSMENT: ASPECTS ([place] Stroke Program Early CT Score) is 10. PROCEDURE INFORMATION: Exam: CTA Neck Without And With Contrast Exam date and time: 07/03/2022 1:04 AM Age: 47 years old Clinical indication: Stroke-like symptoms; Lt lower extremity weakness; Additional info: Left sided weakness. H/o stroke 2017 TECHNIQUE: Imaging protocol: Computed tomographic angiography of the neck without and with contrast. 3D rendering (Not supervised by radiologist): MIP and/or 3D reconstructed images were created by the technologist. Radiation optimization: All CT scans at this facility use at least one of these dose optimization techniques: automated exposure control; mA and/or kV adjustment per patient size (includes targeted exams where dose is matched to clinical indication); or iterative reconstruction. Contrast material: OMNI 350; Contrast volume: 100 ml; Contrast route: INTRAVENOUS (IV); COMPARISON: CTA BRAIN AND NECK 07/11/2016 5:36 PM FINDINGS: Right common carotid artery: Normal. No stenosis. No dissection or occlusion. Right internal carotid artery: Normal. No stenosis. No dissection or occlusion. Right external carotid artery: Normal. No stenosis. No dissection or occlusion. Left common carotid artery: Normal. No stenosis. No dissection or occlusion. Left internal carotid artery: Normal. No stenosis. No dissection or occlusion. Left external carotid artery: Normal. No stenosis. No dissection or occlusion. Right vertebral artery: Normal. No stenosis. No dissection or occlusion. Left vertebral artery: Normal. No stenosis. No dissection or occlusion. Brachiocephalic artery: The brachiocephalic artery is unremarkable. Right subclavian artery: The right subclavian artery is unremarkable. Left subclavian artery: The left subclavian artery is unremarkable. Aorta: The visualized aortic arch is unremarkable. Thyroid: The thyroid gland is unremarkable. Soft tissues: No significant soft tissue swelling or hematoma. Bones/joints: No acute osseous abnormalities are identified. Lungs: The visualized pulmonary apices are clear. IMPRESSION: No evidence of arterial stenosis, dissection, or aneurysm/pseudoaneurysm. REFERENCES: NASCET CRITERIA. The degree of stenosis in the cervical segment of the internal carotid artery is based on NASCET criteria. Normal is no stenosis. Mild is less than 50% stenosis. Moderate is 50-69% stenosis. Severe is 70% to 99% stenosis. Total occlusion is no detectable patent lumen. Dictated and Authenticated by: Ash Benito MD. Ordering:AMBER Hanna MD
== END 2022-07-03 02:15 | disposition home or self-care (01) ==
LOC: ER 02:18
PROVIDERS: Emergency Provider Emergency Medicine; PCP Nurse Practitioner Family
DX: R53.1 Weakness (principal); I11.0 Hypertensive heart disease with heart failure; E11.9 Type 2 diabetes mellitus without complications; I50.20 Unspecified systolic (congestive) heart failure; I25.2 Old myocardial infarction; Z20.822 Contact with and (suspected) exposure to COVID-19
CPT/HCPCS: 70496; 70498; 80053; 87635; 93005; 99285; 83735; 84443; 84484; 85025; 85610; 85730; 93010; 99284; J3490

== ENCOUNTER 2022-07-10 08:57 | Outpatient (RCR) | payer MEDICARE, MEDICAID, SELFPAY | END 2022-07-10 23:59 | disposition home or self-care (01) | LOC: CR 08:57 | PROVIDERS: PCP Nurse Practitioner Family; Visit Provider Internal Medicine Cardiovascular Disease | DX: I25.10 Atherosclerotic heart disease of native coronary artery without angina pectoris (principal); I25.2 Old myocardial infarction | CPT/HCPCS: S9472 ==

== ENCOUNTER 2023-01-07 15:51 | Outpatient (CLI) | payer MEDICARE, MEDICAID, SELFPAY ==
--- NOTE | 2023-01-07 15:45 | RT.EKG_ITS ---
APPROVED REPORT Exam: Resting ECG Reason for Exam: assess rhythm Patient Location: O HR:63 bpm ECG Measurements Heart Rate 63 AXIS DE 144 P 61 QRSd 120 QRS -21 QT 397 T 94 QTc 407 Conclusion Sinus rhythm. Low voltage Otherwise normal
== END 2023-01-07 15:52 | disposition home or self-care (01) ==
LOC: DI.KIM 15:52
PROVIDERS: PCP Nurse Practitioner Family; Visit Provider Nurse Practitioner Adult Health
DX: I25.10 Atherosclerotic heart disease of native coronary artery without angina pectoris (principal); R07.89 Other chest pain; R10.13 Epigastric pain
CPT/HCPCS: 93010

== ENCOUNTER 2023-01-08 04:05 | Outpatient (CLI) | payer MEDICARE, MEDICAID, SELFPAY ==
[2023-01-08 14:42] LABS: HCT 44.3 % (40.0-50.0); HGB 15.5 g/dL (13.5-17.5); MCH 31.1 pg (27.0-33.0); MCV 89 fL (80-95); MPV 10.1 fL (8.0-11.0); Platelet Count 199 10^3/uL (130-400); RBC 4.98 10^6/uL (4.36-5.78); RDW 12.6 % (11.8-14.1); RDW-SD 41.1 fL
[2023-01-08 15:16] LABS: ALT 23 U/L (16-63); AST 21 U/L (15-37); Albumin 3.8 g/dL (3.4-5.0); Alkaline Phosphatase 92 U/L (46-116); Anion Gap 9.3 mmol/L (3-11); BUN 9 mg/dL (7-18); Bilirubin, Total 1.5 mg/dL (0.2-1.0); CO2 24.7 mmol/L (21.0-32.0); Calcium 8.6 mg/dL (8.5-10.1); Chloride 100 mmol/L (98-107); Estimated GFR 92.26 (mL/min/1.73m2); Glucose 161 mg/dL (74-106); Lipase 35 U/L (16-77); Potassium 3.2 mmol/L (3.5-5.1); Sodium 134 mmol/L (136-145)
== END 2023-01-08 04:06 | disposition home or self-care (01) ==
LOC: LBO 04:07
PROVIDERS: Nurse Practitioner Adult Health; Absent Provider Nurse Practitioner Family; PCP Nurse Practitioner Family; Visit Provider Nurse Practitioner Family
DX: I25.10 Atherosclerotic heart disease of native coronary artery without angina pectoris (principal); R10.13 Epigastric pain; Z87.19 Personal history of other diseases of the digestive system
CPT/HCPCS: 36415; 80053; 83690; 85027

== ENCOUNTER → 2023-01-11 02:32 | Outpatient (CLI) | payer MEDICARE, MEDICAID, SELFPAY ==
--- NOTE | 2023-01-11 07:30 | DI.US_ITS ---
Exam(s) US ABDOMEN EXAM: US ABDOMEN CLINICAL HISTORY: new gallstones, ?cholecystitis,epigastric pain, h/o gallstones,r10.13 TECHNIQUE: Ultrasound of complete upper abdomen performed using standard protocol. COMPARISON: US POCUS EXAM from 05/17/2022 FINDINGS: There is no ascites evident. LIVER: There are no hepatic lesions evident nor obvious dilatation of intrahepatic ducts. GALLBLADDER/BILIARY: There are shadowing gallstones noted. Gallbladder wall is not edematous and the re is no pericholecystic fluid. The common hepatic duct isnot dilated, measuring 5mm at the level of sandip hepatis. PANCREAS: There is no evidence of pancreatic mass nor dilatation of the pancreatic duct. SPLEEN: The spleen is not enlarged and there are no intrasplenic lesions evident. KIDNEYS:Kidneys exhibit normal size with no evidence of solid mass, calculus, nor hydronephrosis. No cortical cysts evident. ABDOMINAL AORTA: There is no evidence of abdominal aortic aneurysm. IVC: Normal diameter where visualized. IMPRESSION: 1. Multiple gallstones ranging up to 1.6 cm size. No obvious gallbladder wall edema. Common hepati c duct is not dilated. 2. No other significant ultrasound findings in the upper abdomen. 3. There is no ascites. DATA REPOSITORY:
== END ==
PROVIDERS: PCP Nurse Practitioner Family; Visit Provider Nurse Practitioner Adult Health
DX: K80.80 Other cholelithiasis without obstruction (principal); Z87.19 Personal history of other diseases of the digestive system
CPT/HCPCS: 76700

== ENCOUNTER 2023-01-26 12:18 | Emergency (ER) | payer MEDICARE, MEDICAID, SELFPAY ==
[2023-01-26 12:22] VITALS: BP 172/100; PULSE 70; RESP 12; TEMP 36.6; O2SAT 100
--- NOTE | 2023-01-26 12:45 | DI.US_ITS ---
Exam(s) US ABDOMEN LIMITED EXAM: US ABDOMEN LIMITED CLINICAL HISTORY: RUQ pain TECHNIQUE: Ultrasound abdomen performed using standard protocol. COMPARISON: US US ABDOMEN from 01/11/2023 FINDINGS: There is no ascites evident. LIVER: There are no hepatic lesions evident nor dilatation of intrahepatic ducts. GALLBLADDER/BILIARY: Multiple gallstones noted measuring up to 2 cm. Gallbladder wall does not appea r edematous and the patient was apparently not tender over the gallbladder during scanning today. The common hepatic duct isnot dilated, measuring 3-4mm at the level of sandip hepatis. PANCREAS: There is no evidence of pancreatic mass nor dilatation of the pancreatic duct. RIGHT KIDNEY:No evidence of solid mass, calculus, nor hydronephrosis. No cortical cysts evident. IMPRESSION: 1. Cholelithiasis. Multiple intraluminal calculi seen in the gallbladder measuring up to 2 cm size. No gallbladder wall edema and the patient was apparently not tender over the gallbladder during sca nning today. The common hepatic duct is not dilated. 2. No other significant ultrasound findings in the right upper quadrant. 3. There is no ascites. DATA REPOSITORY:
--- NOTE | 2023-01-26 12:58 | W.ED.GENAD ---
Discharge Plan Disposition Patient Disposition: Home Condition: Improving Discharge Details Chief Complaint: Abd Prob Clinical Impression: Biliary colic Primary Care Provider: Linda Hallman ED Provider: Jorge Lopes Home Meds and New Rx's Prescriptions: No Action (DME) FreeStyle Prieto 2 [place] Misc See Rx Instructions .ROUTE .MEDSUPPLY Qty: 1 0RF Rx Instructions: As directed (DME) FreeStyle Prieto 2 Sensor Kit See Rx Instructions .ROUTE .MEDSUPPLY Qty: 6 3RF Rx Instructions: As directed acidophilus-pectin, citrus 25 million cell -100 mg tablet 1 tab PO DAILY Qty: 90 3RF (DME) pen needle, diabetic [BD Ultra-Fine Marivel Pen Needle] 32 gauge x 5/32 needle See Rx Instructions .ROUTE .MEDSUPPLY Qty: 100 3RF Rx Instructions: E11.9 to administer insulin daily for A1C <7% insulin degludec [Tresiba FlexTouch U-200] 200 unit/mL (3 mL) insulin pen 20 unit SUBCUT DAILY Qty: 3 3RF aspirin 81 mg tablet,delayed release (DR/EC) 81 mg PO DAILY metoprolol succinate [Toprol XL] 100 mg tablet extended release 24 hr 100 mg PO DAILY nitroglycerin 0.4 mg tablet, sublingual 0.4 mg sublingual Q5M PRN Rx Instructions: do not exceed 3 doses per episode Jardiance 25 mg tablet 25 mg PO DAILY AM Qty: 90 3RF Rx Instructions: Administer once daily in the morning, with or without food Janumet XR 50-1,000 mg tablet, ER multiphase 24 hr 2 tab PO DAILY Qty: 180 3RF furosemide PO DAILY PRN (Reason: Fluid retention) Hold Instructions: Changed by Provider (DME) blood-glucose meter Misc See Dose Instructions .ROUTE .MEDSUPPLY Qty: 1 0RF Dose Instruction: As directed Rx Instructions: As directed to check blood glucose on insulin multivitamin Tablet 1 tab PO DAILY Qty: 90 3RF (DME) FreeStyle Lite Strips Strip See Rx Instructions .Route Qty: 200 3RF Rx Instructions: As directed to check blood glucose twice daily. On insulin. Dispense covered brand. (DME) lancets [FreeStyle Lancets] 28 gauge misc See Rx Instructions .Route Qty: 200 3RF Rx Instructions: As directed to check blood glucose twice daily. On insulin. Dispense covered brand. cholecalciferol (vitamin D3) 25 mcg (1,000 unit) capsule 75 mcg PO DAILY pantoprazole 40 mg tablet,delayed release (DR/EC) 40 mg PO DAILY Qty: 90 1RF Rx Instructions: Take 40 mg daily once daily in the morning at least 30 minutes before first meal of the day losartan 50 mg tablet See Rx Instructions .ROUTE .COMPLEX Qty: 90 0RF Dose Instruction: TAKE ONE TABLET BY MOUTH EVERY DAY Rx Instructions: TAKE ONE TABLET BY MOUTH EVERY DAY atorvastatin 80 mg tablet 80 mg PO DAILY Qty: 90 3RF Rx Instructions: increased from 40 to 80 mg daily by [facility] 01/01/22 [facility] acetaminophen [Tylenol Extra Strength] 500 MG tablet 1,000 mg PO PRN PRN chlorhexidine gluconate [Antiseptic Skin Clnsr(chlorhe)] 4 % liquid 1 applic TP DAILY PRN (Reason: Acne) Rx Instructions: Rinse skin with water, then apply minimum amount needed to cover skin. Wash gently then rinse clopidogrel [Plavix] 75 mg tablet 75 mg PO DAILY Qty: 90 6RF escitalopram oxalate 10 mg tablet 10 mg PO DAILY Qty: 90 6RF hydroxyzine HCl 25 mg tablet 25 mg PO QID PRNQty: 90 6RF Discharge Instructions Instructions: Biliary Colic (ED) Additional Instructions: Please follow-up closely with general surgery team. Return to the emergency department for any worsening symptoms Medical Decision Making 47-year-old male with known gallstones, presents with right upper quadrant abdominal pain associate with nausea after eating worsening over the past couple of days, afebrile nontoxic nonperitoneal. Likely biliary colic versus early cholecystitis lower suspicion for pancreatitis ACS PE pneumonia pneumothorax or aortic pathology. Screening labs, ultrasound right upper quadrant, fluids antiemetics anti-inflammatory. 14: 41 patient resting comfortably no acute distress. Feeling much better. Gallstones seen on ultrasound, no evidence of gallbladder wall thickening edema pericholecystic fluid. Patient's clinical and radiographic picture consistent with biliary colic. Will provide referral to general surgery for follow-up. Home care instructions and return precautions given HPI General Date/Time Provider Initiated Documentation: 01/26/23 12:20. HPI Narrative: 47-year-old male history of known gallstones presents with recurrent right upper quadrant discomfort after eating associate with nausea no vomiting. Endorses normal stool, no fevers, no chest pain or shortness of breath. Related Data Home Medications Medication Instructions Recorded Confirmed acetaminophen 500 mg tablet 1,000 mg PO PRN PRN 01/25/17 01/26/23 (Tylenol Extra Strength) blood-glucose meter #1 ea 04/24/19 01/07/23 flash glucose scanning reader #1 ea 03/28/21 01/07/23 (FreeStyle Prieto 2 [place]) flash glucose sensor (FreeStyle #6 ea 03/28/21 01/07/23 Prieto 2 Sensor kit) multivitamin 1 tab PO DAILY #90 tabs 06/25/21 01/26/23 clopidogrel 75 mg tablet (Plavix) 75 mg PO DAILY #90 tabs 12/20/21 01/26/23 escitalopram oxalate 10 mg tablet 10 mg PO DAILY #90 tabs 12/20/21 01/26/23 hydroxyzine HCl 25 mg tablet 25 mg PO QID PRN #90 tabs 12/20/21 01/26/23 blood sugar diagnostic (FreeStyle #200 ea 12/31/21 01/07/23 Lite Strips) lancets 28 gauge (FreeStyle #200 ea 12/31/21 01/07/23 Lancets) acidophilus 25 million 1 tab PO DAILY #90 tabs 01/21/22 01/26/23 cell-pectin, citrus 100 mg tablet insulin degludec 200 unit/mL (3 20 unit (0.1 mL) subcut DAILY #3 01/21/22 01/26/23 mL) subcutaneous pen (RegeneratesiDry LubeGS FlexTouch U-200 insulin) pen needle, diabetic 32 gauge x #100 ea 01/21/22 01/07/23 (BD Ultra-Fine Marivel Pen Needle) cholecalciferol (vitamin D3) 25 75 mcg PO DAILY 05/15/22 01/26/23 mcg (1,000 unit) capsule chlorhexidine gluconate 4 % 1 applic topical DAILY PRN Acne 05/17/22 01/26/23 topical liquid (Antiseptic Skin Cleanser (chlorhexidine)) aspirin 81 mg tablet,delayed 81 mg PO DAILY 05/20/22 01/26/23 release empagliflozin 25 mg tablet 25 mg PO DAILY AM #90 tab-caps 05/20/22 01/26/23 (Jardiance) metoprolol succinate 100 mg 100 mg PO DAILY 05/20/22 01/26/23 tablet,extended release 24 hr (Toprol XL) nitroglycerin 0.4 mg sublingual 0.4 mg sublingual Q5M PRN 05/20/22 01/26/23 tablet furosemide PO DAILY PRN Fluid retention 07/08/22 01/07/23 sitagliptin phos 50 mg-metformin 2 tab (2 x 50-1,000 mg) PO DAILY 08/19/22 01/26/23 ER 1,000 mg tablet,extend rel 24h #180 tab-caps mp (Janumet XR) pantoprazole 40 mg tablet,delayed 40 mg PO DAILY #90 tab-caps 09/10/22 01/26/23 release losartan 50 mg tablet See Rx Instructions .Route 01/14/23 01/26/23 .COMPLEX #90 tabs atorvastatin 80 mg tablet 80 mg PO DAILY #90 tabs 01/21/23 01/26/23 Previous Rx's Medication Instructions Recorded blood-glucose meter #1 ea 04/24/19 flash glucose scanning reader #1 ea 03/28/21 (FreeStyle Prieto 2 [place]) flash glucose sensor (FreeStyle #6 ea 03/28/21 Prieto 2 Sensor kit) multivitamin 1 tab PO DAILY #90 tabs 06/25/21 clopidogrel 75 mg tablet (Plavix) 75 mg PO DAILY #90 tabs 12/20/21 escitalopram oxalate 10 mg tablet 10 mg PO DAILY #90 tabs 12/20/21 hydroxyzine HCl 25 mg tablet 25 mg PO QID PRN #90 tabs 12/20/21 blood sugar diagnostic (FreeStyle #200 ea 12/31/21 Lite Strips) lancets 28 gauge (FreeStyle #200 ea 12/31/21 Lancets) acidophilus 25 million 1 tab PO DAILY #90 tabs 01/21/22 cell-pectin, citrus 100 mg tablet insulin degludec 200 unit/mL (3 20 unit (0.1 mL) subcut DAILY #3 01/21/22 mL) subcutaneous pen (Tresiba SYRGS FlexTouch U-200 insulin) pen needle, diabetic 32 gauge x #100 ea 01/21/22 (BD Ultra-Fine Marivel Pen Needle) empagliflozin 25 mg tablet 25 mg PO DAILY AM #90 tab-caps 05/20/22 (Jardiance) sitagliptin phos 50 mg-metformin 2 tab (2 x 50-1,000 mg) PO DAILY 08/19/22 ER 1,000 mg tablet,extend rel 24h #180 tab-caps mp (Janumet XR) pantoprazole 40 mg tablet,delayed 40 mg PO DAILY #90 tab-caps 09/10/22 release losartan 50 mg tablet See Rx Instructions .Route 01/14/23 .COMPLEX #90 tabs atorvastatin 80 mg tablet 80 mg PO DAILY #90 tabs 01/21/23 Allergies Allergy/AdvReac Type Severity Reaction Status Date / Time hydromorphone [From Dilaudid] AdvReac Intermediate Psychosis Verified 01/26/23 12:43 codeine [Codeine] AdvReac Unknown PSYCHOSIS Verified 01/26/23 12:43 General Stated Complaint: Abd Prob DIANNE: 3 Review of Systems Narrative: Review of Systems Constitutional: negative Eyes: negative ENT: negative Cardiovascular: negative Respiratory: negative Gastrointestinal: Abdominal pain : negative Musculoskeletal: negative Skin: negative Neurologic: negative Psych: negative PFSH All Active Problems (Updated 01/26/23 @ 14:44 by Jorge Lopes MD) Biliary colic (Acute) Total bilirubin, elevated (Acute) Gallstones (Acute) Unable to cry (Acute) Sleep walking (Acute) History of CVA (cerebrovascular accident) (Acute) Pain of both sacroiliac joints (Acute) Type 2 diabetes mellitus, with long-term current use of insulin (Chronic) HFrEF (heart failure with reduced ejection fraction) (Acute) Ischemic cardiomyopathy (Chronic) Vertigo (Acute) 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 2 diabetes mellitus (Acute ~06/2020) Ventricular premature beats (Acute 08/28/14) Antiplatelet or antithrombotic long-term use (Acute) Vitamin D deficiency (Chronic 05/23/15) Tobacco use disorder (Chronic) Panic disorder without agoraphobia (Chronic 04/29/11) Obesity (BMI 30-39.9) (Chronic 08/28/14) Obstructive sleep apnea syndrome, mild (Chronic 11/03/16) Shanika Jimenez NP DOES NOT USE CPAP Hyperlipidemia, unspecified (Chronic 04/29/11) Intolerant to atorvastatin; able to tolerate once vit D deficiency addressed Erectile dysfunction (Chronic 11/29/15) Depression (Chronic 04/29/11) Bipolar disorder (Chronic) Dx psychiatry [facility] PT. DENIES THIS DX Benign prostatic hyperplasia with lower urinary tract symptoms (Chronic 01/28/17) Essential hypertension (Chronic 11/25/12) Anxiety (Chronic 04/29/11) ASCVD (arteriosclerotic cardiovascular disease) (Chronic) Anterior NV 12/2013 --> [place] in LAD EF 40% post-NV 09/2014 echo EF improved to almost normal at 54% Followed by printer technician Dr. Galaviz at [facility] Medical History Acute non-ST elevation myocardial infarction (NSTEMI) Alcohol use disorder (04/29/11) [facility] PT. STATES HE DOESN'T DRINK ANYMORE, HASN'T IN YEARS 09/21/19 Cerebrovascular accident (CVA) (08/03/16) [facility] admission 07/11-07/20/2016 R valdez radiata, basal ganglia, subinsular region and temporal lob infarcts s/p tPA and thrombectomy (07/11/16) with recanalization COVID (~04/20/22) Sahu's tenosynovitis, right Heart palpitations Kidney stone (04/26/15) 100% calcium oxalate monohydrate Patellar fracture (01/26/17) (L) S/p surgical repair STEMI (ST elevation myocardial infarction) (~05/2022) Surgical History Open Reduction and Internal Fixation of Patellar Fracture (01/26/17) (L) Dr. Lemus S/P cardiac cath (01/01/22) [facility]; statwith stent Status post cardiac catheterization (~05/2022) [facility]; mid-LAD & distal RCA Status post vasectomy (~01/19/06) Status post wrist surgery (~09/2021) Dr. Marvin; RIGHT for Sahu's Family History Father No problems noted. Maternal Grandmother Colon cancer CAD (coronary artery disease) Mother CAD (coronary artery disease) Diabetes Hypertension Depression, psychotic Social History Smoking/Tobacco Use Status: Current every day Tobacco Type: pipe Other: Smokes 5-6 ciggs worth of tobacco in pipe on a rough day and e-cigarettes Smoking risk assessment performed?: Yes Alcohol Intake: former Drug use: Never Substance use type: does not use Adopted: No Caregiver/Support person: No Foster care: No Household members: children and other Details: 2 - lives with son Housing: house Number of Children: 2 Communication Needs: None current occupation: works for a [employer] Pets and animals: No Current gender identity: male What type of physical activity do you participate in: none, regular exercise, weight lifting and additional Details: 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: 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 Seatbelt use: always Helmet use: No Drive 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 w/intox 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 driver: No Water heater temp set <120 deg: Yes Working smoke detector in home: Yes Fire extinguisher in home: Yes Carbon monox detector in home: Yes Do you feel safe at home: Yes Do you feel safe in your relationship?: Yes Additional Social history: helps take care of grandmother at home Exam Narrative Exam Narrative: Physical Examination General: alert, awake, cooperative, resting comfortably, no acute distress HEENT: normocephalic, atraumatic; PERRL, EOM intact, conjunctiva normal; no nasal discharge; moist mucous membranes, oral and pharyngeal mucosa normal, tolerating secretions Neck: supple, trachea midline; full ROM Chest: normal to inspection Respiratory: normal respiratory effort, speaking in full sentences, clear to auscultation, no wheezing, rales or rhonchi Cardiac: regular rate, regular rhythm, S1S2 intact, no murmurs rubs or gallops GI: abdomen soft, non-tender, non-distended; no palpable mass or hepatosplenomegaly Skin: no lesions, rashes or trauma appreciated Neuro: AAOx3, normal speech, moving all extremities Psych: Appropriate mood and affect Course Vital Signs Vital signs: Vital Signs Temperature 36.6 C 01/26/23 12:22 Pulse 70 01/26/23 12:22 Respiratory Rate 12 01/26/23 12:22 Blood Pressure 172/100 H 01/26/23 12:22 Pulse Oximetry 100 01/26/23 12:22 Temperature 36.6 C 10/17/23 12:22 Temperature Source Tympanic 01/26/23 12:22 Pulse 70 01/26/23 12:22 Respiratory Rate 12 01/26/23 12:22 Respiratory Effort Normal 01/26/23 12:36 Blood Pressure 172/100 H 01/26/23 12:22 Blood Pressure Position Sitting 01/26/23 12:22 Pulse Oximetry 100 01/26/23 12:22 Oxygen Delivery Method Room Air 01/26/23 12:22 Oxygen Flow Rate 0 01/26/23 12:22 Pain Level 5 01/26/23 12:22
[2023-01-26 13:18] LABS: Abs Immature Grans 0.03 10^3/uL (0.0-0.06); Absolute Basophil Count 0.07 10^3/uL (0.0-0.2); Absolute Eosinophil Count 0.22 10^3/uL (0.0-0.7); Absolute Lymphocyte Count 2.33 10^3/uL (1.2-3.4); Absolute Monocyte Count 0.53 10^3/uL (0.1-0.8); Absolute Neutrophil Count 6.16 10^3/uL (1.2-6.7); Basophils % 0.7; Eosinophils % 2.4; HGB 15.3 g/dL (13.5-17.5); Immature Grans % 0.3; Lymphocytes % 24.9; MCH 30.7 pg (27.0-33.0); MCV 90 fL (80-95); MPV 9.9 fL (8.0-11.0); Monocytes % 5.7; Platelet Count 230 10^3/uL (130-400); RBC 4.98 10^6/uL (4.36-5.78); RDW 12.6 % (11.8-14.1); RDW-SD 41.4 fL; WBC 9.34 10^3/uL (4.4-10.8)
[2023-01-26 13:36] LABS: ALT 16 U/L (16-63); AST 12 U/L (15-37); Alkaline Phosphatase 84 U/L (46-116); Anion Gap 7.5 mmol/L (3-11); BUN 14 mg/dL (7-18); Bilirubin, Total 1.2 mg/dL (0.2-1.0); CO2 27.5 mmol/L (21.0-32.0); CREATININE 1.1 mg/dL (0.70-1.30); Chloride 104 mmol/L (98-107); Estimated GFR 82.29 (mL/min/1.73m2); Glucose 139 mg/dL (74-106); Lipase 39 U/L (16-77); Potassium 3.6 mmol/L (3.5-5.1); Sodium 139 mmol/L (136-145); Total Protein 7.3 g/dL (6.4-8.2)
[2023-01-26] MEDS: Ketorolac 15 MG/ML VIAL IVP (13:42)
[2023-01-26] MEDS: Ondansetron 4 MG/2 ML VIAL IVP (13:42)
--- NOTE | 2023-01-26 14:40 | NUR.NOTE ---
Faxed a referral to General Surgery for an evaluation on Billiary Cholic within a week.
[2023-01-26 14:51] VITALS: BP 143/97; PULSE 59; RESP 16; O2SAT 97
== END 2023-01-26 14:55 | disposition home or self-care (01) ==
PROVIDERS: Emergency Provider Emergency Medicine; PCP Nurse Practitioner Family
DX: K80.20 Calculus of gallbladder without cholecystitis without obstruction (principal); R11.0 Nausea; I11.0 Hypertensive heart disease with heart failure; I50.22 Chronic systolic (congestive) heart failure; E11.9 Type 2 diabetes mellitus without complications; I25.2 Old myocardial infarction; Z86.73 Personal history of transient ischemic attack (TIA), and cerebral infarction without residual deficits; Z95.5 Presence of coronary angioplasty implant and graft; Z79.02 Long term (current) use of antithrombotics/antiplatelets; Z79.4 Long term (current) use of insulin; Z79.82 Long term (current) use of aspirin; F17.290 Nicotine dependence, other tobacco product, uncomplicated
CPT/HCPCS: 36415; 80053; 83690; 96374; 96375; 99284; 76705; 85025; 99283; J1885; J2405

== ENCOUNTER → 2023-02-03 00:57 | Outpatient (CLI) | payer MEDICARE, MEDICAID, SELFPAY ==
--- NOTE | 2023-02-03 08:19 | DI.NM_ITS ---
Exam(s) NM HEPATOBILIARY SCAN GRP EXAM: NM HEPATOBILIARY SCAN GRP CLINICAL HISTORY: assess function of gallbladder,GALLSTONES,EPIGASTRIC PAIN,ELEVATED BILIRUBI. TECHNIQUE: Injected dose: 5 mCi Tc-99 mebrofenin Initial dynamic images: 60 minutes Post-Gallbladder fillinoz Ensure Additional images: 30 minute dynamic during CCK administration. COMPARISON: US US ABDOMEN LIMITED from 01/26/2023 FINDINGS: Normal hepatic transit time. Prompt excretion into the small bowel. Prompt excretion into the gallbladder. Gallbladder ejection fraction: 56%. IMPRESSION: Gallbladder ejection fraction within normal limits. SNM guidelines: Gallbladder visualization should be present by 3 hours. Delayed [id number] samayoa sit beyond 60 min raises the suspicion for partial common bile duct (CBD) obstruction. Gallbladder ejection fraction <35% has a good correlation with acalculous disease (i.e., chronic acal culous cholecystitis, cystic duct syndrome, sphincter of Oddi disease).
== END ==
PROVIDERS: PCP Nurse Practitioner Family; Visit Provider Nurse Practitioner Adult Health
DX: R17 Unspecified jaundice (principal); K80.20 Calculus of gallbladder without cholecystitis without obstruction; R10.13 Epigastric pain; M54.9 Dorsalgia, unspecified
CPT/HCPCS: 78227

== ENCOUNTER 2023-02-07 12:38 | Emergency (ER) | payer MEDICARE, MEDICAID, SELFPAY ==
[2023-02-07 12:41] VITALS: BP 188/126; PULSE 75; RESP 18; TEMP 36.6; O2SAT 99
--- NOTE | 2023-02-07 13:07 | ED.GENADUL_ITS ---
Discharge Plan Disposition Patient Disposition: Home Discharge Details Clinical Impression: Gallstones, Biliary colic Primary Care Provider: Lavonne Clarke ED Provider: Manan Tomlinson Meds and New Rx's Prescriptions: New tramadol 50 mg tablet 50 mg PO TID PRN (Reason: pain) Qty: 7 0RF ondansetron 4 mg tablet,disintegrating 4 mg PO Q6H PRN (Reason: nausea and vomiting) Qty: 10 0RF No Action (DME) FreeStyle Prieto 2 [facility] Misc See Rx Instructions .ROUTE .MEDSUPPLY Qty: 1 0RF Rx Instructions: As directed (DME) FreeStyle Prieto 2 Sensor Kit See Rx Instructions .ROUTE .MEDSUPPLY Qty: 6 3RF Rx Instructions: As directed acidophilus-pectin, citrus 25 million cell -100 mg tablet 1 tab PO DAILY Qty: 90 3RF (DME) pen needle, diabetic [BD Ultra-Fine Marivel Pen Needle] 32 gauge x 5/32 needle See Rx Instructions .ROUTE .MEDSUPPLY Qty: 100 3RF Rx Instructions: E11.9 to administer insulin daily for A1C <7% insulin degludec [Tresiba FlexTouch U-200] 200 unit/mL (3 mL) insulin pen 20 unit SUBCUT DAILY Qty: 3 3RF aspirin 81 mg tablet,delayed release (DR/EC) 81 mg PO DAILY metoprolol succinate [Toprol XL] 100 mg tablet extended release 24 hr 100 mg PO DAILY nitroglycerin 0.4 mg tablet, sublingual 0.4 mg sublingual Q5M PRN Rx Instructions: do not exceed 3 doses per episode Jardiance 25 mg tablet 25 mg PO DAILY AM Qty: 90 3RF Rx Instructions: Administer once daily in the morning, with or without food Janumet XR 50-1,000 mg tablet, ER multiphase 24 hr 2 tab PO DAILY Qty: 180 3RF furosemide PO DAILY PRN (Reason: Fluid retention) Hold Instructions: Changed by Provider Patient Comments: patient stated med on hold by his provider (DME) blood-glucose meter Misc See Dose Instructions .ROUTE .MEDSUPPLY Qty: 1 0RF Dose Instruction: As directed Rx Instructions: As directed to check blood glucose on insulin multivitamin Tablet 1 tab PO DAILY Qty: 90 3RF (DME) FreeStyle Lite Strips Strip See Rx Instructions .Route Qty: 200 3RF Rx Instructions: As directed to check blood glucose twice daily. On insulin. Dispense covered brand. (DME) lancets [FreeStyle Lancets] 28 gauge misc See Rx Instructions .Route Qty: 200 3RF Rx Instructions: As directed to check blood glucose twice daily. On insulin. Dispense covered brand. cholecalciferol (vitamin D3) 25 mcg (1,000 unit) capsule 75 mcg PO DAILY pantoprazole 40 mg tablet,delayed release (DR/EC) 40 mg PO DAILY Qty: 90 1RF Rx Instructions: Take 40 mg daily once daily in the morning at least 30 minutes before first meal of the day losartan 50 mg tablet See Rx Instructions .ROUTE .COMPLEX Qty: 90 0RF Dose Instruction: TAKE ONE TABLET BY MOUTH EVERY DAY Rx Instructions: TAKE ONE TABLET BY MOUTH EVERY DAY atorvastatin 80 mg tablet 80 mg PO DAILY Qty: 90 3RF Rx Instructions: increased from 40 to 80 mg daily by [facility] 01/01/22 [facility] acetaminophen [Tylenol Extra Strength] 500 MG tablet 1,000 mg PO PRN PRN chlorhexidine gluconate [Antiseptic Skin Clnsr(chlorhe)] 4 % liquid 1 applic TP DAILY PRN (Reason: Acne) Rx Instructions: Rinse skin with water, then apply minimum amount needed to cover skin. Wash gently then rinse clopidogrel [Plavix] 75 mg tablet 75 mg PO DAILY Qty: 90 6RF escitalopram oxalate 10 mg tablet 10 mg PO DAILY Qty: 90 6RF hydroxyzine HCl 25 mg tablet 25 mg PO QID PRNQty: 90 6RF Discharge Instructions Instructions: Biliary Colic (ED), Gallstones (ED) Additional Instructions: Please follow up with surgery tomorrow morning as scheduled. HPI General Date/Time Provider Initiated Documentation: 02/07/23 12:46 . HPI Narrative: 47 year old male with hx HTN, HLD, DM, CAD, CVA, presents to the ED with c/o worsening RUQ pain. He was seen in the ED for the same about 10 days ago, dx with biliary colic, US showing numerous GB stones, but no other signs of infection, and dc home with surgery f/u for tomorrow. Pt says that his pain had been only about once a day, and then increased to 3-4 times a day, and now says is constant. He gets nauseated and dry heaves a thick, slimey mucus, and says he cannot even tolerate water without getting sx's. Pain starts in RUQ and radiates up into his chest, neck and head. No cp/sob. No fever/chills. Related Data Home Medications Medication Instructions Recorded Confirmed acetaminophen 500 mg tablet 1,000 mg PO PRN PRN 01/25/17 02/07/23 (Tylenol Extra Strength) blood-glucose meter #1 ea 04/24/19 01/07/23 flash glucose scanning reader #1 ea 03/28/21 01/07/23 (FreeStyle Prieto 2 [facility]) flash glucose sensor (FreeStyle #6 ea 03/28/21 01/07/23 Prieto 2 Sensor kit) multivitamin 1 tab PO DAILY #90 tabs 06/25/21 02/07/23 clopidogrel 75 mg tablet (Plavix) 75 mg PO DAILY #90 tabs 12/20/21 02/07/23 escitalopram oxalate 10 mg tablet 10 mg PO DAILY #90 tabs 12/20/21 02/07/23 hydroxyzine HCl 25 mg tablet 25 mg PO QID PRN #90 tabs 12/20/21 02/07/23 blood sugar diagnostic (FreeStyle #200 ea 12/31/21 01/07/23 Lite Strips) lancets 28 gauge (FreeStyle #200 ea 12/31/21 01/07/23 Lancets) acidophilus 25 million 1 tab PO DAILY #90 tabs 01/21/22 02/07/23 cell-pectin, citrus 100 mg tablet insulin degludec 200 unit/mL (3 20 unit (0.1 mL) subcut DAILY #3 01/21/22 02/07/23 mL) subcutaneous pen (Tresiba SYRGS FlexTouch U-200 insulin) pen needle, diabetic 32 gauge x #100 ea 01/21/22 01/07/23 (BD Ultra-Fine Marivel Pen Needle) cholecalciferol (vitamin D3) 25 75 mcg PO DAILY 05/15/22 02/07/23 mcg (1,000 unit) capsule chlorhexidine gluconate 4 % 1 applic topical DAILY PRN Acne 05/17/22 02/07/23 topical liquid (Antiseptic Skin Cleanser (chlorhexidine)) aspirin 81 mg tablet,delayed 81 mg PO DAILY 05/20/22 02/07/23 release empagliflozin 25 mg tablet 25 mg PO DAILY AM #90 tab-caps 05/20/22 02/07/23 (Jardiance) metoprolol succinate 100 mg 100 mg PO DAILY 05/20/22 02/07/23 tablet,extended release 24 hr (Toprol XL) nitroglycerin 0.4 mg sublingual 0.4 mg sublingual Q5M PRN 05/20/22 02/07/23 tablet furosemide PO DAILY PRN Fluid retention 07/08/22 01/07/23 sitagliptin phos 50 mg-metformin 2 tab (2 x 50-1,000 mg) PO DAILY 08/19/22 02/07/23 ER 1,000 mg tablet,extend rel 24h #180 tab-caps mp (Janumet XR) pantoprazole 40 mg tablet,delayed 40 mg PO DAILY #90 tab-caps 09/10/22 02/07/23 release losartan 50 mg tablet See Rx Instructions .Route 01/14/23 02/07/23 .COMPLEX #90 tabs atorvastatin 80 mg tablet 80 mg PO DAILY #90 tabs 01/21/23 02/07/23 ondansetron 4 mg disintegrating 4 mg PO Q6H PRN nausea and 02/07/23 tablet vomiting #10 tabs tramadol 50 mg tablet 50 mg PO TID PRN pain #7 tabs 02/07/23 Previous Rx's Medication Instructions Recorded blood-glucose meter #1 ea 04/24/19 flash glucose scanning reader #1 ea 03/28/21 (FreeStyle Prieto 2 [facility]) flash glucose sensor (FreeStyle #6 ea 03/28/21 Prieto 2 Sensor kit) multivitamin 1 tab PO DAILY #90 tabs 06/25/21 clopidogrel 75 mg tablet (Plavix) 75 mg PO DAILY #90 tabs 12/20/21 escitalopram oxalate 10 mg tablet 10 mg PO DAILY #90 tabs 12/20/21 hydroxyzine HCl 25 mg tablet 25 mg PO QID PRN #90 tabs 12/20/21 blood sugar diagnostic (FreeStyle #200 ea 12/31/21 Lite Strips) lancets 28 gauge (FreeStyle #200 ea 12/31/21 Lancets) acidophilus 25 million 1 tab PO DAILY #90 tabs 01/21/22 cell-pectin, citrus 100 mg tablet insulin degludec 200 unit/mL (3 20 unit (0.1 mL) subcut DAILY #3 01/21/22 mL) subcutaneous pen (Tresiba SYRGS FlexTouch U-200 insulin) pen needle, diabetic 32 gauge x #100 ea 01/21/22 (BD Ultra-Fine Marivel Pen Needle) empagliflozin 25 mg tablet 25 mg PO DAILY AM #90 tab-caps 05/20/22 (Jardiance) sitagliptin phos 50 mg-metformin 2 tab (2 x 50-1,000 mg) PO DAILY 08/19/22 ER 1,000 mg tablet,extend rel 24h #180 tab-caps mp (Janumet XR) pantoprazole 40 mg tablet,delayed 40 mg PO DAILY #90 tab-caps 09/10/22 release losartan 50 mg tablet See Rx Instructions .Route 01/14/23 .COMPLEX #90 tabs atorvastatin 80 mg tablet 80 mg PO DAILY #90 tabs 01/21/23 ondansetron 4 mg disintegrating 4 mg PO Q6H PRN nausea and 02/07/23 tablet vomiting #10 tabs tramadol 50 mg tablet 50 mg PO TID PRN pain #7 tabs 02/07/23 Allergies Allergy/AdvReac Type Severity Reaction Status Date / Time hydromorphone [From Dilaudid] AdvReac Intermediate Psychosis Verified 02/07/23 12:44 codeine [Codeine] AdvReac Unknown PSYCHOSIS Verified 02/07/23 12:44 General Stated Complaint: Abd Prob DIANNE: 3 Review of Systems Narrative: CONST: no fever or chills HEENT: no sore throat SKIN: no rashes PULM: no sob, no cough CARD: no cp, no palpitations ABD: +abd pain, +nausea EXTR: no swelling NEURO: No focal weakness PFSH All Active Problems (Updated 02/07/23 @ 14:31 by Manan Tomlinson MD) Biliary colic (Acute) Total bilirubin, elevated (Acute) Gallstones (Acute) Unable to cry (Acute) Sleep walking (Acute) History of CVA (cerebrovascular accident) (Acute) Pain of both sacroiliac joints (Acute) Type 2 diabetes mellitus, with long-term current use of insulin (Chronic) HFrEF (heart failure with reduced ejection fraction) (Acute) Ischemic cardiomyopathy (Chronic) Vertigo (Acute) 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 2 diabetes mellitus (Acute ~06/2020) Ventricular premature beats (Acute 08/28/14) Antiplatelet or antithrombotic long-term use (Acute) Vitamin D deficiency (Chronic 05/23/15) Tobacco use disorder (Chronic) Panic disorder without agoraphobia (Chronic 04/29/11) Obesity (BMI 30-39.9) (Chronic 08/28/14) Obstructive sleep apnea syndrome, mild (Chronic 11/03/16) Shanika Jimenez NP DOES NOT USE CPAP Hyperlipidemia, unspecified (Chronic 04/29/11) Intolerant to atorvastatin; able to tolerate once vit D deficiency addressed Erectile dysfunction (Chronic 11/29/15) Depression (Chronic 04/29/11) Bipolar disorder (Chronic) Dx psychiatry [facility] PT. DENIES THIS DX Benign prostatic hyperplasia with lower urinary tract symptoms (Chronic 01/28/17) Essential hypertension (Chronic 11/25/12) Anxiety (Chronic 04/29/11) ASCVD (arteriosclerotic cardiovascular disease) (Chronic) Anterior TN 12/2013 --> [facility] in LAD EF 40% post-TN 09/2014 echo EF improved to almost normal at 54% Followed by cylindrical mixer Dr. Galaviz at [facility] Medical History Acute non-ST elevation myocardial infarction (NSTEMI) Alcohol use disorder (04/29/11) [facility] PT. STATES HE DOESN'T DRINK ANYMORE, HASN'T IN YEARS 09/21/19 Cerebrovascular accident (CVA) (08/03/16) [facility] [place] admission 07/11-07/20/2016 R valdez radiata, basal ganglia, subinsular region and temporal lob infarcts s/p tPA and thrombectomy (07/11/16) with recanalization COVID (~04/20/22) De Quervain's tenosynovitis, right Heart palpitations Kidney stone (04/26/15) 100% calcium oxalate monohydrate Patellar fracture (01/26/17) (L) S/p surgical repair STEMI (ST elevation myocardial infarction) (~05/2022) Surgical History Open Reduction and Internal Fixation of Patellar Fracture (01/26/17) (L) Dr. Lemus S/P cardiac cath (01/01/22) [facility]; statwith stent Status post cardiac catheterization (~05/2022) [facility] [place]; mid-LAD & distal RCA Status post vasectomy (~01/19/06) Status post wrist surgery (~09/2021) Dr. Marvin; RIGHT for Sahu's Family History Father No problems noted. Maternal Grandmother Colon cancer CAD (coronary artery disease) Mother CAD (coronary artery disease) Diabetes Hypertension Depression, psychotic Social History Smoking/Tobacco Use Status: Current every day Tobacco Type: pipe Other: Smokes 5-6 ciggs worth of tobacco in pipe on a rough day Smoking risk assessment performed?: Yes Alcohol Intake: former Drug use: Never Substance use type: does not use Adopted: No Caregiver/Support person: No Foster care: No Household members: children and other Details: 2 - lives with son Housing: house Number of Children: 2 Communication Needs: None current occupation: works for a [employer] ? 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: daily Seatbelt use: always Helmet use: No Drive 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 w/intox escort vehicle driver: No Water heater temp set <120 deg: Yes Working smoke detector in home: Yes Fire extinguisher in home: Yes Carbon monox detector in home: Yes Do you feel safe at home: Yes Do you feel safe in your relationship?: Yes Additional Social history: helps take care of grandmother at home Exam Narrative Exam Narrative: Const: well appearing, no acute distress HEENT: normocephalic, atraumatic; MMM Lungs: CTA, no wheezing or rales Heart: RRR Abd: soft, NT/ND Ext: well perfused Neuro: non-focal Skin: no rashes Course 47 yo male with significant PMHx, known gallstones and worsening RUQ pain/sx's w ith drinking even water. Bedside US done, showed numerous gallstones, large stone down into the neck GB, but no wall thickening or pericholecystic fluid noted. Will check labs, ekg given his hx, and IVF and meds. He says he cannot take any type of narcotics but has had non-narcotic med that works well, so will try toradol. Reevaluation(s) Initial Evaluation: 1428 - pt feeling better, resting comfortably. 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 Updated pt on his test results, and my conversation with surgery, plan for dc home. Will dc home and try rx for pain/nausea. Vital Signs Vital signs: Vital Signs Temperature 36.6 C 02/07/23 12:41 Pulse 75 02/07/23 12:41 Respiratory Rate 18 02/07/23 12:41 Blood Pressure 188/126 H 02/07/23 12:41 Pulse Oximetry 99 02/07/23 12:41 Temperature 36.6 C 02/07/23 12:41 Temperature Source Temporal Artery Scan 02/07/23 12:41 Pulse 75 02/07/23 12:41 Respiratory Rate 18 02/07/23 12:41 Respiratory Effort Normal, Non-Labored 02/07/23 12:46 Blood Pressure 188/126 H 02/07/23 12:41 Blood Pressure Position Sitting 02/07/23 12:41 Pulse Oximetry 99 02/07/23 12:41 Oxygen Delivery Method Room Air 02/07/23 12:41 Oxygen Flow Rate 0 02/07/23 12:41
--- NOTE | 2023-02-07 13:15 | RT.EKG_ITS ---
APPROVED REPORT Exam: Resting ECG Reason for Exam: abd pain Patient Location: E HR:62 bpm ECG Measurements Heart Rate 62 AXIS [place] 165 P 49 QRSd 94 QRS 5 QT 427 T 136 QTc 434 Conclusion Sinus rhythm...normal P axis, V-rate 60- 99
[2023-02-07] MEDS: Ketorolac 30 MG/ML VIAL IVP (13:20)
[2023-02-07 13:25] LABS: Lactate 1.4 mmol/L (0.6-1.4)
[2023-02-07 13:27] LABS: Abs Immature Grans 0.04 10^3/uL (0.0-0.06); Absolute Basophil Count 0.07 10^3/uL (0.0-0.2); Absolute Eosinophil Count 0.23 10^3/uL (0.0-0.7); Absolute Lymphocyte Count 3.06 10^3/uL (1.2-3.4); Absolute Monocyte Count 0.65 10^3/uL (0.1-0.8); Absolute Neutrophil Count 6.54 10^3/uL (1.2-6.7); Basophils % 0.7; Eosinophils % 2.2; HCT 49.9 % (40.0-50.0); HGB 16.9 g/dL (13.5-17.5); Immature Grans % 0.4; Lymphocytes % 28.9; MCH 30.6 pg (27.0-33.0); MCHC 33.9 % (32.0-36.0); MCV 90 fL (80-95); MPV 9.9 fL (8.0-11.0); Monocytes % 6.1; Neutrophils % 61.7; Platelet Count 252 10^3/uL (130-400); RBC 5.52 10^6/uL (4.36-5.78); RDW 12.6 % (11.8-14.1); RDW-SD 41.7 fL; WBC 10.59 10^3/uL (4.4-10.8)
[2023-02-07] MEDS: Normal Saline 1,000 ML 1000 ML IV (13:29)
[2023-02-07 13:42] LABS: ALT 24 U/L (16-63); AST 15 U/L (15-37); Albumin 4.7 g/dL (3.4-5.0); Alkaline Phosphatase 99 U/L (46-116); Anion Gap 8.8 mmol/L (3-11); BUN 10 mg/dL (7-18); Bilirubin, Total 1.5 mg/dL (0.2-1.0); CO2 28.2 mmol/L (21.0-32.0); Calcium 9.7 mg/dL (8.5-10.1); Chloride 103 mmol/L (98-107); Estimated GFR 92.26 (mL/min/1.73m2); Glucose 145 mg/dL (74-106); Lipase 50 U/L (16-77); Sodium 140 mmol/L (136-145); Total Protein 8.3 g/dL (6.4-8.2)
[2023-02-07 13:47] LABS: Troponin I 51 ng/L (<or=60)
[2023-02-07 14:33] VITALS: BP 153/107; PULSE 70; RESP 18; O2SAT 98; O2SAT 99
== END 2023-02-07 14:47 | disposition home or self-care (01) ==
PROVIDERS: Emergency Provider Emergency Medicine; PCP Nurse Practitioner Adult Health
DX: R10.11 Right upper quadrant pain (principal); K80.20 Calculus of gallbladder without cholecystitis without obstruction; I10 Essential (primary) hypertension; E11.9 Type 2 diabetes mellitus without complications; I25.10 Atherosclerotic heart disease of native coronary artery without angina pectoris; E78.5 Hyperlipidemia, unspecified; Z86.73 Personal history of transient ischemic attack (TIA), and cerebral infarction without residual deficits
CPT/HCPCS: 36415; 80053; 83690; 93005; 96361; 96374; 99284; 83605; 84484; 85025; 93010; 99285; J1885

== ENCOUNTER → 2023-02-08 07:36 | Outpatient (BNVA) | payer MEDICARE, MEDICAID, SELFPAY | PROVIDERS: PCP Nurse Practitioner Adult Health; Referring Provider Nurse Practitioner Family; Visit Provider Surgery | DX: K80.50 Calculus of bile duct without cholangitis or cholecystitis without obstruction (principal); E11.29 Type 2 diabetes mellitus with other diabetic kidney complication; Z79.4 Long term (current) use of insulin; I25.10 Atherosclerotic heart disease of native coronary artery without angina pectoris | CPT/HCPCS: 99215 ==

== ENCOUNTER 2023-02-17 08:18 | Day surgery (SDC) | payer MEDICARE, MEDICAID, SELFPAY ==
[2023-02-17] VITALS (9 sets, daily range): BP systolic 131–169; BP diastolic 89–124; PULSE 63–74; RESP 14–18; TEMP 36.2–36.7; O2SAT 96–99; BMI 36.1
--- NOTE | 2023-02-17 06:33 | ROE_ITS ---
Date of service: 02/17/23 Time of Service: 12:05 Operative Note Operative Note DATE OF PROCEDURE: 02/17/23 PRE-OP DIAGNOSIS: Biliary Cholic POST-OP DIAGNOSIS: same PROCEDURE: Laparoscopic Cholecystectomy SURGEON: Anabel Valiente SAP TECHNICAL DEVELOPER: Juliana Hale ANESTHESIA TYPE: General LMA/ETT Refer to Anesthesia Record ESTIMATED BLOOD LOSS: 25 PATHOLOGY: other (Gallbladder) COMPLICATIONS: None Patient was transported to: PACU Patient's condition: stable Indications: Shukri is a pleasant 47-year-old gentleman with signs and symptoms consistent with biliary colic. I spent 30 minutes with the patient discussing the surgery as well as its possible complications. I used a pamphlet to go over pictures with him regarding the pathophysiology as well as the surgery itself. We reviewed reasons that I would have to go from laparoscopic to open. After our discussion he seemed to have a good understanding of the procedure itself as well as the possible complications. We reviewed pain control. He is allergic to hydromorphone and codeine but tells me he does well with tramadol. He has not had any abdominal surgeries. Risks, benefits, complications were reviewed with the patient in the office. Complications include but are not limited to bleeding, infection, injury to stomach, small bowel and large bowel, injury to the pancreas, injury to the common bile duct necessitating drainage and referral to tertiary center for repair, bile leak, post-cholecystectomy syndrome, post-cholecystectomy diarrhea, adverse reactions to the medications, complications of intubation including a sore throat or injury to the uvula, AR, stroke and even . Questions were entertained and answered to her satisfaction and she wished to proceed. No guarantees were given or implied. 02/17/23 @ 10 am- Patient was seen in [facility]. We discussed the procedure and the possible complications. The patient felt comfortable signing his consent and didnt have any questions or concerns Findings: large amount of fat surrounding the Gallbladder wall. One larger stone and multiple smaller stones noted. No Gallbladder wall thickening or signs of inflammation Procedure Description: After informed consent was obtained the patient was brought to the operating room, placed in a supine position and monitors were applied. SCDs were applied to his lower extremities and he was placed under general anesthesia and intubated without difficulty. Her abdomen was then prepped and draped in a sterile fashion using ChloraPrep. At this point a timeout was done and the patient's name, date of , procedure type, allergies to medications, metal in her body, antibiotic and DVT prophylaxis, and fire risk was assessed. At this point 0.25% Bupivocaine was injected just above the umbilicus into the dermis and subcutaneous tissue. A 15 mm incision was made with an 11 blade. The subcutaneous tissue was dissected with a hemostat. The fascia was then grasped with 2 cockers. The fascia was sharply opened with the 11 blade. A 5 mm port was placed inot the abdomen without difficulty. The abdomen was insuflated and then 3 more ports were placed. A 12 mm port was placed in the subxiphoid area and two 5 mm ports were placed in the right upper quadrant. The liver was inspected and looked normal. The patient's bed was then turned to the left and her head was brought up. The gallbladder was grasped at the body and pushed towards the right shoulder. There was a lot of fat noted at the neck of the gallbladder. The fat was carefully dissected away using a savanna dissector with cautery. I started at the lower end of the gallbladder and worked my way down to the neck. Once the fatty tissue was removed the cystic duct, cystic artery and lymph node was identified. The neck was grasped and pulled towards the right flank. Using a [place] dissector with cautery the lymph node was gently dissected away from the tissues and the fatty tissue was also dissected away. The cystic duct was identified it was normal in size. The duct was dissected 360 degrees using the [place] dissector in order for me to visualize its entrance into the gallbladder. Liver was noted behind it. There were no other structures right behind. Critical view was achieved. 3 clips were placed one proximal and 2 distal and the cystic duct was cut. The cystic artery was then identified and dissected 360 degrees. It was located just medial to the c ystic duct. It was visualized going into the gallbladder. Once dissected 3 more clips were placed one proximal and 2 distal and the artery was cut. Using the hook dissector the gallbladder was then dissected away from the liver bed and placed into an Endo Catch bag and pulled through the 12 mm port site. I did have to enlarge the 12 mm port site to about 2 cm. The 12 mm port was placed back into the abdomen under direct visualization. The liver bed was inspected no bleeding was noted. The abdomen was then irrigated with a liter of normal saline until the effluent was clear. Once all the fluid was suctioned out, the 12 mm and the 2 right upper quadrant ports were removed under direct visualization and no bleeding was noted from the fascia. The abdomen was deflated completely and lastly the umbilical port was removed. The subxiphoid fascial defect was closed using a 0 vicryl. The skin was cleaned and the incisions were closed with 4-0 Vicryl. The skin was dried and skin affix was applied over the closed incisions. Needle, instrument and sponge counts were correct at the end of the case. At this point the patient was woken up, extubated and taken back to recovery in stable condition. There were no immediate complications.
--- NOTE | 2023-02-17 06:35 | W.PM.DSUDISC ---
Date of service: 02/17/23 Time of Service: 14:40 Discharge Plan Disposition Patient Disposition: Home Condition: Stable Discharge Details Reason For Visit: biliary cholic Attending Provider: Anabel Valiente Primary Care Provider: Lavonne Clarke Home Meds and New Rx's Prescriptions: New tramadol 50 mg tablet 50 mg PO Q6H PRNQty: 14 0RF Rx Instructions: Postoperative pain Continued (DME) FreeStyle Prieto 2 [place]e Misc See Rx Instructions .ROUTE .MEDSUPPLY Qty: 1 0RF Rx Instructions: As directed (DME) FreeStyle Prieto 2 Sensor Kit See Rx Instructions .ROUTE .MEDSUPPLY Qty: 6 3RF Rx Instructions: As directed acidophilus-pectin, citrus 25 million cell -100 mg tablet 1 tab PO DAILY Qty: 90 3RF (DME) pen needle, diabetic [BD Ultra-Fine Marivel Pen Needle] 32 gauge x 5/32 needle See Rx Instructions .ROUTE .MEDSUPPLY Qty: 100 3RF Rx Instructions: E11.9 to administer insulin daily for A1C <7% insulin degludec [Tresiba FlexTouch U-200] 200 unit/mL (3 mL) insulin pen 20 unit SUBCUT DAILY Qty: 3 3RF aspirin 81 mg tablet,delayed release (DR/EC) 81 mg PO DAILY metoprolol succinate [Toprol XL] 100 mg tablet extended release 24 hr 100 mg PO DAILY nitroglycerin 0.4 mg tablet, sublingual 0.4 mg sublingual Q5M PRN Rx Instructions: do not exceed 3 doses per episode Jardiance 25 mg tablet 25 mg PO DAILY AM Qty: 90 3RF Rx Instructions: Administer once daily in the morning, with or without food Janumet XR 50-1,000 mg tablet, ER multiphase 24 hr 2 tab PO DAILY Qty: 180 3RF furosemide PO DAILY PRN (Reason: Fluid retention) Hold Instructions: Changed by Provider Patient Comments: patient stated med on hold by his provider tramadol 50 mg tablet 50 mg PO TID PRN (Reason: pain) Qty: 14 0RF (DME) blood-glucose meter Misc See Dose Instructions .ROUTE .MEDSUPPLY Qty: 1 0RF Dose Instruction: As directed Rx Instructions: As directed to check blood glucose on insulin multivitamin Tablet 1 tab PO DAILY Qty: 90 3RF (DME) FreeStyle Lite Strips Strip See Rx Instructions .Route Qty: 200 3RF Rx Instructions: As directed to check blood glucose twice daily. On insulin. Dispense covered brand. (DME) lancets [FreeStyle Lancets] 28 gauge misc See Rx Instructions .Route Qty: 200 3RF Rx Instructions: As directed to check blood glucose twice daily. On insulin. Dispense covered brand. cholecalciferol (vitamin D3) 25 mcg (1,000 unit) capsule 75 mcg PO DAILY pantoprazole 40 mg tablet,delayed release (DR/EC) 40 mg PO DAILY Qty: 90 1RF Rx Instructions: Take 40 mg daily once daily in the morning at least 30 minutes before first meal of the day losartan 50 mg tablet See Rx Instructions .ROUTE .COMPLEX Qty: 90 0RF Dose Instruction: TAKE ONE TABLET BY MOUTH EVERY DAY Rx Instructions: TAKE ONE TABLET BY MOUTH EVERY DAY atorvastatin 80 mg tablet 80 mg PO DAILY Qty: 90 3RF Rx Instructions: increased from 40 to 80 mg daily by [facility] 01/01/22 [facility] acetaminophen [Tylenol Extra Strength] 500 MG tablet 1,000 mg PO PRN PRN chlorhexidine gluconate [Antiseptic Skin Clnsr(chlorhe)] 4 % liquid 1 applic TP DAILY PRN (Reason: Acne) Rx Instructions: Rinse skin with water, then apply minimum amount needed to cover skin. Wash gently then rinse clopidogrel [Plavix] 75 mg tablet 75 mg PO DAILY Qty: 90 6RF escitalopram oxalate 10 mg tablet 10 mg PO DAILY Qty: 90 6RF hydroxyzine HCl 25 mg tablet 25 mg PO QID PRNQty: 90 6RF ondansetron 4 mg tablet,disintegrating 4 mg PO Q6H PRN (Reason: nausea and vomiting) Qty: 10 0RF Discharge Instructions Instructions: Laparoscopic Cholecystectomy (DC) Additional Instructions: Activity at Home after surgery: 1. Make sure you walk outside at least 4 times per day 2. You should be able to climb a flight of stairs 3. No driving while in pain or taking pain medications 4. No strenuous activity or heavy lifting for 2 weeks (laparoscopic surgery) or 4 weeks (open surgery) Diet, Nutrition, & wound healin. Avoid alcohol until after you are recovered from your surgery 2. Make sure to eat plenty of lean protein (meat, fish, eggs, cottage cheese, beans) 3. Eat a variety of fruits and vegetables. Eat plenty of high fiber foods to avoid constipation. 4. Drink plenty of liquids to stay hydrated and avoid constipation Pain Medications: 1. Tylenol 650mg every 6 hours as needed and Ibuprofen 600 mg every 6 hours as needed. You may alternate between the 2 medications every 3 hours 2. If a narcotic has been prescribed take as directed only for breakthrough pain For Constipation: 1. Take Milk of Magnesia or MiraLax as needed for constipation Other: 1. You may shower daily. Do not scrub the incisions 2. Do not soak the incisions for 1 week 3. You may alternate ice and heat as needed for pain and swelling Wound Care: 1. Keep the incisions clean and dry Please call our office if you develop: 1. Fevers >101.5 2. Nausea or Vomiting 3. Worsening pain 4. Redness and thick discharge from the wounds If after hours please call the Hospital at and ask to speak to the on-call surgeon Stand Alone Forms: Anesthesia Discharge Inst., Maximilian Singh (DSU) Referrals: Anabel Valiente MD [ [facility] STAFF PHYSICIAN] - Activity:: as above Remove Dressings/Wound Care:: Do Not Remove Shower/Bathe:: 24 hours Diet:: low fat Discharge Orders Discharge Orders: Discharge Order (Routine); Ordered 02/17/23 Ordered By: Anabel Valiente DS: Diagnosis Discharge Diagnosis (1) Biliary colic: Status: Acute Asessment and Plan: The patient is doing well post-op from his laparoscopic cholecystectomy surgery.? He is having no nausea or vomiting. He is tolerating liquids and a snack. The pt is not having any chest pain or SOB.? Their pain is adequately controlled. ?HEENT:? no eye pain/drainage/redness/swelling. Mild sore throat ?Cardio- NSR, no chest pain, BP stable- see VS record ?Pulm: no sob or productive cough. No hemoptysis ?Incision- dressing is c/d/i w/ no excessive bleeding or drainage ?I discussed with the patient the findings at the time of surgery and the patient?s progress. ?We reviewed expectations at home; what the patient could expect for recovery time, and in the post-operative period.? We discussed the importance of walking to avoid blood clots and pneumonia.? We discussed and reviewed the patient's post-operative wound care and dressing needs.?? We reviewed their step-vogel pain management plan, Rx called to the pharmacy of their choice.? We reviewed activity and limitations-see discharge instructions. We reviewed warning signs, and when to seek medical attention- see d/c instructions.?? Patient was given a postoperative follow-up appointment. Patient verbalized understanding of their postoperative instructions, how do to take care of themselves and their incision, and the pain management plan. Please see discharge instructions.?
[2023-02-17] MEDS: Lactated Ringers 1,000 ML 80 ML IV (09:01)
--- NOTE | 2023-02-17 09:34 | ANES.PREOP_ITS ---
General Info Date of Service Date Performed: 02/17/23 Height: 6 ft 1 in Weight: 124.2 kg Body Mass Index (BMI): 36.1 Surgical Procedure: Operation Date: 02/17/23 09:55 Proposed Procedure Side Surgeon p Cholecystectomy Laparoscopic Anabel Valiente MD Meds Allergies and Home Medications Allergies Allergy/AdvReac Type Severity Reaction Status Date / Time hydromorphone [From Dilaudid] AdvReac Intermediate Psychosis Verified 02/16/23 11:03 codeine [Codeine] AdvReac Unknown PSYCHOSIS Verified 02/16/23 11:03 Home Medication Medication Instructions Recorded acetaminophen 500 mg tablet 1,000 mg PO PRN PRN 01/25/17 (Tylenol Extra Strength) blood-glucose meter #1 ea 04/24/19 flash glucose scanning reader #1 ea 03/28/21 (FreeStyle Prieto 2 [place]an) flash glucose sensor (FreeStyle #6 ea 03/28/21 Prieto 2 Sensor kit) multivitamin 1 tab PO DAILY #90 tabs 06/25/21 clopidogrel 75 mg tablet (Plavix) 75 mg PO DAILY #90 tabs 12/20/21 escitalopram oxalate 10 mg tablet 10 mg PO DAILY #90 tabs 12/20/21 hydroxyzine HCl 25 mg tablet 25 mg PO QID PRN #90 tabs 12/20/21 blood sugar diagnostic (FreeStyle #200 ea 12/31/21 Lite Strips) lancets 28 gauge (FreeStyle #200 ea 12/31/21 Lancets) acidophilus 25 million 1 tab PO DAILY #90 tabs 01/21/22 cell-pectin, citrus 100 mg tablet insulin degludec 200 unit/mL (3 20 unit (0.1 mL) subcut DAILY #3 01/21/22 mL) subcutaneous pen (Tresiba SYRGS FlexTouch U-200 insulin) pen needle, diabetic 32 gauge x #100 ea 01/21/22 (BD Ultra-Fine Marivel Pen Needle) cholecalciferol (vitamin D3) 25 75 mcg PO DAILY 05/15/22 mcg (1,000 unit) capsule chlorhexidine gluconate 4 % 1 applic topical DAILY PRN Acne 05/17/22 topical liquid (Antiseptic Skin Cleanser (chlorhexidine)) aspirin 81 mg tablet,delayed 81 mg PO DAILY 05/20/22 release empagliflozin 25 mg tablet 25 mg PO DAILY AM #90 tab-caps 05/20/22 (Jardiance) metoprolol succinate 100 mg 100 mg PO DAILY 05/20/22 tablet,extended release 24 hr (Toprol XL) nitroglycerin 0.4 mg sublingual 0.4 mg sublingual Q5M PRN 05/20/22 tablet furosemide PO DAILY PRN Fluid retention 07/08/22 sitagliptin phos 50 mg-metformin 2 tab (2 x 50-1,000 mg) PO DAILY 08/19/22 ER 1,000 mg tablet,extend rel 24h #180 tab-caps mp (Janumet XR) pantoprazole 40 mg tablet,delayed 40 mg PO DAILY #90 tab-caps 09/10/22 release losartan 50 mg tablet See Rx Instructions .Route 01/14/23 .COMPLEX #90 tabs atorvastatin 80 mg tablet 80 mg PO DAILY #90 tabs 01/21/23 ondansetron 4 mg disintegrating 4 mg PO Q6H PRN nausea and 02/07/23 tablet vomiting #10 tabs tramadol 50 mg tablet 50 mg PO TID PRN pain #14 tabs 02/12/23 Current Visit Medications: Current Medications Generic Name Dose Route Start Last Admin Trade Name Freq PRN Reason Stop Dose Admin Acetaminophen 1,000 mg 02/17/23 06:00 Acetaminophen 500 Mg Tab PO 02/17/23 16:00 PREOP KOURTNEY Celecoxib 200 mg 02/17/23 06:00 Celecoxib 200 Mg Cap PO 02/17/23 16:00 PREOP KOURTNEY Gabapentin 600 mg 02/17/23 06:00 Gabapentin 300 Mg Cap PO 02/17/23 16:00 PREOP KOURTNEY Ringer's Solution 1,000 mls @ 80 mls/hr 02/17/23 06:00 02/17/23 09:01 IV 03/18/23 23:59 80 mls/hr INFUSION KOURTNEY Administration Cefazolin Sodium 3,000 mg/ 100 mls @ 200 mls/hr 02/17/23 06:00 Sodium Chloride IVPB 02/17/23 16:00 PREOP KOURTNEY Ondansetron HCl 4 mg/ Sodium 52 mls @ 200 mls/hr 02/17/23 06:37 Chloride IVPB 03/19/23 06:36 Q6H PRN PRN IV Miscellaneous Supplies 1 each 02/17/23 06:00 Iv Access IV 03/18/23 23:59 DIRECTED KOURTNEY Sodium Chloride 0 ml 02/17/23 06:00 Normal Saline Flush 10 Ml Syr IV 03/18/23 23:59 PRN PRN Sodium Chloride 0 ml 02/17/23 06:00 Normal Saline 10 Ml Vial IJ 03/18/23 23:59 DIRECTED PRN Sterile Water 0 ml 02/17/23 06:00 Water,Injection,Sterile 10 Ml Vial IJ 03/18/23 23:59 DIRECTED PRN PFSH Active Problems Active Problems: Problem Status Onset Code Cholecystitis K81.9 Biliary colic K80.50 Total bilirubin, elevated R17 Gallstones K80.20 Unable to cry R68.89 Sleep walking F51.3 History of CVA (cerebrovascular accident) Z86.73 Pain of both sacroiliac joints M53.3 Type 2 diabetes mellitus, with long-term current use of insulin E11.9, Z79.4 HFrEF (heart failure with reduced ejection fraction) I50.20 Ischemic cardiomyopathy I25.5 Vertigo R42 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 2 diabetes mellitus ~06/2020 E11.29, R80.9 Ventricular premature beats 08/28/14 I49.3 Antiplatelet or antithrombotic long-term use Z79.02 Vitamin D deficiency 05/23/15 E55.9 Tobacco use disorder F17.200 Panic disorder without agoraphobia 04/29/11 F41.0 Obesity (BMI 30-39.9) 08/28/14 E66.9 Obstructive sleep apnea syndrome, mild 11/03/16 G47.33 Hyperlipidemia, unspecified 04/29/11 E78.5 Erectile dysfunction 11/29/15 N52.9 Depression 04/29/11 F32.9 Bipolar disorder F31.9 Benign prostatic hyperplasia with lower urinary tract symptoms 01/28/17 N40.1 Essential hypertension 11/25/12 I10 Anxiety 04/29/11 F41.9 ASCVD (arteriosclerotic cardiovascular disease) I25.10 Medical History Medical History STEMI (ST elevation myocardial infarction) (~05/2022) COVID (~04/20/22) Acute non-ST elevation myocardial infarction (NSTEMI) Heart palpitations De Quervain's tenosynovitis, right Kidney stone (04/26/15) 100% calcium oxalate monohydrate Cerebrovascular accident (CVA) (08/03/16) [facility] admission 07/11-07/20/2016 R valdez radiata, basal ganglia, subinsular region and temporal lob infarcts s/p tPA and thrombectomy (07/11/16) with recanalization Alcohol use disorder (04/29/11) BINGE pER PT. STATES HE DOESN'T DRINK ANYMORE, HASN'T IN YEARS 09/21/19 Patellar fracture (01/26/17) (L) S/p surgical repair Surgical History Surgical History Status post vasectomy (~01/19/06) Status post cardiac catheterization (~05/2022) [facility]; mid-LAD & distal RCA Status post wrist surgery (~09/2021) Dr. Marvin; RIGHT for Sahu's S/P cardiac cath (01/01/22) [facility]; statwith stent Open Reduction and Internal Fixation of Patellar Fracture (01/26/17) (L) Dr. Lemus Tobacco Smoking/Tobacco Use Status: Current every day Tobacco Type: pipe Other: Smokes 5-6 ciggs worth of tobacco in pipe on a rough day Alcohol Alcohol Intake: former Substance Use Substance use: Never Substance use type: does not use Vital Signs and Lab Results Vital Signs Most Recent Vital Signs in EMR: Most Recent Vital Signs Temp Pulse Resp BP Pulse Ox 36.2 C L 74 18 156/113 H 99 02/17/23 08:23 02/17/23 08:23 02/17/23 08:23 02/17/23 08:23 02/17/23 08:23 Lab Results Blood Type / Crossmatch: 2 No Data to Display Complete Blood Count: 2 White Blood Count 10.59 10^3/uL (4.4-10.8) 02/07/23 13:21 Red Blood Count 5.52 10^6/uL (4.36-5.78) 02/07/23 13:21 Hemoglobin 16.9 g/dL (13.5-17.5) 02/07/23 13:21 Hematocrit 49.9 % (40.0-50.0) 02/07/23 13:21 Platelet Count 252 10^3/uL (130-400) 02/07/23 13:21 Venous Blood Lactate 1.4 mmol/L (0.6-1.4) 02/07/23 13:21 Complete Metabolic Panel: 2 Sodium 140 mmol/L (136-145) 02/07/23 13:21 Potassium 4.0 mmol/L (3.5-5.1) 02/07/23 13:21 Chloride 103 mmol/L (98-107) 02/07/23 13:21 Carbon Dioxide 28.2 mmol/L (21.0-32.0) 02/07/23 13:21 BUN 10 mg/dL (7-18) 02/07/23 13:21 Creatinine 1.0 mg/dL (0.70-1.30) 02/07/23 13:21 Est GFR (CKD-EPI 2020) 92.26 (mL/min/1.73m2) 02/07/23 13:21 Calcium 9.7 mg/dL (8.5-10.1) 02/07/23 13:21 Albumin 4.7 g/dL (3.4-5.0) 02/07/23 13:21 Glucose 145 mg/dL (74-106) H 02/07/23 13:21 Liver Function Panel: 2 Alanine Aminotransferase (ALT/SGPT) 24 U/L (16-63) 02/07/23 13: 21 Aspartate Amino Transf (AST/SGOT) 15 U/L (15-37) 02/07/23 13:21 Coagulation Panel: 2 No Data to Display Cardiac Panel: 2 Troponin I 51 ng/L (<or=60) 02/07/23 Arterial Blood Gas: 2 No Data to Display Venous Blood Gas: 2 No Data to Display Pancreas Panel: 2 Lipase 50 U/L (16-77) 02/07/23 13:21 Thyroid Panel: 2 No Data to Display Infectious Disease: 2 No Data to Display Blood Cultures: 2 No Data to Display Toxicology Panel: 2 No Data to Display Imaging and Studies Imaging and Studies Study information below may be from another EMR and interpreted by another provider. Please see original notes in EMR for more complete details. EKG Summary: EKG PATIENT NAME: Shukri Seth UNIT #: [id number] ORDERING PROVIDER: Fabiano Sahni M.D. PRIMARY CARE PROVIDER: IVA DOMINGUEZ NP DATE/TIME OF SERVICE: 02/07/23 1318 : 1975 PERFORMING LOCATION: ER APPROVED REPORT Exam: Resting ECG Reason for Exam: abd pain Patient Location: E HR:62 bpm ECG Measurements Heart Rate 62 AXIS TN 165 P 49 QRSd 94 QRS 5 QT 427 T136 QTc 434 Conclusion Sinus rhythm...normal P axis, V-rate 60- 99 - <Electronically signed by MD FABIANO SAHNI in OV> E-Sign Date: 02/07/23 E-Sign Time: 1437 ADDENDUM APPROVED REPORT Exam: Resting ECG Reason for Exam: abd pain Patient Location: E HR:62 bpm ECG Measurements Heart Rate 62 AXIS TN 165 P 49 QRSd 94 QRS 5 QT 427 T136 QTc 434 Conclusion Sinus rhythm...normal P axis, V-rate 60- 99 I have reviewed and I agree with the emergency room physician's ECG interpretation. Electronically signed by: <Electronically signed by Jessica Rodrigez M.D. in OV> 02/08/23 0814 Cosigned by: Echocardiogram Summary: Patient Name: Shukri Seth Unit #: [id number] Loc: ICU Ordering Provider: Carmela Macedo M.D. Status: ADM IN Primary Care Provider: Linda Hallman NP Date of Exam: 05/11/22 Sex: M Admission Date: 05/10/22 : 1975 Age: 46 APPROVED REPORT EXAM: Comprehensive 2D, Doppler, and color-flow Echocardiogram Patient Location: In-Patient Room/Bed: UOH849 Machine Slat Basket Maker: Imelda Damian RDCS (AE) Indications: NSTEMI. h/o apical thrombus Echo Enhancing Agent Indication: Endocardial border delineation Agent(s) / Amount(s) Used: Definity 10.0 cc Comments: Contrast study was performed with 1 IV injection of 2cc of diluted definity. Other Information Study Quality: Fair. Technically limited study due to body habitus exam done bedside icu. Conclusion Normal left ventricular wall thickness and chamber size. Estimated ejection fraction is 45 to 50%. There is a wall motion abnormality involving the apical and anteroapical segments. No thrombus is seen Right ventricle was not well visualized Both atria are normal in size Aortic valve is trileaflet and sclerotic without stenosis or regurgitation Mildly dilated ascending aorta 3.54 cm Wall motion Left Ventricle The left ventricle is normal size. Left ventricular systolic function is mildly decreased. Definity microbubble contrast injection was given. There is normal left ventricular wall thickness. Regional wall motion abnormalities are noted. There is no ventricular septal defect visualized. LVEF is 47%. Right Ventricle Right ventricle is not well visualized. Right ventricular systolic function could not be assessed. The RVSP is 15.9_ mmHg. Atria The left atrium size is normal. The right atrium size is normal. The interatrial septum is intact with no evidence for an atrial septal defect. Aortic Valve The Aortic valve is sclerotic. Aortic valve is trileaflet. There is no aortic valvular stenosis. No aortic regurgitation is present. Mitral Valve The mitral valve is normal in structure. No evidence of mitral valve stenosis. Trace mitral regurgitation. Tricuspid Valve The tricuspid valve is normal in structure. There is no tricuspid valve stenosis. Trace tricuspid regurgitation. Pulmonic Valve The pulmonary valve is normal in structure. There is no pulmonic valvular stenosis. There is no pulmonic valvular regurgitation. Great Vessels The aortic root is normal in size. The ascending aorta is mildly dilated. Aortic arch is not well visualized. IVC is normal in size and collapses >50% with inspiration. Pericardium There is no pericardial effusion. 2D Dimensions IVSD d PLAX 1.02 cm M: 0.6-1.2LV Vol A2C d MOD 119.5 mL LVPW d PLAX 1.03 cm M: 0.6 - 1.2LV Vol A4C d MOD 189.0 mL LVID d PLAX 5.24 cm M: 4.2 - 5.8LA Area A4C s MOD 17.41 cm2 LVDs 3.85 cm M: 2.5 - 4.0LV EF A4C MOD 47.8 % Ao Root d 3.25 cm M: 3.1 - 3.7LV EF A2C MOD 47.0 % RA Area A4C9.48 cm2LV EF Biplane MOD 48.6 % Ao Asc Diam d 3.54 cm M: 2.6 - 3.4SV73.12 mL LV EF Teichholz 50.5 % LVEF (Gutierrez's)48.58 % M: 52 - 72 LV Znvvwn026.52 mL M: 62 - 150 LV Volume Index62.71 mL/m2 M: 34 - 74 LV Vol Biplane MOD 150.5 mL FS25.85 % M-Mode TAPSE 2.09 cm (M/F) >1.7 LV Diastology MV E' medial0.087 (>0.07 m/s)E/A Ratio 1.4 LV E/e MED10.55 (<14)MV E Vmax 0.92 (0.4-1.3 m/s) MV E' lateral0.063 (>0.1 m/s)MV A Vmax 0.65 (0.4-1.3 m/s) LV E/e LAT14.70 (<14)MV E/A Ratio 1.39 MV E/E' medial 10.59 MV E/E' flgwbyp09.73 Aortic Valve LVOT Area3.97 cm2AoV Area Vmax3.84 cm2 LVOT Vmax 1.13 m/sAVA Mean Hammad.3.58 cm2 LVOT Mean Hammad.0.74 m/s LVOT Peak Grad 5.1 mmHg LVOT Mean Grad 2.6 mmHg LVOT VTI0.250 m LVOT Diam s 2.20 cm AoV Vmax1.16 m/s Velocity Ratio 0.97 AoV Mean Hammad.0.82 m/s AoV Peak Grad5.4 mmHg LVOT SV 98.97 mL AoV Mean Grad3.0 mmHg AoV VTI0.242 m AoV Area VTI4.09 cm2 Mitral Valve MV DT 199 (160-240 msec) MV PHT58 msec MV Area PHT 3.81 cm2 MV VTI 0.382 m MV Area VTI 2.59 (4.0-6.0 cm2) Pulmonary Valve PV Vmax 1.00 (0.5-1.5 m/s)RVOT Peak Gr.3.26 mmHg PV Peak Grad 4.0 mmHgRVOT Mean Gr.1.75 mmHg PV Mean Grad 2.2 mmHgRVOT VTI0.225 m PV VTI 0.231 mRVOT Vmax 0.90 m/s Tricuspid Valve TR Peak Grad 12.9 mmHgTR Vmax 1.80 m/s RA Pressure 3.00 mmHg RVSP (TR) 15.9 mmHg Ordered By: Carmela Macedo M.D. CC: Dictated By: Jessica Rodrigez M.D. 05/11/22 1020 <Electronically signed by Jessica Rodrigez M.D. in OV> 05/11/22 1031 Transcribed By: Jessica Rodrigez MD This is privileged, confidential information intended only for the provider named. Any use or distribution by any person other than this provider is strictly prohibited. If you receive this report in error, please notif Anesthesia Assessment and Plan Anesthesia History Personal History: No History of Anesthesia Complications Family History: No Family History of Anesthesia Complications Exercise Tolerance Exercise Tolerance: Metabolic Equivalents>4 Pertinent Negatives Pertinent Negatives: No Major Pulmonary Symptoms or Complaints Cardiac & Pulmonary Exam Cardiac Exam: Normal S1/S2 Heart Sounds Pulmonary Exam: Clear Bilateral Breath Sounds Implantable Cardiac Device Does patient have a Pacemaker or an ICD?: No Airway Exam Known Difficult Airway: No Mallampati Class: 2 Mouth Opening: Normal (> 3cm) Thyromental Distance: Greater than 3 cm Neck Range of Motion: Full ROM Neck Circumference: Normal Teeth Condition: Generalized Poor Dentition and Edentulous (Partially, many missing) Tooth Numberin 1. Edentulous upper ASA Classification ASA Score: ASA 3 Emergency Case?: No NPO Status NPO Status: NPO Clears >2 hours, Solids >8 hours Anesthesia Plan Resuscitation Status: Full Code Anesthesia Technique: General Anesthesia Airway Planned: Endotracheal Tube Monitors Used: Standard Monitors Preoperative Comments:: 47 yo male patient in for laparoscopic cholecystectomy PMH: CAD (NTG), MAGDALENA to LAD (2013), STEMI with two stents 05/[address] Lucio [facility] on plavix and jardiance, ischemic cardiomyopathy (47% LVEF) on furosemide, metoprolol, losartan, dilated Ascending aorta 3.54 cm, CVA with left sided deficits (2016), panic disorder/anxiety, NIDDM (Janumet), GERD (Pantoprazole)
--- NOTE | 2023-02-17 11:30 | GB_PTH ---
PATIENT: Shukri Seth LOC: MAN U#:[id number] AGE/SX: 47/M ROOM: RE02/17/[address]: Anabel Valiente MD : 1975 BED: DIS: 02/17/2023 SPEC #: [id number] RECD: 02/17/23 12:45 STATUS: EMPERATRIZ REQ #: [id number] ADRIAN: 02/17/23 11:[address]: Anabel Valiente DEPT: Surgical Specimen RECD BY: Huong Olson ENTERED: 02/17/23 12:45 SP TYPE: GB OTHR DR: Lavonne Clarke APRN Tissues: 1 - GALLBLADDER Procedures: GROSS AND MICRO LEVEL 3 Comments: [id number]
[2023-02-17] MEDS: Bupivacaine 0.25% Pres-Free 30 ML VIAL (11:35)
[2023-02-17] MEDS: fentaNYL 100 MCG/2 ML VIAL IVP (12:33)
--- NOTE | 2023-02-17 12:56 | W.ANESPOSTOP ---
Postoperative Evaluation Date, Time and Location Date Performed: 02/17/23 Time Performed: 12:56 Patient Location: PACU Vital Signs Most Recent Imported Vital Signs: Most Recent Vital Signs Temp Pulse Resp BP Pulse Ox 36.7 C 63 14 166/111 H 98 02/17/23 12:45 02/17/23 12:45 02/17/23 12:45 02/17/23 12:45 02/17/23 12:45 Pain Score Most Recent Pain Score: Most Recent Pain Score Pain Level 3 02/17/23 12:45 Assessment Mental Status: Awake (Alert & Oriented to Patient Baseline) Airway and Respiratory Function: Patent airway with normal (patient baseline) respiratory exam Cardiovascular Function: Hemodynamically Stable Hydration Status: Adequately Hydrated Nausea & Vomiting: No Nausea or Vomiting Pain: Pain is tolerable per patient Peripheral Nerve Block: Patient did not receive a nerve block
== END 2023-02-17 14:50 | disposition home or self-care (01) ==
LOC: SUR 08:19
PROVIDERS: PCP Nurse Practitioner Adult Health; Visit Provider Surgery
PROC: 0FT44ZZ Resection of Gallbladder, Percutaneous Endoscopic Approach (ICD-10-PCS; CPT 47562; principal; 2023-02-17 09:45)
DX: K80.44 Calculus of bile duct with chronic cholecystitis without obstruction (principal); R17 Unspecified jaundice; I25.10 Atherosclerotic heart disease of native coronary artery without angina pectoris; I25.5 Ischemic cardiomyopathy; I50.20 Unspecified systolic (congestive) heart failure; Z86.73 Personal history of transient ischemic attack (TIA), and cerebral infarction without residual deficits
CPT/HCPCS: 47562 ×2; 88304; J0690; J1100; J2001; J2250; J2371; J2405; J2704; J3010

== ENCOUNTER → 2023-02-26 08:18 | Outpatient (BNVA) | payer MEDICARE, MEDICAID, SELFPAY | PROVIDERS: PCP Nurse Practitioner Adult Health; Referring Provider Nurse Practitioner Adult Health; Visit Provider Surgery | DX: Z48.815 Encounter for surgical aftercare following surgery on the digestive system (principal) ==

== ENCOUNTER → 2023-05-27 09:05 | Outpatient (BNVA) | payer MEDICARE, MEDICAID, SELFPAY | PROVIDERS: PCP Nurse Practitioner Adult Health; Referring Provider Nurse Practitioner Family; Visit Provider Physical Therapy Assistant | DX: Z12.11 Encounter for screening for malignant neoplasm of colon (principal) ==

== ENCOUNTER 2023-06-04 09:54 | Day surgery (SDC) | payer MEDICARE, MEDICAID, SELFPAY ==
--- NOTE | 2023-06-03 17:09 | COLE_ITS ---
Date of service: 06/04/23 Time of Service: 11:00 Colonoscopy Report Date of procedure: 06/04/23 Pre-op diagnosis general: CRC screening Post-op diagnosis procedure note: other (Polyps and diverticula) Surgeon: Virginia Park Anesthesia Type: General:No Airway Estimated blood loss (mL): 2 Pathology: other Complications: None Disposition: same day Prep: Miralax/Dulcolax Retraction Time: 31 Procedure Description: After informed consent was obtained the patient was taken to the procedure room and placed in a left decubitous position. Monitors were applied and a time out was done. The patients name, date of , procedure, allergies to medications and metal in their body was reviewed. The patient was then sedated. Once sedated and comfortable a rectal exam was done. External exam was normal. Internal exam revealed a normal sphincter tone and no palpable masses. The prostate without masses. The scope was then introduced and retrofelexed. No internal hemorrhoids were identified. The scope was then advanced to the cecum without difficulty. The TI and appendiceal orifice were identified. The scope was then slowly retracted over 31 minutes back into the rectum. He has moderate diverticula in size and number confined to the sigmoid colon. There is no signs of active bleeding or infection. He has a .75cm pedunculated polyp at 40 cm that is removed with a cold snare. He has a 0.5 cm flat polyp at 80 cm that is removed with a cold biting forcep. He has a 0.75 flat polyp at 80 cm that is removed with a cold snare. There is a second polyp at 40 cm that is a 0.5 cm flat polyp that is removed with a cold forceps. All specimen is retrieved and no bleeding is noted. The scope was removed and the patient was woken up and taken back to Same day surgery in stable condition. The patient tolerated the procedure well and there were no immediate complications. Follow up: The patient should follow up in 3-5 years path pending, unless they develop changes in bowel habits or other new gastrointestinal complaints. [place] Bowel Prep [place] Bowel Prep Right Colon: 3 Left Colon: 3 Transverse Colon: 3 Total Score: 9
--- NOTE | 2023-06-03 17:09 | W.PM.DSUDISC ---
Date of service: 06/04/23 Time of Service: 11:10 Discharge Plan Disposition Patient Disposition: Home Condition: Good Discharge Details Reason For Visit: vimal scope Attending Provider: Virginia Park Primary Care Provider: Lavonne Clarke Home Meds and New Rx's Prescriptions: Continued (DME) FreeStyle Prieto 2 Carnation Misc See Rx Instructions .ROUTE .MEDSUPPLY Qty: 1 0RF Rx Instructions: As directed (DME) FreeStyle Prieto 2 Sensor Kit See Rx Instructions .ROUTE .MEDSUPPLY Qty: 6 3RF Rx Instructions: As directed acidophilus-pectin, citrus 25 million cell -100 mg tablet 1 tab PO DAILY Qty: 90 3RF (DME) pen needle, diabetic [BD Ultra-Fine Marivel Pen Needle] 32 gauge x 5/32 needle See Rx Instructions .ROUTE .MEDSUPPLY Qty: 100 3RF Rx Instructions: E11.9 to administer insulin daily for A1C <7% aspirin 81 mg tablet,delayed release (DR/EC) 81 mg PO DAILY nitroglycerin 0.4 mg tablet, sublingual 0.4 mg sublingual Q5M PRN Rx Instructions: do not exceed 3 doses per episode Jardiance 25 mg tablet 25 mg PO DAILY AM Qty: 90 3RF Rx Instructions: Administer once daily in the morning, with or without food metoprolol succinate [Toprol XL] 100 mg tablet extended release 24 hr 100 mg PO DAILY Qty: 90 3RF hydroxyzine HCl 25 mg tablet 25 - 50 mg PO QID PRN (Reason: acute anxiety) Qty: 90 3RF insulin degludec [Tresiba FlexTouch U-200] 200 unit/mL (3 mL) insulin pen 20 unit SUBCUT DAILY Qty: 3 3RF mupirocin 2 % ointment 1 applic topical BID-TID Qty: 15 0RF Rx Instructions: May substitute with cream if less expensive; apply thin layer until area/lesion resolved clopidogrel [Plavix] 75 mg tablet 75 mg PO DAILY Qty: 90 3RF escitalopram oxalate 10 mg tablet 10 mg PO DAILY Qty: 90 3RF losartan 50 mg tablet See Rx Instructions .ROUTE .COMPLEX Qty: 90 3RF Dose Instruction: TAKE ONE TABLET BY MOUTH EVERY DAY Rx Instructions: TAKE ONE TABLET BY MOUTH EVERY DAY pantoprazole 40 mg tablet,delayed release (DR/EC) 40 mg PO DAILY Qty: 90 3RF Rx Instructions: Take 40 mg daily once daily in the morning at least 30 minutes before first meal of the day (DME) blood-glucose meter Misc See Dose Instructions .ROUTE .MEDSUPPLY Qty: 1 0RF Dose Instruction: As directed Rx Instructions: As directed to check blood glucose on insulin multivitamin Tablet 1 tab PO DAILY Qty: 90 3RF (DME) FreeStyle Lite Strips Strip See Rx Instructions .Route Qty: 200 3RF Rx Instructions: As directed to check blood glucose twice daily. On insulin. Dispense covered brand. (DME) lancets [FreeStyle Lancets] 28 gauge misc See Rx Instructions .Route Qty: 200 3RF Rx Instructions: As directed to check blood glucose twice daily. On insulin. Dispense covered brand. cholecalciferol (vitamin D3) 25 mcg (1,000 unit) capsule 75 mcg PO DAILY atorvastatin 80 mg tablet 80 mg PO DAILY Qty: 90 3RF Rx Instructions: increased from 40 to 80 mg daily by [facility] 01/01/22 [facility] Janumet XR 50-1,000 mg tablet, ER multiphase 24 hr See Rx Instructions .ROUTE .COMPLEX Qty: 180 3RF Dose Instruction: TAKE ONE TABLET BY MOUTH TWICE A DAY Rx Instructions: TAKE ONE TABLET BY MOUTH TWICE A DAY acetaminophen [Tylenol Extra Strength] 500 MG tablet 1,000 mg PO PRN PRN chlorhexidine gluconate [Antiseptic Skin Clnsr(chlorhe)] 4 % liquid 1 applic TP DAILY PRN (Reason: Acne) Rx Instructions: Rinse skin with water, then apply minimum amount needed to cover skin. Wash gently then rinse Discontinued bisacodyl [Dulcolax (bisacodyl)] 5 mg tablet,delayed release (DR/EC) 5 mg PO ONCE Qty: 4 0RF Rx Instructions: Take per colonoscopy instructions provided by ordering providers office polyethylene glycol 3350 17 gram/dose powder 17 g PO ONCE Qty: 238 0RF Rx Instructions: Take per colonoscopy instructions provided by ordering providers office Discharge Instructions Additional Instructions: [facility] Colonoscopy Post-Op Instructions Instructions for Everyone who is given Anesthesia: For your safety, please do the following for the next twenty-four (24) hours: *Do Not operate a motor vehicle (car, truck, motorcycle, etc.) *Do Not drink alcoholic beverages or use any recreational drugs for the first 24 hours or while taking pain medications. The medications in your body may have a reaction that can be dangerous. *Do Not make any important decisions or sign any important papers. Findings: Polyps x4 polyps Divertiucla - see handout. Make sure your bowels are moving on a regular basis and avoid constipation or straining. If you find that you are having problems with constipation or straining, then is it recommended you start a fiber product such as Metamucil or Citrucel. Follow up: -My office will send you a letter in 2 to 3 weeks time with the results of the polyp pathology and when we want you to repeat the colonoscopy, most likely 3 years time ASA- resume Wednesday Plavix-Resume Wednesday my office will send you a letter in 2 to 3 weeks time with the results of the polyp pathology and when we want you to repeat the colonoscopy, most likely 3 years time Jardiance- Resume normal scheuled date 1. No lifting over 20 pounds or strenuous activity for the first 24 hours after your procedure. After 24 hours there are no restrictions on your activity but you may feel fatigued for a few days. 2. After you arrive home you may have a light meal and return to your normal diet as you can tolerate it without feeling sick to your stomach. 3. You may have a bloated, gaseous feeling in your belly (abdomen) after a colonoscopy. Passing gas and belching will help. Walking or lying down on your left side with your knees flexed may relieve the discomfort. Call the office at [phone] (Office) or [phone] (Hospital) right away if you notice any of the following: a.Vomiting of blood or ?coffee ground stools?. b.Rectal bleeding 1Tbsp, blood clots or continuous bleeding. c.Severe belly (abdominal) pain. d.A hard distended belly (abdomen) and an inability to pass gas. 4. Please don?t expect to have a normal BM (bowel movement) for 2-3 days after your procedure. 5. If there are questions regarding the findings of your procedure, please contact your doctor 6. If you are unable to contact your doctor with a problem, contact the hospital at [phone]. 7. Continue all your regular medications unless directed otherwise. I understand the above instructions and have no questions. Signature of Patient or Adult Escort Name of Responsible Adult Escort Signature of Nurse Date/Time Activity:: see above Diet:: seeabove Discharge Orders Discharge Orders: Discharge Order (Routine); Ordered 06/04/23 Ordered By: Virginia Park DS: Diagnosis Discharge Diagnosis (1) Anxiety: Status: Chronic (2) Bipolar disorder: Status: Chronic (3) Depression: Status: Chronic (4) Panic disorder without agoraphobia: Status: Chronic (5) Essential hypertension: Status: Chronic (6) HFrEF (heart failure with reduced ejection fraction): Status: Acute (7) Ischemic cardiomyopathy: Status: Chronic (8) Ventricular premature beats: Status: Acute (9) ASCVD (arteriosclerotic cardiovascular disease): Status: Chronic (10) Hyperlipidemia, unspecified: Status: Chronic (11) Antiplatelet or antithrombotic long-term use: Status: Acute (12) 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 2 diabetes mellitus: Status: Acute (13) Type 2 diabetes mellitus, with long-term current use of insulin: Status: Chronic (14) Obesity (BMI 30-39.9): Status: Chronic (15) Vitamin D deficiency: Status: Chronic (16) Benign prostatic hyperplasia with lower urinary tract symptoms: Status: Chronic (17) Erectile dysfunction: Status: Chronic (18) History of CVA (cerebrovascular accident): Status: Acute (19) Obstructive sleep apnea syndrome, mild: Status: Chronic (20) Sleep walking: Status: Acute (21) Tobacco use disorder: Status: Chronic (22) STEMI (ST elevation myocardial infarction): (23) Alcohol use disorder: (24) Cerebrovascular accident (CVA): (25) Screening for malignant neoplasm of colon performed: Status: Acute (26) Adenomatous polyps: Status: Acute Asessment and Plan: The patient is seen and examined after their colonoscopy.? The patient has been able to pass gas.? They are not having abdominal pain.? They have been able to tolerate liquids and a snack.? They do not have any nausea or vomiting.? They are not having any chest pain or shortness of breath.??? They are not having any rectal bleeding. Their vital signs have been stable-see nursing notes. We discussed findings during their colonoscopy, and any biopsies that were done/polyps that were removed. The patient will be sent a letter with any biopsy results, and when to repeat the colonoscopy.-see discharge instructions. Patient was given explicit instructions to follow-up regarding colonoscopy-refer to discharge instructions.? We reviewed resumption of medications. Patient verbalized understanding and discharged in stable and satisfactory condition- See nursing notes. (27) Diverticula of colon: Status: Acute
[2023-06-04 09:57] VITALS: BP 139/103; PULSE 85; RESP 18; TEMP 36.2; O2SAT 98
--- NOTE | 2023-06-04 10:17 | W.ANESPRE ---
General Info Date of Service Date Performed: 06/04/23 Height: 6 ft 1 in Weight: 120 kg Body Mass Index (BMI): 34.9 Surgical Procedure: Operation Date: 06/04/23 10:20 Proposed Procedure Side Surgeon valorie Park, Meds Allergies and Home Medications Allergies Allergy/AdvReac Type Severity Reaction Status Date / Time hydromorphone [From Dilaudid] AdvReac Intermediate Psychosis Verified 06/04/23 10:11 codeine [Codeine] AdvReac Unknown PSYCHOSIS Verified 06/04/23 10:11 Home Medication Medication Instructions Recorded acetaminophen 500 mg tablet 1,000 mg PO PRN PRN 01/25/17 (Tylenol Extra Strength) blood-glucose meter #1 ea 04/24/19 flash glucose scanning reader #1 ea 03/28/21 (FreeStyle Prieto 2 [place]) flash glucose sensor (FreeStyle #6 ea 03/28/21 Prieto 2 Sensor kit) multivitamin 1 tab PO DAILY #90 tabs 06/25/21 blood sugar diagnostic (FreeStyle #200 ea 12/31/21 Lite Strips) lancets 28 gauge (FreeStyle #200 ea 12/31/21 Lancets) acidophilus 25 million 1 tab PO DAILY #90 tabs 01/21/22 cell-pectin, citrus 100 mg tablet pen needle, diabetic 32 gauge x #100 ea 01/21/22 (BD Ultra-Fine Marivel Pen Needle) cholecalciferol (vitamin D3) 25 75 mcg PO DAILY 05/15/22 mcg (1,000 unit) capsule chlorhexidine gluconate 4 % 1 applic topical DAILY PRN Acne 05/17/22 topical liquid (Antiseptic Skin Cleanser (chlorhexidine)) aspirin 81 mg tablet,delayed 81 mg PO DAILY 05/20/22 release nitroglycerin 0.4 mg sublingual 0.4 mg sublingual Q5M PRN 05/20/22 tablet atorvastatin 80 mg tablet 80 mg PO DAILY #90 tabs 01/21/23 clopidogrel 75 mg tablet (Plavix) 75 mg PO DAILY #90 tabs 02/19/23 escitalopram oxalate 10 mg tablet 10 mg PO DAILY #90 tabs 02/19/23 losartan 50 mg tablet See Rx Instructions .Route 02/19/23 .COMPLEX #90 tabs pantoprazole 40 mg tablet,delayed 40 mg PO DAILY #90 tab-caps 02/19/23 release sitagliptin phos 50 mg-metformin See Rx Instructions .Route 04/15/23 ER 1,000 mg tablet,extend rel 24h .COMPLEX #180 tabs mp (Janumet XR) empagliflozin 25 mg tablet 25 mg PO DAILY AM #90 tab-caps 05/24/23 (Jardiance) hydroxyzine HCl 25 mg tablet 25 - 50 mg (1 - 2 x 25 mg) PO QID 05/24/23 PRN acute anxiety #90 tabs insulin degludec 200 unit/mL (3 20 unit (0.1 mL) subcut DAILY #3 05/24/23 mL) subcutaneous pen (Tresiba SYRGS FlexTouch U-200 insulin) metoprolol succinate 100 mg 100 mg PO DAILY #90 tabs 05/24/23 tablet,extended release 24 hr (Toprol XL) mupirocin 2 % topical ointment 1 applic topical BID-TID #15 grams 05/24/23 Current Visit Medications: Current Medications Generic Name Dose Route Start Last Admin Trade Name Sierra PRN Reason Stop Dose Admin Hyoscyamine Sulfate 0.125 mg 06/04/23 03:16 Hyoscyamine 0.125 Mg Sl/Oral/Chew SL 07/04/23 03:15 DIRECTED PRN Ringer's Solution 1,000 mls @ 80 mls/hr 06/04/23 06:00 IV 07/03/23 23:59 [facility] IV Miscellaneous Supplies 1 each 06/04/23 06:00 Iv Access IV 07/03/23 23:59 DIRECTED KOURTNEY Ondansetron HCl 4 mg 06/04/23 03:16 Ondansetron 4 Mg/2 Ml Vial IVP 07/04/23 03:15 Q4H PRN PRN Nausea / Vomiting Sodium Chloride 0 ml 06/04/23 06:00 Normal Saline Flush 10 Ml Syr IV 07/03/23 23:59 PRN PRN Sodium Chloride 0 ml 06/04/23 06:00 Normal Saline 10 Ml Vial IJ 07/03/23 23:59 DIRECTED PRN Sterile Water 0 ml 06/04/23 06:00 Water,Injection,Sterile 10 Ml Vial IJ 07/03/23 23:59 DIRECTED PRN PFSH Active Problems Active Problems: Problem Status Onset Code Screening for malignant neoplasm of colon performed Z12.11 Unable to cry R68.89 Sleep walking F51.3 History of CVA (cerebrovascular accident) Z86.73 Type 2 diabetes mellitus, with long-term current use of insulin E11.9, Z79.4 HFrEF (heart failure with reduced ejection fraction) I50.20 Ischemic cardiomyopathy I25.5 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 2 diabetes mellitus ~06/2020 E11.29, R80.9 Ventricular premature beats 08/28/14 I49.3 Antiplatelet or antithrombotic long-term use Z79.02 Vitamin D deficiency 05/23/15 E55.9 Tobacco use disorder F17.200 Panic disorder without agoraphobia 04/29/11 F41.0 Obesity (BMI 30-39.9) 08/28/14 E66.9 Obstructive sleep apnea syndrome, mild 11/03/16 G47.33 Hyperlipidemia, unspecified 04/29/11 E78.5 Erectile dysfunction 11/29/15 N52.9 Depression 04/29/11 F32.9 Bipolar disorder F31.9 Benign prostatic hyperplasia with lower urinary tract symptoms 01/28/17 N40.1 Essential hypertension 11/25/12 I10 Anxiety 04/29/11 F41.9 ASCVD (arteriosclerotic cardiovascular disease) I25.10 Medical History Medical History Cholecystitis (~01/2023) Gallstones Pain of both sacroiliac joints Vertigo STEMI (ST elevation myocardial infarction) (~05/2022) COVID (~04/20/22) Acute non-ST elevation myocardial infarction (NSTEMI) Heart palpitations De Quervain's tenosynovitis, right Kidney stone (04/26/15) 100% calcium oxalate monohydrate Cerebrovascular accident (CVA) (08/03/16) [facility] admission 07/11-07/20/2016 R valdez radiata, basal ganglia, subinsular region and temporal lob infarcts s/p tPA and thrombectomy (07/11/16) with recanalization Alcohol use disorder (04/29/11) BINGE pER PT. STATES HE DOESN'T DRINK ANYMORE, HASN'T IN YEARS 09/21/19 Patellar fracture (01/26/17) (L) S/p surgical repair Surgical History Surgical History Hx of cholecystectomy (~02/18/23) Status post vasectomy (~01/19/06) Status post cardiac catheterization (~05/2022) [facility]; mid-LAD & distal RCA Status post wrist surgery (~09/2021) Dr. Marvin; RIGHT for De Quervain's S/P cardiac cath (01/01/22) [facility]; statwith stent Open Reduction and Internal Fixation of Patellar Fracture (01/26/17) (L) Dr. Lemus Tobacco Smoking/Tobacco Use Status: Current every day Tobacco Type: pipe Other: Smokes 5-6 ciggs worth of tobacco in pipe on a rough day Alcohol Alcohol Intake: former Substance Use Substance use: Never Substance use type: does not use Vital Signs and Lab Results Vital Signs Most Recent Vital Signs in EMR: Most Recent Vital Signs Temp Pulse Resp BP Pulse Ox 36.2 C L 85 18 139/103 H 98 06/04/23 09:57 06/04/23 09:57 06/04/23 09:57 06/04/23 09:57 06/04/23 09:57 Point of Care Results Point of Care Results: Finger Stick Blood Glucose 185 06/04/23 10:11 Lab Results Blood Type / Crossmatch: No Data to Display Complete Blood Count: No Data to Display Complete Metabolic Panel: Hemoglobin A1c 7.5 % (4.5-5.7) H 05/24/23 08:41 Liver Function Panel: No Data to Display Coagulation Panel: No Data to Display Cardiac Panel: No Data to Display Arterial Blood Gas: No Data to Display Venous Blood Gas: No Data to Display Pancreas Panel: No Data to Display Thyroid Panel: No Data to Display Infectious Disease: No Data to Display Blood Cultures: No Data to Display Toxicology Panel: No Data to Display Imaging and Studies Imaging and Studies Study information below may be from another EMR and interpreted by another provider. Please see original notes in EMR for more complete details. EKG Summary: EKG PATIENT NAME: Shukri Seth UNIT #: [id number] ORDERING PROVIDER: Fabiano Sahni M.D. PRIMARY CARE PROVIDER: IVA CLARKE NP DATE/TIME OF SERVICE: 02/07/23 1318 : 1975 PERFORMING LOCATION: ER APPROVED REPORT Exam: Resting ECG Reason for Exam: abd pain Patient Location: E HR:62 bpm ECG Measurements Heart Rate [address] 165 P 49 QRSd 94 QRS 5 QT 427 T136 QTc 434 Conclusion Sinus rhythm...normal P axis, V-rate 60- 99 <Electronically signed by MD FABIANO SAHNI in OV> E-Sign Date: 02/07/23 E-Sign Time: 1437 ADDENDUM APPROVED REPORT Exam: Resting ECG Reason for Exam: abd pain Patient Location: E HR:62 bpm ECG Measurements Heart Rate [address] 165 P 49 QRSd 94 QRS 5 QT 427 T136 QTc 434 Conclusion Sinus rhythm...normal P axis, V-rate 60- 99 I have reviewed and I agree with the emergency room physician's ECG interpretation. Electronically signed by: <Electronically signed by Jessica Rodrigez M.D. in OV> 02/08/23 0814 Cosigned by: Echocardiogram Summary: Patient Name: Shukri Seth Unit #: [id number] Loc: ICU Ordering Provider: Carmela Macedo M.D. Status: ADM IN Primary Care Provider: Linda Hallman NP Date of Exam: 05/11/22 Sex: M Admission Date: 05/10/22 : 1975 Age: 46 APPROVED REPORT EXAM: Comprehensive 2D, Doppler, and color-flow Echocardiogram Patient Location: In-Patient Room/Bed: [id number] Clothespin Machine Operator: Imelda Damian RDCS (AE) Indications: NSTEMI. h/o apical thrombus Echo Enhancing Agent Indication: Endocardial border delineation Agent(s) / Amount(s) Used: Definity 10.0 cc Comments: Contrast study was performed with 1 IV injection of 2cc of diluted definity. Other Information Study Quality: Fair. Technically limited study due to body habitus exam done bedside icu. Conclusion Normal left ventricular wall thickness and chamber size. Estimated ejection fraction is 45 to 50%. There is a wall motion abnormality involving the apical and anteroapical segments. No thrombus is seen Right ventricle was not well visualized Both atria are normal in size Aortic valve is trileaflet and sclerotic without stenosis or regurgitation Mildly dilated ascending aorta 3.54 cm Wall motion Left Ventricle The left ventricle is normal size. Left ventricular systolic function is mildly decreased. Definity microbubble contrast injection was given. There is normal left ventricular wall thickness. Regional wall motion abnormalities are noted. There is no ventricular septal defect visualized. LVEF is 47%. Right Ventricle Right ventricle is not well visualized. Right ventricular systolic function could not be assessed. The RVSP is 15.9_ mmHg. Atria The left atrium size is normal. The right atrium size is normal. The interatrial septum is intact with no evidence for an atrial septal defect. Aortic Valve The Aortic valve is sclerotic. Aortic valve is trileaflet. There is no aortic valvular stenosis. No aortic regurgitation is present. Mitral Valve The mitral valve is normal in structure. No evidence of mitral valve stenosis. Trace mitral regurgitation. Tricuspid Valve The tricuspid valve is normal in structure. There is no tricuspid valve stenosis. Trace tricuspid regurgitation. Pulmonic Valve The pulmonary valve is normal in structure. There is no pulmonic valvular stenosis. There is no pulmonic valvular regurgitation. Great Vessels The aortic root is normal in size. The ascending aorta is mildly dilated. Aortic arch is not well visualized. IVC is normal in size and collapses >50% with inspiration. Pericardium There is no pericardial effusion. 2D Dimensions IVSD d PLAX 1.02 cm M: 0.6-1.2LV Vol A2C d MOD 119.5 mL LVPW d PLAX 1.03 cm M: 0.6 - 1.2LV Vol A4C d MOD 189.0 mL LVID d PLAX 5.24 cm M: 4.2 - 5.8LA Area A4C s MOD 17.41 cm2 LVDs 3.85 cm M: 2.5 - 4.0LV EF A4C MOD 47.8 % Ao Root d 3.25 cm M: 3.1 - 3.7LV EF A2C MOD 47.0 % RA Area A4C9.48 cm2LV EF Biplane MOD 48.6 % Ao Asc Diam d 3.54 cm M: 2.6 - 3.4SV73.12 mL LV EF Teichholz 50.5 % LVEF (Gutierrez's)48.58 % M: 52 - 72 LV Fnibld076.52 mL M: 62 - 150 LV Volume Index62.71 mL/m2 M: 34 - 74 LV Vol Biplane MOD 150.5 mL FS25.85 % M-Mode TAPSE 2.09 cm (M/F) >1.7 LV Diastology MV E' medial0.087 (>0.07 m/s)E/A Ratio 1.4 LV E/e MED10.55 (<14)MV E Vmax 0.92 (0.4-1.3 m/s) MV E' lateral0.063 (>0.1 m/s)MV A Vmax 0.65 (0.4-1.3 m/s) LV E/e LAT14.70 (<14)MV E/A Ratio 1.39 MV E/E' medial 10.59 MV E/E' qvpvjlu34.73 Aortic Valve LVOT Area3.97 cm2AoV Area Vmax3.84 cm2 LVOT Vmax 1.13 m/sAVA Mean Hammad.3.58 cm2 LVOT Mean Hammad.0.74 m/s LVOT Peak Grad 5.1 mmHg LVOT Mean Grad 2.6 mmHg LVOT VTI0.250 m LVOT Diam s 2.20 cm AoV Vmax1.16 m/s Velocity Ratio 0.97 AoV Mean Hammad.0.82 m/s AoV Peak Grad5.4 mmHg LVOT SV 98.97 mL AoV Mean Grad3.0 mmHg AoV VTI0.242 m AoV Area VTI4.09 cm2 Mitral Valve MV DT 199 (160-240 msec) MV PHT58 msec MV Area PHT 3.81 cm2 MV VTI 0.382 m MV Area VTI 2.59 (4.0-6.0 cm2) Pulmonary Valve PV Vmax 1.00 (0.5-1.5 m/s)RVOT Peak Gr.3.26 mmHg PV Peak Grad 4.0 mmHgRVOT Mean Gr.1.75 mmHg PV Mean Grad 2.2 mmHgRVOT VTI0.225 m PV VTI 0.231 mRVOT Vmax 0.90 m/s Tricuspid Valve TR Peak Grad 12.9 mmHgTR Vmax 1.80 m/s RA Pressure 3.00 mmHg RVSP (TR) 15.9 mmHg Ordered By: Carmela Macedo M.D. CC: Dictated By: Jessica Rodrigez M.D. 05/11/22 1020 <Electronically signed by Jessica Rodrigez M.D. in OV> 05/11/22 1031 Transcribed By: Jessica Rodrigez MD This is privileged, confidential information intended only for the provider named. Any use or distribution by any person other than this provider is strictly prohibited. If you receive this report in error, please notif Anesthesia Assessment and Plan Anesthesia History Personal History: No History of Anesthesia Complications Family History: No Family History of Anesthesia Complications Exercise Tolerance Exercise Tolerance: Metabolic Equivalents>4 Pertinent Negatives Pertinent Negatives: No Symptoms of GERD Cardiac & Pulmonary Exam Cardiac Exam: Normal S1/S2 Heart Sounds Pulmonary Exam: Clear Bilateral Breath Sounds Implantable Cardiac Device Does patient have a Pacemaker or an ICD?: No Airway Exam Known Difficult Airway: No Mallampati Class: 2 Mouth Opening: Normal (> 3cm) Thyromental Distance: Greater than 3 cm Neck Range of Motion: Full ROM Neck Circumference: Normal Teeth Condition: Generalized Poor Dentition and Edentulous (Partially, many missing) ASA Classification ASA Score: ASA 2 Emergency Case?: No NPO Status NPO Status: NPO Clears >2 hours, Solids >8 hours Anesthesia Plan Resuscitation Status: Full Code Anesthesia Technique: General Anesthesia Airway Planned: Natural Airway Monitors Used: Standard Monitors
[2023-06-04 10:18] VITALS: BMI 34.9
[2023-06-04] MEDS: Lactated Ringers 1,000 ML 80 ML IV (10:19)
--- NOTE | 2023-06-04 10:32 | BOWEL_PTH ---
PATIENT: Shukri Seth LOC: MAN U#:[id number] AGE/SX: 47/M ROOM: RE06/04/[address]: Virginia Park : 1975 BED: DIS: 06/04/2023 SPEC #: [id number] RECD: 06/04/23 13:04 STATUS: EMPERATRIZ REAlan #: [id number] ADRIAN: 06/04/23 10:[address]: Virginia Park DEPT: Surgical Specimen RECD BY: Huong Olson ENTERED: 06/04/23 13:05 SP TYPE: Bowel OTHR DR: Lavonne Clarke, ILSA Tissues: 1 - BIOPSY BOWEL 2 - BIOPSY BOWEL Procedures: GROSS AND MICRO LEVEL 4 Comments: [id number]
[2023-06-04 11:02] VITALS: BP 114/72; PULSE 72; RESP 14; TEMP 36.8; O2SAT 94
--- NOTE | 2023-06-04 11:07 | W.ANESPOSTOP ---
Postoperative Evaluation Date, Time and Location Date Performed: 06/04/23 Time Performed: 11:07 Patient Location: Day Surgery Unit Vital Signs Most Recent Imported Vital Signs: Most Recent Vital Signs Temp Pulse Resp BP Pulse Ox 36.2 C L 85 18 139/103 H 98 06/04/23 09:57 06/04/23 09:57 06/04/23 09:57 06/04/23 09:57 06/04/23 09:57 Assessment Mental Status: Awake (Alert & Oriented to Patient Baseline) Airway and Respiratory Function: Patent airway with normal (patient baseline) respiratory exam Cardiovascular Function: Hemodynamically Stable Hydration Status: Adequately Hydrated Nausea & Vomiting: No Nausea or Vomiting Pain: Pt. Denies Any Pain Peripheral Nerve Block: Patient did not receive a nerve block
[2023-06-04 11:32] VITALS: BP 130/99; PULSE 63; RESP 18; TEMP 36.5; O2SAT 99
== END 2023-06-04 12:04 | disposition home or self-care (01) ==
LOC: SUR 09:54
PROVIDERS: PCP Nurse Practitioner Adult Health; Visit Provider Surgery
PROC: 0DJD8ZZ Inspection of Lower Intestinal Tract, Via Natural or Artificial Opening Endoscopic (ICD-10-PCS; CPT 45378; principal; 2023-06-04 10:15)
DX: Z12.11 Encounter for screening for malignant neoplasm of colon (principal); E11.9 Type 2 diabetes mellitus without complications; K57.30 Diverticulosis of large intestine without perforation or abscess without bleeding; D12.5 Benign neoplasm of sigmoid colon; I25.5 Ischemic cardiomyopathy; Z79.4 Long term (current) use of insulin; F17.210 Nicotine dependence, cigarettes, uncomplicated; D12.4 Benign neoplasm of descending colon
CPT/HCPCS: 45385; 45380; 88305; J2001; J2704

== ENCOUNTER → 2023-07-19 11:09 | Outpatient (BNVA) | payer MEDICARE, MEDICAID, SELFPAY | PROVIDERS: PCP Nurse Practitioner Adult Health; Referring Provider Nurse Practitioner Adult Health; Visit Provider Surgery | DX: L72.3 Sebaceous cyst (principal); D18.01 Hemangioma of skin and subcutaneous tissue | CPT/HCPCS: 99213 ==

== ENCOUNTER → 2023-08-04 02:34 | Outpatient (CLI) | payer MEDICARE, MEDICAID, SELFPAY ==
--- NOTE | 2023-08-04 06:30 | DI.US_ITS ---
Exam(s) US ABDOMEN LIMITED EXAM: US ABDOMEN LIMITED CLINICAL HISTORY: RUQ pain after cholecystectomy,post cholecystectomy syndrome,k91.5 TECHNIQUE: Ultrasound abdomen performed using standard protocol. COMPARISON: US US ABDOMEN LIMITED from 01/26/2023 FINDINGS: PANCREAS: Normal where visualized. LIVER: There is increased echogenicity of the liver suggesting fatty infiltration. Hepatopetal flow in the Portal Vein. The liver measures in 16.3 cm length. No evidence of a hepatic mass. GALLBLADDER:Status post cholecystectomy. BILIARY SYSTEM: Common bile duct measures < 7 mm. No intrahepatic biliary ductal dilation. RIGHT KIDNEY: Kidney is normal in size. No evidence of renal calculi. No evidence of hydronephrosis. No renal mass or cyst identified. ASCITES: None seen. IMPRESSION: 1. Hepatic steatosis. 2. Status post cholecystectomy. No biliary ductal dilatation. DATA REPOSITORY:
== END ==
PROVIDERS: PCP Nurse Practitioner Adult Health; Visit Provider Family Medicine
DX: K91.5 Postcholecystectomy syndrome (principal)
CPT/HCPCS: 76705

== ENCOUNTER 2023-08-23 04:52 | Outpatient (CLI) | payer MEDICARE, MEDICAID, SELFPAY ==
[2023-08-23 09:58] LABS: Hemoglobin A1C 8.4 % (<5.7)
[2023-08-23 10:05] LABS: Lipase 29 U/L (16-77)
[2023-08-23 10:09] LABS: ALT 22 U/L (16-63); AST < 5 U/L (15-37); Alkaline Phosphatase 115 U/L (46-116); Bilirubin, Direct 0.2 mg/dL (0.0-0.2); Bilirubin, Total 1.4 mg/dL (0.2-1.0); Total Protein 7.2 g/dL (6.4-8.2)
[2023-08-23 10:10] LABS: Anion Gap 9.8 mmol/L (3-11); BUN 11 mg/dL (7-18); CO2 29.2 mmol/L (21.0-32.0); CREATININE 1.1 mg/dL (0.70-1.30); Calcium 9.2 mg/dL (8.5-10.1); Calculated LDL 115 mg/dL (<100); Chloride 106 mmol/L (98-107); Cholesterol 186 mg/dL (<200); Estimated GFR 81.78 (mL/min/1.73m2); Glucose 190 mg/dL (74-106); HDL Cholesterol 31 mg/dL (40-60); Sodium 145 mmol/L (136-145); Triglyceride 200 mg/dL (<150)
[2023-08-23 10:14] LABS: COMMENT (LAB VIEW ONLY) 74.55 mg/dL; Microalb ug/mg Crea 146.5 ug/mg Cr
== END 2023-08-23 04:53 | disposition home or self-care (01) ==
LOC: LBO 04:52
PROVIDERS: Family Medicine; PCP Nurse Practitioner Adult Health; Referring Provider Nurse Practitioner Adult Health; Visit Provider Nurse Practitioner Adult Health
DX: E11.29 Type 2 diabetes mellitus with other diabetic kidney complication (principal); E78.5 Hyperlipidemia, unspecified; R80.9 Proteinuria, unspecified; Z79.4 Long term (current) use of insulin; Z86.73 Personal history of transient ischemic attack (TIA), and cerebral infarction without residual deficits
CPT/HCPCS: 36415; 80048; 80061; 80076; 83690; 82043; 82570; 83036

== ENCOUNTER 2023-08-23 12:06 | Outpatient (REF) | payer MEDICARE, MEDICAID, SELFPAY ==
--- NOTE | 2023-08-23 11:15 | SKI_PTH ---
PATIENT: Shukri Seth LOC: [facility] U#:[id number] AGE/SX: 48/M ROOM: RE08/23/[address]: Virginia Park : 1975 BED: DIS: 08/23/2023 SPEC #: [id number] RECD: 08/23/23 13:05 STATUS: EMPERATRIZ REAlan #: [id number] ADRIAN: 08/23/23 11:[address]: Virginia Park DEPT: Surgical Specimen RECD BY: Huong Olson ENTERED: 08/23/23 13:05 SP TYPE: RICK FOSTER DR: Lavonne Clarke APRN Tissues: 1 - SKIN BIOPSY(SHAVE/PUNCH) Procedures: GROSS AND MICRO LEVEL 3 Comments: [id number]
== END 2023-08-23 12:07 | disposition home or self-care (01) ==
LOC: LBN 12:06
PROVIDERS: PCP Nurse Practitioner Adult Health; Visit Provider Surgery
DX: L72.9 Follicular cyst of the skin and subcutaneous tissue, unspecified (principal)
CPT/HCPCS: 88304; 88305

== ENCOUNTER → 2023-09-02 08:21 | Outpatient (BNVA) | payer MEDICARE, MEDICAID, SELFPAY | PROVIDERS: PCP Nurse Practitioner Adult Health; Referring Provider Nurse Practitioner Adult Health; Visit Provider Physical Therapy Assistant | DX: Z48.02 Encounter for removal of sutures (principal) ==

== ENCOUNTER 2023-11-29 03:21 | Outpatient (CLI) | payer MEDICARE, MEDICAID, SELFPAY ==
[2023-11-29 09:13] LABS: ALT 46 U/L (16-63); AST 26 U/L (15-37); Albumin 4.5 g/dL (3.4-5.0); Alkaline Phosphatase 94 U/L (46-116); Anion Gap 7.9 mmol/L (3-11); BUN 8 mg/dL (7-18); Bilirubin, Total 2.33 mg/dL (0.2-1.0); CO2 29.1 mmol/L (21.0-32.0); Calcium 9.2 mg/dL (8.5-10.1); Calculated LDL 98 mg/dL (<100); Chloride 104 mmol/L (98-107); Cholesterol 158 mg/dL (<200); Estimated GFR 91.69 (mL/min/1.73m2); Glucose 163 mg/dL (74-106); HDL Cholesterol 32 mg/dL (40-60); Potassium 3.7 mmol/L (3.5-5.1); Sodium 141 mmol/L (136-145); Total Protein 7.4 g/dL (6.4-8.2); Triglyceride 141 mg/dL (<150)
== END 2023-11-29 03:22 | disposition home or self-care (01) ==
LOC: LBO 03:21
PROVIDERS: PCP Nurse Practitioner Adult Health; Referring Provider Nurse Practitioner Adult Health; Visit Provider Nurse Practitioner Adult Health
DX: E78.5 Hyperlipidemia, unspecified (principal); I25.10 Atherosclerotic heart disease of native coronary artery without angina pectoris
CPT/HCPCS: 36415; 80053; 80061

== ENCOUNTER → 2024-06-08 07:48 | Outpatient (BNVA) | payer MEDICARE, MEDICAID, SELFPAY | PROVIDERS: PCP Nurse Practitioner Adult Health; Referring Provider Nurse Practitioner Adult Health; Visit Provider Physical Therapy Assistant | DX: Z12.11 Encounter for screening for malignant neoplasm of colon (principal); I10 Essential (primary) hypertension; Z86.0101 Personal history of adenomatous and serrated colon polyps ==

== ENCOUNTER 2024-06-26 08:04 | Day surgery (SDC) | payer MEDICARE, MEDICAID, SELFPAY ==
--- NOTE | 2024-06-25 18:48 | PDOC.DSDIS_ITS ---
Date of service: 06/26/24 Discharge Plan Disposition Patient Disposition: Home Condition: Good Discharge Details Reason For Visit: screening colonscopy Attending Provider: Jet Garduno Primary Care Provider: Lavonne Clarke Home Meds and New Rx's Prescriptions: Continued acidophilus-pectin, citrus 25 million cell -100 mg tablet 1 tab PO DAILY Qty: 90 3RF (DME) pen needle, diabetic [BD Ultra-Fine Marivel Pen Needle] 32 gauge x 5/32 needle See Rx Instructions .ROUTE .MEDSUPPLY Qty: 100 3RF Rx Instructions: E11.9 to administer insulin daily for A1C <7% ezetimibe [Zetia] 10 mg tablet 10 mg PO DAILY Qty: 90 3RF Rx Instructions: For goal LDL <70 nitroglycerin 0.4 mg tablet, sublingual 0.4 mg sublingual Q5M PRN (Reason: chest pain) Qty: 100 0RF Rx Instructions: do not exceed 3 doses per episode (DME) lancing device with lancets Kit See Rx Instructions .Route Qty: 1 1RF Rx Instructions: Free Style Light Lancer. Can dispense by itself or as a kit. atorvastatin 80 mg tablet 80 mg PO DAILY Qty: 90 3RF Rx Instructions: increased from 40 to 80 mg daily by [facility] 01/01/22 [facility] clopidogrel [Plavix] 75 mg tablet 75 mg PO DAILY Qty: 90 3RF escitalopram oxalate 10 mg tablet 10 mg PO DAILY Qty: 90 3RF losartan 50 mg tablet See Rx Instructions .ROUTE .COMPLEX Qty: 90 3RF Dose Instruction: TAKE ONE TABLET BY MOUTH EVERY DAY Rx Instructions: TAKE ONE TABLET BY MOUTH EVERY DAY pantoprazole 40 mg tablet,delayed release (DR/EC) 40 mg PO DAILY Qty: 90 3RF Rx Instructions: Take 40 mg daily once daily in the morning at least 30 minutes before first meal of the day Trulicity 1.5 mg/0.5 mL pen injector 1.5 mg subcut QWEEK Qty: 6 3RF (DME) FreeStyle Prieto 2 [place] Misc See Rx Instructions .Route Qty: 1 0RF Rx Instructions: [place] (DME) FreeStyle Prieto 2 Sensor Kit See Rx Instructions .Route Qty: 1 12RF Rx Instructions: Apply to upper tricep Jardiance 25 mg tablet 25 mg PO DAILY AM Qty: 90 3RF Rx Instructions: Administer once daily in the morning, with or without food hydroxyzine HCl 25 mg tablet 25 - 50 mg PO QID PRN (Reason: acute anxiety) Qty: 90 3RF metoprolol succinate [Toprol XL] 100 mg tablet extended release 24 hr 100 mg PO DAILY Qty: 90 3RF insulin degludec [Tresiba FlexTouch U-200] 200 unit/mL (3 mL) insulin pen 30 unit SUBCUT DAILY MDD 50 units per day Qty: 10 3RF (DME) blood-glucose meter Misc See Dose Instructions .ROUTE .MEDSUPPLY Qty: 1 0RF Dose Instruction: As directed Rx Instructions: As directed to check blood glucose on insulin multivitamin Tablet 1 tab PO DAILY Qty: 90 3RF (DME) FreeStyle Lite Strips Strip See Rx Instructions .Route Qty: 200 3RF Rx Instructions: As directed to check blood glucose twice daily. On insulin. Dispense covered brand. (DME) lancets [FreeStyle Lancets] 28 gauge misc See Rx Instructions .Route Qty: 200 3RF Rx Instructions: As directed to check blood glucose twice daily. On insulin. Dispense covered brand. cholecalciferol (vitamin D3) 25 mcg (1,000 unit) capsule 75 mcg PO DAILY metformin 500 mg tablet extended release 24 hr 1,000 mg PO DAILY Qty: 180 3RF (DME) pen needle, diabetic [BD Ultra-Fine Marivel Pen Needle] 32 gauge x 5/32 needle See Rx Instructions .ROUTE .MEDSUPPLY Qty: 30 0RF Rx Instructions: Daily with Von furosemide [Lasix] 20 mg tablet 20 mg PO DAILY PRN Patient Comments: 06/20/[address] Fuentes acetaminophen [Tylenol Extra Strength] 500 MG tablet 1,000 mg PO PRN PRN chlorhexidine gluconate [Antiseptic Skin Clnsr(chlorhe)] 4 % liquid 1 applic TP DAILY PRN (Reason: Acne) Rx Instructions: Rinse skin with water, then apply minimum amount needed to cover skin. Wash gently then rinse Discontinued bisacodyl [Dulcolax (bisacodyl)] 5 mg tablet,delayed release (DR/EC) 5 mg PO ONCE Qty: 4 0RF Rx Instructions: Take per colonoscopy instructions provided by ordering providers office polyethylene glycol 3350 17 gram/dose powder 17 g PO ONCE Qty: 238 0RF Rx Instructions: Take per colonoscopy instructions provided by ordering providers office Discharge Instructions Instructions: Colon polyps, Diverticulosis Additional Instructions: Guillermo, it was nice meeting you today, and I hope you are comfortable for the colonoscopy. Things went very smoothly. Your prep was excellent we could see everything fine. I did find a polyp today, which I removed. I also used a little bit of cautery, or electricity around the edge to help prevent recurrence. Specimens from the polyp will be sent to the pathologist for their review, and we will use that information to guide the timing of your future colonoscopies. If you need anything, or have any questions at all, please do not hesitate to call. 1. If tolerated, consume a soft, low fiber diet for 1-2 days. [address] not drive, drink alcohol, operate machinery, make critical decisions, or do activities that require coordination or balance for 24 hours. 3. Because air was put into your colon during the procedure, expelling air from your rectum (passing gas or farting) is normal. 4. You may not have a bowel movement for 1-3 days because of the colonoscopy prep. This is normal. 5. Go directly to the emergency room if you notice any of the following: Develop chills (warm to touch), or if you have a thermometer and your temperature is above 101 Difficulty breathing or difficultly swallowing Persistent vomiting Severe abdominal pain, other than gas cramps Severe chest pain Black, tarry stools Any bleeding ? exceeding one tablespoon 6. Call your physician if the site where your intravenous was started becomes red, swollen, painful, and warm to touch. 7. Your physician has reviewed your pre-procedure medications. Please continue to take those medications as previously ordered. You will be given specific information/education regarding any changes to your medications before leaving. Stand Alone Forms: Anesthesia Discharge InstJorge, Maximilian Singh (DSU) Activity:: Activity as Tolerated Diet:: As Tolerated Discharge Orders Discharge Orders: Discharge Order (Routine); Ordered 06/25/24 Ordered By: Jet Garduno DS: Diagnosis Discharge Diagnosis (1) Encounter for screening colonoscopy: Status: Acute Asessment and Plan: Follow-up on polypectomy results
--- NOTE | 2024-06-25 18:50 | COLE_ITS ---
Date of service: 06/26/24 Time of Service: 10:03 Colonoscopy Report Date of procedure: 06/26/24 Pre-op diagnosis general: screening colonoscopy Post-op diagnosis procedure note: other (Diverticulosis, colon polyp) Procedure: colonoscopy with polypectomy Surgeon: Jet Garduno Anesthesia Type: General:No Airway Estimated blood loss (mL): 5 Pathology: other (0.25 cm flat polyp at 95 cm from the anus) Complications: None Disposition: same day Indications: Shukri is a 49 year old manw lizeth is getting his next screening colonoscopy Prep: Miralax/Dulcolax Procedure Start Time: : Procedure End Time: :52 Retraction Time: 21 Findings: Sigmoid diverticulosis, 0.25 cm flat polyp at 95 cm Procedure Description: After the induction of anesthesia, and with the patient in left lateral decubitus position, I began by performing an external anorectal exam.? Perineum and skin were normal, as was the anal verge.? There was no evidence of external hemorrhoids.? Next, I performed a digital rectal exam.? I did not appreciate any abnormal findings.? Next, I advanced a colonoscope into the rectal vault.? I performed retroflexion.? This appeared normal.? Using irrigation, I then advanced the colonoscope beyond the rectal folds and into the sigmoid colon before advancing towards the cecum.? The quality of the prep was excellent.? The scope was noted to be in the cecum by identification of the ileocecal valve and appendiceal orifice.? I then began withdrawing the colonoscope using repeated irrigation as necessary for full evaluation of the colonic mucosa. ?Around 95 cm from the anal verge was a 0.25 cm flat polyp. This was removed in piecemeal with cold forceps. Cautery was used around the surrounding mucosa to ensure eradication. There was no significant bleeding from the site. I continued withdrawing the colonoscope. There is sigmoid diverticulosis. Once the scope was withdrawn to the level of the rectum, great care was taken to examine portions of the rectal folds.? Finally, the scope was withdrawn and the patient was brought to the same-day surgery recovery unit as the anesthetic wore off. ?The findings and instructions were shared with the patient prior to discharge. [place] Bowel Prep [place] Bowel Prep Right Colon: 3 Left Colon: 2 Transverse Colon: 3 Total Score: 8
[2024-06-26 08:26] VITALS: BP 130/105; PULSE 85; RESP 16; TEMP 36.2; O2SAT 100
[2024-06-26] MEDS: Lactated Ringers 1,000 ML 80 ML IV (08:37)
--- NOTE | 2024-06-26 08:50 | ANES.PREOP_ITS ---
General Info Date of Service Date Performed: 06/26/24 Height: 6 ft 1 in Weight: 124.3 kg Body Mass Index (BMI): 36.1 Surgical Procedure: Operation Date: 06/26/24 10:05 Proposed Procedure Side Surgeon valorie Garduno MD Meds Allergies and Home Medications Allergies Allergy/AdvReac Type Severity Reaction Status Date / Time hydromorphone (From Dilaudid) AdvReac Intermediate Psychosis Verified 06/26/24 08:22 codeine (Codeine) AdvReac Unknown PSYCHOSIS Verified 06/26/24 08:22 Home Medication ?Medication ?Instructions ?Recorded acetaminophen 500 mg tablet 1,000 mg PO PRN PRN 01/25/17 (Tylenol Extra Strength) blood-glucose meter #1 ea 04/24/19 multivitamin 1 tab PO DAILY #90 tabs 06/25/21 blood sugar diagnostic (FreeStyle #200 ea 12/31/21 Lite Strips) lancets 28 gauge (FreeStyle #200 ea 12/31/21 Lancets) acidophilus 25 million 1 tab PO DAILY #90 tabs 01/21/22 cell-pectin, citrus 100 mg tablet pen needle, diabetic 32 gauge x #100 ea 01/21/22 (BD Ultra-Fine Marivel Pen Needle) cholecalciferol (vitamin D3) 25 75 mcg PO DAILY 05/15/22 mcg (1,000 unit) capsule chlorhexidine gluconate 4 % 1 applic topical DAILY PRN Acne 05/17/22 topical liquid (Antiseptic Skin Cleanser (chlorhexidine)) metformin 500 mg tablet,extended 1,000 mg (2 x 500 mg) PO DAILY 08/09/23 release 24 hr #180 tabs ezetimibe 10 mg tablet (Zetia) 10 mg PO DAILY #90 tabs 08/30/23 lancing device with lancets kit #1 ea 11/05/23 pen needle, diabetic 32 gauge x #30 ea 11/24/23 (BD Ultra-Fine Marivel Pen Needle) nitroglycerin 0.4 mg sublingual 0.4 mg sublingual Q5M PRN chest 12/06/23 tablet pain #100 tabs atorvastatin 80 mg tablet 80 mg PO DAILY #90 tabs 02/14/24 clopidogrel 75 mg tablet (Plavix) 75 mg PO DAILY #90 tabs 02/14/24 dulaglutide 1.5 mg/0.5 mL 1.5 mg (0.5 mL) subcut QWEEK #6 mL 02/14/24 subcutaneous pen injector (Trulicity) escitalopram oxalate 10 mg tablet 10 mg PO DAILY #90 tabs 02/14/24 losartan 50 mg tablet See Rx Instructions .Route 02/14/24 .COMPLEX #90 tabs pantoprazole 40 mg tablet,delayed 40 mg PO DAILY #90 tab-caps 02/14/24 release flash glucose scanning reader #1 ea 03/03/24 (FreeStyle Prieto 2 Lillian) flash glucose sensor (FreeStyle #1 ea 03/03/24 Prieto 2 Sensor kit) empagliflozin 25 mg tablet 25 mg PO DAILY AM #90 tab-caps 05/15/24 (Jardiance) hydroxyzine HCl 25 mg tablet 25 - 50 mg (1 - 2 x 25 mg) PO QID 05/15/24 PRN acute anxiety #90 tabs insulin degludec 200 unit/mL (3 30 unit (0.15 mL) subcut DAILY #10 05/15/24 mL) subcutaneous pen (EverfiGS FlexTouch U-200 insulin) metoprolol succinate 100 mg 100 mg PO DAILY #90 tabs 05/15/24 tablet,extended release 24 hr (Toprol XL) furosemide 20 mg tablet (Lasix) 20 mg PO DAILY PRN 06/20/24 Current Visit Medications: Current Medications Generic Name Dose Route Start Last Admin Trade Name Freq PRN Reason Stop Dose Admin Ringer's Solution 1,000 mls @ 80 mls/hr 06/26/24 06:00 06/26/24 08:37 IV 06/26/24 23:59 80 mls/hr INFUSION KOURTNEY Administration IV Miscellaneous Supplies 1 each 06/26/24 06:00 Iv Access IV 06/26/24 23:59 DIRECTED KOURTNEY Sodium Chloride 0 ml 06/26/24 06:00 Normal Saline Flush 10 Ml Syr IV 06/26/24 23:59 PRN PRN Sodium Chloride 0 ml 06/26/24 06:00 Normal Saline 10 Ml Vial IJ 06/26/24 23:59 DIRECTED PRN Sterile Water 0 ml 06/26/24 06:00 Water,Injection,Sterile 10 Ml Vial IJ 06/26/24 23:59 DIRECTED PRN PFSH Active Problems Active Problems: Problem Status Onset Code Encounter for screening colonoscopy Acute Z12.11 Age-related nuclear cataract, bilateral Acute ~05/11/24 H25.13 Ambrocio angioma Acute D18.01 Vascular lesion of skin Acute I99.9 Skin tag Acute L91.8 Hepatic steatosis Acute ~07/2023 K76.0 Post-cholecystectomy syndrome Acute K91.5 Hemangioma Acute D18.00 Sebaceous cyst Acute L72.3 Cyst, pilonidal, with abscess Acute L05.01 Sessile serrated polyp of colon Acute ~06/04/23 D12.6 Diverticula of colon Acute K57.30 Adenomatous polyps Acute D36.9 Unable to cry Acute R68.89 Sleep walking Acute F51.3 History of CVA (cerebrovascular accident) Acute Z86.73 Type 2 diabetes mellitus, with long-term current use of insulin Chronic E11.9, Z79.4 HFrEF (heart failure with reduced ejection fraction) Acute I50.20 Ischemic cardiomyopathy Chronic I25.5 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 2 diabetes mellitus Acute ~06/2020 E11.29, R80.9 Antiplatelet or antithrombotic long-term use Acute Z79.02 Ventricular premature beats Acute 08/28/14 I49.3 Vitamin D deficiency Chronic 05/23/15 E55.9 Tobacco use disorder Chronic F17.200 Panic disorder without agoraphobia Chronic 04/29/11 F41.0 Obesity (BMI 30-39.9) Chronic 08/28/14 E66.9 Obstructive sleep apnea syndrome, mild Chronic 11/03/16 G47.33 Hyperlipidemia, unspecified Chronic 04/29/11 E78.5 Erectile dysfunction Chronic 11/29/15 N52.9 Depression Chronic 04/29/11 F32.9 Bipolar disorder Chronic F31.9 Benign prostatic hyperplasia with lower urinary tract symptoms Chronic 01/28/17 N40.1 Essential hypertension Chronic 11/25/12 I10 Anxiety Chronic 04/29/11 F41.9 ASCVD (arteriosclerotic cardiovascular disease) Chronic I25.10 Medical History Medical History Screening for malignant neoplasm of colon performed (~05/2023) Cholecystitis (~01/2023) Gallstones Pain of both sacroiliac joints Vertigo STEMI (ST elevation myocardial infarction) (~05/2022) COVID (~04/20/22) Acute non-ST elevation myocardial infarction (NSTEMI) Heart palpitations De Quervain's tenosynovitis, right Kidney stone (04/26/15) 100% calcium oxalate monohydrate Cerebrovascular accident (CVA) (08/03/16) [facility] [place] R valdez radiata, basal ganglia, subinsular region and temporal lob infarcts s/p tPA and thrombectomy (07/11/16) with recanalization Alcohol use disorder (04/29/11) BINGE pER PT. STATES HE DOESN'T DRINK ANYMORE, HASN'T IN YEARS 09/21/19 Patellar fracture (01/26/17) (L) S/p surgical repair Surgical History Surgical History History of colonoscopy (~05/2023) biopsies--Tubular adenoma and sessile serrated Dr Park Hx of cholecystectomy (~02/18/23) Status post vasectomy (~01/19/06) Status post cardiac catheterization (~05/2022) [facility] [place] mid-LAD & distal RCA Status post wrist surgery (~09/2021) Dr. Marvin; RIGHT for De Quervain's S/P cardiac cath (01/01/22) [facility]; statwith stent Open Reduction and Internal Fixation of Patellar Fracture (01/26/17) (L) Dr. Lemus Tobacco Smoking/Tobacco Use Status: Current every day Tobacco Type: pipe Other: Smokes 5-6 ciggs worth of tobacco in pipe on a rough day Alcohol Alcohol Intake: former Substance Use Substance use: Never Substance use type: does not use Vital Signs and Lab Results Vital Signs Most Recent Vital Signs in EMR: Most Recent Vital Signs Temp Pulse Resp BP Pulse Ox 36.2 C L 85 16 130/105 H 100 06/26/24 08:26 06/26/24 08:26 06/26/24 08:26 06/26/24 08:26 06/26/24 08:26 Point of Care Results Point of Care Results: Finger Stick Blood Glucose 128 06/26/24 08:27 Lab Results Blood Type / Crossmatch: No Data to Display Complete Blood Count: No Data to Display Complete Metabolic Panel: No Data to Display Liver Function Panel: No Data to Display Coagulation Panel: No Data to Display Cardiac Panel: No Data to Display Arterial Blood Gas: No Data to Display Venous Blood Gas: No Data to Display Pancreas Panel: No Data to Display Thyroid Panel: No Data to Display Infectious Disease: No Data to Display Blood Cultures: No Data to Display Toxicology Panel: No Data to Display Imaging and Studies Imaging and Studies Study information below may be from another EMR and interpreted by another provider. Please see original notes in EMR for more complete details. EKG Summary: EKG PATIENT NAME: Shukri Seth UNIT #: [id number] ORDERING PROVIDER: Fabiano Sahni M.D. PRIMARY CARE PROVIDER: IVA DOMINGUEZ NP DATE/TIME OF SERVICE: 02/07/23 1318 : 1975 PERFORMING LOCATION: ER APPROVED REPORT Exam: Resting ECG Reason for Exam: abd pain Patient Location: E HR:62 bpm ECG Measurements Heart Rate [address] 165 P 49 QRSd 94 QRS 5 QT 427 T136 QTc 434 Conclusion Sinus rhythm...normal P axis, V-rate 60- 99 <Electronically signed by MD FABIANO SAHNI in OV> E-Sign Date: 02/07/23 E-Sign Time: 1437 ADDENDUM APPROVED REPORT Exam: Resting ECG Reason for Exam: abd pain Patient Location: E HR:62 bpm ECG Measurements Heart Rate [address] 165 P 49 QRSd 94 QRS 5 QT 427 T136 QTc 434 Conclusion Sinus rhythm...normal P axis, V-rate 60- 99 I have reviewed and I agree with the emergency room physician's ECG interpretation. Electronically signed by: <Electronically signed by Jessica Rodrigez M.D. in OV> 02/08/23 0814 Cosigned by: Echocardiogram Summary: Patient Name: Shukri Seth Unit #: [id number] Loc: ICU Ordering Provider: Carmela Macedo M.D. Status: ADM IN Primary Care Provider: Linda Hallman NP Date of Exam: 05/11/22 Sex: M Admission Date: 05/10/22 : 1975 Age: 46 APPROVED REPORT EXAM: Comprehensive 2D, Doppler, and color-flow Echocardiogram Patient Location: In-Patient Room/Bed: [id number] Optical Effects Line Up Person: Imelda Damian RDCS (AE) Indications: NSTEMI. h/o apical thrombus Echo Enhancing Agent Indication: Endocardial border delineation Agent(s) / Amount(s) Used: Definity 10.0 cc Comments: Contrast study was performed with 1 IV injection of 2cc of diluted definity. Other Information Study Quality: Fair. Technically limited study due to body habitus exam done bedside icu. Conclusion Normal left ventricular wall thickness and chamber size. Estimated ejection fraction is 45 to 50%. There is a wall motion abnormality involving the apical and anteroapical segments. No thrombus is seen Right ventricle was not well visualized Both atria are normal in size Aortic valve is trileaflet and sclerotic without stenosis or regurgitation Mildly dilated ascending aorta 3.54 cm Wall motion Left Ventricle The left ventricle is normal size. Left ventricular systolic function is mildly decreased. Definity microbubble contrast injection was given. There is normal left ventricular wall thickness. Regional wall motion abnormalities are noted. There is no ventricular septal defect visualized. LVEF is 47%. Right Ventricle Right ventricle is not well visualized. Right ventricular systolic function could not be assessed. The RVSP is 15.9_ mmHg. Atria The left atrium size is normal. The right atrium size is normal. The interatrial septum is intact with no evidence for an atrial septal defect. Aortic Valve The Aortic valve is sclerotic. Aortic valve is trileaflet. There is no aortic valvular stenosis. No aortic regurgitation is present. Mitral Valve The mitral valve is normal in structure. No evidence of mitral valve stenosis. Trace mitral regurgitation. Tricuspid Valve The tricuspid valve is normal in structure. There is no tricuspid valve stenosis. Trace tricuspid regurgitation. Pulmonic Valve The pulmonary valve is normal in structure. There is no pulmonic valvular stenosis. There is no pulmonic valvular regurgitation. Great Vessels The aortic root is normal in size. The ascending aorta is mildly dilated. Aortic arch is not well visualized. IVC is normal in size and collapses >50% with inspiration. Pericardium There is no pericardial effusion. 2D Dimensions IVSD d PLAX 1.02 cm M: 0.6-1.2LV Vol A2C d MOD 119.5 mL LVPW d PLAX 1.03 cm M: 0.6 - 1.2LV Vol A4C d MOD 189.0 mL LVID d PLAX 5.24 cm M: 4.2 - 5.8LA Area A4C s MOD 17.41 cm2 LVDs 3.85 cm M: 2.5 - 4.0LV EF A4C MOD 47.8 % Ao Root d 3.25 cm M: 3.1 - 3.7LV EF A2C MOD 47.0 % RA Area A4C9.48 cm2LV EF Biplane MOD 48.6 % Ao Asc Diam d 3.54 cm M: 2.6 - 3.4SV73.12 mL LV EF Teichholz 50.5 % LVEF (Gutierrez's)48.58 % M: 52 - 72 LV Mbulsa548.52 mL M: 62 - 150 LV Volume Index62.71 mL/m2 M: 34 - 74 LV Vol Biplane MOD 150.5 mL FS25.85 % M-Mode TAPSE 2.09 cm (M/F) >1.7 LV Diastology MV E' medial0.087 (>0.07 m/s)E/A Ratio 1.4 LV E/e MED10.55 (<14)MV E Vmax 0.92 (0.4-1.3 m/s) MV E' lateral0.063 (>0.1 m/s)MV A Vmax 0.65 (0.4-1.3 m/s) LV E/e LAT14.70 (<14)MV E/A Ratio 1.39 MV E/E' medial 10.59 MV E/E' gkipwnj81.73 Aortic Valve LVOT Area3.97 cm2AoV Area Vmax3.84 cm2 LVOT Vmax 1.13 m/sAVA Mean Hammad.3.58 cm2 LVOT Mean Hammad.0.74 m/s LVOT Peak Grad 5.1 mmHg LVOT Mean Grad 2.6 mmHg LVOT VTI0.250 m LVOT Diam s 2.20 cm AoV Vmax1.16 m/s Velocity Ratio 0.97 AoV Mean Hammad.0.82 m/s AoV Peak Grad5.4 mmHg LVOT SV 98.97 mL AoV Mean Grad3.0 mmHg AoV VTI0.242 m AoV Area VTI4.09 cm2 Mitral Valve MV DT 199 (160-240 msec) MV PHT58 msec MV Area PHT 3.81 cm2 MV VTI 0.382 m MV Area VTI 2.59 (4.0-6.0 cm2) Pulmonary Valve PV Vmax 1.00 (0.5-1.5 m/s)RVOT Peak Gr.3.26 mmHg PV Peak Grad 4.0 mmHgRVOT Mean Gr.1.75 mmHg PV Mean Grad 2.2 mmHgRVOT VTI0.225 m PV VTI 0.231 mRVOT Vmax 0.90 m/s Tricuspid Valve TR Peak Grad 12.9 mmHgTR Vmax 1.80 m/s RA Pressure 3.00 mmHg RVSP (TR) 15.9 mmHg Ordered By: Carmela Macedo M.D. CC: Dictated By: Jessica Rodrigez M.D. 05/11/22 1020 <Electronically signed by Jessica Rodrigez M.D. in [place]> 05/11/22 1031 Transcribed By: Jessica Rodrigez MD This is privileged, confidential information intended only for the provider named. Any use or distribution by any person other than this provider is strictly prohibited. If you receive this report in error, please notif Anesthesia Assessment and Plan Anesthesia History Personal History: No History of Anesthesia Complications Family History: No Family History of Anesthesia Complications Exercise Tolerance Exercise Tolerance: Metabolic Equivalents>4 Cardiac & Pulmonary Exam Cardiac Exam: Normal S1/S2 Heart Sounds Pulmonary Exam: Clear Bilateral Breath Sounds Implantable Cardiac Device Does patient have a Pacemaker or an ICD?: No Airway Exam Known Difficult Airway: No Mallampati Class: 2 Mouth Opening: Normal (> 3cm) Thyromental Distance: Greater than 3 cm Neck Range of Motion: Full ROM Neck Circumference: Normal Teeth Condition: Generalized Poor Dentition and Edentulous (Partially, many missing) ASA Classification ASA Score: ASA 3 Emergency Case?: No NPO Status NPO Status: NPO Clears >2 hours, Solids >8 hours Anesthesia Plan Resuscitation Status: Full Code Anesthesia Technique: General Anesthesia Airway Planned: Natural Airway Monitors Used: Standard Monitors Preoperative Comments:: No active symptoms of GERD, held diabetic medications per instructions. No recent episodes of chest pain/pressure.
[2024-06-26 09:08] VITALS: BMI 36.1
--- NOTE | 2024-06-26 09:39 | BOWEL_PTH ---
PATIENT: Shukri Seth LOC: MAN U#:[id number] AGE/SX: 49/M ROOM: RE06/26/[address]: Jet Garduno MD : 1975 BED: DIS: 06/26/2024 SPEC #: [id number] RECD: 06/26/24 13:00 STATUS: EMPERATRIZ REQ #: [id number] ADRIAN: 06/26/24 09:[address]: Jet Garduno DEPT: Surgical Specimen RECD BY: Huong Olson ENTERED: 06/26/24 13:01 SP TYPE: Bowel OTHR DR: Lavonne Clarke APRN Tissues: 1 - BIOPSY BOWEL Procedures: GROSS AND MICRO LEVEL 4 Comments: [id number]
[2024-06-26 09:57] VITALS: BP 124/93; PULSE 77; RESP 18; TEMP 36.3; O2SAT 97
[2024-06-26 10:35] VITALS: BP 120/101; PULSE 66; RESP 16; TEMP 36.5; O2SAT 98
--- NOTE | 2024-06-26 11:12 | W.ANESPOSTOP ---
Postoperative Evaluation Date, Time and Location Date Performed: 06/26/24 Time Performed: 10:05 Patient Location: Day Surgery Unit Vital Signs Most Recent Imported Vital Signs: Most Recent Vital Signs Temp Pulse Resp BP Pulse Ox 36.5 C 66 16 120/101 H 98 06/26/24 10:35 06/26/24 10:35 06/26/24 10:35 06/26/24 10:35 06/26/24 10:35 Pain Score Most Recent Pain Score: Most Recent Pain Score Pain Level 0 06/26/24 10:35 Assessment Mental Status: Awake (Alert & Oriented to Patient Baseline) Airway and Respiratory Function: Patent airway with normal (patient baseline) respiratory exam Cardiovascular Function: Hemodynamically Stable Hydration Status: Adequately Hydrated Nausea & Vomiting: No Nausea or Vomiting Pain: Pt. Denies Any Pain Peripheral Nerve Block: Patient did not receive a nerve block
== END 2024-06-26 10:37 | disposition home or self-care (01) ==
LOC: SUR 08:04
PROVIDERS: PCP Nurse Practitioner Adult Health; Visit Provider Surgery
PROC: 0DJD8ZZ Inspection of Lower Intestinal Tract, Via Natural or Artificial Opening Endoscopic (ICD-10-PCS; CPT 45378; principal; 2024-06-26 10:00)
DX: Z12.11 Encounter for screening for malignant neoplasm of colon (principal); K57.30 Diverticulosis of large intestine without perforation or abscess without bleeding; K63.5 Polyp of colon; K63.89 Other specified diseases of intestine
CPT/HCPCS: 45380; 88305; J2003; J2704

== ENCOUNTER 2024-11-23 05:42 | Observation (INO) | payer MEDICARE, MEDICAID, SELFPAY ==
[2024-11-23] VITALS (23 sets, daily range): BP systolic 142–198; BP diastolic 92–132; PULSE 61–73; RESP 10–22; TEMP 36.5–37.4; O2SAT 92–98
--- NOTE | 2024-11-23 06:00 | DI.CT_ITS ---
Exam(s) CT ABDOMEN PELVIS W EXAM: CT ABDOMEN PELVIS W CLINICAL HISTORY: crampy abdominal pain, RLQ TTP. TECHNIQUE: Imaging Protocol: Axial computed tomography images with coronal and sagittal reformatted images were created and reviewed CONTRAST MATERIAL: Intravenous: Omnipaque 350 Contrast volume:100 ml Oral: no COMPARISON: CT CT RENAL COLIC WO from 05/26/2020 US US ABDOMEN LIMITED from 08/04/2023 FINDINGS: ABDOMEN and PELVIS: Lung Bases: Mild scarring left lung base. Coronary artery stents. There is an area of decreased attenuation at the left ventricular apex measuring 3 by 1.3 cm by 1.7 cm which could represent thrombus. Liver: Mildly increased density, consistent with mild hepatic steatosis.. No suspicious mass. Gallbladder and biliary tract: Cholecystectomy. No biliary dilation. Pancreas: Normal density. No abnormal calcifications or inflammatory process. No evidence of mass. Spleen: Normal. Kidneys: Large area of wedge-shaped decreased perfusion in the upper and midportion of the right kidney with appearance consistent with infarct. There are multifocal linear areas in both kidneys consistent with scarring. Findings are greatest at the lower pole of the right kidney. No thrombus is visible within the renal veins. The renal arteries show normal diameter. No radiodense stones. No obstructive uropathy. No suspicious masses seen. Adrenal glands: No masses seen. Stable adrenal thickening. Vasculature: Abdominal aorta non-dilated. No significant calcifications of the renal arteries. There is minimal atherosclerotic change in the iliac arteries. The IVC and iliac veins as well as visualized portions of the femoral veins are unremarkable. No dilatation. The venous system is suboptimally opacified and thrombi are not excluded. Soft tissues: Unremarkable. Bladder: No gross wall thickening. No calculi.No focal mass. Bowel: No obstruction. No bowel wall thickening. Appendix normal. Peritoneal cavity: No ascites. No focal collection. No mesenteric inflammatory response. No free air. Bones: Unremarkable for age. Reproductive organs: Unremarkable. Lymph nodes: No pathologically enlarged lymph nodes. IMPRESSION:: Wedge shaped area of decreased renal perfusion in the right kidney consistent with infarct. Bilateral renal scarring. There is in area of decreased attenuation at the left ventricular apex suspicious for thrombus. The preliminary [facility] report was reviewed. RADIATION DOSE DELIVERED: 961.45mGy.cm Total DLP DATA REPOSITORY: All CT scans at this facility are submitted to the National Radiology Data Registry (NRDR) Dose Index Registry (DIR) with the [employer] (A[employer]). RADIATION OPTIMIZATION: All CT scans at this facility use at least one of these dose optimization techniques: automated exposure control; mA and/or kV adjustment per patient size (includes targeted exams where dose is matched to clinical indication); or iterative reconstruction.
--- NOTE | 2024-11-23 06:14 | W.ED.GENAD ---
Discharge Plan Discharge Details Chief Complaint: Abd Prob Clinical Impression: Abdominal pain, Depression Primary Care Provider: Lavonne Clarke ED Provider: Myrna Pagan Home Meds and New Rx's Prescriptions: No Action acidophilus-pectin, citrus 25 million cell -100 mg tablet 1 tab PO DAILY Qty: 90 3RF (DME) pen needle, diabetic [BD Ultra-Fine Marivel Pen Needle] 32 gauge x 5/32 needle See Rx Instructions .ROUTE .MEDSUPPLY Qty: 100 3RF Rx Instructions: E11.9 to administer insulin daily for A1C <7% (DME) lancing device with lancets Kit See Rx Instructions .Route Qty: 1 1RF Rx Instructions: Free Style Light Lancer. Can dispense by itself or as a kit. atorvastatin 80 mg tablet 80 mg PO DAILY Qty: 90 3RF Rx Instructions: increased from 40 to 80 mg daily by [facility] 01/01/22 [facility] clopidogrel [Plavix] 75 mg tablet 75 mg PO DAILY Qty: 90 3RF escitalopram oxalate 10 mg tablet 10 mg PO DAILY Qty: 90 3RF losartan 50 mg tablet See Rx Instructions .ROUTE .COMPLEX Qty: 90 3RF Dose Instruction: TAKE ONE TABLET BY MOUTH EVERY DAY Rx Instructions: TAKE ONE TABLET BY MOUTH EVERY DAY pantoprazole 40 mg tablet,delayed release (DR/EC) 40 mg PO DAILY Qty: 90 3RF Rx Instructions: Take 40 mg daily once daily in the morning at least 30 minutes before first meal of the day Jardiance 25 mg tablet 25 mg PO DAILY AM Qty: 90 3RF Rx Instructions: Administer once daily in the morning, with or without food hydroxyzine HCl 25 mg tablet 25 - 50 mg PO QID PRN (Reason: acute anxiety) Qty: 90 3RF metoprolol succinate [Toprol XL] 100 mg tablet extended release 24 hr 100 mg PO DAILY Qty: 90 3RF (DME) FreeStyle Prieto 3 Plus Sensor Device See Rx Instructions .Route Rx Instructions: As directed nitroglycerin 0.4 mg tablet, sublingual 0.4 mg sublingual Q5M PRN (Reason: chest pain) Qty: 100 0RF Rx Instructions: do not exceed 3 doses per episode metformin 500 mg tablet extended release 24 hr 1,000 mg PO DAILY Qty: 180 3RF Trulicity 4.5 mg/0.5 mL pen injector 4.5 mg subcut QWEEK 28 Days Qty: 2 12RF Rx Instructions: Inject 4.5 mg subcutaneously once weekly as directed. insulin degludec 200 unit/mL (3 mL) insulin pen See Rx Instructions .ROUTE .COMPLEX Qty: 9 3RF Dose Instruction: INJECT 20 UNITS UNDER THE SKIN ONCE DAILY Rx Instructions: INJECT 30 UNITS UNDER THE SKIN ONCE DAILY ibuprofen 200 mg tablet 200 mg PO Q6H PRN Patient Comments: Takes 2 tablets (400 mg) PRN at times. (DME) blood-glucose meter Misc See Dose Instructions .ROUTE .MEDSUPPLY Qty: 1 0RF Dose Instruction: As directed Rx Instructions: As directed to check blood glucose on insulin multivitamin Tablet 1 tab PO DAILY Qty: 90 3RF (DME) FreeStyle Lite Strips Strip See Rx Instructions .Route Qty: 200 3RF Rx Instructions: As directed to check blood glucose twice daily. On insulin. Dispense covered brand. (DME) lancets [FreeStyle Lancets] 28 gauge misc See Rx Instructions .Route Qty: 200 3RF Rx Instructions: As directed to check blood glucose twice daily. On insulin. Dispense covered brand. cholecalciferol (vitamin D3) 25 mcg (1,000 unit) capsule 75 mcg PO DAILY (DME) pen needle, diabetic [BD Ultra-Fine Marivel Pen Needle] 32 gauge x 5/32 needle See Rx Instructions .ROUTE .MEDSUPPLY Qty: 30 0RF Rx Instructions: Daily with Von furosemide [Lasix] 20 mg tablet 20 mg PO DAILY PRN Patient Comments: 06/20/[address] Fuentes ezetimibe 10 mg tablet See Rx Instructions .ROUTE .COMPLEX Qty: 90 3RF Dose Instruction: TAKE ONE TABLET BY MOUTH EVERY DAY, FOR GOAL LDL <70 Rx Instructions: TAKE ONE TABLET BY MOUTH EVERY DAY, FOR GOAL LDL <70 acetaminophen [Tylenol Extra Strength] 500 MG tablet 1,000 mg PO PRN PRN HPI General Mode of arrival: ambulatory. Date/Time Provider Initiated Documentation: 11/23/24 05:49. Limitations to Documentation: no limitations. Information obtained by: patient. HPI Narrative: 49yo M with hx depression, CVA, T2DM, CHF, bipolar, HTN, CAD, presenting with abdominal pain and SI. Reports that at midnight he began to have crampy periumbilical abdominal pain. Pain is constant but comes in waves. Associated nausea, no vomiting or diarrhea. Last BM yesterday, normal. Over the course of the night pain kept him awake. Has since migrated more to the RLQ. No fevers or chills. After a few hours of pain he began to think about harming himself; has struggled with SI in the past and had a prolonged course of pain with his gallbladder before it was removed, does not think he can live with pain like this again. No plan at this time. Has not been taking his psych medications recently and is not currently seeing a therapist. He reports some hallucinations with opiates including fentanyl and morphine in the past but had done well with tramadol. Related Data Home Medications ?Medication ?Instructions ?Recorded ?Confirmed acetaminophen 500 mg tablet 1,000 mg PO PRN PRN 01/25/17 11/23/24 (Tylenol Extra Strength) blood-glucose meter #1 ea 04/24/19 10/30/24 multivitamin 1 tab PO DAILY #90 tabs 06/25/21 11/23/24 blood sugar diagnostic (FreeStyle #200 ea 12/31/21 10/30/24 Lite Strips) lancets 28 gauge (FreeStyle #200 ea 12/31/21 10/30/24 Lancets) acidophilus 25 million 1 tab PO DAILY #90 tabs 01/21/22 11/23/24 cell-pectin, citrus 100 mg tablet pen needle, diabetic 32 gauge x #100 ea 01/21/22 10/30/24 (BD Ultra-Fine Marivel Pen Needle) cholecalciferol (vitamin D3) 25 75 mcg PO DAILY 05/15/22 11/23/24 mcg (1,000 unit) capsule lancing device with lancets kit #1 ea 11/05/23 10/30/24 pen needle, diabetic 32 gauge x #30 ea 11/24/23 10/30/2432 (BD Ultra-Fine Marivel Pen Needle) atorvastatin 80 mg tablet 80 mg PO DAILY #90 tabs 02/14/24 11/23/24 clopidogrel 75 mg tablet (Plavix) 75 mg PO DAILY #90 tabs 02/14/24 11/23/24 escitalopram oxalate 10 mg tablet 10 mg PO DAILY #90 tabs 02/14/24 11/23/24 losartan 50 mg tablet See Rx Instructions .Route 02/14/24 11/23/24 .COMPLEX #90 tabs pantoprazole 40 mg tablet,delayed 40 mg PO DAILY #90 tab-caps 02/14/24 11/23/24 release empagliflozin 25 mg tablet 25 mg PO DAILY AM #90 tab-caps 05/15/24 11/23/24 (Jardiance) hydroxyzine HCl 25 mg tablet 25 - 50 mg (1 - 2 x 25 mg) PO QID 05/15/24 11/23/24 PRN acute anxiety #90 tabs metoprolol succinate 100 mg 100 mg PO DAILY #90 tabs 05/15/24 11/23/24 tablet,extended release 24 hr (Toprol XL) furosemide 20 mg tablet (Lasix) 20 mg PO DAILY PRN 06/20/24 11/23/24 Held on 08/21/24. Instructions: Home Medication placed on hold at Doctor's office dulaglutide 4.5 mg/0.5 mL 4.5 mg (0.5 mL) subcut QWEEK 28 08/21/24 11/23/24 subcutaneous pen injector days #2 mL (Trulicity) ezetimibe 10 mg tablet See Rx Instructions .Route 09/06/24 11/23/24 .COMPLEX #90 tabs insulin degludec 200 unit/mL (3 See Rx Instructions .Route 09/14/24 11/23/24 mL) subcutaneous pen .COMPLEX #9 mL blood-glucose sensor (FreeStyle 10/02/24 10/30/24 Prieto 3 Plus Sensor device) metformin 500 mg tablet,extended 1,000 mg (2 x 500 mg) PO DAILY 10/02/24 11/23/24 release 24 hr #180 tabs nitroglycerin 0.4 mg sublingual 0.4 mg sublingual Q5M PRN chest 10/02/24 11/23/24 tablet pain #100 tabs ibuprofen 200 mg tablet 200 mg PO Q6H PRN 10/30/24 11/23/24 Previous Rx's ?Medication ?Instructions ?Recorded blood-glucose meter #1 ea 04/24/19 multivitamin 1 tab PO DAILY #90 tabs 06/25/21 blood sugar diagnostic (FreeStyle #200 ea 12/31/21 Lite Strips) lancets 28 gauge (FreeStyle #200 ea 12/31/21 Lancets) acidophilus 25 million 1 tab PO DAILY #90 tabs 01/21/22 cell-pectin, citrus 100 mg tablet pen needle, diabetic 32 gauge x #100 ea 01/21/22 (BD Ultra-Fine Marivel Pen Needle) lancing device with lancets kit #1 ea 11/05/23 pen needle, diabetic 32 gauge x #30 ea 11/24/23 (BD Ultra-Fine Marivel Pen Needle) atorvastatin 80 mg tablet 80 mg PO DAILY #90 tabs 02/14/24 clopidogrel 75 mg tablet (Plavix) 75 mg PO DAILY #90 tabs 02/14/24 escitalopram oxalate 10 mg tablet 10 mg PO DAILY #90 tabs 02/14/24 losartan 50 mg tablet See Rx Instructions .Route 02/14/24 .COMPLEX #90 tabs pantoprazole 40 mg tablet,delayed 40 mg PO DAILY #90 tab-caps 02/14/24 release empagliflozin 25 mg tablet 25 mg PO DAILY AM #90 tab-caps 05/15/24 (Jardiance) hydroxyzine HCl 25 mg tablet 25 - 50 mg (1 - 2 x 25 mg) PO QID 05/15/24 PRN acute anxiety #90 tabs metoprolol succinate 100 mg 100 mg PO DAILY #90 tabs 05/15/24 tablet,extended release 24 hr (Toprol XL) dulaglutide 4.5 mg/0.5 mL 4.5 mg (0.5 mL) subcut QWEEK 28 08/21/24 subcutaneous pen injector days #2 mL (Trulicity) ezetimibe 10 mg tablet See Rx Instructions .Route 09/06/24 .COMPLEX #90 tabs insulin degludec 200 unit/mL (3 See Rx Instructions .Route 09/14/24 mL) subcutaneous pen .COMPLEX #9 mL metformin 500 mg tablet,extended 1,000 mg (2 x 500 mg) PO DAILY 10/02/24 release 24 hr #180 tabs nitroglycerin 0.4 mg sublingual 0.4 mg sublingual Q5M PRN chest 10/02/24 tablet pain #100 tabs Allergies Allergy/AdvReac Type Severity Reaction Status Date / Time hydromorphone (From Dilaudid) AdvReac Intermediate Psychosis Verified 11/23/24 05:54 codeine (Codeine) AdvReac Unknown PSYCHOSIS Verified 11/23/24 05:54 General Stated Complaint: Abd Prob DIANNE: 3 Review of Systems Narrative: see HPI Exam Narrative Exam Narrative: General: Alert, well appearing, well nourished, in no acute distress. Head: Normocephalic, atraumatic Neck: Trachea midline, ?Neck supple. ENT: ?MMM.? No oropharygeal lesions or exudate. Cardiac: ?RRR, no murmurs appreciated Resp: No respiratory distress. CTAB. Abd: ?Soft, non-distended. RLQ TTP with no rebound or guarding. : ?No suprapubic tenderness. No CVA tenderness. Extremities: ?No deformities.? No peripheral edema. Neurologic: GCS 15. ? Moves all extremities freely against gravity Psych: Calm, cooperative.? Well groomed.? Mood crappy, affect congruent.? Speech with normal volume, rate, rythym and tone. Linear and goal directed.? + SI, no plan. Denies HI/AH/VH. ? Does not appear to be responding to internal stimuli. Course Vital Signs Vital signs: Vital Signs Temperature 37.3 C 11/23/24 05:47 Pulse 69 11/23/24 05:47 Respiratory Rate 18 11/23/24 05:47 Pulse Oximetry 97 11/23/24 05:47 Temperature 37.3 C 11/23/24 05:47 Pulse 69 11/23/24 05:47 Respiratory Rate 18 11/23/24 05:47 Pulse Oximetry 97 11/23/24 05:47 Oxygen Delivery Method Room Air 11/23/24 05:47 Oxygen Flow Rate 0 11/23/24 05:47 Pain Level 6 11/23/24 05:47 Medical Decision Making 49yo M with hx depression, CVA, T2DM, CHF, bipolar, HTN, CAD, presenting with abdominal pain and SI. Vital signs reassuring on arrival, on exam he does have RLQ tenderness. Reports passive SI which he feels is triggered by his abdominal pain, however has also not been taking his psych meds. Will treat symptoms with zofran and tramadol while awaiting results of workup. Pt reports hallucinations with other opiates and so will avoid these to avoid complicating his psychiatric pictures. Will need reassessment of suicidality after medical workup is complete, may benefit from [facility] and possibly outpatient referrals at that time. Labs reviewed as below, CBC reassuring with mild leukocytosis, CMP with with no actionable abnormalities (mild bilirubin elevation at baseline), lactate normal, UA not suggestive of infection or stone. CT independently reviewed; no obstruction or free fluid on my view, radiology read pending. Signed out to oncoming physician pending CT read. Disposition pending results and clinical course. If CT reassuring, symtpoms improved, and psych reassessment reassuring, would consider discharge home. PFSH All Active Problems (Updated 11/23/24 @ 07:39 by Myrna Pagan MD) Depression (Chronic) Abdominal pain (Acute) Age-related nuclear cataract, bilateral (Acute ~05/11/24) Ambrocio angioma (Acute) Vascular lesion of skin (Acute) Skin tag (Acute) Hepatic steatosis (Acute ~07/2023) Finding on imaging Post-cholecystectomy syndrome (Acute) Hemangioma (Acute) Sebaceous cyst (Acute) Cyst, pilonidal, with abscess (Acute) Sessile serrated polyp of colon (Acute ~06/04/23) Diverticula of colon (Acute) Adenomatous polyps (Acute) Unable to cry (Acute) [facility] referral Sleep walking (Acute) Sleep Med referral History of CVA (cerebrovascular accident) (Acute) Type 2 diabetes mellitus, with long-term current use of insulin (Chronic) HFrEF (heart failure with reduced ejection fraction) (Acute) Ischemic cardiomyopathy (Chronic) 06/20/24 f/u Dr Fuentes 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 2 diabetes mellitus (Acute ~06/2020) Antiplatelet or antithrombotic long-term use (Acute) Ventricular premature beats (Acute 08/28/14) Vitamin D deficiency (Chronic 05/23/15) Tobacco use disorder (Chronic) Panic disorder without agoraphobia (Chronic 04/29/11) Obesity (BMI 30-39.9) (Chronic 08/28/14) Obstructive sleep apnea syndrome, mild (Chronic 11/03/16) Shanika Jimenez NP DOES NOT USE CPAP; 2023: declines sleep study (referral cancelled) Hyperlipidemia, unspecified (Chronic 04/29/11) Intolerant to atorvastatin; able to tolerate once vit D deficiency addressed Erectile dysfunction (Chronic 11/29/15) Depression (Chronic 04/29/11) Bipolar disorder (Chronic) Dx psychiatry [facility] PT. DENIES THIS DX Benign prostatic hyperplasia with lower urinary tract symptoms (Chronic 01/28/17) Essential hypertension (Chronic 11/25/12) Anxiety (Chronic 04/29/11) ASCVD (arteriosclerotic cardiovascular disease) (Chronic) Anterior ND 12/2013 --> MAGDALENA in LAD EF 40% post-ND 09/2014 echo EF improved to almost normal at 54% Followed by pesticide use medical coordinator Dr. Galaviz at [facility] 06/20/24 F/U Dr Fuentes Medical History (Updated 11/23/24 @ 07:39 by Myrna Pagan MD) Screening for malignant neoplasm of colon performed (~05/2023) Cholecystitis (~01/2023) Gallstones Pain of both sacroiliac joints Vertigo STEMI (ST elevation myocardial infarction) (~05/2022) COVID (~04/20/22) Acute non-ST elevation myocardial infarction (NSTEMI) Heart palpitations De Quervain's tenosynovitis, right Kidney stone (04/26/15) 100% calcium oxalate monohydrate Cerebrovascular accident (CVA) (08/03/16) [facility] admission 07/11-07/20/2016 R valdez radiata, basal ganglia, subinsular region and temporal lob infarcts s/p tPA and thrombectomy (07/11/16) with recanalization Alcohol use disorder (04/29/11) [facility] PT. STATES HE DOESN'T DRINK ANYMORE, HASN'T IN YEARS 09/21/19 Patellar fracture (01/26/17) (L) S/p surgical repair Surgical History History of colonoscopy (~05/2023) biopsies--Tubular adenoma and sessile serrated Dr Park Hx of cholecystectomy (~02/18/23) Status post vasectomy (~01/19/06) Status post cardiac catheterization (~05/2022) [facility]; mid-LAD & distal RCA Status post wrist surgery (~09/2021) Dr. Marvin; RIGHT for De Quervain's S/P cardiac cath (01/01/22) [facility]; statwith stent Open Reduction and Internal Fixation of Patellar Fracture (01/26/17) (L) Dr. Lemus Family History Father No problems noted. Maternal Grandmother Colon cancer CAD (coronary artery disease) Mother CAD (coronary artery disease) Diabetes Hypertension Depression, psychotic Maternal Uncle Colon cancer Social History Smoking/Tobacco Use Status: Current every day Tobacco Type: pipe Other: Smokes 5-6 ciggs worth of tobacco in pipe on a rough day Smoking risk assessment performed?: Yes Alcohol Intake: former Drug use: Never Substance use type: does not use Adopted: No Caregiver/Support person: No Foster care: No Household members: children and other Details: 2 - lives with son Housing: house Number of Children: 2 Communication Needs: None current occupation: works for a [employer] company Pets and animals: No Current gender identity: male What type of physical activity do you participate in: none, regular exercise, weight lifting and additional Details: 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
[2024-11-23] MEDS: traMADol 50 MG TAB PO (06:18)
[2024-11-23] MEDS: Ondansetron 4 MG/2 ML VIAL IVP (06:18)
[2024-11-23 06:24] LABS: Abs Immature Grans 0.05 10^3/uL (0.0-0.06); HCT 48.8 % (40.0-50.0); HGB 16.9 g/dL (13.5-17.5); Immature Grans % 0.4 %; MCH 30.9 pg (27.0-33.0); MCHC 34.6 % (32.0-36.0); MCV 89 fL (80-95); MPV 9.8 fL (8.0-11.0); Platelet Count 242 10^3/uL (130-400); RBC 5.47 10^6/uL (4.36-5.78); RDW 12.4 % (11.8-14.1); RDW-SD 41.1 fL; WBC 11.32 10^3/uL (4.4-10.8)
[2024-11-23 06:37] LABS: Magnesium 2.0 mg/dL (1.8-2.4)
[2024-11-23 06:50] LABS: ALT 30 U/L (16-63); AST 23 U/L (15-37); Albumin 4.5 g/dL (3.4-5.0); Alkaline Phosphatase 124 U/L (46-116); Anion Gap 7.2 mmol/L (3-11); BUN 7 mg/dL (7-18); Bilirubin, Total 1.5 mg/dL (0.2-1.0); CO2 28.8 mmol/L (21.0-32.0); Calcium 8.9 mg/dL (8.5-10.1); Chloride 103 mmol/L (98-107); Estimated GFR 103.40 (mL/min/1.73m2); Glucose 208 mg/dL (74-106); Lipase 43 U/L (<78); Potassium 4.3 mmol/L (3.5-5.1); Sodium 139 mmol/L (136-145); Total Protein 7.7 g/dL (6.4-8.2)
[2024-11-23] MEDS: Omnipaque 350 MG/ML 100 ML BTL IJ (06:52)
[2024-11-23] MEDS: Normal Saline - Diluent 50 ML VIAL IJ (06:52)
[2024-11-23 07:35] LABS: Glucose 500 mg/dL (Negative)
[2024-11-23 07:45] LABS: C & S Indicated? No; RBC 0-2 HPF (0-2); WBC Negative HPF (0-5)
--- NOTE | 2024-11-23 07:48 | DI.VRAD_ITS ---
PROCEDURE INFORMATION: Exam: CT Abdomen And Pelvis With Contrast Exam date and time: 11/23/2024 6:30 AM Age: 49 years old Clinical indication: Localized; Right lower quadrant (rlq); Prior surgery; Surgery date: 6+ months; Surgery type: Cholecystectomy; Crampy abdominal pain, rlq ttp TECHNIQUE: Imaging protocol: Computed tomography of the abdomen and pelvis with contrast. Radiation optimization: All CT scans at this facility use at least one of these dose optimization techniques: automated exposure control; mA and/or kV adjustment per patient size (includes targeted exams where dose is matched to clinical indication); or iterative reconstruction. Contrast material: [id number]; Contrast volume: 100 ml; Contrast route: INTRAVENOUS (IV); COMPARISON: CT RENAL COLIC WO 05/26/2020 12:01 PM FINDINGS: Limitations: Mild motion artifact. Lungs: Dependent changes are present in the lungs. Heart: Thrombus in the apex of the left ventricle. Coronary arteries: Coronary artery calcifications. Liver: Contour irregularity in the liver. Correlate clinically for history of chronic liver disease/cirrhosis. Hepatomegaly. Gallbladder and biliary ducts: Cholecystectomy. Pancreas: No CT evidence for acute pancreatitis. Spleen: No splenomegaly. Adrenal glands: Nodular adrenal thickening. Kidneys and ureters: Scarring in the kidneys. Multiple areas of decreased enhancement in the right kidney. Few areas of decreased enhancement in the left kidney. Stomach and bowel: No intestinal obstruction is evident. Fluid in nondilated small bowel, nonspecific. Areas of apparent mural thickening in the colon commensurate with underdistention. Few colonic diverticula. Appendix: No evidence of appendicitis. Intraperitoneal space: No free air. Vasculature: Atherosclerotic changes in the aorta and its branches. Lymph nodes: Multiple mesenteric lymph nodes. Urinary bladder: No acute findings. Reproductive: No acute findings. Bones/joints: No pertinent acute abnormality seen. Soft tissues: No pertinent acute abnormality seen. IMPRESSION: 1. Areas of decreased enhancement in the right kidney most consistent with infarcts. There is thrombus at the apex of the left ventricle suggesting embolic etiology. Scarring or pyelonephritis are less likely differential considerations. Areas of decreased enhancement in the left kidney, likely scarring. Cannot exclude infarcts, pyelonephritis. Clinical correlation and comparison with prior studies advised. 2. THIS REPORT CONTAINS FINDINGS THAT MAY BE CRITICAL TO PATIENT CARE. The findings were verbally communicated via telephone conference with Dr. Isbell at 7:46 AM EDT on 11/23/2024. The findings were acknowledged and understood. Dictated and Authenticated by: Caitie Hyatt MD. Orderin Latasha Norris MD
[2024-11-23] MEDS: fentaNYL 100 MCG/2 ML VIAL IVP ×2 (08:04→10:20)
[2024-11-23] MEDS: Heparin in 0.45% NaCl 25,000 UNIT/250 ML BAG 18 UNIT IVINF ×2 (08:09→17:34)
--- NOTE | 2024-11-23 08:15 | RT.EKG_ITS ---
APPROVED REPORT Exam: Resting ECG Reason for Exam: ventricular thrombus Patient Location: E HR:64 bpm ECG Measurements Heart Rate 64 AXIS KS 146 P 51 QRSd 93 QRS -28 QT 420 T 30 QTc 435 Conclusion Sinus rhythm...normal P axis, V-rate 60- 99 Inferior infarct, old...Q >35mS, II III aVF
[2024-11-23 08:32] LABS: PTT Activated 22.1 sec (20.6-30.2)
[2024-11-23 08:48] LABS: Troponin I 9 ng/L (<or=76)
--- NOTE | 2024-11-23 08:49 | W.EDPROG ---
Date of service: 11/23/24 Time of Service: 08:49 Medical Decision Making Patient signed out to me pending CT which shows left ventricular thrombus and renal infarcts. Patient has had a thrombus in his ventricle in the past but on an echo in 2022 seem to be resolved and he is to be on Eliquis but he states he was taken off of that, he is unsure when he was taken off of that. Will initiate heparin, will check an EKG and troponins. Will also consult with [facility] to see if there is any interventional interventions such as thrombectomy that needs to be done. Spoke with cardiology Dr. Sinclair who reviewed the case and given hemodynamics are stable they recommended reinitiating anticoagulation and if able to obtaining a formal echo. Will discuss with hospitalist about admission given patient still requiring IV pain medication as well. Lab Data Lab results reviewed: Yes I reviewed the patient's lab results. ECG Data Attestation: I personally reviewed and interpreted this ECG (s) as follows: Prior ECG tracings: available for review Interpretation: sinus rate of 64 no stemi Discharge Plan Disposition Patient Disposition: Admit to [facility] Condition: Stable Discharge Details Clinical Impression: Abdominal pain, Renal infarct, Left ventricular thrombus Admit Date/Time: 11/23/24 11:13 Admit Provider: Brandon Mejia Attending Provider: Brandon eMjia Primary Care Provider: Lavonne Clarke ED Provider: Jacques Isbell
--- NOTE | 2024-11-23 09:43 | DI.US_ITS ---
APPROVED REPORT EXAM: Comprehensive 2D, Doppler, and color-flow Echocardiogram Patient Location: ER Room/Bed: 5 Indications: Ventricular thrombus Echo Enhancing Agent Indication: Endocardial border delineation Agent(s) / Amount(s) Used: Definity 10.0 cc Comments: Contrast study was performed with 1 IV injection of 2cc of diluted definity. Other Information Study Quality: Poor. Technically limited study due to body habitus, inability to position patient. Conclusion Technically difficult and suboptimal study Mildly dilated left ventricle. Normal left ventricular wall thickness. Ejection fraction is estimated at 45 to 50% with apical and inferoapical wall motion abnormalities Right ventricle is not well-visualized Both atria are grossly normal in size There is no significant valvular disease Possible inferoapical filling defect, cannot exclude thrombus Wall motion Left Ventricle Left ventricle is mildly dilated. Left ventricular systolic function is decreased. Definity microbubble contrast injection was given. Regional wall motion abnormalities are noted. There is no ventricular septal defect visualized. LVEF is 45-50%. Right Ventricle Right ventricle is not well visualized. Right ventricular systolic function could not be assessed. Atria The left atrium size is normal. The right atrium size is normal. The interatrial septum is intact with no evidence for an atrial septal defect. Aortic Valve The aortic valve is normal in structure. Aortic valve is trileaflet. There is no aortic valvular stenosis. No aortic regurgitation is present. Mitral Valve The mitral valve is normal in structure. No evidence of mitral valve stenosis. Trace mitral regurgitation. Tricuspid Valve The tricuspid valve is normal in structure. There is no tricuspid valve stenosis. Trace tricuspid regurgitation. Unable to assess PA pressure. Pulmonic Valve The pulmonary valve is normal in structure. There is no pulmonic valvular stenosis. There is no pulmonic valvular regurgitation. Great Vessels The aortic root is normal in size. The ascending aorta is mildly dilated. Aortic arch is not well visualized. IVC is normal in size and collapses >50% with inspiration. Pericardium There is no pericardial effusion. 2D Dimensions Ao Root d 3.34 cm M: 3.1 - 3.7 Ao Asc Diam d 3.83 cm M: 2.6 - 3.4 LA Volume LA Length A4C 5.5 cm LA Length A2C 5.3 cm LA Area A4C s 20.50 cm2 LA Area A2C s 21.21 cm2 LA Vol A4C A-L 65.27 mL LA Vol A2C A-L 72.40 mL LA Vol Biplane A-L 70.0 mL LA Vol/BSA A4C A-L LA Vol/BSA A2C A-L LA Vol/BSA BP A-L 28.3 mL/m2 LA Vol A4C MOD 62.3 mL LA Vol A2C MOD 68.5 mL LA Vol BP MOD 66.5 mL RA Volume RA Area A4C 13.8 cm2 RA ESV A4C (A-L) 36.8mL RA Vol/BSA A4C A-L RA Length A4C 4.4 cm RA ESV A4C (MOD) 30.7mL LV Diastology MV E' medial 0.080 (>0.07 m/s) MV E Vmax 0.83 (0.4-1.3 m/s) MV E/E' MED 10.28 (<14) MV A Vmax 0.65 (0.4-1.3 m/s) MV E' lateral 0.070 (>0.1 m/s) E/A Ratio 1.3 MV E/E' LAT 11.71 (<14) MV E' Average 0.075 m/s MV E/E'(average) 10.95 Aortic Valve AoV Vmax 0.95 m/s LVOT Vmax 0.95 m/s AoV Peak Grad 3.6 mmHg LVOT Peak Grad 3.6 mmHg AoV Area (Vmax) 3.59 cm2 LVOT VTI 0.210 m AoV VTI 0.237 m LVOT Mean Grad 2.1 mmHg AoV Mean Hammad. 0.66 m/s LVOT SV 75.05 mL AoV Mean Grad 2.0 mmHg LVOT Diam s 2.10 cm AoV Area (VTI) 3.16 cm2 AV Regurg Peak Gr. 3.63 mmHg Velocity Ratio 1.00 Mitral Valve MV DT 206 (160-240 msec) MV Vmax TIPS 0.73 m/s MV Mean Grad 1.1 (<2mmHg) MV VTI 0.273 m Pulmonary Valve PV Vmax 0.69 (0.5-1.5 m/s) RVOT Vmax 0.64 m/s PV Peak Grad 1.9 mmHg RVOT Peak Gr. 1.6 mmHg PV Mean Hammad 0.52 m/s RVOT VTI 0.150 m PV Mean Grad 1.2 mmHg RVOT Mean Gr. 1.0 mmHg Tricuspid Valve TV S' 0.11 m/s
[2024-11-23 10:05] LABS: Troponin I 11 ng/L (<or=76)
[2024-11-23 11:20] LABS: Troponin I 10 ng/L (<or=76)
[2024-11-23] MEDS: Losartan 50 MG TAB PO (11:24)
--- NOTE | 2024-11-23 11:40 | HPE_ITS ---
Date of service: 11/23/24 Time of Service: 10:30 Assessment and Plan Assessment and plan (1) Renal infarct: Status: Acute Assessment and plan: Per Nov 23 CT: right renal large wedge infarct, bilateral scarring, no visible thrombus nor mass Likely due to thrombus given history No CINTHIA at this time Monitor renal function overnight (2) Left ventricular thrombus: Status: Acute Assessment and plan: History of left apical thrombus Echo Nov 23 showing possible inferoapical filling defect, cannot exclude thrombus Resume anticoagulation as above (3) Type 2 diabetes mellitus, with long-term current use of insulin: Status: Chronic Assessment and plan: Will check A1C Continue basal insulin with correctional (4) Hyperlipidemia, unspecified: Status: Chronic Assessment and plan: Patient reports all the men in his family young due to atherosclerosis He understands his thrombotic events to be due to atherosclerosis Continue ezetimibe (5) ASCVD (arteriosclerotic cardiovascular disease): Status: Chronic Assessment and plan: Chronic with history of CAD (6) Heart failure with mildly reduced ejection fraction (HFmrEF): Status: Acute Assessment and plan: Current EF 45-50% Cardiology care at [facility] (7) Essential hypertension: Status: Chronic Assessment and plan: Continue home metoprolol, losartan (8) Major depression, recurrent, chronic: Status: Acute Assessment and plan: Continue escitalopram History of Present Illness History of Present Illness Chief Complaint: abdominal pain, suicidal N arrative: Shukri Seth is a 49 year old man presenting November 23 with a few days of worsening abdominal pain and worsening depression. He has been uncomfortable and depressed for about a week. Prior to arrival the pain in his abdomen became severe, crampy and constant with waves of exacerbation. He reports that it feels like he was kicked in the groin, and is now worst in the RLQ. He has some nausea but has not vomited. He had tenesmus but did not produce a BM when the pain started. PMH is significant for multiple thrombotic events including cranial and cardiac. Patient reports he has a familial hypercholesterolemia which is the root cause of his clotting events. He has been on apixaban, clopidogrel and aspirin at various times but has been told to just take clopidogrel now. He also has insulin-dependent diabetes, HTN, depression, HFmrEF, CVA, CAD. 2022 STEMI, [facility] cardiac cath 2021 STEMI, [facility] cardiac cath with stenting 2016 CVA, [facility] thrombectomy In the ED imaging showed a right renal infarct without visible thrombus in renal vasculature. [facility] advised observation on heparin drip and reinitiation of DOAC. PFSH All Active Problems (Updated 11/23/24 @ 18:50 by Brandon Mejia MD) Major depression, recurrent, chronic (Acute) Heart failure with mildly reduced ejection fraction (HFmrEF) (Acute) Left ventricular thrombus (Acute) Renal infarct (Acute) Abdominal pain (Acute) Age-related nuclear cataract, bilateral (Acute ~05/11/24) Ambrocio angioma (Acute) Vascular lesion of skin (Acute) Skin tag (Acute) Hepatic steatosis (Acute ~07/2023) Finding on imaging Post-cholecystectomy syndrome (Acute) Hemangioma (Acute) Sebaceous cyst (Acute) Cyst, pilonidal, with abscess (Acute) Sessile serrated polyp of colon (Acute ~06/04/23) Diverticula of colon (Acute) Adenomatous polyps (Acute) Unable to cry (Acute) [facility] referral Sleep walking (Acute) Sleep Med referral History of CVA (cerebrovascular accident) (Acute) Type 2 diabetes mellitus, with long-term current use of insulin (Chronic) HFrEF (heart failure with reduced ejection fraction) (Acute) Ischemic cardiomyopathy (Chronic) 06/20/24 f/u Dr Fuentes 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 2 diabetes mellitus (Acute ~06/2020) Antiplatelet or antithrombotic long-term use (Acute) Ventricular premature beats (Acute 08/28/14) Vitamin D deficiency (Chronic 05/23/15) Tobacco use disorder (Chronic) Panic disorder without agoraphobia (Chronic 04/29/11) Obesity (BMI 30-39.9) (Chronic 08/28/14) Obstructive sleep apnea syndrome, mild (Chronic 11/03/16) Shanika Jimenez NP DOES NOT USE CPAP; 2023: declines sleep study (referral cancelled) Hyperlipidemia, unspecified (Chronic 04/29/11) Intolerant to atorvastatin; able to tolerate once vit D deficiency addressed Erectile dysfunction (Chronic 11/29/15) Depression (Chronic 04/29/11) Bipolar disorder (Chronic) Dx psychiatry [facility] PT. 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 Galaviz at [facility] 06/20/24 F/U Dr Fuentes Medical History (Updated 11/23/24 @ 18:50 by Brandon Mejia MD) Screening for malignant neoplasm of colon performed (~05/2023) Cholecystitis (~01/2023) Gallstones Pain of both sacroiliac joints Vertigo STEMI (ST elevation myocardial infarction) (~05/2022) COVID (~04/20/22) Acute non-ST elevation myocardial infarction (NSTEMI) Heart palpitations De Quervain's tenosynovitis, right Kidney stone (04/26/15) 100% calcium oxalate monohydrate Cerebrovascular accident (CVA) (08/03/16) [facility] admission 07/11-07/20/2016 R valdez radiata, basal ganglia, subinsular region and temporal lob infarcts s/p tPA and thrombectomy (07/11/16) with recanalization Alcohol use disorder (04/29/11) [facility] PT. STATES HE DOESN'T DRINK ANYMORE, HASN'T IN YEARS 09/21/19 Patellar fracture (01/26/17) (L) S/p surgical repair Surgical History History of colonoscopy (~05/2023) biopsies--Tubular adenoma and sessile serrated Dr Park Hx of cholecystectomy (~02/18/23) Status post vasectomy (~01/19/06) Status post cardiac catheterization (~05/2022) [facility]; mid-LAD & distal RCA Status post wrist surgery (~09/2021) Dr. Marvin; RIGHT for De Quervain's S/P cardiac cath (01/01/22) [facility]; statwith stent Open Reduction and Internal Fixation of Patellar Fracture (01/26/17) (L) Dr. Lemus Family History Father No problems noted. Maternal Grandmother Colon cancer CAD (coronary artery disease) Mother CAD (coronary artery disease) Diabetes Hypertension Depression, psychotic Maternal Uncle Colon cancer Social History Smoking/Tobacco Use Status: Current every day Tobacco Type: pipe Other: Smokes 5-6 ciggs worth of tobacco in pipe on a rough day Smoking risk assessment performed?: Yes Alcohol Intake: former Drug use: Never Substance use type: does not use Adopted: No Caregiver/Support person: No Foster care: No Household members: children and other Details: 2 - lives with son Housing: house Number of Children: 2 Communication Needs: None current occupation: works for a [employer] Pets and animals: No Current gender identity: male What type of physical activity do you participate in: none, regular exercise, weight lifting and additional Details: 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: daily Seatbelt use: always Helmet use: No Drive 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 w/intox wedding transportation driver: No Water heater temp set <120 deg: Yes Working smoke detector in home: Yes Fire extinguisher in home: Yes Carbon monox detector in home: Yes Do you feel safe at home: Yes Do you feel safe in your relationship?: Yes Meds Allergies and Home Medications Allergies Allergy/AdvReac Type Severity Reaction Status Date / Time hydromorphone (From Dilaudid) AdvReac Intermediate Psychosis Verified 11/23/24 05:54 codeine (Codeine) AdvReac Unknown PSYCHOSIS Verified 11/23/24 05:54 Home Medications ?Medication ?Instructions ?Recorded ?Confirmed ?Type acetaminophen 500 mg tablet 1,000 mg PO PRN PRN 11/23/24 History (Tylenol Extra Strength) multivitamin 1 tab PO DAILY #90 tabs 06/1011/23/24 Rx blood sugar diagnostic (FreeStyle #200 ea 12/31/21 Rx Lite Strips) acidophilus 25 million 1 tab PO DAILY #90 tabs 01/1011/23/24 Rx cell-pectin, citrus 100 mg tablet cholecalciferol (vitamin D3) 25 75 mcg PO DAILY 11/23/24 History mcg (1,000 unit) capsule pen needle, diabetic 32 gauge x #30 ea 11/24/23 Rx 5/32 (BD Ultra-Fine Marivel Pen Needle) atorvastatin 80 mg tablet 80 mg PO DAILY #90 tabs 11/0 08/0311/23/24 Rx clopidogrel 75 mg tablet (Plavix) 75 mg PO DAILY #90 t abs 02/14/24 11/23/24 Rx escitalopram oxalate 10 mg tablet 10 mg PO DAILY #90 t abs 02/14/24 11/23/24 Rx losartan 50 mg tablet See Rx Instructions .Route 1 04/15/23 11/23/24 Rx .COMPLEX #90 tabs pantoprazole 40 mg tablet,delayed 40 mg PO DAILY #90 t ab-caps 02/14/24 11/23/24 Rx release empagliflozin 25 mg tablet 25 mg PO DAILY AM #90 tab-c aps 05/15/24 11/23/24 Rx (Jardiance) hydroxyzine HCl 25 mg tablet 25 - 50 mg (1 - 2 x 25 mg ) PO QID 05/15/24 11/23/24 Rx PRN acute anxiety #90 tabs metoprolol succinate 100 mg 100 mg PO DAILY #90 tabs 0 05/15/24 11/23/24 Rx tablet,extended release 24 hr (Toprol XL) furosemide 20 mg tablet (Lasix) 20 mg PO DAILY PRN 03/0611/23/24 History Held on 08/21/24. Instructions: Home Medication placed on hold at Doctor's office dulaglutide 4.5 mg/0.5 mL 4.5 mg (0.5 mL) subcut QWEEK 28 08/21/24 11/23/24 Rx subcutaneous pen injector days #2 mL (Trulicity) ezetimibe 10 mg tablet See Rx Instructions .Route 0 09/06/24 11/23/24 Rx .COMPLEX #90 tabs insulin degludec 200 unit/mL (3 See Rx Instructions .R oute 09/14/24 11/23/24 Rx mL) subcutaneous pen .COMPLEX #9 mL blood-glucose sensor (FreeStyle 10/02/24 11/23/24 His POLYBONA Prieto 3 Plus Sensor device) metformin 500 mg tablet,extended 1,000 mg (2 x 500 mg) PO DAILY 10/02/24 11/23/24 Rx release 24 hr #180 tabs nitroglycerin 0.4 mg sublingual 0.4 mg sublingual Q5M PRN chest 10/02/24 11/23/24 Rx tablet pain #100 tabs ibuprofen 200 mg tablet 200 mg PO Q6H PRN 10/30/24 0 11/23/24 History Exam Narrative Exam Narrative: General: This is a pleasant, talkative, obese man in no acute distress HEENT: Mildly deformed left temporal and occipital skull areas, no lesions CV: RRR Resp: CTAB Abd: NTND MSK: voluntary motion x4 Neuro: awake, alert, no focal deficits Results Labs 11/23/24 06:04 11/23/24 06:04 Labs: Laboratory Results - last 24 hr 11/23/24 11/23/24 11/23/24 06:04 07:25 08:05 WBC 11.32 H RBC 5.47 Hgb 16.9 Hct 48.8 MCV 89 MCH 30.9 MCHC 34.6 RDW 12.4 Plt Count 242 MPV 9.8 Immature Gran % 0.4 Neutrophils % 75.9 Lymphocytes % 17.2 Monocytes % 4.5 Eosinophils % 1.3 Basophils % 0.7 Nucleated RBC % 0.0 Absolute Neutrophils 8.59 H Absolute Lymphocytes 1.95 Absolute Monocytes 0.51 Absolute Eosinophils 0.15 Absolute Basophils 0.08 APTT VBG Lactate 1.8 Sodium 139 Potassium 4.3 Chloride 103 Carbon Dioxide 28.8 Anion Gap 7.2 BUN 7 Creatinine 0.9 Est GFR (CKD-EPI 2020) 103.40 Glucose 208 H Calcium 8.9 Magnesium 2.0 Total Bilirubin 1.5 H AST 23 ALT 30 Alkaline Phosphatase 124 H Troponin I 9 Total Protein 7.7 Albumin 4.5 Lipase 43 Urine Color Yellow Urine Clarity Clear Urine pH 5.5 Ur Specific [place] 1.015 Urine Protein 30 H Urine Ketones Negative Urine Blood Trace-intact H Urine Nitrite Negative Urine Bilirubin Negative Urine Urobilinogen 0.2 Ur Leukocyte Esterase Negative Urine RBC 0-2 Urine WBC Negative Ur Epithelial Cells Negative Urine Crystals Negative Urine Bacteria Rare Urine Casts Negative Urine Mucus Trace Urine Other Negative Ur Culture Indicated? No Urine Glucose 500 H 11/23/24 11/23/24 11/23/24 08:12 08:45 09:56 WBC RBC Hgb Hct MCV MCH MCHC RDW Plt Count MPV Immature Gran % Neutrophils % Lymphocytes % Monocytes % Eosinophils % Basophils % Nucleated RBC % Absolute Neutrophils Absolute Lymphocytes Absolute Monocytes Absolute Eosinophils Absolute Basophils APTT 22.1 VBG Lactate Sodium Potassium Chloride Carbon Dioxide Anion Gap BUN Creatinine Est GFR (CKD-EPI 2020) Glucose Calcium Magnesium Total Bilirubin AST ALT Alkaline Phosphatase Troponin I 11 10 Total Protein Albumin Lipase Urine Color Urine Clarity Urine pH Ur Specific [place] Urine Protein Urine Ketones Urine Blood Urine Nitrite Urine Bilirubin Urine Urobilinogen Ur Leukocyte Esterase Urine RBC Urine WBC Ur Epithelial Cells Urine Crystals Urine Bacteria Urine Casts Urine Mucus Urine Other Ur Culture Indicated? Urine Glucose Last Vital Signs Temp 37.3 C 11/23/24 05:47 Pulse 64 11/23/24 11:09 Resp 17 11/23/24 11:09 BP 176/120 H 11/23/24 11:09 Pulse Ox 96 11/23/24 11:09 Time Spent Time spent with Patient: 55-74 minutes Time was spent: preparing to see the patient(eg.review tests), obtaining and/or reviewing separately otained hiistory, ordering medications,tests, procedures, referring, communicating with other health summer child caregiver, indepentently interpreting results, counseling the patient and care coordination
--- NOTE | 2024-11-23 13:02 | PHA.REVIEW2 ---
Pharmacy Admission Review Admission Clinical Review Admission Pharmacy Review: hydromorphone (From Dilaudid) Adverse Reaction (Intermediate, Verified 11/23/24 05:54) Psychosis codeine (Codeine) Adverse Reaction (Unknown, Verified 11/23/24 05:54) PSYCHOSIS Resuscitation Status Full Code Height 6 ft 1 in Weight 122.47 kg Comments Comments/Follow Ups: Follow up on home med question Pharmacy Admission Review Renal Dosing Renal Dosing: BUN 7 mg/dL (7-18) 11/23/24 06:04 Creatinine 0.9 mg/dL (0.70-1.30) 11/23/24 06:04 Medications needing adjustments: Reviewed (CrCl 133.13 mL/min) List of meds needing interventions: Current medications are okay Anticoagulation Anticoagulation: Hgb 16.9 g/dL (13.5-17.5) 11/23/24 06:04 Hct 48.8 % (40.0-50.0) 11/23/24 06:04 Plt Count 242 10^3/uL (130-400) 11/23/24 06:04 Creatinine 0.9 mg/dL (0.70-1.30) 11/23/24 06:04 Therapeutic Anticoagulation: Reviewed (renal thrombosis) Medications: Heparin (@18 mL/hr) Relevant Labs Relevant Labs: Sodium 139 mmol/L (136-145) 11/23/24 06:04 Potassium 4.3 mmol/L (3.5-5.1) 11/23/24 06:04 Chloride 103 mmol/L (98-107) 11/23/24 06:04 Magnesium 2.0 mg/dL (1.8-2.4) 11/23/24 06:04 Electrolytes, C-Reactive P, ESR: Reviewed DM Control DM Control: Glucose 208 mg/dL (74-106) H 11/23/24 06:04 DM Control: Reviewed Insulin Dosing, Diabetic Medication: Has order for SS insulin, glargine 20 units daily and Jardiance 25mg daily Cardiac Review Cardiac Review: Troponin I 10 ng/L (<or=76) 11/23/24 09:56 Blood Pressure 187/123 1131 Blood Pressure 177/129 1116 Blood Pressure 176/120 1109 Blood Pressure 176/108 1032 Blood Pressure 184/103 1016 Blood Pressure 193/127 0946 Blood Pressure 198/121 0931 Blood Pressure 195/116 0916 Blood Pressure 198/123 0901 Blood Pressure 193/124 0846 Blood Pressure 194/132 0830 Blood Pressure 192/111 0820 BP, HR, EF%: Reviewed (HR WNL) List meds needing interventions: Has order for metoprolol XL 100mg daily QTc Review QTc: Reviewed (435 from 11/23/24) IV to PO Switch IV Medications: Reviewed (heparin) Home Meds Home Med List reviewed: Intervened Relevent Home Meds Not ordered & why?: acidophilus, vitamin D3, Trulicity (weekly), ezetimibe, furosemide (PRN), hydroxyzine (PRN), ibuprofen (PRN), losartan, metformin, multivitamin and nitroglycerin (PRN) Reached out to provider regarding ezetimibe, furosemide, hydroxyzine, losartan and metformin. Waiting to hear back. Current Meds Current Medication Order Review: Intervened Comments: Added IV access order Comments Comments/Follow Ups: Follow up on home med question
[2024-11-23] MEDS: Insulin Aspart 300 UNITS/3 ML PEN SC ×2 (13:38→18:30)
--- NOTE | 2024-11-23 14:02 | W.NUTCONSULT ---
Date of service: 11/24/24 Time of Service: 09:18 Nutritional Consult ASSESSMENT: received consult request: diabetes ed/mgt - have met with Shukri twice for menu preferences and nutrition assessment/education since his admission. Pt is a 49yo male being treated for renal infarct, left ventricular thrombus, HFmrEF, major depression. PMH also includes ASCVD, HTN, HLD, IDDMI, steatosis of liver, CVA. Pt eating 100% of meals on order for CHO consistent diet. A1C was 7.1% today - Historically mostly in 7's indicating fairly good control. Home diabetes meds include delaglutide weekly, jardiance, insulin degludec, and metformin. Wheres a Prieto III CGM for monitoring. FPG 128 today and 130 at breakfast. Shukri declines education today - feels his mgt is mostly on target but could always do a little better with his food choices and increasing his activity. NUTRITIONAL DIAGNOSIS: hx of poorly controlled glucose. Currently seems to be better hitting his glucose targets with medication mgt and basal insulin. INTERVENTION: Will continue to check in to see if education desired or if has any questions. MONITORING AND EVALUATION: Will monitor weight, intake, nutrition -related labs/glucose Time Spent in Nutritional Counseling and Treatment: 10 min
[2024-11-23] MEDS: Perflutren Lipid Microspheres 1.5 ML VIAL IVP (16:49)
[2024-11-23] MEDS: Normal Saline Flush 10 ML SYR IVP (16:50)
[2024-11-23] MEDS: fentaNYL 100 MCG/2 ML VIAL 50 MCG IVP (17:24)
[2024-11-23 18:25] LABS: PTT Activated 36.2 sec (20.6-30.2)
[2024-11-23] MEDS: Metoprolol 50 MG TAB PO (18:34)
[2024-11-24 00:09] LABS: PTT Activated 81.7 sec (20.6-30.2)
[2024-11-24 03:24] VITALS: BP 131/97; PULSE 62; RESP 18; TEMP 37; O2SAT 95
[2024-11-24] MEDS: Heparin in 0.45% NaCl 25,000 UNIT/250 ML BAG 22 UNIT IVINF (03:31)
[2024-11-24 06:26] LABS: HCT 43.7 % (40.0-50.0); HGB 15.4 g/dL (13.5-17.5); MCH 31.7 pg (27.0-33.0); MCHC 35.2 % (32.0-36.0); MCV 90 fL (80-95); MPV 9.6 fL (8.0-11.0); Platelet Count 181 10^3/uL (130-400); RBC 4.86 10^6/uL (4.36-5.78); RDW 12.8 % (11.8-14.1); RDW-SD 42.0 fL; WBC 11.88 10^3/uL (4.4-10.8)
[2024-11-24 06:36] LABS: PTT Activated 69.7 sec (20.6-30.2)
[2024-11-24 06:41] LABS: ALT 50 U/L (16-63); AST 92 U/L (15-37); Albumin 3.6 g/dL (3.4-5.0); Alkaline Phosphatase 108 U/L (46-116); Anion Gap 11.0 mmol/L (3-11); BUN 6 mg/dL (7-18); Bilirubin, Total 2.9 mg/dL (0.2-1.0); CO2 26.0 mmol/L (21.0-32.0); Calcium 8.2 mg/dL (8.5-10.1); Calculated LDL 60 mg/dL (<100); Chloride 103 mmol/L (98-107); Cholesterol 118 mg/dL (<200); Estimated GFR 103.40 (mL/min/1.73m2); Glucose 128 mg/dL (74-106); HDL Cholesterol 30 mg/dL (>or=40); Magnesium 1.7 mg/dL (1.8-2.4); Potassium 3.4 mmol/L (3.5-5.1); Sodium 140 mmol/L (136-145); Total Protein 6.3 g/dL (6.4-8.2); Triglyceride 141 mg/dL (<150)
[2024-11-24 07:36] VITALS: BP 130/91; PULSE 67; RESP 16; TEMP 37.2; O2SAT 98
[2024-11-24 07:44] LABS: Hemoglobin A1C 7.1 % (<5.7)
[2024-11-24] MEDS: Pantoprazole 40 MG TABCR PO (08:32)
[2024-11-24] MEDS: Losartan 50 MG TAB PO (08:32)
[2024-11-24] MEDS: Empaglifozin 25 MG TAB PO (08:32)
[2024-11-24] MEDS: Escitalopram 10 MG TAB PO (08:32)
[2024-11-24] MEDS: Ezetimibe 10 MG TAB PO (08:32)
[2024-11-24] MEDS: Metoprolol CR 100 MG TABCR PO (08:32)
[2024-11-24] MEDS: Atorvastatin 40 MG TAB 80 MG PO (08:32)
[2024-11-24] MEDS: Clopidogrel 75 MG TAB PO (08:34)
[2024-11-24] MEDS: Normal Saline Flush 10 ML SYR IVP (08:35)
[2024-11-24] MEDS: Insulin Glargine 300 UNITS/3 ML PEN 20 UNITS SC (08:42)
--- NOTE | 2024-11-24 10:04 | INITIAL_ITS ---
Date of service: 11/24/24 Time of Service: 10:05 Care Management Initial Assmt Initial Assessment Reason for Hospitalization: abdominal pain and depression Functional Status/Living Situation Patient Presentation: Guillermo presented to the ED early yesterday morning with c/o abdominal pain and thoughts of harming himself due to the pain - no plan. Guillermo has no gallbladder. CT of his abdomen showed a left ventricular thrombus and renal infarcts. EKG WNL. Shukri was dressed and ready to go when CM met with him this morning. He was very pleasant with CM and noted he was the same with his RN. He denied any c/o and denied any community needs. 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 Guillermo was given the contact information for [facility]. He seemed happy to get this info. Guillermo was eager for discharge. He was no longer having any pain. He was discharged home today on Eliquis, which [facility] was confirmed as affordable for patient. Town of Residence: [place] Resides with: Alone Significant Other/Family: Local (motherSarahi and grandmom, Yeimy) Natural Supports: mother and grandmother Employment Status: Disabled (is hoping to get a part-time job) Instrumental Activities of Daily Living (ADLs): Independent Medications Medication Management: No Issues/Barriers identified Advance Directives Advance Directives: Do you have an Advance Directive: Y , 06:09 AD On File at [facility]: Y 11/23/24, 06:09 Date Asked AD Date Reviewed 11/23/24 11/23/24, 06:09 COLST On File at [facility] COLST Date Scanned Comment: MotherSarahi, iraida HCA Code Status Resuscitation Status Full Code Insurance Coverage/Financial Issues Insurance: Medicare Part A & B Medicaid of [place] Care Team Visit Care Team Role Provider Type Lavonne Clarke NP Primary Care Provider NURSE PRACTITIONER Gloria Wilder RDN, [facility] Other Providers FOOD COUNSELOR Ángel Hays RDN Other Providers FOOD COUNSELOR Jacques Isbell MD Emergency Provider [facility] STAFF PHYSICIAN Brandon Mejia MD Admit Provider [facility] STAFF PHYSICIAN Attending Provider Other[place] [facility] [place] Potential Discharge Needs: PCP F/U Appt and Other (cardiology f/u) Anticipated Barriers to Discharge: None Identified Patient/Family Education Needs: Review discharge instructions, discuss Ask Me Three Transportation: Private vehicle (drove himself) Plan: Guillermo was discharged home with no new services today. He will f/u with his PCP and on 11/27 and continue per his plan of care. Guillermo transported himself home. Social Determinants of Health Screening Social Determinants of health last assessed in clinic: 11/24/24 Will the Patient Participate in the Screening?: Yes Do you worry about having a steady place to live?: yes What is your living situation today?: I have housing today, but am worried about losing it Problems where you live: no known problems In the past 12 months, have you had to go without electric, gas, oil or water in your home?: yes 1. Within the past 12 months, we worried whether our food would run out before we got money to buy more.: Don't know/refused 2. Within the past 12 months, the food we bought just didn't last and we didn't have money to get more.: Don't know/refused Has lack of transportation kept you from medical appointments or from doing things needed for daily living?: no Has anyone in your life made you feel unsafe or unsupported?: no How hard is it for you to pay for the very basics like food, housing, medical care, and heating? Would you say it is:: Very hard Do you want help finding or keeping work or a job?: Yes, help finding work If for any reason you need help with day-to-day activities such as bathing, preparing meals, shopping, managing finances, etc., do you get the help you need?: I could use a little more help How often do you feel lonely or isolated from those around you?: Never Do you speak a language other than [place]iboutian at home?: No Does the patient want assistance with any of the above?: Yes Health Related Social Needs Health related social needs: housing instability, housed, with risk of homelessness (Z59.811), material hardship(utilities) (Z59.12), problems related to housing/economic circumstances (Z59.89), problems finding work (Z56.9) and problems with daily activities (Z73.9) Health related social needs details: Patient would like to work and has difficulty with it meeting the needs due to the stipulations of disability. PFSH All Active Problems (Updated 11/23/24 @ 18:50 by Brandon Mejia MD) Major depression, recurrent, chronic (Acute) Heart failure with mildly reduced ejection fraction (HFmrEF) (Acute) Left ventricular thrombus (Acute) Renal infarct (Acute) Abdominal pain (Acute) Age-related nuclear cataract, bilateral (Acute ~05/11/24) Ambrocio angioma (Acute) Vascular lesion of skin (Acute) Skin tag (Acute) Hepatic steatosis (Acute ~07/2023) Finding on imaging Post-cholecystectomy syndrome (Acute) Hemangioma (Acute) Sebaceous cyst (Acute) Cyst, pilonidal, with abscess (Acute) Sessile serrated polyp of colon (Acute ~06/04/23) Diverticula of colon (Acute) Adenomatous polyps (Acute) Unable to cry (Acute) [facility] referral Sleep walking (Acute) Sleep Med referral History of CVA (cerebrovascular accident) (Acute) Type 2 diabetes mellitus, with long-term current use of insulin (Chronic) HFrEF (heart failure with reduced ejection fraction) (Acute) Ischemic cardiomyopathy (Chronic) 06/20/24 f/u Dr Fuentes 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 2 diabetes mellitus (Acute ~06/2020) Antiplatelet or antithrombotic long-term use (Acute) Ventricular premature beats (Acute 08/28/14) Vitamin D deficiency (Chronic 05/23/15) Tobacco use disorder (Chronic) Panic disorder without agoraphobia (Chronic 04/29/11) Obesity (BMI 30-39.9) (Chronic 08/28/14) Obstructive sleep apnea syndrome, mild (Chronic 11/03/16) Shanika Jimenez NP DOES NOT USE CPAP; 2023: declines sleep study (referral cancelled) Hyperlipidemia, unspecified (Chronic 04/29/11) Intolerant to atorvastatin; able to tolerate once vit D deficiency addressed Erectile dysfunction (Chronic 11/29/15) Depression (Chronic 04/29/11) Bipolar disorder (Chronic) Dx psychiatry HS PT. DENIES THIS DX Benign prostatic hyperplasia with lower urinary tract symptoms (Chronic 01/28/17) Essential hypertension (Chronic 11/25/12) Anxiety (Chronic 04/29/11) ASCVD (arteriosclerotic cardiovascular disease) (Chronic) Anterior [place] 12/2013 --> MAGDALENA in LAD EF 40% post-[place] 09/2014 echo EF improved to almost normal at 54% Followed by pyrometer mechanic Dr. Galaviz at [facility] 06/20/24 F/U Dr Fuentes Medical History (Updated 11/23/24 @ 18:50 by Brandon Mejia MD) Screening for malignant neoplasm of colon performed (~05/2023) Cholecystitis (~01/2023) Gallstones Pain of both sacroiliac joints Vertigo STEMI (ST elevation myocardial infarction) (~05/2022) COVID (~04/20/22) Acute non-ST elevation myocardial infarction (NSTEMI) Heart palpitations De Quervain's tenosynovitis, right Kidney stone (04/26/15) 100% calcium oxalate monohydrate Cerebrovascular accident (CVA) (08/03/16) [facility] [place] R valdez radiata, basal ganglia, subinsular region and temporal lob infarcts s/p tPA and thrombectomy (07/11/16) with recanalization Alcohol use disorder (04/29/11) BINGE pER PT. STATES HE DOESN'T DRINK ANYMORE, HASN'T IN YEARS 09/21/19 Patellar fracture (01/26/17) (L) S/p surgical repair Surgical History History of colonoscopy (~05/2023) biopsies--Tubular adenoma and sessile serrated Dr Park Hx of cholecystectomy (~02/18/23) Status post vasectomy (~01/19/06) Status post cardiac catheterization (~05/2022) [facility] [place] & distal RCA Status post wrist surgery (~09/2021) Dr. Marvin; RIGHT for De Quervain's S/P cardiac cath (01/01/22) [facility]; statwith stent Open Reduction and Internal Fixation of Patellar Fracture (01/26/17) (L) Dr. Lemus Family History Father No problems noted. Maternal Grandmother Colon cancer CAD (coronary artery disease) Mother CAD (coronary artery disease) Diabetes Hypertension Depression, psychotic Maternal Uncle Colon cancer Social History Smoking/Tobacco Use Status: Current every day Tobacco Type: pipe Other: Smokes 5-6 ciggs worth of tobacco in pipe on a rough day Smoking risk assessment performed?: Yes Alcohol Intake: former Drug use: Never Substance use type: does not use Adopted: No Caregiver/Support person: No Foster care: No Household members: children and other Details: 2 - lives with son Housing: house Number of Children: 2 Communication Needs: None current occupation: works for a [employer] Pets and animals: No Current gender identity: male What type of physical activity do you participate in: none, regular exercise, weight lifting and additional Details: 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
[2024-11-24] MEDS: Apixaban 5 MG TAB 10 MG PO (11:00)
--- NOTE | 2024-11-24 11:02 | W.PM.DS.N ---
Date of service: 11/24/24 Time of Service: 10:30 DS: Diagnosis Discharge Diagnosis (1) Renal infarct: Status: Acute Asessment and Plan: Per Nov 23 CT: right renal large wedge infarct, bilateral scarring, no visible thrombus nor mass Likely due to thrombus given history No CINTHIA at this time Renal function sustained overnight (2) Left ventricular thrombus: Status: Acute Asessment and Plan: History of left apical thrombus Echo Nov 23 showing possible inferoapical filling defect, cannot exclude thrombus Resume anticoagulation as above (3) Type 2 diabetes mellitus, with long-term current use of insulin: Status: Chronic Asessment and Plan: Continue home regimen (4) Hyperlipidemia, unspecified: Status: Chronic Asessment and Plan: Patient reports all the men in his family young due to atherosclerosis He understands his thrombotic events to be due to atherosclerosis Continue ezetimibe (5) ASCVD (arteriosclerotic cardiovascular disease): Status: Chronic Asessment and Plan: Chronic with history of CAD (6) Heart failure with mildly reduced ejection fraction (HFmrEF): Status: Acute Asessment and Plan: Current EF 45-50% Cardiology care at [facility] (7) Essential hypertension: Status: Chronic Asessment and Plan: Continue home metoprolol, losartan (8) Major depression, recurrent, chronic: Status: Acute Asessment and Plan: Continue escitalopram Discharge Plan Disposition Patient Disposition: Home Condition: Improving Discharge Details Reason For Visit: Renal thrombosis Admit Date/Time: 11/23/24 11:13 Admit Provider: Brandon Mejia Attending Provider: Brandon Mejia Primary Care Provider: Lavonne Clarke Hospital Course Hospital Course: Shukri Seth is a 49 year old man presenting November 23 with a few days of worsening abdominal pain and worsening depression. He has been uncomfortable and depressed for about a week. Prior to arrival the pain in his abdomen became severe, crampy and constant with waves of exacerbation. He reports that it feels like he was kicked in the groin, and is now worst in the RLQ. He has some nausea but has not vomited. He had tenesmus but did not produce a BM when the pain started. PMH is significant for multiple thrombotic events including cranial and cardiac. Patient reports he has a familial hypercholesterolemia which is the root cause of his clotting events. He has been on apixaban, clopidogrel and aspirin at various times but has been told to just take clopidogrel now. He also has insulin-dependent diabetes, HTN, depression, HFmrEF, CVA, CAD. [place] [facility] [place] [facility] cath with stenting 2016 [place] [facility] [place] In the [place] imaging showed a right renal infarct without visible thrombus in renal vasculature. [facility] advised observation on heparin drip and reinitiation of DOAC. Overnight his pain resolved and he feels well. He has been started on therapeutic dosing of apixaban, 10 mg BID for 7 days, to be followed by maintenance apixaban 5 mg BID indefinitely. He is referred to hematology for hypercoagulability workup. Recommendations for Follow Up Recommended tests to be ordered by follow up provider: hypercoagulable panel Home Meds and New Rx's Prescriptions: New apixaban 5 mg tablet See Rx Instructions .ROUTE .COMPLEX Qty: 90 3RF Rx Instructions: take 10 mg twice per day through Nov 30 evening. Then take 5 mg twice per day indefinitely. Continued acidophilus-pectin, citrus 25 million cell -100 mg tablet 1 tab PO DAILY Qty: 90 3RF Patient Comments: Hasn't taken it in a week atorvastatin 80 mg tablet 80 mg PO DAILY Qty: 90 3RF Rx Instructions: increased from 40 to 80 mg daily by RDAHA 01/01/22 irma clopidogrel [Plavix] 75 mg tablet 75 mg PO DAILY Qty: 90 3RF escitalopram oxalate 10 mg tablet 10 mg PO DAILY Qty: 90 3RF losartan 50 mg tablet See Rx Instructions .ROUTE .COMPLEX Qty: 90 3RF Dose Instruction: TAKE ONE TABLET BY MOUTH EVERY DAY Rx Instructions: TAKE ONE TABLET BY MOUTH EVERY DAY pantoprazole 40 mg tablet,delayed release (DR/EC) 40 mg PO DAILY Qty: 90 3RF Rx Instructions: Take 40 mg daily once daily in the morning at least 30 minutes before first meal of the day Jardiance 25 mg tablet 25 mg PO DAILY AM Qty: 90 3RF Rx Instructions: Administer once daily in the morning, with or without food hydroxyzine HCl 25 mg tablet 25 - 50 mg PO QID PRN (Reason: acute anxiety) Qty: 90 3RF metoprolol succinate [Toprol XL] 100 mg tablet extended release 24 hr 100 mg PO DAILY Qty: 90 3RF (DME) FreeStyle Prieto 3 Plus Sensor Device See Rx Instructions .Route Rx Instructions: As directed nitroglycerin 0.4 mg tablet, sublingual 0.4 mg sublingual Q5M PRN (Reason: chest pain) Qty: 100 0RF Rx Instructions: do not exceed 3 doses per episode metformin 500 mg tablet extended release 24 hr 1,000 mg PO DAILY Qty: 180 3RF Trulicity 4.5 mg/0.5 mL pen injector 4.5 mg subcut QWEEK 28 Days Qty: 2 12RF Rx Instructions: Inject 4.5 mg subcutaneously once weekly as directed. insulin degludec 200 unit/mL (3 mL) insulin pen See Rx Instructions .ROUTE .COMPLEX Qty: 9 3RF Dose Instruction: INJECT 20 UNITS UNDER THE SKIN ONCE DAILY Rx Instructions: INJECT 30 UNITS UNDER THE SKIN ONCE DAILY multivitamin Tablet 1 tab PO DAILY Qty: 90 3RF (DME) FreeStyle Lite Strips Strip See Rx Instructions .Route Qty: 200 3RF Rx Instructions: As directed to check blood glucose twice daily. On insulin. Dispense covered brand. cholecalciferol (vitamin D3) 25 mcg (1,000 unit) capsule 75 mcg PO DAILY (DME) pen needle, diabetic [BD Ultra-Fine Marivel Pen Needle] 32 gauge x 5/32 needle See Rx Instructions .ROUTE .MEDSUPPLY Qty: 30 0RF Rx Instructions: Daily with Von furosemide [Lasix] 20 mg tablet 20 mg PO DAILY PRN Patient Comments: 06/20/[address] Fuentes ezetimibe 10 mg tablet See Rx Instructions .ROUTE .COMPLEX Qty: 90 3RF Dose Instruction: TAKE ONE TABLET BY MOUTH EVERY DAY, FOR GOAL LDL <70 Rx Instructions: TAKE ONE TABLET BY MOUTH EVERY DAY, FOR GOAL LDL <70 acetaminophen [Tylenol Extra Strength] 500 MG tablet 1,000 mg PO PRN PRN Patient Comments: Takes Ibuprofen 200mg every other day Discontinued ibuprofen 200 mg tablet 200 mg PO Q6H PRN Patient Comments: Takes 2 tablets (400 mg) PRN at times. Discharge Instructions Instructions: Taking oral medicines for blood clots Stand Alone Forms: Nursing Discharge Form Referrals: Lavonne Clarke NP [Primary Care Provider, Medicine] Referral Note: PCP office will call you to set up a follow up appointment. Activity:: Activity as Tolerated Equipment/Supplies:: No Equipment Needed Diet:: Normal Diet Discharge Orders Discharge Orders: Discharge Order (Routine); Ordered 11/24/24 Ordered By: Brandon Mejia Discharge Data Discharge Date/Time-TO BE ENTERED AT DEPARTURE: 11/24/24 11:29 DS: Summary Time Spent with Patient providing and/or coordinating discharge services: Less than 30 minutes Status at Discharge Functional status at discharge: independent ambulation Overall status at discharge: patient is back to baseline Mental Status: mental status grossly normal Speech and Movement: speech and movement normal Mood: congruent mood Affect: normal affect Quality:SDOH Health Related Social Needs: Health related social needs risk of homeless material hardship house/econ circumstance finding work daily activities Health related social needs details Patient would like to work and has difficulty with it meeting the needs due to the stipulations of disability. Health related social needs details: Patient would like to work and has difficulty with it meeting the needs due to the stipulations of disability. Exam Narrative Exam Narrative: General: This is a pleasant, talkative, obese man in no acute distress HEENT: Mildly deformed left temporal and occipital skull areas, no lesions CV: RRR Resp: CTAB Abd: NTND MSK: voluntary motion x4 Neuro: awake, alert, no focal deficits Psych Mental Status: mental status grossly normal Speech and Movement: speech and movement normal Mood: congruent mood Affect: normal affect DS: Data Vitals/I&O Vitals and I&O: Vital Signs Temperature 37.2 C 11/24/24 07:36 Temperature Source Temporal Artery Scan 11/24/24 07:36 Pulse 67 11/24/24 07:36 Pulse Rhythm Regular 11/23/24 12:16 Pulse 62 11/23/24 11:40 Respiratory Rate 16 11/24/24 07:36 Respiratory Effort Normal 11/23/24 12:16 Respiratory Depth Normal 11/23/24 12:16 Respiratory Pattern Normal 11/23/24 12:16 Blood Pressure 130/91 H 11/24/24 07:36 Blood Pressure Mean 104 11/24/24 07:36 Pulse Oximetry 98 11/24/24 07:36 Oxygen Delivery Method Room Air 11/24/24 07:36 Oxygen Flow Rate 0 11/24/24 07:36 Pain Level 0 11/24/24 09:31 Comment Notified RN 11/23/24 17:06 Comment MD aware 11/23/24 11:09 Intake & Output 11/23/24 11/23/24 11/24/24 11:59 23:59 11:59 Intake Total 195.4 / 195.4 1058.5 / 1058.5 Output Total 700 / 701 1 Balance -700 / -505.6 194.4 / -505.6 1058.5 / 1058.5 Weight 122.47 kg 119 kg Intake: IV 195.4 / 195.4 338.5 / 338.5 Oral 720 / 720 Output: Urine 700 / 701 Other: Urine Color Yellow Yellow Urine Appearance Clear Clear Urine Odor None Data Completed and Pending Labs on day of discharge: Labs from last 24 hours 11/24/24 11/23/24 11/23/24 06:10 23:45 17:57 WBC 11.88 H RBC 4.86 Hgb 15.4 Hct 43.7 MCV 90 MCH 31.7 MCHC 35.2 RDW 12.8 Plt Count 181 MPV 9.6 APTT 69.7 H 81.7 H* 36.2 H Sodium 140 Potassium 3.4 L Chloride 103 Carbon Dioxide 26.0 Anion Gap 11.0 BUN 6 L Creatinine 0.9 Est GFR (CKD-EPI 2020) 103.40 Glucose 128 H Hemoglobin A1c 7.1 H Calcium 8.2 L Magnesium 1.7 L Total Bilirubin 2.9 H AST 92 H ALT 50 Alkaline Phosphatase 108 Troponin I Total Protein 6.3 L Albumin 3.6 Triglycerides 141 Total Cholesterol 118 LDL Cholesterol, Calc 60 HDL Cholesterol 30 L 11/23/24 09:56 WBC RBC Hgb Hct MCV MCH MCHC RDW Plt Count MPV APTT Sodium Potassium Chloride Carbon Dioxide Anion Gap BUN Creatinine Est GFR (CKD-EPI 2020) Glucose Hemoglobin A1c Calcium Magnesium Total Bilirubin AST ALT Alkaline Phosphatase Troponin I 10 Total Protein Albumin Triglycerides Total Cholesterol LDL Cholesterol, Calc HDL Cholesterol PFSH All Active Problems (Updated 11/25/24 @ 00:00 by REBECCA BRODERICK) Major depression, recurrent, chronic (Acute) Heart failure with mildly reduced ejection fraction (HFmrEF) (Acute) Left ventricular thrombus (Acute) Renal infarct (Acute) Abdominal pain (Acute) Age-related nuclear cataract, bilateral (Acute ~05/11/24) Ambrocio angioma (Acute) Vascular lesion of skin (Acute) Skin tag (Acute) Hepatic steatosis (Acute ~07/2023) Finding on imaging Post-cholecystectomy syndrome (Acute) Hemangioma (Acute) Sebaceous cyst (Acute) Cyst, pilonidal, with abscess (Acute) Sessile serrated polyp of colon (Acute ~06/04/23) Diverticula of colon (Acute) Adenomatous polyps (Acute) Unable to cry (Acute) [facility] referral Sleep walking (Acute) Sleep Med referral History of CVA (cerebrovascular accident) (Acute) Type 2 diabetes mellitus, with long-term current use of insulin (Chronic) HFrEF (heart failure with reduced ejection fraction) (Acute) Ischemic cardiomyopathy (Chronic) 06/20/24 f/u Dr Fuentes 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 2 diabetes mellitus (Acute ~06/2020) Antiplatelet or antithrombotic long-term use (Acute) Ventricular premature beats (Acute 08/28/14) Vitamin D deficiency (Chronic 05/23/15) Tobacco use disorder (Chronic) Panic disorder without agoraphobia (Chronic 04/29/11) Obesity (BMI 30-39.9) (Chronic 08/28/14) Obstructive sleep apnea syndrome, mild (Chronic 11/03/16) Shanika Jimenez NP DOES NOT USE CPAP; 2023: declines sleep study (referral cancelled) Hyperlipidemia, unspecified (Chronic 04/29/11) Intolerant to atorvastatin; able to tolerate once vit D deficiency addressed Erectile dysfunction (Chronic 11/29/15) Depression (Chronic 04/29/11) Bipolar disorder (Chronic) Dx psychiatry [facility] PT. 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 Galaviz at [facility] 06/20/24 F/U Dr Fuentes Medical History (Updated 11/25/24 @ 00:00 by REBECCA BRODERICK) Screening for malignant neoplasm of colon performed (~05/2023) Cholecystitis (~01/2023) Gallstones Pain of both sacroiliac joints Vertigo STEMI (ST elevation myocardial infarction) (~05/2022) COVID (~04/20/22) Acute non-ST elevation myocardial infarction (NSTEMI) Heart palpitations De Quervain's tenosynovitis, right Kidney stone (04/26/15) 100% calcium oxalate monohydrate Cerebrovascular accident (CVA) (08/03/16[place] [facility] [place] R valdez radiata, basal ganglia, subinsular region and temporal lob infarcts s/p tPA and thrombectomy (07/11/16) with recanalization Alcohol use disorder (04/29/11) [facility] PT. STATES HE DOESN'T DRINK ANYMORE, HASN'T IN YEARS 09/21/19 Patellar fracture (01/26/17) (L) S/p surgical repair Surgical History History of colonoscopy (~05/2023) biopsies--Tubular adenoma and sessile serrated Dr Vivian Hx of cholecystectomy (~02/18/23) Status post vasectomy (~01/19/06) Status post cardiac catheterization (~05/2022[place] [facility] mid-[place] & distal RCA Status post wrist surgery (~09/2021) Dr. Marvin; RIGHT for De Quervain's S/P cardiac cath (01/01/22) [facility]; statwith stent Open Reduction and Internal Fixation of Patellar Fracture (01/26/17) (L) Dr. Lemus Family History Father No problems noted. Maternal Grandmother Colon cancer CAD (coronary artery disease) Mother CAD (coronary artery disease) Diabetes Hypertension Depression, psychotic Maternal Uncle Colon cancer Social History Smoking/Tobacco Use Status: Current every day Tobacco Type: pipe Other: Smokes 5-6 ciggs worth of tobacco in pipe on a rough day Smoking risk assessment performed?: Yes Alcohol Intake: former Drug use: Never Substance use type: does not use Adopted: No Caregiver/Support person: No Foster care: No Household members: children and other Details: 2 - lives with son Housing: house Number of Children: 2 Communication Needs: None current occupation: works for a [employer] Pets and animals: No Current gender identity: male What type of physical activity do you participate in: none, regular exercise, weight lifting and additional Details: 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: daily Seatbelt use: always Helmet use: No Drive 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 w/intox transportation driver: No Water heater temp set <120 deg: Yes Working smoke detector in home: Yes Fire extinguisher in home: Yes Carbon monox detector in home: Yes Do you feel safe at home: Yes Do you feel safe in your relationship?: Yes Time Spent with Patient Time Spent with Patient: <45 minutes Time was spent: preparing to see the patient(eg.review tests), obtaining and/or reviewing separately otained hiistory, ordering medications,tests, procedures, referring, communicating with other health respiratory care technician, indepentently interpreting results, counseling the patient and care coordination
--- NOTE | 2024-11-24 12:06 | W.SUR.HO ---
Registration Status: DIS ZARI Primary Language: Preferred Language: Turkish v v v v v v v v v Sending and/or Receiving Nurses: Please use comment section below to note any information pertinent to the patient hand-off not included above. Information / Comments: Report received from: Neuro Patient Orientation Person,Place,Time Respiratory Pulse Oximetry 98 Pulse Oximetry 95 Pulse Oximetry 96 Pulse Oximetry 97 Pulse Oximetry 98 Pulse Oximetry 97 Oxygen Flow Rate 0 Oxygen Flow Rate 0 Oxygen Flow Rate 0 Oxygen Flow Rate 0 Oxygen Flow Rate 0 Bowels Date of Last Bowel Movement 11/22/24 hydromorphone (From Dilaudid) Adverse Reaction (Intermediate, Verified 11/23/24 05:54) Psychosis codeine (Codeine) Adverse Reaction (Unknown, Verified 11/23/24 05:54) PSYCHOSIS Bed Mobility Treatment (01/26/17) ELECTROCARDIOGRAM (06/20/97) Gait Training/Functional Ambulation Treatment using Assistive, Adaptive, Supportive or Protective Equipment (01/26/17) INJECT/INFUSE NEC (06/08/97) Introduction of Serum, Toxoid and Vaccine into Muscle, Percutaneous Approach (01/26/17) Reposition Left Patella with Internal Fixation Device, Open Approach (01/26/17) Transfer Training Treatment (01/26/17) 11/24/24 07:36 11/24/24 09:31 Temperature 37.2 C Temperature Source Temporal Artery Scan Pulse 67 Respiratory Rate 16 Blood Pressure 130/91 H Blood Pressure Mean 104 Pulse Oximetry 98 Oxygen Delivery Method Room Air Oxygen Flow Rate 0 Pain Level [Mid Posterior Back] 0 v v v v v v v v v Sending and/or Receiving Nurses: Please use comment section below to note any information pertinent to the patient hand-off not included above. Information / Comments: Report received from: Report recieved from Vero in the ED at 12:16 pm and patient arrived A & O x 3 and had a bp of 130/91, pulse of 67, respirations of 18, and 02 saturation of 98%. RN will continue to monitor and stabilize.
== END 2024-11-24 11:29 | disposition home or self-care (01) ==
LOC: ER 10:05 → MS 12:07
PROVIDERS: Family Medicine; Student in an Organized Health Care Education/Training Program; Admitting Provider Family Medicine; Emergency Provider Emergency Medicine; PCP Nurse Practitioner Adult Health; Responsible Provider Family Medicine; Visit Provider Family Medicine
DX: N28.0 Ischemia and infarction of kidney (principal); I51.3 Intracardiac thrombosis, not elsewhere classified; R80.9 Proteinuria, unspecified; E78.01 Familial hypercholesterolemia; I25.10 Atherosclerotic heart disease of native coronary artery without angina pectoris; I50.20 Unspecified systolic (congestive) heart failure; I11.0 Hypertensive heart disease with heart failure; F33.9 Major depressive disorder, recurrent, unspecified; E11.29 Type 2 diabetes mellitus with other diabetic kidney complication; Z79.4 Long term (current) use of insulin; Z79.899 Other long term (current) drug therapy
CPT/HCPCS: 00123; 36415; 80053; 80061; 83690; 85027; 93005; 93306; 96365; 96366; 96375; 96376; 99285; C8929; 74177; 81003; 81015; 83036; 83605; 83735; 84484; 85025; 85730; 93010; 99223; 99238; G0378; J1644; J1815; J2405; J3010; J3490

== ENCOUNTER 2025-03-19 01:26 | Outpatient (CLI) | payer MEDICARE, MEDICAID, SELFPAY ==
[2025-03-20 08:29] LABS: Antithrombin 3, Funct. 121 % (85-125)
[2025-03-21 10:34] LABS: Protein C, Functional 91 % (71-199); Protein S, Functional 121 % (73-156)
[2025-03-22 11:22] LABS: Factor V Leiden(R506Q) Mut Negative (Negative)
== END 2025-03-19 01:27 | disposition home or self-care (01) ==
LOC: LBO 01:26
PROVIDERS: Family Medicine; Absent Provider Nurse Practitioner Adult Health; PCP Nurse Practitioner Adult Health; Referring Provider Nurse Practitioner Adult Health; Visit Provider Nurse Practitioner Adult Health
DX: I51.3 Intracardiac thrombosis, not elsewhere classified (principal)
CPT/HCPCS: 36415; 81240; 81241; 85300; 85306; 86147; 85303